=== PATIENT | male | born 1955 | race Caucasian/White ===

== ENCOUNTER → 2017-01-21 | Outpatient (CLI) | payer MEDICARE | LOC: MW.CHFP 08:00 | PROVIDERS: ATTEND Student in an Organized Health Care Education/Training Program | DX: H61.23 Impacted cerumen, bilateral (principal) | CPT/HCPCS: 69209; G0463 ==

== ENCOUNTER 2019-06-12 11:32 | Emergency (ER) | payer MEDICARE ==
[2019-06-12] MEDS ORDERED: Sodium Chloride 0.9% 2.5 ML Syringe FLUSH PRN (11:57)
[2019-06-12] MEDS ORDERED: Sodium Chloride 0.9% 10 ML Syringe FLUSH PRN (11:57)
--- NOTE | 2019-06-12 12:02 | EDM.PDOC ---
ED HPI GENERAL MEDICAL PROBLEM - General Chief Complaint: Respiratory Problem Stated Complaint: COUGH FOR 7 DAYS Time Seen by Provider: 06/12/19 11:37 Source of Information: Reports: Patient History Limitations: Reports: No Limitations - History of Present Illness INITIAL COMMENTS - FREE TEXT/NARRATIVE: HISTORY AND PHYSICAL: History of present illness: Patient is a 63-year-old male who presents to the emergency room with his daughter with concerns of cough 1 week. He states that he is having episodes where he coughs "so hard" that he has noticed blood due to the irritation. He denies any previous history of lung diseases. Patient denies any fever, chills, headache, change in vision, syncope or near syncope. Denies any chest pain, back pain, shortness of breath. Denies any abdominal pain, nausea, vomiting, diarrhea, constipation or dysuria. Has not noted any blood in urine or stool. Patient has been eating and drinking appropriately. Review of systems: As per history of present illness and below otherwise all systems reviewed and negative. Past medical history: As per history of present illness and as reviewed below otherwise noncontributory. Surgical history: As per history of present illness and as reviewed below otherwise noncontributory. Social history: See social history for further information Family history: As per history of present illness and as reviewed below otherwise noncontributory. Physical exam: General: Well-developed and well-nourished 63-year-old male. Alert and oriented. Daughter is at bedside and is a caregiver of the patient. Can no acute distress. HEENT: Atraumatic, normocephalic, pupils equal and reactive bilaterally, negative for conjunctival pallor or scleral icterus, mucous membranes moist, TMs normal bilaterally, throat clear, neck supple, nontender, trachea midline. No drooling or trismus noted. No meningeal signs. No hot potato voice noted. Lungs: Right anterior/posterior exp wheezing, breath sounds equal bilaterally, chest nontender. Dry nonproductive cough is noted. Heart: S1S2, regular rate and rhythm without overt murmur Abdomen: Soft, nondistended, nontender. Negative for masses or hepatosplenomegaly. Negative for costovertebral tenderness.. Skin: Intact, warm, dry. No lesions or rashes noted. Extremities: Atraumatic, moves all extremities per self without difficulty or deficits, negative for cords or calf pain. Neurovascular unremarkable. Neuro: Awake, alert, oriented. Cranial nerves II through XII unremarkable. Cerebellum unremarkable. Motor and sensory unremarkable throughout. Exam nonfocal. Notes: Lab work is unremarkable chest x-ray shows no acute findings. EKG shows a normal sinus rhythm with a rate of 73. I will treat the patient with Z-Nino and pro-air inhaler. Supportive care measures were reviewed and discussed. Voices understanding and is agreeable to plan of care. Denies any further questions or concerns at this time. Diagnostics: CBC, CMP, EKG, CXR Therapeutics: Louise Villar Prescription: Zpak Pro Air inhaler Impression: Acute bronchitis Plan: 1. Take the medications as directed 2. Use the inhaler as needed every 4 hours. 3. Follow up with primary care provider as we discussed. Return to the ED as needed as discussed. Definitive disposition and diagnosis as appropriate pending reevaluation and review of above. - Related Data Allergies Allergy/AdvReac Type Severity Reaction Status Date / Time Corticosteroids Allergy Swelling Verified 01/24/14 08:39 (Glucocorticoids) cortisone Allergy Cannot Verified 06/12/19 11:55 Remember Home Meds: Home Meds Benztropine [Cog[facility]] 0.5 tab [facility] 01/24/14 [History] Haloperidol [Haldol] 5 mg PO BID 01/24/14 [History] Lisinopril/Hydrochlorothiazide [Lisinopril-Hctz 20-12.5 mg Tab] 0.5 tab [facility] 01/24/14 [History] Propranolol HCl [Propranolol HCl ER] 60 mg [facility] 01/24/14 [History] Celecoxib [CeleBREX] 200 mg PO DAILY #30 cap 01/28/14 [Rx] Rivaroxaban [Xarelto] 10 mg PO DAILY #11 tablet 01/28/14 [Rx] Past Medical History Cardiovascular History: Reports: Hypertension Psychiatric History: Reports: Anxiety, Dementia, Schizophrenia - Infectious Disease History Infectious Disease History: Reports: Chicken Pox - Past Surgical History GI Surgical History: Reports: Appendectomy Social & Family History - Family History Family Medical History: Noncontributory - Tobacco Use Smoking Status *Q: Never Smoker - Caffeine Use Caffeine Use: Reports: None - Recreational Drug Use Recreational Drug Use: No ED ROS GENERAL - Review of Systems Review Of Systems: ROS reveals no pertinent complaints other than HPI. ED EXAM, GENERAL - Physical Exam Exam: See Below (See dictation) Course - Vital Signs Last Recorded V/S: Last Vital Signs Temp 96.3 F 06/12/19 11:56 Pulse 80 06/12/19 11:56 Resp 18 06/12/19 11:56 BP 134/81 06/12/19 11:56 Pulse Ox 94 L 06/12/19 11:56 - Orders/Labs/Meds Orders: Active Orders 24 hr Category Date Time Status EKG Documentation Completion [RC] STAT Care 06/12/19 12:02 Active RT Aerosol Therapy [RC] ASDIRECTED Care 06/12/19 12:10 Active Sodium Chloride 0.9% [Saline Flush] Med 06/12/19 11:57 Active 10 ml FLUSH ASDIRECTED PRN Sodium Chloride 0.9% [Saline Flush] Med 06/12/19 11:57 Active 2.5 ml FLUSH ASDIRECTED PRN Saline Lock Insert [OM.PC] Stat Oth 06/12/19 11:57 Ordered Medication Orders Sodium Chloride (Saline Flush) 10 ml FLUSH ASDIRECTED PRN PRN Reason: Keep Vein Open Sodium Chloride (Saline Flush) 2.5 ml FLUSH ASDIRECTED PRN PRN Reason: Keep Vein Open Labs: Laboratory Tests 06/12/19 06/12/19 Range/Units 12:05 12:05 WBC 8.14 (4.0-11.0) K/uL RBC 4.84 (4.50-5.90) M/uL Hgb 14.8 (13.0-17.0) g/dL Hct 43.7 (38.0-50.0) % MCV 90.3 (80.0-98.0) fL MCH 30.6 (27.0-32.0) pg MCHC 33.9 (31.0-37.0) g/dL RDW Std Deviation 42.2 (28.0-62.0) fl RDW Coeff of Dorothea 13 (11.0-15.0) % Plt Count 174 (150-400) K/uL MPV 8.90 (7.40-12.00) fL Neut % (Auto) 77.1 (48.0-80.0) % Lymph % (Auto) 15.0 L (16.0-40.0) % Mercer % (Auto) 4.2 (0.0-15.0) % Eos % (Auto) 3.3 (0.0-7.0) % Baso % (Auto) 0.4 (0.0-1.5) % Neut # (Auto) 6.3 H (1.4-5.7) K/uL Lymph # (Auto) 1.2 (0.6-2.4) K/uL Mercer # (Auto) 0.3 (0.0-0.8) K/uL Eos # (Auto) 0.3 (0.0-0.7) K/uL Baso # (Auto) 0.0 (0.0-0.1) K/uL Nucleated RBC % 0.0 /100WBC Nucleated RBCs # 0 K/uL Sodium 138 (136-148) mmol/L Potassium 3.8 (3.5-5.1) mmol/L Chloride 101 (98-107) mmol/L Carbon Dioxide 26.8 (21.0-32.0) mmol/L BUN 15 (7.0-18.0) mg/dL Creatinine 1.2 (0.8-1.3) mg/dL Est Cr Clr Drug Dosing 57.38 mL/min Estimated GFR (MDRD) > 60.0 ml/min Glucose 169 H (74-106) mg/dL Calcium 8.7 (8.5-10.1) mg/dL Total Bilirubin 0.6 (0.2-1.0) mg/dL AST 9 L (15-37) IU/L ALT 14 (14-63) IU/L Alkaline Phosphatase 89 (46-116) U/L Total Protein 7.1 (6.4-8.2) g/dL Albumin 3.3 L (3.4-5.0) g/dL Globulin 3.8 (2.6-4.0) g/dL Albumin/Globulin Ratio 0.9 (0.9-1.6) Meds: Medications Generic Name Dose Route Start Last Admin Trade Name Freq PRN Reason Stop Dose Admin Sodium Chloride 10 ml 06/12/19 11:57 Saline Flush FLUSH ASDIRECTED PRN Keep Vein Open Sodium Chloride 2.5 ml 06/12/19 11:57 Saline Flush FLUSH ASDIRECTED PRN Keep Vein Open Discontinued Medications Generic Name Dose Route Start Last Admin Trade Name Freq PRN Reason Stop Dose Admin Albuterol/Ipratropium 3 ml 06/12/19 12:10 06/12/19 12:22 Duoneb 3.0-0.5 Mg/3 Ml NEB 06/12/19 12:11 3 ml ONETIME ONE Administration Departure - Departure Time of Disposition: 13:19 Disposition: Home, Self-Care 01 Clinical Impression: Acute bronchitis Qualifiers: Bronchitis organism: unspecified organism Qualified Code(s): J20.9 - Acute bronchitis, unspecified - Discharge Information Instructions: Acute Bronchitis, Adult, [id number] Referrals: PCP,Unknown [Primary Care Provider] - Forms: ED Department Discharge Additional Instructions: The following information is given to patients seen in the emergency department who are being discharged to home. This information is to outline your options for follow-up care. We provide all patients seen in our emergency department with a follow-up referral. The need for follow-up, as well as the timing and circumstances, are variable depending upon the specifics of your emergency department visit. If you don't have a primary care physician on staff, we will provide you with a referral. We always advise you to contact your personal physician following an emergency department visit to inform them of the circumstance of the visit and for follow-up with them and/or the need for any referrals to a consulting specialist. The emergency department will also refer you to a specialist when appropriate. This referral assures that you have the opportunity for follow-up care with a specialist. All of these measure are taken in an effort to provide you with optimal care, which includes your follow-up. Under all circumstances we always encourage you to contact your private physician who remains a resource for coordinating your care. When calling for follow-up care, please make the office aware that this follow-up is from your recent emergency room visit. If for any reason you are refused follow-up, please contact the [facility] Emergency Department at and asked to speak to the emergency department charge nurse. [facility] [address] [place] [id number] [place] [address] 1. Take the medications as directed 2. Use the inhaler as needed every 4 hours. 3. Follow up with primary care provider as we discussed. Return to the ED as needed as discussed. - My Orders Last 24 Hours: My Active Orders 06/12/19 11:57 Sodium Chloride 0.9% [Saline Flush] 10 ml FLUSH ASDIRECTED PRN Sodium Chloride 0.9% [Saline Flush] 2.5 ml FLUSH ASDIRECTED PRN Saline Lock Insert [OM.PC] Stat 06/12/19 12:02 EKG Documentation Completion [RC] STAT 06/12/19 12:10 RT Aerosol Therapy [RC] ASDIRECTED - Assessment/Plan Last 24 Hours: My Active Orders 06/12/19 11:57 Sodium Chloride 0.9% [Saline Flush] 10 ml FLUSH ASDIRECTED PRN Sodium Chloride 0.9% [Saline Flush] 2.5 ml FLUSH ASDIRECTED PRN Saline Lock Insert [OM.PC] Stat 06/12/19 12:02 EKG Documentation Completion [RC] STAT 06/12/19 12:10 RT Aerosol Therapy [RC] ASDIRECTED
[2019-06-12] MEDS ORDERED: Albuterol/Ipratropium 3.0-0.5 MG/3 ML Neb Soln NEB ONE (12:10)
[2019-06-12 12:38] LABS: BLOOD UREA NITROGEN,BUN 15 mg/dL (7.0-18.0); CARBON DIOXIDE,CO2 26.8 mmol/L (21.0-32.0); CHLORIDE,CL 101 mmol/L (98-107); GLUCOSE RANDOM 169 mg/dL (74-106); POTASSIUM,K 3.8 mmol/L (3.5-5.1); SODIUM,NA 138 mmol/L (136-148)
--- NOTE | 2019-06-12 13:18 | CR ---
Clinical INDICATION: Shortness of breath. COMPARISON: 01/12/2014. FINDINGS: The heart is normal in size. There is unfolding of the thoracic aorta. The lungs are clear. The pulmonary vasculature and pleural surfaces are unremarkable. There is thin ossification of the anterior longitudinal ligament of the thoracic spine. IMPRESSION: No acute process identified. Dictated by Deonte Ruth MD @ Jun 12 2019 1:10PM Signed by Dr. Deonte Ruth @ Jun 12 2019 1:17PM
== END 2019-06-12 13:45 | disposition home or self-care (01) ==
LOC: MW.ED 11:32
DX: J20.9 Acute bronchitis, unspecified (principal); I10 Essential (primary) hypertension; F20.9 Schizophrenia, unspecified; F41.9 Anxiety disorder, unspecified; Z88.8 Allergy status to other drugs, medicaments and biological substances; Z79.899 Other long term (current) drug therapy
CPT/HCPCS: 36415; 71046; 71046-26; 80053; 85025; 93005; 94640; 99284-25; J7620-GY

== ENCOUNTER 2020-06-26 12:17 | Observation (INO) | payer MEDICARE, OTHER ==
[2020-06-26] MEDS ORDERED: Lactated Ringers 1,000 ML IV SCH ×2 (12:45→14:30)
--- NOTE | 2020-06-26 12:49 | EDM.PDOC ---
ED HPI GENERAL MEDICAL PROBLEM - General Chief Complaint: General Stated Complaint: MEMORY LOSE Time Seen by Provider: 06/26/20 12:22 Source of Information: Reports: Patient History Limitations: Reports: No Limitations - History of Present Illness INITIAL COMMENTS - FREE TEXT/NARRATIVE: HISTORY AND PHYSICAL: History of present illness: Patient is a 64-year-old male who presents to the emergency room with complaints of multiple falls and increased dementia. Approximately 3 or 4 weeks ago the daughter who is his caregiver had the patient move in with her full-time as he was not able to take care of himself. She states the first week of him being there he was appropriate and was able to take care of himself. The patient actually had his Haldol decreased by [facility], as they were attempting to take him off of this medication. Shortly after that he started having visual and auditory hallucinations. [place] increased his dose back to his "normal dosing", has been on his routine dose for approximately 1 week. The daughter states she has noticed a change in the patient's face, stating he is not as expressive as he usually is although she has not noticed any weakness or slurred speech. With the changes in his mental health and decreasing him being able to take care of himself she did have him see the doctor last week "for his heart to get checked out". States everything was normal with the exception of finding arthritis in his hip. He was not placed on any new medications. Over the past few days he has been unsteady on his feet and requiring assistance to ambulate. Last evening he fell in the shower twice. The first time he was able to get up on his own. The daughter and her assisted him in the shower the second time and had to assist him to the ground, although she feels he did strike his head. Today he fell trying to get out of bed. The daughter states he needed assistance wiping to use the bathroom, "he is never needed my help before". The daughter is very tearful and states that she is concerned that she is not able to take care of him by herself as she has children at home who are requiring home school and she is also taking care of another family member in the household. Patient denies any fever, chills, headache, change in vision, syncope or near syncope. Denies any chest pain, back pain, shortness of breath or cough. Denies any abdominal pain, nausea, vomiting, diarrhea, constipation or dysuria. Has not noted any blood in urine or stool. Patient has been eating and drinking appropriately. Past medical history of hypertension, dementia and schizophrenia. Review of systems: As per history of present illness and below otherwise all systems reviewed and negative. Past medical history: As per history of present illness and as reviewed below otherwise noncontributory. Surgical history: As per history of present illness and as reviewed below otherwise noncontributory. Social history: See social history for further information Family history: As per history of present illness and as reviewed below otherwise noncontributory. Physical exam: General: Chronically ill appearing 64-year-old male. Alert and orientated x 3. Flat affect, nontoxic in appearance and in no acute distress. Vital signs have been reviewed by me. Nursing notes were reviewed. Accompanied by daughter who i s also his caregiver. HEENT: Nontender, normocephalic, pupils equal and reactive bilaterally, negative for conjunctival pallor or scleral icterus, mucous membranes moist, TMs normal bilaterally, throat clear, neck supple, nontender, trachea midline. No drooling or trismus noted. No meningeal signs. No hot potato voice noted. Lungs: Clear to auscultation, breath sounds equal bilaterally, chest nontender. Normal work of breathing, no accessory muscles used. Heart: S1S2, regular rate and rhythm without overt murmur Abdomen: Soft, nondistended, nontender. Negative for masses or hepatosplenomegaly. Negative for costovertebral tenderness. C-spine/Back: No pinpoint vertebral tenderness upon palpation. No crepitus, step-offs or obvious deformities. Patient is ambulatory into the emergency room without difficulty or deficit. Able to lift toes upward and push downward with lower extremities bilaterally with equal strong force. Denies any urinary or fecal incontinence. Denies any numbness, tingling or saddle paresthesia. No concerns of serious infection, fracture or cord compression, or cauda equina syndrome. Skin: Intact, warm, dry. No lesions or rashes noted. Hematologic: No petechiae or purpra. Mucosa appropriate color and normal nail bed color and refill. Extremities: Moves all extremities per self without difficulty or deficits, negative for cords or calf pain. Neurovascular unremarkable. Neuro: Awake, alert, oriented. Cranial nerves II through XII unremarkable. Cerebellum unremarkable. Motor and sensory unremarkable throughout. Exam nonfocal. Psychiatric: Mood and affect are appropriate. Normal thought process. Answering questions appropriately. Notes: Gibson Florian, director social, here to talk with patient/family about placement options. I have spoken with the patient/caregiver and discussed today's findings, in addition to providing specific details for plan of care. Patient remains hypo- tensive, when nursing staff was performing orthostatic vital signs he became unsteady on his feet and states he felt weak. Dr. Mcqueen, hospitalist on-call, was made aware of this patient and she is agreeable to keeping him for further care and management. Patient and daughter are aware and agreeable to admission. Diagnostics: CBC, CMP, Troponin, EKG, CXR, Pelvis, CT head, INR, TSH, UA, Drug Screen Therapeutics: LR @ 125mls/hr Impression: Hypotension Leukocytosis Frequent Falls Self care deficits Plan: Observation with telemetry Definitive disposition and diagnosis as appropriate pending reevaluation and review of above. - Related Data Allergies Allergy/AdvReac Type Severity Reaction Status Date / Time Corticosteroids Allergy Swelling Verified 06/26/20 12:31 (Glucocorticoids) cortisone Allergy Cannot Verified 06/26/20 12:31 Remember Home Meds: Home Meds Benztropine [Cogentin] 0.5 tab PO [facility] 01/24/14 [History] Lisinopril/Hydrochlorothiazide [Lisinopril-Hctz 20-12.5 mg Tab] [address] [facility] 01/24/14 [History] Propranolol HCl [Propranolol HCl ER] [address] [facility] 01/24/14 [History] haloperidoL [Haldol] 5 mg PO BID 01/24/14 [History] Celecoxib [CeleBREX] 200 mg PO DAILY #30 cap 01/28/14 [Rx] Rivaroxaban [Xarelto] 10 mg PO DAILY #11 tablet 01/28/14 [Rx] Past Medical History Cardiovascular History: Reports: Hypertension Psychiatric History: Reports: Anxiety, Dementia, Schizophrenia - Infectious Disease History Infectious Disease History: Reports: Chicken Pox - Past Surgical History GI Surgical History: Reports: Appendectomy Social & Family History - Family History Family Medical History: Noncontributory - Caffeine Use Caffeine Use: Reports: None ED ROS GENERAL - Review of Systems Review Of Systems: Comprehensive ROS is negative, except as noted in HPI. ED EXAM, GENERAL - Physical Exam Exam: See Below (See dictation) Course - Vital Signs Last Recorded V/S: Last Vital Signs Temp 96.2 F L 06/26/20 12:27 Pulse 87 06/26/20 12:27 Resp 16 06/26/20 12:27 BP 89/53 L 06/26/20 15:10 Pulse Ox 96 06/26/20 12:27 Orthostatic Blood Pressure [ 89/50 Standing] Orthostatic Blood Pressure [ 82/49 Sitting] Orthostatic Blood Pressure [ 96/51 Supine] - Orders/Labs/Meds Orders: Active Orders 24 hr Category Date Time Status Admission Status [Patient Status] [ADT] Stat ADT 06/26/20 15:24 Active Cardiac Monitoring [RC] . DIRECTED Care 06/26/20 15:24 Active EKG Documentation Completion [RC] STAT Care 06/26/20 12:34 Active NIH Stroke Scale [RC] ASDIRECTED Care 06/26/20 12:56 Active Orthostatic Vital Signs [RC] ASDIRECTED Care 06/26/20 14:49 Active CORONAVIRUS COVID-19 SUSAN [MOLEC] Stat Lab 06/26/20 15:10 Received Lactated Ringers [Ringers, Lactated] 1,000 ml Med 06/26/20 12:45 Active IV ASDIRECTED Lactated Ringers [Ringers, Lactated] 1,000 ml Med 06/26/20 14:30 Active IV ASDIRECTED Medication Orders Lactated Ringer's (Ringers, Lactated) 1,000 mls @ 999 mls/hr IV ASDIRECTED ARI Last Admin: 06/26/20 12:43 Dose: 125 mls/hr Documented by: VINICIUS Lactated Ringer's (Ringers, Lactated) 1,000 mls @ 999 mls/hr IV ASDIRECTED [facility] Labs: Laboratory Tests 06/26/20 06/26/20 06/26/20 Range/Units 12:40 12:40 12:40 WBC 16.96 H (4.0-11.0) K/uL RBC 3.93 L (4.50-5.90) M/uL Hgb 10.8 L (13.0-17.0) g/dL Hct 34.6 L (38.0-50.0) % MCV 88.0 (80.0-98.0) fL MCH 27.5 (27.0-32.0) pg MCHC 31.2 (31.0-37.0) g/dL RDW Std Deviation 46.1 (28.0-62.0) fl RDW Coeff of Dorothea 14 (11.0-15.0) % Plt Count 415 H (150-400) K/uL MPV 8.20 (7.40-12.00) fL Neut % (Auto) 79.6 (48.0-80.0) % Lymph % (Auto) 10.8 L (16.0-40.0) % Mccormick % (Auto) 8.5 (0.0-15.0) % Eos % (Auto) 0.9 (0.0-7.0) % Baso % (Auto) 0.2 (0.0-1.5) % Neut # (Auto) 13.5 H (1.4-5.7) K/uL Lymph # (Auto) 1.8 (0.6-2.4) K/uL Mccormick # (Auto) 1.5 H (0.0-0.8) K/uL Eos # (Auto) 0.2 (0.0-0.7) K/uL Baso # (Auto) 0.0 (0.0-0.1) K/uL Nucleated RBC % 0.0 /100WBC Nucleated RBCs # 0 K/uL INR 1.16 Lactate (0.20-2.00) mmol/L Sodium 136 (136-148) mmol/L Potassium 4.2 (3.5-5.1) mmol/L Chloride 99 (98-107) mmol/L Carbon Dioxide 27.9 (21.0-32.0) mmol/L BUN 15 (7.0-18.0) mg/dL Creatinine 1.2 (0.8-1.3) mg/dL Est Cr Clr Drug Dosing 56.61 mL/min Estimated GFR (MDRD) > 60.0 ml/min Glucose 133 H (74-106) mg/dL Calcium 8.9 (8.5-10.1) mg/dL Total Bilirubin 0.5 (0.2-1.0) mg/dL AST 26 (15-37) IU/L ALT 31 (14-63) IU/L Alkaline Phosphatase 105 (46-116) U/L Troponin I < 0.050 (0.000-0.056) ng/mL Total Protein 7.5 (6.4-8.2) g/dL Albumin 1.8 L (3.4-5.0) g/dL Globulin 5.7 H (2.6-4.0) g/dL Albumin/Globulin Ratio 0.3 L (0.9-1.6) TSH 3rd Generation 0.91 (0.36-3.74) uIU/mL Urine Color Urine Appearance Urine pH (5.0-8.0) Ur Specific Moroni (1.001-1.035) Urine Protein (NEGATIVE) mg/dL Urine Glucose (UA) (NEGATIVE) mg/dL Urine Ketones (NEGATIVE) mg/dL Urine Occult Blood (NEGATIVE) Urine Nitrite (NEGATIVE) Urine Bilirubin (NEGATIVE) Urine Urobilinogen (<2.0) EU/dL Ur Leukocyte Esterase (NEGATIVE) Urine Opiates Screen (NEGATIVE) Ur Oxycodone Screen (NEGATIVE) Urine Methadone Screen (NEGATIVE) Ur Barbiturates Screen (NEGATIVE) Ur Phencyclidine Scrn (NEGATIVE) Ur Amphetamine Screen (NEGATIVE) U Methamphetamines Scrn (NEGATIVE) U Benzodiazepines Scrn (NEGATIVE) U Cocaine Metab Screen (NEGATIVE) U Marijuana (THC) Screen (NEGATIVE) Ethyl Alcohol mg/dL 06/26/20 06/26/20 06/26/20 Range/Units 12:40 14:17 14:17 WBC (4.0-11.0) K/uL RBC (4.50-5.90) M/uL Hgb (13.0-17.0) g/dL Hct (38.0-50.0) % MCV (80.0-98.0) fL MCH (27.0-32.0) pg MCHC (31.0-37.0) g/dL RDW Std Deviation (28.0-62.0) fl RDW Coeff of Dorothea (11.0-15.0) % Plt Count (150-400) K/uL MPV (7.40-12.00) fL Neut % (Auto) (48.0-80.0) % Lymph % (Auto) (16.0-40.0) % Mccormick % (Auto) (0.0-15.0) % Eos % (Auto) (0.0-7.0) % Baso % (Auto) (0.0-1.5) % Neut # (Auto) (1.4-5.7) K/uL Lymph # (Auto) (0.6-2.4) K/uL Mccormick # (Auto) (0.0-0.8) K/uL Eos # (Auto) (0.0-0.7) K/uL Baso # (Auto) (0.0-0.1) K/uL Nucleated RBC % /100WBC Nucleated RBCs # K/uL INR Lactate (0.20-2.00) mmol/L Sodium (136-148) mmol/L Potassium (3.5-5.1) mmol/L Chloride (98-107) mmol/L Carbon Dioxide (21.0-32.0) mmol/L BUN (7.0-18.0) mg/dL Creatinine (0.8-1.3) mg/dL Est Cr Clr Drug Dosing mL/min Estimated GFR (MDRD) ml/min Glucose (74-106) mg/dL Calcium (8.5-10.1) mg/dL Total Bilirubin (0.2-1.0) mg/dL AST (15-37) IU/L ALT (14-63) IU/L Alkaline Phosphatase (46-116) U/L Troponin I (0.000-0.056) ng/mL Total Protein (6.4-8.2) g/dL Albumin (3.4-5.0) g/dL Globulin (2.6-4.0) g/dL Albumin/Globulin Ratio (0.9-1.6) TSH 3rd Generation (0.36-3.74) uIU/mL Urine Color ORANGE Urine Appearance CLEAR Urine pH 6.0 (5.0-8.0) Ur Specific Moroni 1.025 (1.001-1.035) Urine Protein NEGATIVE (NEGATIVE) mg/dL Urine Glucose (UA) NEGATIVE (NEGATIVE) mg/dL Urine Ketones NEGATIVE (NEGATIVE) mg/dL Urine Occult Blood NEGATIVE (NEGATIVE) Urine Nitrite NEGATIVE (NEGATIVE) Urine Bilirubin NEGATIVE (NEGATIVE) Urine Urobilinogen 4.0 H (<2.0) EU/dL Ur Leukocyte Esterase NEGATIVE (NEGATIVE) Urine Opiates Screen NEGATIVE (NEGATIVE) Ur Oxycodone Screen NEGATIVE (NEGATIVE) Urine Methadone Screen NEGATIVE (NEGATIVE) Ur Barbiturates Screen NEGATIVE (NEGATIVE) Ur Phencyclidine Scrn NEGATIVE (NEGATIVE) Ur Amphetamine Screen NEGATIVE (NEGATIVE) U Methamphetamines Scrn NEGATIVE (NEGATIVE) U Benzodiazepines Scrn NEGATIVE (NEGATIVE) U Cocaine Metab Screen NEGATIVE (NEGATIVE) U Marijuana (THC) Screen NEGATIVE (NEGATIVE) Ethyl Alcohol <3 mg/dL 06/26/20 Range/Units 14:39 WBC (4.0-11.0) K/uL RBC (4.50-5.90) M/uL Hgb (13.0-17.0) g/dL Hct (38.0-50.0) % MCV (80.0-98.0) fL MCH (27.0-32.0) pg MCHC (31.0-37.0) g/dL RDW Std Deviation (28.0-62.0) fl RDW Coeff of Dorothea (11.0-15.0) % Plt Count (150-400) K/uL MPV (7.40-12.00) fL Neut % (Auto) (48.0-80.0) % Lymph % (Auto) (16.0-40.0) % Mccormick % (Auto) (0.0-15.0) % Eos % (Auto) (0.0-7.0) % Baso % (Auto) (0.0-1.5) % Neut # (Auto) (1.4-5.7) K/uL Lymph # (Auto) (0.6-2.4) K/uL Mccormick # (Auto) (0.0-0.8) K/uL Eos # (Auto) (0.0-0.7) K/uL Baso # (Auto) (0.0-0.1) K/uL Nucleated RBC % /100WBC Nucleated RBCs # K/uL INR Lactate 1.2 (0.20-2.00) mmol/L Sodium (136-148) mmol/L Potassium (3.5-5.1) mmol/L Chloride (98-107) mmol/L Carbon Dioxide (21.0-32.0) mmol/L BUN (7.0-18.0) mg/dL Creatinine (0.8-1.3) mg/dL Est Cr Clr Drug Dosing mL/min Estimated GFR (MDRD) ml/min Glucose (74-106) mg/dL Calcium (8.5-10.1) mg/dL Total Bilirubin (0.2-1.0) mg/dL AST (15-37) IU/L ALT (14-63) IU/L Alkaline Phosphatase (46-116) U/L Troponin I (0.000-0.056) ng/mL Total Protein (6.4-8.2) g/dL Albumin (3.4-5.0) g/dL Globulin (2.6-4.0) g/dL Albumin/Globulin Ratio (0.9-1.6) TSH 3rd Generation (0.36-3.74) uIU/mL Urine Color Urine Appearance Urine pH (5.0-8.0) Ur Specific Moroni (1.001-1.035) Urine Protein (NEGATIVE) mg/dL Urine Glucose (UA) (NEGATIVE) mg/dL Urine Ketones (NEGATIVE) mg/dL Urine Occult Blood (NEGATIVE) Urine Nitrite (NEGATIVE) Urine Bilirubin (NEGATIVE) Urine Urobilinogen (<2.0) EU/dL Ur Leukocyte Esterase (NEGATIVE) Urine Opiates Screen (NEGATIVE) Ur Oxycodone Screen (NEGATIVE) Urine Methadone Screen (NEGATIVE) Ur Barbiturates Screen (NEGATIVE) Ur Phencyclidine Scrn (NEGATIVE) Ur Amphetamine Screen (NEGATIVE) U Methamphetamines Scrn (NEGATIVE) U Benzodiazepines Scrn (NEGATIVE) U Cocaine Metab Screen (NEGATIVE) U Marijuana (THC) Screen (NEGATIVE) Ethyl Alcohol mg/dL Meds: Medications Generic Name Dose Route Start Last Admin Trade Name Derik PRN Reason Stop Dose Admin Lactated Ringer's 1,000 mls @ 999 mls/hr 06/26/20 12:45 06/26/20 12:43 Ringers, Lactated IV 125 mls/hr ASDIRECTED ARI Administration Lactated Ringer's 1,000 mls @ 999 mls/hr 06/26/20 14:30 Ringers, Lactated IV ASDIRECTED ARI Departure - Departure Time of Disposition: 15:41 Disposition: Refer to Observation Clinical Impression: Frequent falls, Total self-care deficit Hypotension Qualifiers: Hypotension type: unspecified hypotension type Qualified Code(s): I95.9 - Hypotension, unspecified Leukocytosis Qualifiers: Leukocytosis type: unspecified Qualified Code(s): D72.829 - Elevated white blood cell count, unspecified - Discharge Information Referrals: PCP,Unobtain [Primary Care Provider] - Forms: ED Department Discharge Sepsis Event Note (ED) - Evaluation Sepsis Screening Result: No Definite Risk - Focused Exam Vital Signs: Vital Signs Temp Pulse Resp BP Pulse Ox 06/26/20 15:10 89/53 L 06/26/20 14:40 80/53 L 06/26/20 14:22 91/53 L 06/26/20 12:27 96.2 F L 87 16 93/54 L 96 - My Orders Last 24 Hours: My Active Orders 06/26/20 12:34 EKG Documentation Completion [RC] STAT 06/26/20 12:45 Lactated Ringers [Ringers, Lactated] 1,000 ml IV ASDIRECTED 06/26/20 12:56 NIH Stroke Scale [RC] ASDIRECTED 06/26/20 14:30 Lactated Ringers [Ringers, Lactated] 1,000 ml IV ASDIRECTED 06/26/20 14:49 Orthostatic Vital Signs [RC] ASDIRECTED 06/26/20 15:10 CORONAVIRUS COVID-19 SUSAN [MOLEC] Stat 06/26/20 15:24 Admission Status [Patient Status] [ADT] Stat Cardiac Monitoring [RC] . DIRECTED - Assessment/Plan Last 24 Hours: My Active Orders 06/26/20 12:34 EKG Documentation Completion [RC] STAT 06/26/20 12:45 Lactated Ringers [Ringers, Lactated] 1,000 ml IV ASDIRECTED 06/26/20 12:56 NIH Stroke Scale [RC] ASDIRECTED 06/26/20 14:30 Lactated Ringers [Ringers, Lactated] 1,000 ml IV ASDIRECTED 06/26/20 14:49 Orthostatic Vital Signs [RC] ASDIRECTED 06/26/20 15:10 CORONAVIRUS COVID-19 SUSAN [MOLEC] Stat 06/26/20 15:24 Admission Status [Patient Status] [ADT] Stat Cardiac Monitoring [RC] . DIRECTED
--- NOTE | 2020-06-26 13:28 | CT ---
Head CT Technique: Multiple axial sections through the brain were obtained. Intravenous contrast was not utilized. Comparison: No prior intracranial imaging is available. Findings: Ventricles along the basal cisterns and sulci over convexities are moderately prominent. Asymmetric atrophy is noted within the frontal regions. No abnormal parenchymal densities are seen. No evidence of intracranial hemorrhage. No midline shift or mass-effect is seen. Bone window settings were reviewed. No acute calvarial finding is seen. Visualized paranasal sinuses and visualized mastoid sinuses show nothing acute. CSF density is noted within the left temporal fossa most likely representing a chronic arachnoid cyst measuring 4.5 cm. Impression: 1. Generalized atrophy asymmetrically worse within both frontal lobes. 2. Probable chronic arachnoid cyst within the left temporal fossa. 3. No acute intracranial abnormality is appreciated. Diagnostic code #2 This report was dictated in MDT
[2020-06-26 13:30] LABS: BLOOD UREA NITROGEN,BUN 15 mg/dL (7.0-18.0); CARBON DIOXIDE,CO2 27.9 mmol/L (21.0-32.0); CHLORIDE,CL 99 mmol/L (98-107); GLUCOSE RANDOM 133 mg/dL (74-106); POTASSIUM,K 4.2 mmol/L (3.5-5.1); SODIUM,NA 136 mmol/L (136-148)
--- NOTE | 2020-06-26 13:30 | CR ---
Pelvis: AP view of the pelvis was obtained. Comparison: Prior AP pelvis study of 06/15/13. Right hip prosthesis is noted. This is an interval change from prior exam. Joint space within the left hip is minimally narrowed. Bony structures are osteopenic. No acute fracture or other abnormality is appreciated. Impression: 1. Mild joint space narrowing within the superior left hip. 2. Right hip prosthesis. 3. Osteopenia. Diagnostic code #2 This report was dictated in MDT
--- NOTE | 2020-06-26 13:33 | CR ---
Chest: AP view of the chest was obtained. Comparison: Prior chest x-ray of 06/12/19. Heart size is normal. Tortuous thoracic aorta is seen. Slight density within the lateral left costophrenic angle is seen. Lungs otherwise are clear. No definite acute osseous finding is seen. Impression: 1. Slight density within the lateral left costophrenic angle most likely due to atelectasis. 2. Nothing acute is definitely appreciated on AP pelvis study. Diagnostic code #2 This report was dictated in MDT
[2020-06-26] MEDS ORDERED: Acetaminophen 325 MG Tab PO PRN (16:59)
[2020-06-26] MEDS ORDERED: Ondansetron 4 MG/2 ML SDV IVPUSH PRN (16:59)
--- NOTE | 2020-06-26 17:10 | PCM.HP.2 ---
H&P History of Present Illness - General Date of Service: 06/26/20 Admit Problem/Dx: Admission Diagnosis/Problem Admission Diagnosis/Problem Hypotension Source of Information: Family, Old Records History Limitations: Reports: Altered Mental Status - History of Present Illness Initial Comments - Free Text/Narative: This 64 year old male with pmh of HTN and schizophrenia presented to the ED today with his daughter, who has been caring for him at her home for the last month. Cash was unable to give history. He reports he has been falling at home because his legs are weak and wobbly. He denies chest pain or SOB. NO fevers or chills. He reports seeing and hearing things that are not there. I spoke with daughter for more accurate ROS and history. She reports that over t he last month she has seen a significant decline in her father's mental status. She reports they went to his normal mental health provider at [facility] and they decreased his Haldol in attempt to wean him off. This was unsuccessful as Ion then started having hallucinations. The dose was increased back to baseline dose 5 mg BID, but the hallucinations and memory concerns continued. His daughter also noticed he stopped eating and drinking much, she was having to remind him to eat and drink. She reports he has fallen at home due to weakness and unsteady gait. Her and her have been needing to provide mainly ADL cares. She denies them seeing a Neurologist in the past, reporting that this change is very sudden. Reports that her grandmother, his mom had very severe dementia which present with these same symptoms. She is feeling very helpless at home having to provide care for him. She is very unsure of medical history, as again he just recently had a significant decline. In the ED leukocytosis noted at 16,000. Hgb 10.8. No significant BRII noted. UA negative, U tox negative. CXR negative. Head CT revealed atrophy with asymmetrical changes to frontal lobe. No acute intracranial changes. Pelvic xray negative for acute fracture. He was given IVFs in the ED with some improvement in BP. He will be admitted for hypotension. - Related Data Allergies/Adverse Reactions: Allergies Allergy/AdvReac Type Severity Reaction Status Date / Time Corticosteroids Allergy Swelling Verified 06/26/20 18:55 (Glucocorticoids) cortisone Allergy Swelling Verified 06/26/20 18:55 Home Medications: Home Meds Lisinopril/Hydrochlorothiazide [Lisinopril-Hctz 20-12.5 mg Tab] 0.5 tab PO ACBRK 01/24/14 [History] Propranolol HCl [Propranolol HCl ER] 60 mg PO ACBRK 01/24/14 [History] haloperidoL [Haldol] 5 mg PO BID 01/24/14 [History] Cholecalciferol (Vitamin D3) [Vitamin D3] 5,000 unit PO DAILY 06/26/20 [History] FLUoxetine HCl [Fluoxetine HCl] 40 mg PO DAILY 06/26/20 [History] amantadine HCL [Amantadine] 100 mg PO BID 06/26/20 [History] traZODone HCl [Trazodone HCl] 150 mg PO BEDTIME 06/26/20 [History] Past Medical History Cardiovascular History: Reports: Hypertension Musculoskeletal History: Reports: Arthritis Psychiatric History: Reports: Anxiety, Dementia, Schizophrenia - Infectious Disease History Infectious Disease History: Reports: Chicken Pox - Past Surgical History GI Surgical History: Reports: Appendectomy Social & Family History - Family History Family Medical History: Noncontributory - Tobacco Use Smoking Status *Q: Never Smoker - Caffeine Use Caffeine Use: Reports: None - Recreational Drug Use Recreational Drug Use: No H&P Review of Systems - Review of Systems: Review Of Systems: Comprehensive ROS is negative, except as noted in HPI. Exam - Exam Exam: See Below - Vital Signs Vital Signs: Last Vital Signs Temp 96.2 F L 06/26/20 12:27 Pulse 87 06/26/20 12:27 Resp 16 06/26/20 12:27 BP 89/53 L 06/26/20 15:10 Pulse Ox 96 06/26/20 12:27 Orthostatic Blood Pressure [ 89/50 Standing] Orthostatic Blood Pressure [ 82/49 Sitting] Orthostatic Blood Pressure [ 96/51 Supine] Weight: 83.461 kg - Exam General: Alert, Cooperative. No: Oriented HEENT: Conjunctiva Clear. No: Mucosa Moist & [place] (dry) Lungs: Clear to Auscultation, Normal Respiratory Effort Cardiovascular: Regular Rate, Regular Rhythm Back Exam: Normal Inspection, Full Range of Motion Extremities: Normal Inspection, Normal Range of Motion, Non-Tender, No Pedal Edema Skin: Warm, Dry Neurological: Cranial Nerves Intact Neuro Extensive - Mental Status: Alert, Other (stares up at the ceiling, but able to engage in conversation. ). No: Oriented x3, Normal Cognition Psychiatric: Alert - Patient Data Lab Results Last 24 hrs: Laboratory Results - last 24 hr 06/26/20 06/26/20 06/26/20 Range/Units 12:40 12:40 12:40 WBC 16.96 H (4.0-11.0) K/uL RBC 3.93 L (4.50-5.90) M/uL Hgb 10.8 L (13.0-17.0) g/dL Hct 34.6 L (38.0-50.0) % MCV 88.0 (80.0-98.0) fL MCH 27.5 (27.0-32.0) pg MCHC 31.2 (31.0-37.0) g/dL RDW Std Deviation 46.1 (28.0-62.0) fl RDW Coeff of Dorothea 14 (11.0-15.0) % Plt Count 415 H (150-400) K/uL MPV 8.20 (7.40-12.00) fL Neut % (Auto) 79.6 (48.0-80.0) % Lymph % (Auto) 10.8 L (16.0-40.0) % [place] % (Auto) 8.5 (0.0-15.0) % Eos % (Auto) 0.9 (0.0-7.0) % Baso % (Auto) 0.2 (0.0-1.5) % Neut # (Auto) 13.5 H (1.4-5.7) K/uL Lymph # (Auto) 1.8 (0.6-2.4) K/uL [place] # (Auto) 1.5 H (0.0-0.8) K/uL Eos # (Auto) 0.2 (0.0-0.7) K/uL Baso # (Auto) 0.0 (0.0-0.1) K/uL Nucleated RBC % 0.0 /100WBC Nucleated RBCs # 0 K/uL INR 1.16 Lactate (0.20-2.00) mmol/L Sodium 136 (136-148) mmol/L Potassium 4.2 (3.5-5.1) mmol/L Chloride 99 (98-107) mmol/L Carbon Dioxide 27.9 (21.0-32.0) mmol/L BUN 15 (7.0-18.0) mg/dL Creatinine 1.2 (0.8-1.3) mg/dL Est Cr Clr Drug Dosing 56.61 mL/min Estimated GFR (MDRD) > 60.0 ml/min Glucose 133 H (74-106) mg/dL Calcium 8.9 (8.5-10.1) mg/dL Total Bilirubin 0.5 (0.2-1.0) mg/dL AST 26 (15-37) IU/L ALT 31 (14-63) IU/L Alkaline Phosphatase 105 (46-116) U/L Troponin I < 0.050 (0.000-0.056) ng/mL Total Protein 7.5 (6.4-8.2) g/dL Albumin 1.8 L (3.4-5.0) g/dL Globulin 5.7 H (2.6-4.0) g/dL Albumin/Globulin Ratio 0.3 L (0.9-1.6) TSH 3rd Generation 0.91 (0.36-3.74) uIU/mL Urine Color Urine Appearance Urine pH (5.0-8.0) Ur Specific [place] (1.001-1.035) Urine Protein (NEGATIVE) mg/dL Urine Glucose (UA) (NEGATIVE) mg/dL Urine Ketones (NEGATIVE) mg/dL Urine Occult Blood (NEGATIVE) Urine Nitrite (NEGATIVE) Urine Bilirubin (NEGATIVE) Urine Urobilinogen (<2.0) EU/dL Ur Leukocyte Esterase (NEGATIVE) Urine Opiates Screen (NEGATIVE) Ur Oxycodone Screen (NEGATIVE) Urine Methadone Screen (NEGATIVE) Ur Barbiturates Screen (NEGATIVE) Ur Phencyclidine Scrn (NEGATIVE) Ur Amphetamine Screen (NEGATIVE) U Methamphetamines Scrn (NEGATIVE) U Benzodiazepines Scrn (NEGATIVE) U Cocaine Metab Screen (NEGATIVE) U Marijuana (THC) Screen (NEGATIVE) Ethyl Alcohol mg/dL SARS-CoV-2 RNA (SUSAN) (NEGATIVE) 06/26/20 06/26/20 06/26/20 Range/Units 12:40 14:17 14:17 WBC (4.0-11.0) K/uL RBC (4.50-5.90) M/uL Hgb (13.0-17.0) g/dL Hct (38.0-50.0) % MCV (80.0-98.0) fL MCH (27.0-32.0) pg MCHC (31.0-37.0) g/dL RDW Std Deviation (28.0-62.0) fl RDW Coeff of Dorothea (11.0-15.0) % Plt Count (150-400) K/uL MPV (7.40-12.00) fL Neut % (Auto) (48.0-80.0) % Lymph % (Auto) (16.0-40.0) % [place] % (Auto) (0.0-15.0) % Eos % (Auto) (0.0-7.0) % Baso % (Auto) (0.0-1.5) % Neut # (Auto) (1.4-5.7) K/uL Lymph # (Auto) (0.6-2.4) K/uL [place] # (Auto) (0.0-0.8) K/uL Eos # (Auto) (0.0-0.7) K/uL Baso # (Auto) (0.0-0.1) K/uL Nucleated RBC % /100WBC Nucleated RBCs # K/uL INR Lactate (0.20-2.00) mmol/L Sodium (136-148) mmol/L Potassium (3.5-5.1) mmol/L Chloride (98-107) mmol/L Carbon Dioxide (21.0-32.0) mmol/L BUN (7.0-18.0) mg/dL Creatinine (0.8-1.3) mg/dL Est Cr Clr Drug Dosing mL/min Estimated GFR (MDRD) ml/min Glucose (74-106) mg/dL Calcium (8.5-10.1) mg/dL Total Bilirubin (0.2-1.0) mg/dL AST (15-37) IU/L ALT (14-63) IU/L Alkaline Phosphatase (46-116) U/L Troponin I (0.000-0.056) ng/mL Total Protein (6.4-8.2) g/dL Albumin (3.4-5.0) g/dL Globulin (2.6-4.0) g/dL Albumin/Globulin Ratio (0.9-1.6) TSH 3rd Generation (0.36-3.74) uIU/mL Urine Color ORANGE Urine Appearance CLEAR Urine pH 6.0 (5.0-8.0) Ur Specific [place] 1.025 (1.001-1.035) Urine Protein NEGATIVE (NEGATIVE) mg/dL Urine Glucose (UA) NEGATIVE (NEGATIVE) mg/dL Urine Ketones NEGATIVE (NEGATIVE) mg/dL Urine Occult Blood NEGATIVE (NEGATIVE) Urine Nitrite NEGATIVE (NEGATIVE) Urine Bilirubin NEGATIVE (NEGATIVE) Urine Urobilinogen 4.0 H (<2.0) EU/dL Ur Leukocyte Esterase NEGATIVE (NEGATIVE) Urine Opiates Screen NEGATIVE (NEGATIVE) Ur Oxycodone Screen NEGATIVE (NEGATIVE) Urine Methadone Screen NEGATIVE (NEGATIVE) Ur Barbiturates Screen NEGATIVE (NEGATIVE) Ur Phencyclidine Scrn NEGATIVE (NEGATIVE) Ur Amphetamine Screen NEGATIVE (NEGATIVE) U Methamphetamines Scrn NEGATIVE (NEGATIVE) U Benzodiazepines Scrn NEGATIVE (NEGATIVE) U Cocaine Metab Screen NEGATIVE (NEGATIVE) U Marijuana (THC) Screen NEGATIVE (NEGATIVE) Ethyl Alcohol <3 mg/dL SARS-CoV-2 RNA (SUSAN) (NEGATIVE) 06/26/20 06/26/20 Range/Units 14:39 15:10 WBC (4.0-11.0) K/uL RBC (4.50-5.90) M/uL Hgb (13.0-17.0) g/dL Hct (38.0-50.0) % MCV (80.0-98.0) fL MCH (27.0-32.0) pg MCHC (31.0-37.0) g/dL RDW Std Deviation (28.0-62.0) fl RDW Coeff of Dorothea (11.0-15.0) % Plt Count (150-400) K/uL MPV (7.40-12.00) fL Neut % (Auto) (48.0-80.0) % Lymph % (Auto) (16.0-40.0) % [place] % (Auto) (0.0-15.0) % Eos % (Auto) (0.0-7.0) % Baso % (Auto) (0.0-1.5) % Neut # (Auto) (1.4-5.7) K/uL Lymph # (Auto) (0.6-2.4) K/uL [place] # (Auto) (0.0-0.8) K/uL Eos # (Auto) (0.0-0.7) K/uL Baso # (Auto) (0.0-0.1) K/uL Nucleated RBC % /100WBC Nucleated RBCs # K/uL INR Lactate 1.2 (0.20-2.00) mmol/L Sodium (136-148) mmol/L Potassium (3.5-5.1) mmol/L Chloride (98-107) mmol/L Carbon Dioxide (21.0-32.0) mmol/L BUN (7.0-18.0) mg/dL Creatinine (0.8-1.3) mg/dL Est Cr Clr Drug Dosing mL/min Estimated GFR (MDRD) ml/min Glucose (74-106) mg/dL Calcium (8.5-10.1) mg/dL Total Bilirubin (0.2-1.0) mg/dL AST (15-37) IU/L ALT (14-63) IU/L Alkaline Phosphatase (46-116) U/L Troponin I (0.000-0.056) ng/mL Total Protein (6.4-8.2) g/dL Albumin (3.4-5.0) g/dL Globulin (2.6-4.0) g/dL Albumin/Globulin Ratio (0.9-1.6) TSH 3rd Generation (0.36-3.74) uIU/mL Urine Color Urine Appearance Urine pH (5.0-8.0) Ur Specific [place] (1.001-1.035) Urine Protein (NEGATIVE) mg/dL Urine Glucose (UA) (NEGATIVE) mg/dL Urine Ketones (NEGATIVE) mg/dL Urine Occult Blood (NEGATIVE) Urine Nitrite (NEGATIVE) Urine Bilirubin (NEGATIVE) Urine Urobilinogen (<2.0) EU/dL Ur Leukocyte Esterase (NEGATIVE) Urine Opiates Screen (NEGATIVE) Ur Oxycodone Screen (NEGATIVE) Urine Methadone Screen (NEGATIVE) Ur Barbiturates Screen (NEGATIVE) Ur Phencyclidine Scrn (NEGATIVE) Ur Amphetamine Screen (NEGATIVE) U Methamphetamines Scrn (NEGATIVE) U Benzodiazepines Scrn (NEGATIVE) U Cocaine Metab Screen (NEGATIVE) U Marijuana (THC) Screen (NEGATIVE) Ethyl Alcohol mg/dL SARS-CoV-2 RNA (SUSAN) NEGATIVE (NEGATIVE) Result Diagrams: 06/26/20 12:40 06/26/20 12:40 Sepsis Event Note - Evaluation Sepsis Screening Result: No Definite Risk - Focused Exam Vital Signs: Vital Signs Temp Pulse Resp BP Pulse Ox 06/26/20 15:10 89/53 L 06/26/20 14:40 80/53 L 06/26/20 14:22 91/53 L 06/26/20 12:27 96.2 F L 87 16 93/54 L 96 - Problem List (1) Frequent falls SNOMED Code(s): 733326649 ICD Code: R29.6 - REPEATED FALLS Status: Acute Current Visit: Yes (2) Hypotension SNOMED Code(s): 60457845 ICD Code: I95.9 - HYPOTENSION, UNSPECIFIED Status: Acute Current Visit: Yes Qualifiers: Hypotension type: unspecified hypotension type Qualified Code(s): I95.9 - Hypotension, unspecified (3) Leukocytosis SNOMED Code(s): 024326997, 358430201 ICD Code: D72.829 - ELEVATED WHITE BLOOD CELL COUNT, UNSPECIFIED Status: Acute Current Visit: Yes Qualifiers: Leukocytosis type: unspecified Qualified Code(s): D72.829 - Elevated white blood cell count, unspecified (4) Total self-care deficit SNOMED Code(s): 91864152 ICD Code: R68.89 - OTHER GENERAL SYMPTOMS AND SIGNS Status: Acute Current Visit: Yes (5) HTN (hypertension) SNOMED Code(s): 92311685 ICD Code: I10 - ESSENTIAL (PRIMARY) HYPERTENSION Status: Chronic Current Visit: Yes (6) Schizophrenia SNOMED Code(s): 33926732 ICD Code: F20.9 - SCHIZOPHRENIA, UNSPECIFIED Status: Chronic Current Visit: Yes Problem List Initiated/Reviewed/Updated: Yes Orders Last 24hrs: Active Orders 24 hr Category Date Time Status Admission Status [Patient Status] [ADT] Stat ADT 06/26/20 15:24 Active Cardiac Monitoring [RC] . DIRECTED Care 06/26/20 15:24 Active EKG Documentation Completion [RC] STAT Care 06/26/20 12:34 Active Intake and Output [RC] QSHIFT Care 06/26/20 16:59 Active NIH Stroke Scale [RC] ASDIRECTED Care 06/26/20 12:56 Active Orthostatic Vital Signs [RC] ASDIRECTED Care 06/26/20 14:49 Active Oxygen Therapy [RC] PRN Care 06/26/20 16:59 Active Telemetry Monitoring [Cardiac Monitoring] [RC] . Care 06/26/20 16:49 Active DIRECTED Up With Assistance [RC] ASDIRECTED Care 06/26/20 16:59 Active VTE/DVT Education [RC] PER UNIT ROUTINE Care 06/26/20 16:59 Active Vital Signs [RC] Q4H Care 06/26/20 16:59 Active Regular Diet [DIET] Diet 06/26/20 Dinner Active CBC WITH AUTO DIFF [HEME] AM Lab 06/27/20 05:11 Ordered COMPREHENSIVE METABOLIC PN,CMP [CHEM] AM Lab 06/27/20 05:11 Ordered MAGNESIUM [CHEM] AM Lab 06/27/20 05:11 Ordered PHOSPHORUS [CHEM] AM Lab 06/27/20 05:11 Ordered Acetaminophen [TylenoL] Med 06/26/20 16:59 Active 650 mg PO Q4H PRN Lactated Ringers [Ringers, Lactated] 1,000 ml Med 06/26/20 12:45 Active IV ASDIRECTED Lactated Ringers [Ringers, Lactated] 1,000 ml Med 06/26/20 14:30 Active IV ASDIRECTED Lactated Ringers [Ringers, Lactated] 1,000 ml Med 06/26/20 16:45 Active IV Q8H Ondansetron [Zofran] Med 06/26/20 16:59 Active 4 mg IVPUSH Q4H PRN Resuscitation Status Routine Resus Stat 06/26/20 16:59 Ordered Medication Orders Acetaminophen (Tylenol) 650 mg PO Q4H PRN PRN Reason: Pain (Mild 1-3)/fever Lactated Ringer's (Ringers, Lactated) 1,000 mls @ 999 mls/hr IV ASDIRECTED [facility] Last Admin: 06/26/20 12:43 Dose: 125 mls/hr Documented by: MURDNIC Lactated Ringer's (Ringers, Lactated) 1,000 mls @ 999 mls/hr IV ASDIRECTED [facility] Lactated Ringer's (Ringers, Lactated) 1,000 mls @ 125 mls/hr IV Q8H ARI Ondansetron HCl (Zofran) 4 mg IVPUSH Q4H PRN PRN Reason: Nausea Assessment/Plan Comment:: This 64 year old male admitted with hypotension 1. Hypotension - Hold all antihypertensives - Continue IVFs overnight - Monitor electrolyes 2. AMS/falls - Metabolic causes ruled out - Concerning for dementia, possible Lewy body - Reach out to Dr Munoz in am for possible consult - Check B 12 - infection not suspected with leukocytosis, recheck labs in am - Consult PT to evaluate and treat in am - Case management consulted in ED, provided daughter with resources 3. Schizophrenia - Continue Haldol 5 mg BID - Obtain med list. VTE prophylaxis: SCDs DIspo: 1-2 days Code Status: DNR/DNI, discussed at length with daughter as Cash is unable to provider direction.
[2020-06-26] MEDS: Lactated Ringers 1,000 ML IV SCH (19:24)
[2020-06-26] MEDS: Haloperidol 5 MG Tab PO SCH (20:56)
[2020-06-27] MEDS: Lactated Ringers 1,000 ML IV SCH (03:38)
[2020-06-27 07:18] LABS: BLOOD UREA NITROGEN,BUN 13 mg/dL (7.0-18.0); CARBON DIOXIDE,CO2 27.4 mmol/L (21.0-32.0); CHLORIDE,CL 100 mmol/L (98-107); GLUCOSE RANDOM 103 mg/dL (74-106); POTASSIUM,K 4.1 mmol/L (3.5-5.1); SODIUM,NA 135 mmol/L (136-148)
[2020-06-27] MEDS: Haloperidol 5 MG Tab PO SCH (08:29)
[2020-06-27] MEDS ORDERED: Magnesium Sulfate/Water 4 GM in Premix Bag 1 BAG IV ONE (09:43)
[2020-06-27] MEDS ORDERED: Cyanocobalamin (Vitamin B12) 1,000 MCG/ML SDV IM ONE (09:45)
--- NOTE | 2020-06-27 09:49 | PCM.PN ---
- General Info Date of Service: 06/27/20 Admission Dx/Problem (Free Text): Admission Diagnosis/Problem Admission Diagnosis/Problem Hypotension Subjective Update: Much more alert and talkative today. he is oriented x 3 with me. Sitting up in chair eating breakfast per self. Nursing reports ambulation was very tough and need max assist with 1 and walker to pivot to chair. No chest pain or SOB. Continues to have mild hallucinations, hearing voices. Functional Status: Reports: Pain Controlled, Tolerating Diet, Ambulating - Review of Systems General: Reports: No Symptoms. Denies: Weakness, Fatigue, Malaise Pulmonary: Reports: No Symptoms. Denies: Shortness of Breath Cardiovascular: Reports: No Symptoms. Denies: Chest Pain Gastrointestinal: Reports: No Symptoms. Denies: Abdominal Pain, Nausea, Vomiting Genitourinary: Reports: No Symptoms Musculoskeletal: Reports: No Symptoms Skin: Reports: No Symptoms Neurological: Reports: Difficulty Walking. Denies: Headache Psychiatric: Reports: Hallucinations - Patient Data Vitals - Most Recent: Last Vital Signs Temp 97.4 F 06/27/20 08:00 Pulse 85 06/27/20 08:00 Resp 18 06/27/20 08:00 BP 102/53 L 06/27/20 08:00 Pulse Ox 97 06/27/20 08:00 Orthostatic Blood Pressure [ 89/50 Standing] Orthostatic Blood Pressure [ 82/49 Sitting] Orthostatic Blood Pressure [ 96/51 Supine] Weight - Most Recent: 80.966 kg I&O - Last 24 Hours: Intake & Output 06/26/20 06/27/20 06/27/20 22:59 06:59 14:59 Intake Total 1456 Output Total 150 Balance 1306 Lab Results Last 24 Hours: Laboratory Results - last 24 hr 06/26/20 06/26/20 06/26/20 Range/Units 12:40 12:40 12:40 WBC 16.96 H (4.0-11.0) K/uL RBC 3.93 L (4.50-5.90) M/uL Hgb 10.8 L (13.0-17.0) g/dL Hct 34.6 L (38.0-50.0) % MCV 88.0 (80.0-98.0) fL MCH 27.5 (27.0-32.0) pg MCHC 31.2 (31.0-37.0) g/dL RDW Std Deviation 46.1 (28.0-62.0) fl RDW Coeff of Dorothea 14 (11.0-15.0) % Plt Count 415 H (150-400) K/uL MPV 8.20 (7.40-12.00) fL Neut % (Auto) 79.6 (48.0-80.0) % Lymph % (Auto) 10.8 L (16.0-40.0) % [place] % (Auto) 8.5 (0.0-15.0) % Eos % (Auto) 0.9 (0.0-7.0) % Baso % (Auto) 0.2 (0.0-1.5) % Neut # (Auto) 13.5 H (1.4-5.7) K/uL Lymph # (Auto) 1.8 (0.6-2.4) K/uL [place] # (Auto) 1.5 H (0.0-0.8) K/uL Eos # (Auto) 0.2 (0.0-0.7) K/uL Baso # (Auto) 0.0 (0.0-0.1) K/uL Nucleated RBC % 0.0 /100WBC Nucleated RBCs # 0 K/uL INR 1.16 Lactate (0.20-2.00) mmol/L Sodium 136 (136-148) mmol/L Potassium 4.2 (3.5-5.1) mmol/L Chloride 99 (98-107) mmol/L Carbon Dioxide 27.9 (21.0-32.0) mmol/L BUN 15 (7.0-18.0) mg/dL Creatinine 1.2 (0.8-1.3) mg/dL Est Cr Clr Drug Dosing 56.61 mL/min Estimated GFR (MDRD) > 60.0 ml/min Glucose 133 H (74-106) mg/dL Calcium 8.9 (8.5-10.1) mg/dL Phosphorus (2.6-4.7) mg/dL Magnesium (1.8-2.4) mg/dL Total Bilirubin 0.5 (0.2-1.0) mg/dL AST 26 (15-37) IU/L ALT 31 (14-63) IU/L Alkaline Phosphatase 105 (46-116) U/L Troponin I < 0.050 (0.000-0.056) ng/mL Total Protein 7.5 (6.4-8.2) g/dL Albumin 1.8 L (3.4-5.0) g/dL Globulin 5.7 H (2.6-4.0) g/dL Albumin/Globulin Ratio 0.3 L (0.9-1.6) Vitamin B12 (193-986) pg/mL TSH 3rd Generation 0.91 (0.36-3.74) uIU/mL Urine Color Urine Appearance Urine pH (5.0-8.0) Ur Specific Red Level (1.001-1.035) Urine Protein (NEGATIVE) mg/dL Urine Glucose (UA) (NEGATIVE) mg/dL Urine Ketones (NEGATIVE) mg/dL Urine Occult Blood (NEGATIVE) Urine Nitrite (NEGATIVE) Urine Bilirubin (NEGATIVE) Urine Urobilinogen (<2.0) EU/dL Ur Leukocyte Esterase (NEGATIVE) Urine Opiates Screen (NEGATIVE) Ur Oxycodone Screen (NEGATIVE) Urine Methadone Screen (NEGATIVE) Ur Barbiturates Screen (NEGATIVE) Ur Phencyclidine Scrn (NEGATIVE) Ur Amphetamine Screen (NEGATIVE) U Methamphetamines Scrn (NEGATIVE) U Benzodiazepines Scrn (NEGATIVE) U Cocaine Metab Screen (NEGATIVE) U Marijuana (THC) Screen (NEGATIVE) Ethyl Alcohol mg/dL SARS-CoV-2 RNA (SUSAN) (NEGATIVE) 06/26/20 06/26/20 06/26/20 Range/Units 12:40 14:17 14:17 WBC (4.0-11.0) K/uL RBC (4.50-5.90) M/uL Hgb (13.0-17.0) g/dL Hct (38.0-50.0) % MCV (80.0-98.0) fL MCH (27.0-32.0) pg MCHC (31.0-37.0) g/dL RDW Std Deviation (28.0-62.0) fl RDW Coeff of Dorothea (11.0-15.0) % Plt Count (150-400) K/uL MPV (7.40-12.00) fL Neut % (Auto) (48.0-80.0) % Lymph % (Auto) (16.0-40.0) % [place] % (Auto) (0.0-15.0) % Eos % (Auto) (0.0-7.0) % Baso % (Auto) (0.0-1.5) % Neut # (Auto) (1.4-5.7) K/uL Lymph # (Auto) (0.6-2.4) K/uL [place] # (Auto) (0.0-0.8) K/uL Eos # (Auto) (0.0-0.7) K/uL Baso # (Auto) (0.0-0.1) K/uL Nucleated RBC % /100WBC Nucleated RBCs # K/uL INR Lactate (0.20-2.00) mmol/L Sodium (136-148) mmol/L Potassium (3.5-5.1) mmol/L Chloride (98-107) mmol/L Carbon Dioxide (21.0-32.0) mmol/L BUN (7.0-18.0) mg/dL Creatinine (0.8-1.3) mg/dL Est Cr Clr Drug Dosing mL/min Estimated GFR (MDRD) ml/min Glucose (74-106) mg/dL Calcium (8.5-10.1) mg/dL Phosphorus (2.6-4.7) mg/dL Magnesium (1.8-2.4) mg/dL Total Bilirubin (0.2-1.0) mg/dL AST (15-37) IU/L ALT (14-63) IU/L Alkaline Phosphatase (46-116) U/L Troponin I (0.000-0.056) ng/mL Total Protein (6.4-8.2) g/dL Albumin (3.4-5.0) g/dL Globulin (2.6-4.0) g/dL Albumin/Globulin Ratio (0.9-1.6) Vitamin B12 (193-986) pg/mL TSH 3rd Generation (0.36-3.74) uIU/mL Urine Color ORANGE Urine Appearance CLEAR Urine pH 6.0 (5.0-8.0) Ur Specific Red Level 1.025 (1.001-1.035) Urine Protein NEGATIVE (NEGATIVE) mg/dL Urine Glucose (UA) NEGATIVE (NEGATIVE) mg/dL Urine Ketones NEGATIVE (NEGATIVE) mg/dL Urine Occult Blood NEGATIVE (NEGATIVE) Urine Nitrite NEGATIVE (NEGATIVE) Urine Bilirubin NEGATIVE (NEGATIVE) Urine Urobilinogen 4.0 H (<2.0) EU/dL Ur Leukocyte Esterase NEGATIVE (NEGATIVE) Urine Opiates Screen NEGATIVE (NEGATIVE) Ur Oxycodone Screen NEGATIVE (NEGATIVE) Urine Methadone Screen NEGATIVE (NEGATIVE) Ur Barbiturates Screen NEGATIVE (NEGATIVE) Ur Phencyclidine Scrn NEGATIVE (NEGATIVE) Ur Amphetamine Screen NEGATIVE (NEGATIVE) U Methamphetamines Scrn NEGATIVE (NEGATIVE) U Benzodiazepines Scrn NEGATIVE (NEGATIVE) U Cocaine Metab Screen NEGATIVE (NEGATIVE) U Marijuana (THC) Screen NEGATIVE (NEGATIVE) Ethyl Alcohol <3 mg/dL SARS-CoV-2 RNA (SUSAN) (NEGATIVE) 06/26/20 06/26/20 06/27/20 Range/Units 14:39 15:10 05:43 WBC 11.57 H (4.0-11.0) K/uL RBC 3.79 L (4.50-5.90) M/uL Hgb 10.1 L (13.0-17.0) g/dL Hct 33.3 L (38.0-50.0) % MCV 87.9 (80.0-98.0) fL MCH 26.6 L (27.0-32.0) pg MCHC 30.3 L (31.0-37.0) g/dL RDW Std Deviation 46.1 (28.0-62.0) fl RDW Coeff of Dorothea 14 (11.0-15.0) % Plt Count 405 H (150-400) K/uL MPV 8.30 (7.40-12.00) fL Neut % (Auto) 74.9 (48.0-80.0) % Lymph % (Auto) 13.7 L (16.0-40.0) % [place] % (Auto) 9.7 (0.0-15.0) % Eos % (Auto) 1.5 (0.0-7.0) % Baso % (Auto) 0.2 (0.0-1.5) % Neut # (Auto) 8.7 H (1.4-5.7) K/uL Lymph # (Auto) 1.6 (0.6-2.4) K/uL [place] # (Auto) 1.1 H (0.0-0.8) K/uL Eos # (Auto) 0.2 (0.0-0.7) K/uL Baso # (Auto) 0.0 (0.0-0.1) K/uL Nucleated RBC % 0.0 /100WBC Nucleated RBCs # 0 K/uL INR Lactate 1.2 (0.20-2.00) mmol/L Sodium (136-148) mmol/L Potassium (3.5-5.1) mmol/L Chloride (98-107) mmol/L Carbon Dioxide (21.0-32.0) mmol/L BUN (7.0-18.0) mg/dL Creatinine (0.8-1.3) mg/dL Est Cr Clr Drug Dosing mL/min Estimated GFR (MDRD) ml/min Glucose (74-106) mg/dL Calcium (8.5-10.1) mg/dL Phosphorus (2.6-4.7) mg/dL Magnesium (1.8-2.4) mg/dL Total Bilirubin (0.2-1.0) mg/dL AST (15-37) IU/L ALT (14-63) IU/L Alkaline Phosphatase (46-116) U/L Troponin I (0.000-0.056) ng/mL Total Protein (6.4-8.2) g/dL Albumin (3.4-5.0) g/dL Globulin (2.6-4.0) g/dL Albumin/Globulin Ratio (0.9-1.6) Vitamin B12 (193-986) pg/mL TSH 3rd Generation (0.36-3.74) uIU/mL Urine Color Urine Appearance Urine pH (5.0-8.0) Ur Specific Red Level (1.001-1.035) Urine Protein (NEGATIVE) mg/dL Urine Glucose (UA) (NEGATIVE) mg/dL Urine Ketones (NEGATIVE) mg/dL Urine Occult Blood (NEGATIVE) Urine Nitrite (NEGATIVE) Urine Bilirubin (NEGATIVE) Urine Urobilinogen (<2.0) EU/dL Ur Leukocyte Esterase (NEGATIVE) Urine Opiates Screen (NEGATIVE) Ur Oxycodone Screen (NEGATIVE) Urine Methadone Screen (NEGATIVE) Ur Barbiturates Screen (NEGATIVE) Ur Phencyclidine Scrn (NEGATIVE) Ur Amphetamine Screen (NEGATIVE) U Methamphetamines Scrn (NEGATIVE) U Benzodiazepines Scrn (NEGATIVE) U Cocaine Metab Screen (NEGATIVE) U Marijuana (THC) Screen (NEGATIVE) Ethyl Alcohol mg/dL SARS-CoV-2 RNA (SUSAN) NEGATIVE (NEGATIVE) 06/27/20 Range/Units 05:43 WBC (4.0-11.0) K/uL RBC (4.50-5.90) M/uL Hgb (13.0-17.0) g/dL Hct (38.0-50.0) % MCV (80.0-98.0) fL MCH (27.0-32.0) pg MCHC (31.0-37.0) g/dL RDW Std Deviation (28.0-62.0) fl RDW Coeff of Dorothea (11.0-15.0) % Plt Count (150-400) K/uL MPV (7.40-12.00) fL Neut % (Auto) (48.0-80.0) % Lymph % (Auto) (16.0-40.0) % [place] % (Auto) (0.0-15.0) % Eos % (Auto) (0.0-7.0) % Baso % (Auto) (0.0-1.5) % Neut # (Auto) (1.4-5.7) K/uL Lymph # (Auto) (0.6-2.4) K/uL [place] # (Auto) (0.0-0.8) K/uL Eos # (Auto) (0.0-0.7) K/uL Baso # (Auto) (0.0-0.1) K/uL Nucleated RBC % /100WBC Nucleated RBCs # K/uL INR Lactate (0.20-2.00) mmol/L Sodium 135 L (136-148) mmol/L Potassium 4.1 (3.5-5.1) mmol/L Chloride 100 (98-107) mmol/L Carbon Dioxide 27.4 (21.0-32.0) mmol/L BUN 13 (7.0-18.0) mg/dL Creatinine 1.0 (0.8-1.3) mg/dL Est Cr Clr Drug Dosing 67.94 mL/min Estimated GFR (MDRD) > 60.0 ml/min Glucose 103 (74-106) mg/dL Calcium 8.5 (8.5-10.1) mg/dL Phosphorus 3.7 (2.6-4.7) mg/dL Magnesium 1.5 L (1.8-2.4) mg/dL Total Bilirubin 0.6 (0.2-1.0) mg/dL AST 21 (15-37) IU/L ALT 29 (14-63) IU/L Alkaline Phosphatase 92 (46-116) U/L Troponin I (0.000-0.056) ng/mL Total Protein 6.9 (6.4-8.2) g/dL Albumin 1.7 L (3.4-5.0) g/dL Globulin 5.2 H (2.6-4.0) g/dL Albumin/Globulin Ratio 0.3 L (0.9-1.6) Vitamin B12 325 (193-986) pg/mL TSH 3rd Generation (0.36-3.74) uIU/mL Urine Color Urine Appearance Urine pH (5.0-8.0) Ur Specific Red Level (1.001-1.035) Urine Protein (NEGATIVE) mg/dL Urine Glucose (UA) (NEGATIVE) mg/dL Urine Ketones (NEGATIVE) mg/dL Urine Occult Blood (NEGATIVE) Urine Nitrite (NEGATIVE) Urine Bilirubin (NEGATIVE) Urine Urobilinogen (<2.0) EU/dL Ur Leukocyte Esterase (NEGATIVE) Urine Opiates Screen (NEGATIVE) Ur Oxycodone Screen (NEGATIVE) Urine Methadone Screen (NEGATIVE) Ur Barbiturates Screen (NEGATIVE) Ur Phencyclidine Scrn (NEGATIVE) Ur Amphetamine Screen (NEGATIVE) U Methamphetamines Scrn (NEGATIVE) U Benzodiazepines Scrn (NEGATIVE) U Cocaine Metab Screen (NEGATIVE) U Marijuana (THC) Screen (NEGATIVE) Ethyl Alcohol mg/dL SARS-CoV-2 RNA (SUSAN) (NEGATIVE) Med Orders - Current: Current Medications Acetaminophen (Tylenol) 650 mg PO Q4H PRN PRN Reason: Pain (Mild 1-3)/fever Haloperidol (Haldol) 5 mg PO Q12HR [facility] Last Admin: 06/27/20 08:29 Dose: 5 mg Documented by: Lactated Ringer's (Ringers, Lactated) 1,000 mls @ 125 mls/hr IV Q8H [facility] Last Admin: 06/27/20 03:38 Dose: 125 mls/hr Documented by: Magnesium Sulfate 4 gm/ Premix 100 mls @ 50 mls/hr IV ONETIME ONE Stop: 06/27/20 11:42 Ondansetron HCl (Zofran) 4 mg IVPUSH Q4H PRN PRN Reason: Nausea Discontinued Medications Lactated Ringer's (Ringers, Lactated) 1,000 mls @ 999 mls/hr IV ASDIRECTED [facility] Last Admin: 06/26/20 12:43 Dose: 125 mls/hr Documented by: - Exam General: Alert, Oriented, Cooperative, No Acute Distress Lungs: Clear to Auscultation, Normal Respiratory Effort Cardiovascular: Regular Rate, Regular Rhythm GI/Abdominal Exam: Normal Bowel Sounds, Soft, Non-Tender Sepsis Event Note - Evaluation Sepsis Screening Result: No Definite Risk - Focused Exam Vital Signs: Vital Signs Temp Pulse Resp BP Pulse Ox 06/27/20 08:00 97.4 F 85 18 102/53 L 97 06/27/20 04:11 97.7 F 77 20 116/63 96 06/27/20 00:20 98.6 F 82 17 105/51 L 97 - Problem List & Annotations (1) Frequent falls SNOMED Code(s): 600879179 Code(s): R29.6 - REPEATED FALLS Status: Acute Current Visit: Yes (2) Hypotension SNOMED Code(s): 38434319 Code(s): I95.9 - HYPOTENSION, UNSPECIFIED Status: Acute Current Visit: Yes Qualifiers: Hypotension type: unspecified hypotension type Qualified Code(s): I95.9 - Hypotension, unspecified (3) Leukocytosis SNOMED Code(s): 282229053, 926360847 Code(s): D72.829 - ELEVATED WHITE BLOOD CELL COUNT, UNSPECIFIED Status: Acute Current Visit: Yes Qualifiers: Leukocytosis type: unspecified Qualified Code(s): D72.829 - Elevated white blood cell count, unspecified (4) Total self-care deficit SNOMED Code(s): 34991899 Code(s): R68.89 - OTHER GENERAL SYMPTOMS AND SIGNS Status: Acute Current Visit: Yes (5) HTN (hypertension) SNOMED Code(s): 54092067 Code(s): I10 - ESSENTIAL (PRIMARY) HYPERTENSION Status: Chronic Current Visit: Yes (6) Schizophrenia SNOMED Code(s): 41629385 Code(s): F20.9 - SCHIZOPHRENIA, UNSPECIFIED Status: Chronic Current Visit: Yes - Problem List Review Problem List Initiated/Reviewed/Updated: Yes - My Orders Last 24 Hours: My Active Orders 06/26/20 Dinner Regular Diet [DIET] 06/26/20 16:45 Lactated Ringers [Ringers, Lactated] 1,000 ml IV Q8H 06/26/20 16:49 Telemetry Monitoring [Cardiac Monitoring] [RC] Q8H 06/26/20 16:59 Intake and Output [RC] Q12H Oxygen Therapy [RC] PRN Up With Assistance [RC] ASDIRECTED VTE/DVT Education [RC] DAILY Vital Signs [RC] Q4H Acetaminophen [TylenoL] 650 mg PO Q4H PRN Ondansetron [Zofran] 4 mg IVPUSH Q4H PRN Resuscitation Status Routine 06/26/20 17:55 PT Evaluation and Treatment [CONS] Routine 06/26/20 17:56 Precautions [COMM] Routine 06/26/20 19:22 Antiembolic Devices [RC] PER UNIT ROUTINE SCD [Sequential Compression Device] [OM.PC] Routine 06/26/20 21:00 haloperidoL [Haldol] 5 mg PO Q12HR 06/27/20 09:43 Magnesium Sulfate/Water [Magnesium Sulfate in Water Premix] 4 gm Premix Bag 1 bag IV ONETIME 06/27/20 09:45 Cyanocobalamin (Vitamin B12) [Vitamin B12] 1,000 mcg IM ONETIME ONE - Plan Plan:: This 64 year old male admitted with hypotension 1. Hypotension - Improvement, still soft - Hold all antihypertensives - Continue IVFs - Monitor electrolytes 2. AMS/falls - reports balance troubles - Check B 12, returned at 325, will supplement with 1000 IM today. - leukocytosis improved, recheck labs in am - Consult PT to evaluate and treat in am - Case management consulted in ED, provided daughter with resources - Discussed with Dr Munoz, she recommended MRI brain and will see him as outpatient 3. Schizophrenia - Continue Haldol 5 mg BID - Obtain med list. - Dr Crowell will see today or tomorrow. VTE prophylaxis: SCDs DIspo: 1-2 days Code Status: DNR/DNI Spoke with daughter today, Updated on treatment plan.
[2020-06-27] MEDS ORDERED: Gadobenate Dimeglumine 529 MG/ML 20 ML SDV IVPUSH STA (15:19)
--- NOTE | 2020-06-27 15:43 | MR ---
INDICATION: Confusion. Ataxia. TECHNIQUE: Volumetric T1 weighted images with and without gadolinium contrast, axial FLAIR T2 susceptibility weighted and diffusion weighted images of brain. COMPARISON: Brain CT 06/26/2020. FINDINGS: Ventricles and subarachnoid spaces prominent for age due to volume loss. There is an incidental arachnoid cyst within the left middle cranial fossa and (normal variant). No areas of diffusion restriction to suggest acute infarction. No intracranial mass effect. Symmetrical extra cerebral fluid spaces over the frontal lobe convexities are isointense to CSF on all sequences most likely subarachnoid in location. Thin symmetric subdural hygromas is considered less likely. No focal brain edema. Basal cisterns are well preserved. The 4th ventricle is midline. There is no posterior fossa mass effect. There are no enhancing intra-axial or extra-axial lesions. There is a small lipoma in the left frontal scalp. No interval change compared to CT brain performed yesterday. IMPRESSION: 1. No evidence of acute infarction, recent intracranial hemorrhage, mass effect or enhancing lesion. 2. Cerebral and cerebellar atrophy. Prominent convexity subarachnoid spaces and incidental left middle fossa arachnoid cyst. Dictated by Erik Baltazar MD @ Jun 27 2020 3:37PM Signed by Dr. Erik Baltazar @ Jun 27 2020 3:42PM
[2020-06-27] MEDS ORDERED: traZODone 50 MG Tab PO SCH (21:00)
[2020-06-27] MEDS ORDERED: Haloperidol 5 MG Tab PO SCH (21:00)
[2020-06-27] MEDS: Amantadine 100 MG Cap PO SCH (21:30)
[2020-06-28] MEDS: Lactated Ringers 1,000 ML IV SCH ×3 (05:21→05:25)
[2020-06-28 05:51] LABS: CARBON DIOXIDE,CO2 27.3 mmol/L (21.0-32.0); POTASSIUM,K 3.8 mmol/L (3.5-5.1)
[2020-06-28] MEDS ORDERED: FLUoxetine 20 MG Cap PO SCH (09:00)
[2020-06-28] MEDS: Amantadine 100 MG Cap PO SCH (09:37)
--- NOTE | 2020-06-28 09:56 | PCM.PN ---
- Patient Data Vitals - Most Recent: Last Vital Signs Temp 36.8 C 06/28/20 08:00 Pulse 83 06/28/20 08:00 Resp 20 06/28/20 08:00 BP 120/72 06/28/20 08:00 Pulse Ox 96 06/28/20 08:00 Orthostatic Blood Pressure [ 89/50 Standing] Orthostatic Blood Pressure [ 82/49 Sitting] Orthostatic Blood Pressure [ 96/51 Supine] Weight - Most Recent: 84.958 kg I&O - Last 24 Hours: Intake & Output 06/27/20 06/28/20 06/28/20 22:59 06:59 14:59 Intake Total 1271 250 Balance 1271 250 Lab Results Last 24 Hours: Laboratory Results - last 24 hr 06/28/20 06/28/20 Range/Units 05:24 05:24 WBC 12.79 H (4.0-11.0) K/uL RBC 3.57 L (4.50-5.90) M/uL Hgb 9.8 L (13.0-17.0) g/dL Hct 31.0 L (38.0-50.0) % MCV 86.8 (80.0-98.0) fL MCH 27.5 (27.0-32.0) pg MCHC 31.6 (31.0-37.0) g/dL RDW Std Deviation 44.8 (28.0-62.0) fl RDW Coeff of Dorothea 14 (11.0-15.0) % Plt Count 330 (150-400) K/uL MPV 7.80 (7.40-12.00) fL Neut % (Auto) 77.2 (48.0-80.0) % Lymph % (Auto) 13.4 L (16.0-40.0) % [place] % (Auto) 7.7 (0.0-15.0) % Eos % (Auto) 1.5 (0.0-7.0) % Baso % (Auto) 0.2 (0.0-1.5) % Neut # (Auto) 9.9 H (1.4-5.7) K/uL Lymph # (Auto) 1.7 (0.6-2.4) K/uL [place] # (Auto) 1.0 H (0.0-0.8) K/uL Eos # (Auto) 0.2 (0.0-0.7) K/uL Baso # (Auto) 0.0 (0.0-0.1) K/uL Nucleated RBC % 0.0 /100WBC Nucleated RBCs # 0 K/uL Sodium 135 L (136-148) mmol/L Potassium 3.8 (3.5-5.1) mmol/L Chloride 100 (98-107) mmol/L Carbon Dioxide 27.3 (21.0-32.0) mmol/L BUN 15 (7.0-18.0) mg/dL Creatinine 1.3 (0.8-1.3) mg/dL Est Cr Clr Drug Dosing 52.26 mL/min Estimated GFR (MDRD) 55.2 ml/min Glucose 116 H (74-106) mg/dL Calcium 8.2 L (8.5-10.1) mg/dL Med Orders - Current: Current Medications Acetaminophen (Tylenol) 650 mg PO Q4H PRN PRN Reason: Pain (Mild 1-3)/fever Amantadine HCl (Symmetrel) 200 mg PO BID [facility] Last Admin: 06/28/20 09:37 Dose: 200 mg Documented by: Fluoxetine HCl (Prozac) 40 mg PO DAILY [facility] Last Admin: 06/28/20 08:50 Dose: 40 mg Documented by: Haloperidol (Haldol) 15 mg PO BEDTIME [facility] Last Admin: 06/27/20 21:27 Dose: 15 mg Documented by: Lactated Ringer's (Ringers, Lactated) 1,000 mls @ 125 mls/hr IV Q8H [facility] Last Admin: 06/28/20 05:25 Dose: Not Given Documented by: Ondansetron HCl (Zofran) 4 mg IVPUSH Q4H PRN PRN Reason: Nausea Trazodone HCl (Trazodone) 150 mg PO BEDTIME [facility] Last Admin: 06/27/20 21:26 Dose: 150 mg Documented by: Discontinued Medications Cyanocobalamin (Vitamin B12) 1,000 mcg IM ONETIME ONE Stop: 06/27/20 09:46 Last Admin: 06/27/20 11:33 Dose: 1,000 mcg Documented by: Gadobenate Dimeglumine (Multihance) 20 ml IVPUSH ONETIME STA Stop: 06/27/20 15:20 Last Admin: 06/27/20 15:20 Dose: 16 ml Documented by: Haloperidol (Haldol) 5 mg PO Q12HR [facility] Last Admin: 06/27/20 08:29 Dose: 5 mg Documented by: Lactated Ringer's (Ringers, Lactated) 1,000 mls @ 999 mls/hr IV ASDIRECTED [facility] Last Admin: 06/26/20 12:43 Dose: 125 mls/hr Documented by: Magnesium Sulfate 4 gm/ Premix 100 mls @ 33.333 mls/hr IV ONETIME ONE Stop: 06/27/20 12:42 Last Admin: 06/27/20 11:37 Dose: 33.333 mls/hr Documented by: Sepsis Event Note - Evaluation Sepsis Screening Result: No Definite Risk - Focused Exam Vital Signs: Vital Signs Temp Pulse Resp BP Pulse Ox 06/28/20 08:00 36.8 C 83 20 120/72 96 06/28/20 04:46 36.3 C 80 16 123/62 95 06/28/20 00:25 36.6 C 85 17 122/63 95 - Plan Plan:: This 64 year old male admitted with hypotension 1. Hypotension - Improvement, still soft - Hold all antihypertensives - Continue IVFs - Monitor electrolytes 2. AMS/falls - reports balance troubles - Check B 12, returned at 325, will supplement with 1000 IM today. - leukocytosis improved, recheck labs in am - Consult PT to evaluate and treat in am - Case management consulted in ED, provided daughter with resources - Discussed with Dr Munoz, she recommended MRI brain and will see him as outpatient 3. Schizophrenia - Continue Haldol 5 mg BID - Obtain med list. - Dr Crowell will see today or tomorrow. VTE prophylaxis: SCDs DIspo: 1-2 days Code Status: DNR/DNI Spoke with daughter today, Updated on treatment plan.
--- NOTE | 2020-06-28 12:17 | CONS ---
DATE OF CONSULTATION: 06/27/2020 DATE OF : 1955 PRIMARY CARE PHYSICIAN: Marifer PCP Site where the services are provided is [facility] in [place], [place]. Site where the services are provided from our offices in [facility]. Length of service for this 60-minute inpatient telemedicine event is 60 minutes. ID: The patient is a 64-year-old male who was admitted to the inpatient Med/Surg Unit at [facility] in [place], [place]. He is seen for psychiatric consultation per the request of staff attending, Dr. Mcqueen, and her treatment team. CHIEF COMPLAINT: "I was having trouble thinking and also I was seeing things." HISTORY OF PRESENT ILLNESS: The patient is a 64-year-old male who was admitted through [facility] on June 26, 2020 because of increased confusions and hallucinations. Patient states he has been struggling with hallucinations "for about 20 years," but he notes it has been "worse over the past 4 months" and he conjectures that the reason it has been worse is because "they have been messing around with my medications" at [facility] where he had been most recently being seen for psychiatric care. The patient's states he takes Haldol and he states he has done well on Haldol, but lately he was concerned because they told him that it might be making his situation worse. He states that when he is not on Haldol, he actually does a lot worse, and right now he is taking Haldol 5 mg twice a day according to staff. The patient reports that he is sleeping poorly, but he does note that since being admitted, he has been feeling better since he has been getting some IV fluids because he states he generally is staying pretty poorly hydrated at home. He denies any suicidal or homicidal, but he does endorse visual hallucinations where he will see "old westerns" come to life or episodes of the TV series "Monk" started happening in front of him. The patient states it is sort of disturbing, but he cannot do anything about it, but if it could get better, he thinks that he would feel pretty good. MEDICATIONS AT TIME OF PRESENTATION: 1. Haldol 5 mg b.i.d. 2. Amantadine 100 mg b.i.d. 3. Trazodone 150 mg at bedtime. 4. Prozac 40 mg daily. 5. Hydrochlorothiazide. 6. Lisinopril. ALLERGIES: The patient is allergic to glucocorticoids. PAST MEDICAL HISTORY: 1. Hypertension. 2. History of right knee and right hip replacement back in 2009. 3. Patient is admitted for hypertension. 4. History of dehydration. REVIEW OF SYSTEMS: Aside from cardiovascular, musculoskeletal, all other major organ systems are negative at this point in time for acute difficulties or complications. FAMILY PSYCHIATRIC AND CD HISTORY: Patient reports mother has a history of Lewy body dementia. PAST PSYCHIATRIC AND CD HISTORY: The patient is not reporting any chemical dependency history, but does report a psychiatric history. Has a diagnosis of schizophrenia. He has been seen at [facility]. He states that he has been taking Haldol for about 20 years and it has helped him. SOCIAL HISTORY: Patient born and raised in [place], [place]. He currently lives in [place], [place], with his daughter. The patient is . He used to work in [employer]. He denies any prior service or any current legal difficulties. He is Ep[employer] in terms of his cassidy formation. He enjoys fishing and boating in his spare time. MENTAL STATUS EXAMINATION: The patient is a 64-year-old white male, in no apparent distress. Speech is of regular rate and rhythm. The patient is cognitively oriented x3. Psychomotor activity is within normal limits. There are no abnormal motor movements or tics observed. Gait and station are not observed as patient is lying in bed during the course of the inpatient consult. Mood is frustrated. Affect is cooperative overall for the purposes of the inpatient consult. There is no behavioral or stated evidence of acute suicidal or homicidal ideation, but thought content is significant for visual hallucinations. Thought content significant for some confusion per patient report; however, there are no acute manic symptoms or loose associations evident. Judgment and insight appear unimpaired at this point in time. Motivation for help appears good. Most recent blood pressure in terms of vitals is 102/53, and patient is afebrile. IMPRESSION: Napoleon I: 1. Schizophrenia, paranoid type, F20. 2. Psychosis, not otherwise specified, F29. 3. History of major depressive disorder, F32. 4. History of anxiety disorder, not otherwise specified, F41.9. Napoleon II: None. Napoleon III: 1. Hypotension. 2. Dehydration. 3. History of hypertension. 4. History of right knee and right hip replacement back in 2009. Napoleon IV: Severe. Napoleon V: 55. PLAN: 1. Increase patient's Haldol from 5 mg b.i.d. to 15 mg at bedtime to help with clarity of thought, elimination of any psychotic or paranoid symptoms as well as to help with sleep initiation and maintenance and minimize daytime sedation during the day. 2. Continue amantadine 100 mg b.i.d. 3. Continue Prozac 40 mg daily for symptoms of depression. 4. Continue trazodone 150 mg at bedtime for symptoms of depression and sleep initiation maintenance. 5. Vitamin B12 supplementation. Staff is reporting that he came back with a low B12 level and this could be also contributory to the patient's presentation. 6. IV fluids to help with hydration. 7. Other medications as dosed and prescribed by the patient's primary inpatient medical treatment team. 8. Recommend the patient follow up with outpatient Psychiatry within 2 to 3 weeks once he is medically stabilized and discharged back to the community. 9. We will continue follow up with patient on as-needed basis while he remains on the inpatient Med/Surg Unit at [facility] in [place], [place]. 10.We will follow up with the patient sooner if any complications in the interim. 11.Medication compliance. 12.Crisis plan is in place. QIANA / MAURA /[id number]
--- NOTE | 2020-06-28 13:13 | PCM.DCSUM1 ---
Discharge Summary - Hospital Course Free Text/Narrative:: This 64 year old male with pmh of HTN and schizophrenia presented to the ED today with his daughter, who has been caring for him at her home for the last month. Cash was unable to give history. He reports he has been falling at home because his legs are weak and wobbly. He denies chest pain or SOB. NO fevers or chills. He reports seeing and hearing things that are not there. I spoke with daughter for more accurate ROS and history. She reports that over the last month she has seen a significant decline in her father's mental status. She reports they went to his normal mental health provider at [facility] and they decreased his Haldol in attempt to wean him off. This was unsuccessful as Ion then started having hallucinations. The dose was increased back to baseline dose 5 mg BID, but the hallucinations and memory concerns continued. His daughter also noticed he stopped eating and drinking much, she was having to remind him to eat and drink. She reports he has fallen at home due to weakness and unsteady gait. Her and her have been needing to provide mainly ADL cares. She denies them seeing a Neurologist in the past, reporting that this change is very sudden. Reports that her grandmother, his mom had very severe dementia which present with these same symptoms. She is feeling very helpless at home having to provide care for him. She is very unsure of medical history, as again he just recently had a significant decline. In the ED leukocytosis noted at 16,000. Hgb 10.8. No significant BRII noted. UA negative, U tox negative. CXR negative. Head CT revealed atrophy with asymmetrical changes to frontal lobe. No acute intracranial changes. Pelvic xray negative for acute fracture. He was given IVFs in the ED with some improvement in BP. He will be admitted for hypotension. Patient was started on IV fluids, no sepsis was suspected, over next few days, his mental status improved, his appetite was good as well, he was seen by PT as well for some inpatient PT. insulation worker apprentice spoke to family, gave them various resources to possible placement of patient in future if she is unable to take care of him at home should his schizophrenia worsen. Patient was also seen by psychiatry, they recommended few changes to his neuropsych meds ( see d/c meds) and deemed him ok to be discharged home. Daughter was updated daily and she felt comfortable taking patient back home. Patient was hemodynamically stable and discharged with home health. - Discharge Data Discharge Date: 06/28/20 Discharge Disposition: Home, Self-Care 01 Condition: Fair - Referral to Home Health Date of Face to Face Encounter: 06/28/20 Reason for Homebound Status: unsteady when walking and a fall risk, needing to utilize a walker to ambulate. PT, strengthing due to weakness duw to recent hospitalization, gaiy instability, fall risk. OT, home sfaety evalution for funcinal safety in home/ initiate plan for improvement of cognition issues Primary Care Physician: PCP Unobtainable Skilled Need: PT/OT - Patient Summary/Data Consults: Consultations 06/26/20 17:55 PT Evaluation and Treatment [CONS] Routine - Patient Instructions Diet: Usual Diet as Tolerated Activity: As Tolerated Driving: Do Not Drive Showering/Bathing: May Shower Notify Provider of: Fever, Increased Pain, Swelling and Redness, Drainage, Nausea and/or Vomiting - Discharge Plan *PRESCRIPTION DRUG MONITORING PROGRAM REVIEWED*: Not Applicable *COPY OF PRESCRIPTION DRUG MONITORING REPORT IN PATIENT COLLETTE: Not Applicable Prescriptions/Med Rec: amantadine HCL [Amantadine] 200 mg PO BID #60 FLUoxetine HCl [Fluoxetine HCl] 40 mg PO DAILY #30 haloperidoL [Haldol] 15 mg PO BEDTIME 2 Days #30 tablet traZODone HCl [Trazodone HCl] 150 mg PO BEDTIME #30 Acetaminophen [Tylenol] 650 mg PO Q4H PRN 1 Days #30 tablet PRN Reason: Pain (Mild 1-3)/fever Home Medications: Home Meds Propranolol HCl [Propranolol HCl ER] 60 mg PO DAILY 01/24/14 [History] Cholecalciferol (Vitamin D3) [Vitamin D3] 5,000 unit PO DAILY 06/26/20 [History] Acetaminophen [Tylenol] 650 mg PO Q4H PRN 1 Days #30 tablet 06/28/20 [Rx] FLUoxetine HCl [Fluoxetine HCl] 40 mg PO DAILY #30 06/28/20 [Rx] amantadine HCL [Amantadine] 200 mg PO BID #60 06/28/20 [Rx] haloperidoL [Haldol] 15 mg PO BEDTIME 2 Days #30 tablet 06/28/20 [Rx] traZODone HCl [Trazodone HCl] 150 mg PO BEDTIME #30 06/28/20 [Rx] Patient Handouts: Haloperidol tablets, Hypotension, [id number], Amantadine capsules or tablets, Fluoxetine capsules or tablets (Depression/Mood Disorders) Referrals: Yelena Noguera RECREATIONAL ASSISTANT [Nurse Practitioner] - 07/12/20 3:45 pm (Please arrive 15 minutes early with your identification, insurance cards and your own facemask.) - Discharge Summary/Plan Comment DC Time >30 min.: No - Patient Data Vitals - Most Recent: Last Vital Signs Temp 36.5 C 06/28/20 11:53 Pulse 88 06/28/20 11:53 Resp 16 06/28/20 11:53 BP 118/67 06/28/20 11:53 Pulse Ox 94 L 06/28/20 11:53 Orthostatic Blood Pressure [ 89/50 Standing] Orthostatic Blood Pressure [ 82/49 Sitting] Orthostatic Blood Pressure [ 96/51 Supine] Weight - Most Recent: 84.958 kg I&O - Last 24 hours: Intake & Output 06/27/20 06/28/20 06/28/20 22:59 06:59 14:59 Intake Total 1271 250 Balance 1271 250 Lab Results - Last 24 hrs: Laboratory Results - last 24 hr 06/28/20 06/28/20 Range/Units 05:24 05:24 WBC 12.79 H (4.0-11.0) K/uL RBC 3.57 L (4.50-5.90) M/uL Hgb 9.8 L (13.0-17.0) g/dL Hct 31.0 L (38.0-50.0) % MCV 86.8 (80.0-98.0) fL MCH 27.5 (27.0-32.0) pg MCHC 31.6 (31.0-37.0) g/dL RDW Std Deviation 44.8 (28.0-62.0) fl RDW Coeff of Dorothea 14 (11.0-15.0) % Plt Count 330 (150-400) K/uL MPV 7.80 (7.40-12.00) fL Neut % (Auto) 77.2 (48.0-80.0) % Lymph % (Auto) 13.4 L (16.0-40.0) % Gibson % (Auto) 7.7 (0.0-15.0) % Eos % (Auto) 1.5 (0.0-7.0) % Baso % (Auto) 0.2 (0.0-1.5) % Neut # (Auto) 9.9 H (1.4-5.7) K/uL Lymph # (Auto) 1.7 (0.6-2.4) K/uL Gibson # (Auto) 1.0 H (0.0-0.8) K/uL Eos # (Auto) 0.2 (0.0-0.7) K/uL Baso # (Auto) 0.0 (0.0-0.1) K/uL Nucleated RBC % 0.0 /100WBC Nucleated RBCs # 0 K/uL Sodium 135 L (136-148) mmol/L Potassium 3.8 (3.5-5.1) mmol/L Chloride 100 (98-107) mmol/L Carbon Dioxide 27.3 (21.0-32.0) mmol/L BUN 15 (7.0-18.0) mg/dL Creatinine 1.3 (0.8-1.3) mg/dL Est Cr Clr Drug Dosing 52.26 mL/min Estimated GFR (MDRD) 55.2 ml/min Glucose 116 H (74-106) mg/dL Calcium 8.2 L (8.5-10.1) mg/dL Med Orders - Current: Current Medications Acetaminophen (Tylenol) 650 mg PO Q4H PRN PRN Reason: Pain (Mild 1-3)/fever Amantadine HCl (Symmetrel) 200 mg PO BID [facility] Last Admin: 06/28/20 09:37 Dose: 200 mg Documented by: Fluoxetine HCl (Prozac) 40 mg PO DAILY [facility] Last Admin: 06/28/20 08:50 Dose: 40 mg Documented by: Haloperidol (Haldol) 15 mg PO BEDTIME [facility] Last Admin: 06/27/20 21:27 Dose: 15 mg Documented by: Lactated Ringer's (Ringers, Lactated) 1,000 mls @ 125 mls/hr IV Q8H [facility] Last Admin: 06/28/20 05:25 Dose: Not Given Documented by: Ondansetron HCl (Zofran) 4 mg IVPUSH Q4H PRN PRN Reason: Nausea Trazodone HCl (Trazodone) 150 mg PO BEDTIME [facility] Last Admin: 06/27/20 21:26 Dose: 150 mg Documented by: Discontinued Medications Cyanocobalamin (Vitamin B12) 1,000 mcg IM ONETIME ONE Stop: 06/27/20 09:46 Last Admin: 06/27/20 11:33 Dose: 1,000 mcg Documented by: Gadobenate Dimeglumine (Multihance) 20 ml IVPUSH ONETIME STA Stop: 06/27/20 15:20 Last Admin: 06/27/20 15:20 Dose: 16 ml Documented by: Haloperidol (Haldol) 5 mg PO Q12HR [facility] Last Admin: 06/27/20 08:29 Dose: 5 mg Documented by: Lactated Ringer's (Ringers, Lactated) 1,000 mls @ 999 mls/hr IV ASDIRECTED [facility] Last Admin: 06/26/20 12:43 Dose: 125 mls/hr Documented by: Magnesium Sulfate 4 gm/ Premix 100 mls @ 33.333 mls/hr IV ONETIME ONE Stop: 06/27/20 12:42 Last Admin: 06/27/20 11:37 Dose: 33.333 mls/hr Documented by:
== END 2020-06-28 14:45 | disposition home health service (06) ==
LOC: MW.ED 12:17 → MW.MS 15:24
PROVIDERS: ADMIT Student in an Organized Health Care Education/Training Program; ATTEND Student in an Organized Health Care Education/Training Program
DX: I95.9 Hypotension, unspecified (principal); D72.829 Elevated white blood cell count, unspecified; R29.6 Repeated falls; I10 Essential (primary) hypertension; F41.9 Anxiety disorder, unspecified; F20.9 Schizophrenia, unspecified; Z20.828 Contact with and (suspected) exposure to other viral communicable diseases; R68.89 Other general symptoms and signs; R41.82 Altered mental status, unspecified; F29 Unspecified psychosis not due to a substance or known physiological condition; F32.9 Major depressive disorder, single episode, unspecified; E86.0 Dehydration; Z66 Do not resuscitate; Z96.641 Presence of right artificial hip joint; Z96.651 Presence of right artificial knee joint; Z88.8 Allergy status to other drugs, medicaments and biological substances
CPT/HCPCS: 36415; 70450; 70553; 71045; 72170; 80048; 80053; 80305; 80307; 81003; 82607; 83605; 83735; 84100; 84443; 84484; 85025; 85610; 93005; 96361; 96365; 96366; 96372; 97162; 99285; A9270; A9577; G0378; J3420; J3475; J7120; U0002; 96360

== ENCOUNTER 2020-07-02 19:58 | Inpatient (IN) | payer MEDICARE, OTHER ==
[2020-07-02] MEDS ORDERED: Sodium Chloride 0.9% 2,500 ML IV ONE (21:04)
[2020-07-02] MEDS ORDERED: cefTRIAXone 1 GM in Sodium Chloride 0.9% 100 ML IV ONE (21:04)
[2020-07-02] MEDS ORDERED: Sodium Chloride 0.9% 10 ML Syringe FLUSH PRN (21:04)
[2020-07-02] MEDS ORDERED: Sodium Chloride 0.9% 2.5 ML Syringe FLUSH PRN (21:04)
--- NOTE | 2020-07-02 21:14 | EDM.PDOC ---
ED [facility] GENERAL MEDICAL PROBLEM - General Chief Complaint: General Stated Complaint: HALLUCINATIONS/DETER.SYSTEMS Time Seen by Provider: 07/02/20 20:59 - History of Present Illness INITIAL COMMENTS - FREE TEXT/NARRATIVE: HISTORY AND PHYSICAL: History of present illness: This 64-year-old male with a past medical history of dementia, schizophrenia, and hypertension presents to the emergency department with worsening mental status. The patient is having worsening mental status, uncontrolled muscle spasms/rigidity in the upper extremities, bradykinesia, and tremors and now has become restless and irritable. Given these findings the family is very concerned. He cannot accomplish any of his activities of daily living and appears to be deteriorating at home since beginning Haldol 10 mg. They are very concerned because they can no longer take care of him safely and he continues to fall and he has bruises on his upper extremities. Family gives the majority of history because patient has trouble given altered mental status. It appears that he has a metabolic or toxic encephalopathy. Review of systems: Obtained by interviewing the son who is at bedside. A 10-point review of systems, other than pertinent positives and negatives as stated per HPI, is otherwise negative. Past medical history: As per history of present illness and as reviewed below otherwise noncontributory. Surgical history: As per history of present illness and as reviewed below otherwise noncontributory. Social history: No reported history of drug or alcohol abuse. Family history: As per history of present illness and as reviewed below otherwise noncontributory. Physical exam: VITAL SIGNS: Reviewed. GENERAL: Appears mild to moderately ill. The patient has a stuttering speech consistent with tremor or tremulous speech. He has bruises on his upper extremities but is other lerenr awake and alert. He is seeing things while we are talking and states that he is hearing things. HEAD: No signs of head trauma. EYES: Pupils are equal. Extraocular motions intact. EARS: Hearing grossly intact. MOUTH: Oropharynx is normal. NECK: No adenopathy, no JVD. CHEST: Chest with clear breath sounds bilaterally. No wheezes, rales, or rh onchi. CARDIAC: Regular rate and rhythm. Normal S1 and S2, without murmurs, gallops, or rubs. VASCULAR: Peripheral pulses normal and equal in all extremities. ABDOMEN: Soft, without detectable tenderness. No sign of distention. No rebound or guarding, and no masses palpated. MUSCULOSKELETAL: Good range of motion of all major joints. Extremities without clubbing, cyanosis or edema. NEUROLOGIC EXAM: Awake and alert but confused. Shanelle Coma Scale is 13 secondary to inappropriate speech. Upper extremities are tremulous bilaterally. He does have some rigidity in his upper extremities. Cranial nerves II through XII are intact. Follows commands. PSYCHIATRIC: Delirious and confused. SKIN: No rash or lesions. Initial Differential Diagnosis & Plan: The patient has altered mental status and I considered the following entities in the differential diagnosis: hypoglycemia, electrolyte imbalance, head trauma, intracranial bleed or mass, meningitis sepsis, transient ischemic attack or stroke, toxidrome/intoxication/medication effect, seizure or postictal state, hepatic encephalopathy, acid/base disturbance, hypercapnia. I am concerned that the patient is having extraparametal side effects secondary to the newly started Haldol. I will give the antidote, Cogentin, 2 mg intramuscularly. We will also screen him for sepsis and evaluate his head CT for underlying trauma as he is fallen multiple times. He will require admission for extraparametal side effects with serious signs and symptoms including parkinsonism and akathisia's. I am concerned that he is on his way to a n euroleptic malignant syndrome. The patient will require multiple doses of the antidote, Cogentin, and evaluation in the hospital. He will likely also need to be screened for underlying infection. I am concerned as they have reported some urinary retention and incontinence. I will give empiric antibiotics for urinary tract infection. Definitive disposition and diagnosis as appropriate pending reevaluation and review of above. - Related Data Allergies Allergy/AdvReac Type Severity Reaction Status Date / Time Corticosteroids Allergy Swelling Verified 07/02/20 20:31 (Glucocorticoids) cortisone Allergy Swelling Verified 07/02/20 20:31 Home Meds: Home Meds Propranolol HCl [Propranolol HCl ER] 60 mg PO DAILY 01/24/14 [History] Cholecalciferol (Vitamin D3) [Vitamin D3] 5,000 unit PO DAILY 06/26/20 [History] Acetaminophen [Tylenol] 650 mg PO Q4H PRN 1 Days #30 tablet 06/28/20 [Rx] FLUoxetine HCl [Fluoxetine HCl] 40 mg PO DAILY #30 06/28/20 [Rx] amantadine HCL [Amantadine] 200 mg PO BID #60 06/28/20 [Rx] haloperidoL [Haldol] 15 mg PO BEDTIME 2 Days #30 tablet 06/28/20 [Rx] traZODone HCl [Trazodone HCl] 150 mg PO BEDTIME #30 06/28/20 [Rx] Past Medical History Cardiovascular History: Reports: Hypertension Gastrointestinal History: Reports: None Musculoskeletal History: Reports: Arthritis Psychiatric History: Reports: Anxiety, Dementia, Schizophrenia - Infectious Disease History Infectious Disease History: Reports: Chicken Pox - Past Surgical History GI Surgical History: Reports: Appendectomy Social & Family History - Family History Family Medical History: Noncontributory - Caffeine Use Caffeine Use: Reports: None ED ROS GENERAL - Review of Systems Review Of Systems: See Below (noted) ED EXAM, GENERAL - Physical Exam Exam: See Below (noted) EKG INTERPRETATION EKG Interpretation Comments: 12 lead EKG interpretation Obtained: July 02, 2020 at 2038 hrs. 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 He required Lambert catheter drainage. This produced approximately 800 mL's of fluid from retention. This is the likely cause of his acute renal failure. The patient has a mild elevated potassium however I feel this will get better after his urinary obstruction is fixed which we have done in the emergency department. We have also given the antidote for extrapyramidal symptoms. Cogentin. He will require admission. I discussed this with Dr. Nicolas Cabrera at length. He feels comfortable admitting this patient at this time. Critical Care Note: The patient presented in critical status due to acute renal failure. The patient required rapid exam, decision making, and frequent re-evaluations during their time in the Emergency Department. Total Critical Care time exclusive of all other billable procedure time provided by myself 77 minutes My diagnostic impression: 1. Acute renal failure secondary to urinary obstruction 2. Mild hyperkalemia 3. Acute metabolic encephalopathy 4. Azotemia 5. Leukocytosis 6. Anemia Feel this patient is negative for sepsis. His acute renal failure is caused by urinary obstruction. He is not febrile or tachycardic. He has a mild leukocytosis. His altered mental status is secondary to his medications not being able to clear and unlikely extrapyramidal side effects from his Haldol. Last Recorded V/S: Last Vital Signs Temp 96.5 F L 07/02/20 20:20 Pulse 75 07/02/20 20:20 Resp 18 07/02/20 20:20 BP 132/75 07/02/20 20:20 Pulse Ox 97 07/02/20 20:20 - Orders/Labs/Meds Orders: Active Orders 24 hr Category Date Time Status Patient Status [ADT] Routine ADT 07/02/20 23:18 Active Blood Pressure Mgt: Sepsis [RC] Q15MX2 Care 07/02/20 21:05 Active EKG Documentation Completion [RC] STAT Care 07/02/20 21:04 Active Insert Lambert Catheter [Insert Urinary Catheter] [OM.PC] Care 07/02/20 22:30 Ordered Q24H Urinary Catheter Assessment [RC] ASDIRECTED Care 07/02/20 22:17 Active CORONAVIRUS COVID-19 SUSAN [MOLEC] Stat Lab 07/02/20 22:48 Received CULTURE BLOOD [BC] Stat Lab 07/02/20 21:15 Received CULTURE BLOOD [BC] Stat Lab 07/02/20 21:28 Received UA W/MICROSCOPIC [URIN] Stat Lab 07/02/20 23:00 Results Sodium Chloride 0.9% [Saline Flush] Med 07/02/20 21:04 Active 10 ml FLUSH ASDIRECTED PRN Sodium Chloride 0.9% [Saline Flush] Med 07/02/20 21:04 Active 2.5 ml FLUSH ASDIRECTED PRN Blood Culture x2 Reflex Set [OM.PC] Stat Oth 07/02/20 21:04 Ordered Saline Lock Insert [OM.PC] Stat Oth 07/02/20 21:04 Ordered Severe Sepsis Onset Time [OM.PC] Stat Oth 07/02/20 21:04 Ordered Medication Orders Sodium Chloride (Saline Flush) 10 ml FLUSH ASDIRECTED PRN PRN Reason: Keep Vein Open Sodium Chloride (Saline Flush) 2.5 ml FLUSH ASDIRECTED PRN PRN Reason: Keep Vein Open Labs: Laboratory Tests 07/02/20 07/02/20 07/02/20 Range/Units 21:05 21:05 21:05 WBC 13.61 H (4.0-11.0) K/uL RBC 3.64 L (4.50-5.90) M/uL Hgb 9.8 L (13.0-17.0) g/dL Hct 32.0 L (38.0-50.0) % MCV 87.9 (80.0-98.0) fL MCH 26.9 L (27.0-32.0) pg MCHC 30.6 L (31.0-37.0) g/dL RDW Std Deviation 48.0 (28.0-62.0) fl RDW Coeff of Dorothea 15 (11.0-15.0) % Plt Count 370 (150-400) K/uL MPV 8.20 (7.40-12.00) fL Neut % (Auto) 71.6 (48.0-80.0) % Lymph % (Auto) 19.3 (16.0-40.0) % Cooper % (Auto) 6.8 (0.0-15.0) % Eos % (Auto) 2.1 (0.0-7.0) % Baso % (Auto) 0.2 (0.0-1.5) % Neut # (Auto) 9.8 H (1.4-5.7) K/uL Lymph # (Auto) 2.6 H (0.6-2.4) K/uL Cooper # (Auto) 0.9 H (0.0-0.8) K/uL Eos # (Auto) 0.3 (0.0-0.7) K/uL Baso # (Auto) 0.0 (0.0-0.1) K/uL Nucleated RBC % 0.0 /100WBC Nucleated RBCs # 0 K/uL INR 1.14 Lactate 1.0 (0.20-2.00) mmol/L Sodium (136-148) mmol/L Potassium (3.5-5.1) mmol/L Chloride (98-107) mmol/L Carbon Dioxide (21.0-32.0) mmol/L BUN (7.0-18.0) mg/dL Creatinine (0.8-1.3) mg/dL Est Cr Clr Drug Dosing mL/min Estimated GFR (MDRD) ml/min Glucose (74-106) mg/dL Calcium (8.5-10.1) mg/dL Total Bilirubin (0.2-1.0) mg/dL AST (15-37) IU/L ALT (14-63) IU/L Alkaline Phosphatase (46-116) U/L Creatine Kinase (26-308) U/L Troponin I (0.000-0.056) ng/mL Total Protein (6.4-8.2) g/dL Albumin (3.4-5.0) g/dL Globulin (2.6-4.0) g/dL Albumin/Globulin Ratio (0.9-1.6) Urine Color Urine Appearance Urine pH (5.0-8.0) Ur Specific Murray (1.001-1.035) Urine Protein (NEGATIVE) mg/dL Urine Glucose (UA) (NEGATIVE) mg/dL Urine Ketones (NEGATIVE) mg/dL Urine Occult Blood (NEGATIVE) Urine Nitrite (NEGATIVE) Urine Bilirubin (NEGATIVE) Urine Urobilinogen (<2.0) EU/dL Ur Leukocyte Esterase (NEGATIVE) 07/02/20 07/02/20 Range/Units 21:05 23:00 WBC (4.0-11.0) K/uL RBC (4.50-5.90) M/uL Hgb (13.0-17.0) g/dL Hct (38.0-50.0) % MCV (80.0-98.0) fL MCH (27.0-32.0) pg MCHC (31.0-37.0) g/dL RDW Std Deviation (28.0-62.0) fl RDW Coeff of Dorothea (11.0-15.0) % Plt Count (150-400) K/uL MPV (7.40-12.00) fL Neut % (Auto) (48.0-80.0) % Lymph % (Auto) (16.0-40.0) % Cooper % (Auto) (0.0-15.0) % Eos % (Auto) (0.0-7.0) % Baso % (Auto) (0.0-1.5) % Neut # (Auto) (1.4-5.7) K/uL Lymph # (Auto) (0.6-2.4) K/uL Cooper # (Auto) (0.0-0.8) K/uL Eos # (Auto) (0.0-0.7) K/uL Baso # (Auto) (0.0-0.1) K/uL Nucleated RBC % /100WBC Nucleated RBCs # K/uL INR Lactate (0.20-2.00) mmol/L Sodium 136 (136-148) mmol/L Potassium 5.4 H (3.5-5.1) mmol/L Chloride 102 (98-107) mmol/L Carbon Dioxide 20.7 L (21.0-32.0) mmol/L BUN 46 H (7.0-18.0) mg/dL Creatinine 7.6 H (0.8-1.3) mg/dL Est Cr Clr Drug Dosing 8.94 mL/min Estimated GFR (MDRD) 7.2 ml/min Glucose 75 (74-106) mg/dL Calcium 8.4 L (8.5-10.1) mg/dL Total Bilirubin 0.5 (0.2-1.0) mg/dL AST 21 (15-37) IU/L ALT 25 (14-63) IU/L Alkaline Phosphatase 93 (46-116) U/L Creatine Kinase 77 (26-308) U/L Troponin I < 0.050 (0.000-0.056) ng/mL Total Protein 6.9 (6.4-8.2) g/dL Albumin 1.9 L (3.4-5.0) g/dL Globulin 5.0 H (2.6-4.0) g/dL Albumin/Globulin Ratio 0.4 L (0.9-1.6) Urine Color YELLOW Urine Appearance CLEAR Urine pH 6.0 (5.0-8.0) Ur Specific Murray 1.010 (1.001-1.035) Urine Protein NEGATIVE (NEGATIVE) mg/dL Urine Glucose (UA) NEGATIVE (NEGATIVE) mg/dL Urine Ketones NEGATIVE (NEGATIVE) mg/dL Urine Occult Blood NEGATIVE (NEGATIVE) Urine Nitrite NEGATIVE (NEGATIVE) Urine Bilirubin NEGATIVE (NEGATIVE) Urine Urobilinogen 0.2 (<2.0) EU/dL Ur Leukocyte Esterase NEGATIVE (NEGATIVE) Meds: Medications Generic Name Dose Route Start Last Admin Trade Name Freq PRN Reason Stop Dose Admin Sodium Chloride 10 ml 07/02/20 21:04 Saline Flush FLUSH ASDIRECTED PRN Keep Vein Open Sodium Chloride 2.5 ml 07/02/20 21:04 Saline Flush FLUSH ASDIRECTED PRN Keep Vein Open Discontinued Medications Generic Name Dose Route Start Last Admin Trade Name Freq PRN Reason Stop Dose Admin Benztropine Mesylate 2 mg 07/02/20 21:07 07/02/20 22:48 Cogentin IM 07/02/20 21:08 Not Given ONETIME ONE Benztropine Mesylate 2 mg 07/02/20 21:54 07/02/20 22:13 Cogentin PO 07/02/20 21:55 2 mg ONETIME ONE Administration Ceftriaxone Sodium 1 gm/ 100 mls @ 200 mls/hr 07/02/20 21:04 07/02/20 22:14 Sodium Chloride IV 07/02/20 21:33 Not Given STAT ONE Sodium Chloride 2,500 mls @ 2,500 mls/hr 07/02/20 21:04 07/02/20 22:12 Normal Saline IV 07/02/20 22:03 2,500 mls/hr BOLUS ONE Administration Protocol Ceftriaxone Sodium/Dextrose Confirm 07/02/20 21:39 07/02/20 21:55 Rocephin In Dextrose,Iso-Osm 1 Gm/50 Ml Administered 07/02/20 21:40 Not Given Dose 50 mls @ as directed .ROUTE .STK-MED ONE Ceftriaxone Sodium/Dextrose 1 50 mls @ 100 mls/hr 07/02/20 21:42 07/02/20 22:13 gm/ Premix IV 07/02/20 22:11 100 mls/hr ONETIME ONE Administration Departure - Departure Time of Disposition: 00:05 Disposition: Admitted As Inpatient 64 Clinical Impression: Acute metabolic encephalopathy - Discharge Information *PRESCRIPTION DRUG MONITORING PROGRAM REVIEWED*: Not Applicable *COPY OF PRESCRIPTION DRUG MONITORING REPORT IN PATIENT COLLETTE: Not Applicable Sepsis Event Note (ED) - Evaluation Sepsis Screening Result: No Definite Risk - Focused Exam Vital Signs: Vital Signs Temp Pulse Resp BP Pulse Ox 07/02/20 20:20 96.5 F L 75 18 132/75 97 - My Orders Last 24 Hours: My Active Orders 07/02/20 21:04 EKG Documentation Completion [RC] STAT Sodium Chloride 0.9% [Saline Flush] 10 ml FLUSH ASDIRECTED PRN Sodium Chloride 0.9% [Saline Flush] 2.5 ml FLUSH ASDIRECTED PRN Blood Culture x2 Reflex Set [OM.PC] Stat Saline Lock Insert [OM.PC] Stat Severe Sepsis Onset Time [OM.PC] Stat 07/02/20 21:05 Blood Pressure Mgt: Sepsis [RC] Q15MX2 07/02/20 21:15 CULTURE BLOOD [BC] Stat 07/02/20 21:28 CULTURE BLOOD [BC] Stat 07/02/20 22:17 Urinary Catheter Assessment [RC] ASDIRECTED 07/02/20 22:30 Insert Lambert Catheter [Insert Urinary Catheter] [OM.PC] Q24H 07/02/20 22:48 CORONAVIRUS COVID-19 SUSAN [MOLEC] Stat 07/02/20 23:00 UA W/MICROSCOPIC [URIN] Stat 07/02/20 23:18 Patient Status [ADT] Routine - Assessment/Plan Last 24 Hours: My Active Orders 07/02/20 21:04 EKG Documentation Completion [RC] STAT Sodium Chloride 0.9% [Saline Flush] 10 ml FLUSH ASDIRECTED PRN Sodium Chloride 0.9% [Saline Flush] 2.5 ml FLUSH ASDIRECTED PRN Blood Culture x2 Reflex Set [OM.PC] Stat Saline Lock Insert [OM.PC] Stat Severe Sepsis Onset Time [OM.PC] Stat 07/02/20 21:05 Blood Pressure Mgt: Sepsis [RC] Q15MX2 07/02/20 21:15 CULTURE BLOOD [BC] Stat 07/02/20 21:28 CULTURE BLOOD [BC] Stat 07/02/20 22:17 Urinary Catheter Assessment [RC] ASDIRECTED 07/02/20 22:30 Insert Lambert Catheter [Insert Urinary Catheter] [OM.PC] Q24H 07/02/20 22:48 CORONAVIRUS COVID-19 SUSAN [MOLEC] Stat 07/02/20 23:00 UA W/MICROSCOPIC [URIN] Stat 07/02/20 23:18 Patient Status [ADT] Routine
[2020-07-02] MEDS ORDERED: cefTRIAXone 1 GM in Premix Bag 1 BAG IV ONE (21:42)
[2020-07-02 21:43] LABS: BLOOD UREA NITROGEN,BUN 46 mg/dL (7.0-18.0); CARBON DIOXIDE,CO2 20.7 mmol/L (21.0-32.0); CHLORIDE,CL 102 mmol/L (98-107); GLUCOSE RANDOM 75 mg/dL (74-106); POTASSIUM,K 5.4 mmol/L (3.5-5.1); SODIUM,NA 136 mmol/L (136-148)
[2020-07-02] MEDS ORDERED: Benztropine 1 MG Tab PO ONE (21:54)
--- NOTE | 2020-07-02 22:02 | CT ---
Head CT Technique: Multiple axial sections through the brain were obtained. Intravenous contrast was not utilized. Comparison: Prior head CT study of 06/26/20. Findings: Ventricles along the basal cisterns and sulci over the convexities are moderately prominent. Greater atrophy is seen within both frontal regions. CSF density is noted within the left temporal fossa which is stable from prior exam possibly due to chronic arachnoid cyst. No abnormal parenchymal densities are seen. No evidence of intracranial hemorrhage. No midline shift or mass-effect is seen. Bone window setting shows no acute calvarial finding. Visualized paranasal sinuses and mastoid sinuses show nothing acute. Small scalp lesion is seen within the left frontal region most likely due to scalp lipoma. Impression: 1. Multiple findings as noted above. 2. No acute intracranial abnormality is appreciated. 3. No significant change from previous study is seen. Diagnostic code #2 This report was dictated in MDT
--- NOTE | 2020-07-02 22:14 | CR ---
Chest: AP view of the chest was obtained. Comparison: Prior chest x-ray of 06/26/20. Heart size is normal. Tortuous thoracic aorta seen. Slight density within left lung base is noted believed to be improved atelectasis from prior chest x-ray. Lungs are otherwise clear. Bony structures are unremarkable. Impression: 1. Nothing acute is seen. Diagnostic code #2 This report was dictated in MDT
--- NOTE | 2020-07-02 22:51 | CT ---
CT abdomen and pelvis Technique: Multiple axial sections were obtained from above the dome of the diaphragm inferiorly through the pubic symphysis. Intravenous and oral contrast not utilized. Comparison: No prior CT abdomen or pelvis exam is available. Findings: Visualized lung bases show nothing acute. Noncontrast appearance of the liver shows no discrete abnormality. Spleen appears within normal limits. Adrenal glands show no nodule. Pancreas shows no discrete abnormality. Kidneys show no hydronephrosis. No ureteral calculi are seen. Bladder is somewhat dilated. Aorta shows either sclerotic calcification without aneurysm. No retroperitoneal adenopathy or mesenteric abnormalities are seen. No pelvic mass or adenopathy is appreciated. Artifact is noted within the pelvis from right hip prosthesis. Bone window settings were reviewed to show scattered degenerative change within the spine with no acute osseous finding being seen. Impression: 1. Dilated bladder containing urine. 2. Other findings as noted above. Nothing acute is otherwise appreciated on noncontrast CT study of the abdomen and pelvis. Diagnostic code #2 This report was dictated in MDT
[2020-07-03] MEDS ORDERED: LORazepam 2 MG/ML SDV ONE (00:29)
[2020-07-03] MEDS ORDERED: Sodium Chloride 0.9% 1,000 ML IV SCH (00:30)
[2020-07-03] MEDS ORDERED: LORazepam 2 MG/ML SDV IVPUSH STA (00:36)
[2020-07-03] MEDS ORDERED: LORazepam 2 MG/ML SDV IVPUSH ONE (00:47)
[2020-07-03] MEDS ORDERED: Water For Injection, Sterile 20 ML SDV INJECT ONE (00:58)
[2020-07-03] MEDS ORDERED: Ziprasidone Mesylate 20 MG Vial ONE (00:58)
[2020-07-03] MEDS ORDERED: Ziprasidone Mesylate 20 MG Vial IM ONE (00:58)
[2020-07-03] MEDS ORDERED: LORazepam 2 MG/ML SDV IVPUSH PRN (01:59)
[2020-07-03] MEDS: Sodium Chloride 0.9% 1,000 ML IV SCH ×3 (02:12→17:11)
--- NOTE | 2020-07-03 02:47 | PCM.HP.2 ---
H&P History of Present Illness - General Date of Service: 07/03/20 Admit Problem/Dx: Admission Diagnosis/Problem Admission Diagnosis/Problem Metabolic encephalopathy - History of Present Illness Initial Comments - Free Text/Narative: 64 yo male with pmh of schizophrenia who was recently admitted due to gait insta bility, worsening memory and hallucinations. His haldol and amantadine was increased and he was discharged home. Patient presents to the ED again today with worsening mental status and dystonia. Patient was discovered to have renal failure. CT scan of abdomen reveal distended bladder, Lambert was placed in the ED. - Related Data Allergies/Adverse Reactions: Allergies Allergy/AdvReac Type Severity Reaction Status Date / Time Corticosteroids Allergy Swelling Verified 07/02/20 20:31 (Glucocorticoids) cortisone Allergy Swelling Verified 07/02/20 20:31 Home Medications: Home Meds Propranolol HCl [Propranolol HCl ER] 60 mg PO DAILY 01/24/14 [History] Cholecalciferol (Vitamin D3) [Vitamin D3] 5,000 unit PO DAILY 06/26/20 [History] Acetaminophen [Tylenol] 650 mg PO Q4H PRN 1 Days #30 tablet 06/28/20 [Rx] FLUoxetine HCl [Fluoxetine HCl] 40 mg PO DAILY #30 06/28/20 [Rx] amantadine HCL [Amantadine] 200 mg PO BID #60 06/28/20 [Rx] traZODone HCl [Trazodone HCl] 150 mg PO BEDTIME #30 06/28/20 [Rx] haloperidoL [Haldol] 10 mg PO BEDTIME 07/03/20 [History] Past Medical History HEENT History: Reports: None Cardiovascular History: Reports: Hypertension Respiratory History: Reports: None Gastrointestinal History: Reports: None Genitourinary History: Reports: None Musculoskeletal History: Reports: Arthritis Neurological History: Reports: None Psychiatric History: Reports: Anxiety, Dementia, Schizophrenia Endocrine/Metabolic History: Reports: None Insulin Pump Model and Tong Carrier: None Hematologic History: Reports: None Oncologic (Cancer) History: Reports: None Dermatologic History: Reports: None - Infectious Disease History Infectious Disease History: Reports: Chicken Pox - Past Surgical History GI Surgical History: Reports: Appendectomy Social & Family History - Family History Family Medical History: Noncontributory - Tobacco Use Smoking Status *Q: Unknown Ever Smoked - Caffeine Use Caffeine Use: Reports: None - Recreational Drug Use Recreational Drug Use: No H&P Review of Systems - Review of Systems: Review Of Systems: See Below Exam - Exam Exam: See Below - Vital Signs Vital Signs: Last Vital Signs Temp 35.9 C L 07/03/20 00:00 Pulse 90 07/03/20 00:53 Resp 20 07/03/20 00:53 BP 90/63 07/03/20 00:53 Pulse Ox 94 L 07/03/20 00:53 Weight: 83.915 kg - Exam General: Sedated HEENT: Mucosa Moist & [place] Neck: Supple Lungs: Clear to Auscultation, Normal Respiratory Effort Cardiovascular: Regular Rate, Regular Rhythm GI/Abdominal Exam: Soft, Non-Tender Extremities: Non-Tender, No Pedal Edema Skin: Warm, Dry, Intact Neurological: Other (dystonic movements, normal tone) - Patient Data Lab Results Last 24 hrs: Laboratory Results - last 24 hr 07/02/20 07/02/20 07/02/20 Range/Units 21:05 21:05 21:05 WBC 13.61 H (4.0-11.0) K/uL RBC 3.64 L (4.50-5.90) M/uL Hgb 9.8 L (13.0-17.0) g/dL Hct 32.0 L (38.0-50.0) % MCV 87.9 (80.0-98.0) fL MCH 26.9 L (27.0-32.0) pg MCHC 30.6 L (31.0-37.0) g/dL RDW Std Deviation 48.0 (28.0-62.0) fl RDW Coeff of [place] 15 (11.0-15.0) % Plt Count 370 (150-400) K/uL MPV 8.20 (7.40-12.00) fL Neut % (Auto) 71.6 (48.0-80.0) % Lymph % (Auto) 19.3 (16.0-40.0) % [place] % (Auto) 6.8 (0.0-15.0) % Eos % (Auto) 2.1 (0.0-7.0) % Baso % (Auto) 0.2 (0.0-1.5) % Neut # (Auto) 9.8 H (1.4-5.7) K/uL Lymph # (Auto) 2.6 H (0.6-2.4) K/uL [place] # (Auto) 0.9 H (0.0-0.8) K/uL Eos # (Auto) 0.3 (0.0-0.7) K/uL Baso # (Auto) 0.0 (0.0-0.1) K/uL Nucleated RBC % 0.0 /100WBC Nucleated RBCs # 0 K/uL INR 1.14 Lactate 1.0 (0.20-2.00) mmol/L Sodium (136-148) mmol/L Potassium (3.5-5.1) mmol/L Chloride (98-107) mmol/L Carbon Dioxide (21.0-32.0) mmol/L BUN (7.0-18.0) mg/dL Creatinine (0.8-1.3) mg/dL Est Cr Clr Drug Dosing mL/min Estimated GFR (MDRD) ml/min Glucose (74-106) mg/dL Calcium (8.5-10.1) mg/dL Total Bilirubin (0.2-1.0) mg/dL AST (15-37) IU/L ALT (14-63) IU/L Alkaline Phosphatase (46-116) U/L Creatine Kinase (26-308) U/L Troponin I (0.000-0.056) ng/mL Total Protein (6.4-8.2) g/dL Albumin (3.4-5.0) g/dL Globulin (2.6-4.0) g/dL Albumin/Globulin Ratio (0.9-1.6) Urine Color Urine Appearance Urine pH (5.0-8.0) Ur Specific [place] (1.001-1.035) Urine Protein (NEGATIVE) mg/dL Urine Glucose (UA) (NEGATIVE) mg/dL Urine Ketones (NEGATIVE) mg/dL Urine Occult Blood (NEGATIVE) Urine Nitrite (NEGATIVE) Urine Bilirubin (NEGATIVE) Urine Urobilinogen (<2.0) EU/dL Ur Leukocyte Esterase (NEGATIVE) Ur Random Creatinine mg/dL Ur Random Sodium (40.0-220.0) mmol/L SARS-CoV-2 RNA (SUSAN) (NEGATIVE) 07/02/20 07/02/20 07/02/20 Range/Units 21:05 22:48 23:00 WBC (4.0-11.0) K/uL RBC (4.50-5.90) M/uL Hgb (13.0-17.0) g/dL Hct (38.0-50.0) % MCV (80.0-98.0) fL MCH (27.0-32.0) pg MCHC (31.0-37.0) g/dL RDW Std Deviation (28.0-62.0) fl RDW Coeff of [place] (11.0-15.0) % Plt Count (150-400) K/uL MPV (7.40-12.00) fL Neut % (Auto) (48.0-80.0) % Lymph % (Auto) (16.0-40.0) % [place] % (Auto) (0.0-15.0) % Eos % (Auto) (0.0-7.0) % Baso % (Auto) (0.0-1.5) % Neut # (Auto) (1.4-5.7) K/uL Lymph # (Auto) (0.6-2.4) K/uL [place] # (Auto) (0.0-0.8) K/uL Eos # (Auto) (0.0-0.7) K/uL Baso # (Auto) (0.0-0.1) K/uL Nucleated RBC % /100WBC Nucleated RBCs # K/uL INR Lactate (0.20-2.00) mmol/L Sodium 136 (136-148) mmol/L Potassium 5.4 H (3.5-5.1) mmol/L Chloride 102 (98-107) mmol/L Carbon Dioxide 20.7 L (21.0-32.0) mmol/L BUN 46 H (7.0-18.0) mg/dL Creatinine 7.6 H (0.8-1.3) mg/dL Est Cr Clr Drug Dosing 8.94 mL/min Estimated GFR (MDRD) 7.2 ml/min Glucose 75 (74-106) mg/dL Calcium 8.4 L (8.5-10.1) mg/dL Total Bilirubin 0.5 (0.2-1.0) mg/dL AST 21 (15-37) IU/L ALT 25 (14-63) IU/L Alkaline Phosphatase 93 (46-116) U/L Creatine Kinase 77 (26-308) U/L Troponin I < 0.050 (0.000-0.056) ng/mL Total Protein 6.9 (6.4-8.2) g/dL Albumin 1.9 L (3.4-5.0) g/dL Globulin 5.0 H (2.6-4.0) g/dL Albumin/Globulin Ratio 0.4 L (0.9-1.6) Urine Color YELLOW Urine Appearance CLEAR Urine pH 6.0 (5.0-8.0) Ur Specific [place] 1.010 (1.001-1.035) Urine Protein NEGATIVE (NEGATIVE) mg/dL Urine Glucose (UA) NEGATIVE (NEGATIVE) mg/dL Urine Ketones NEGATIVE (NEGATIVE) mg/dL Urine Occult Blood NEGATIVE (NEGATIVE) Urine Nitrite NEGATIVE (NEGATIVE) Urine Bilirubin NEGATIVE (NEGATIVE) Urine Urobilinogen 0.2 (<2.0) EU/dL Ur Leukocyte Esterase NEGATIVE (NEGATIVE) Ur Random Creatinine mg/dL Ur Random Sodium (40.0-220.0) mmol/L SARS-CoV-2 RNA (SUSAN) NEGATIVE (NEGATIVE) 07/02/20 Range/Units 23:00 WBC (4.0-11.0) K/uL RBC (4.50-5.90) M/uL Hgb (13.0-17.0) g/dL Hct (38.0-50.0) % MCV (80.0-98.0) fL MCH (27.0-32.0) pg MCHC (31.0-37.0) g/dL RDW Std Deviation (28.0-62.0) fl RDW Coeff of [place] (11.0-15.0) % Plt Count (150-400) K/uL MPV (7.40-12.00) fL Neut % (Auto) (48.0-80.0) % Lymph % (Auto) (16.0-40.0) % [place] % (Auto) (0.0-15.0) % Eos % (Auto) (0.0-7.0) % Baso % (Auto) (0.0-1.5) % Neut # (Auto) (1.4-5.7) K/uL Lymph # (Auto) (0.6-2.4) K/uL [place] # (Auto) (0.0-0.8) K/uL Eos # (Auto) (0.0-0.7) K/uL Baso # (Auto) (0.0-0.1) K/uL Nucleated RBC % /100WBC Nucleated RBCs # K/uL INR Lactate (0.20-2.00) mmol/L Sodium (136-148) mmol/L Potassium (3.5-5.1) mmol/L Chloride (98-107) mmol/L Carbon Dioxide (21.0-32.0) mmol/L BUN (7.0-18.0) mg/dL Creatinine (0.8-1.3) mg/dL Est Cr Clr Drug Dosing mL/min Estimated GFR (MDRD) ml/min Glucose (74-106) mg/dL Calcium (8.5-10.1) mg/dL Total Bilirubin (0.2-1.0) mg/dL AST (15-37) IU/L ALT (14-63) IU/L Alkaline Phosphatase (46-116) U/L Creatine Kinase (26-308) U/L Troponin I (0.000-0.056) ng/mL Total Protein (6.4-8.2) g/dL Albumin (3.4-5.0) g/dL Globulin (2.6-4.0) g/dL Albumin/Globulin Ratio (0.9-1.6) Urine Color Urine Appearance Urine pH (5.0-8.0) Ur Specific [place] (1.001-1.035) Urine Protein (NEGATIVE) mg/dL Urine Glucose (UA) (NEGATIVE) mg/dL Urine Ketones (NEGATIVE) mg/dL Urine Occult Blood (NEGATIVE) Urine Nitrite (NEGATIVE) Urine Bilirubin (NEGATIVE) Urine Urobilinogen (<2.0) EU/dL Ur Leukocyte Esterase (NEGATIVE) Ur Random Creatinine 60.7 mg/dL Ur Random Sodium 59.0 (40.0-220.0) mmol/L SARS-CoV-2 RNA (SUSAN) (NEGATIVE) Result Diagrams: 07/03/20 05:35 07/03/20 05:35 Sepsis Event Note - Evaluation Sepsis Screening Result: No Definite Risk - Focused Exam Vital Signs: Vital Signs Temp Pulse Resp BP Pulse Ox 07/03/20 00:53 90 20 90/63 94 L 07/03/20 00:00 35.9 C L 90 20 105/50 L 95 07/02/20 23:00 78 20 112/50 L 07/02/20 20:20 35.8 C L 75 18 132/75 97 Problem List Initiated/Reviewed/Updated: Yes Orders Last 24hrs: Active Orders 24 hr Category Date Time Status Patient Status [ADT] Routine ADT 07/02/20 23:18 Active Blood Pressure Mgt: Sepsis [RC] [id number] Care 07/02/20 21:05 Active EKG Documentation Completion [RC] STAT Care 07/02/20 21:04 Active Insert [place] Catheter [Insert Urinary Catheter] [OM.PC] Care 07/02/20 22:30 Ordered Q24H Telemetry Monitoring [Cardiac Monitoring] [RC] . Care 07/03/20 00:44 Active DIRECTED Urinary Catheter Assessment [RC] ASDIRECTED Care 07/02/20 22:17 Active Soft Diet [DIET] Diet 07/03/20 Breakfast Active BASIC METABOLIC PANEL,BMP [CHEM] Routine Lab 07/03/20 05:11 Ordered CBC WITH AUTO DIFF [HEME] Routine Lab 07/03/20 05:11 Ordered CULTURE BLOOD [BC] Stat Lab 07/02/20 21:15 Received CULTURE BLOOD [BC] Stat Lab 07/02/20 21:28 Received UA W/MICROSCOPIC [URIN] Stat Lab 07/02/20 23:00 Results LORazepam [Ativan] Med 07/03/20 01:59 Active 1 mg IVPUSH Q6H PRN Sodium Chloride 0.9% [Normal Saline] 1,000 ml Med 07/03/20 02:00 Active IV ASDIRECTED Sodium Chloride 0.9% [Saline Flush] Med 07/02/20 21:04 Active 10 ml FLUSH ASDIRECTED PRN Sodium Chloride 0.9% [Saline Flush] Med 07/02/20 21:04 Active 2.5 ml FLUSH ASDIRECTED PRN Blood Culture x2 Reflex Set [OM.PC] Stat Oth 07/02/20 21:04 Ordered Saline Lock Insert [OM.PC] Stat Oth 07/02/20 21:04 Ordered Severe Sepsis Onset Time [OM.PC] Stat Oth 09/28/20 21:04 Ordered Medication Orders Sodium Chloride (Normal Saline) 1,000 mls @ 150 mls/hr IV ASDIRECTED ARI Last Admin: 07/03/20 02:12 Dose: 150 mls/hr Documented by: MAXIMILIANO Lorazepam (Ativan) 1 mg IVPUSH Q6H PRN PRN Reason: Agitation Sodium Chloride (Saline Flush) 10 ml FLUSH ASDIRECTED PRN PRN Reason: Keep Vein Open Sodium Chloride (Saline Flush) 2.5 ml FLUSH ASDIRECTED PRN PRN Reason: Keep Vein Open Assessment/Plan Comment:: 64 yo male admitted for acute renal failure and metabolic encephalopathy Delirium: possible due to build up of drug levels due to acute renal failure Acute renal failure: likely due to obstructive uropathy, will continue to hydrate, watch for post obstructive diuresis hold antipsychotics for now Dystonia: Ativan prn
[2020-07-03 06:04] LABS: CARBON DIOXIDE,CO2 19.9 mmol/L (21.0-32.0); POTASSIUM,K 4.7 mmol/L (3.5-5.1)
[2020-07-03] MEDS ORDERED: Sodium Chloride 0.9% 1,000 ML IV ONE (13:17)
--- NOTE | 2020-07-03 13:24 | PCM.PN ---
- General Info Date of Service: 07/03/20 - Review of Systems Systems Review Comment:: obtunded, nonverbal - Patient Data Vitals - Most Recent: Last Vital Signs Temp 37.1 C 07/03/20 12:00 Pulse 88 07/03/20 12:00 Resp 20 07/03/20 12:00 BP 124/45 L 07/03/20 12:00 Pulse Ox 97 07/03/20 12:00 Weight - Most Recent: 83.915 kg I&O - Last 24 Hours: Intake & Output 07/02/20 07/03/20 07/03/20 22:59 06:59 14:59 Intake Total 372 Output Total 4200 Balance -3828 Lab Results Last 24 Hours: Laboratory Results - last 24 hr 07/02/20 07/02/20 07/02/20 Range/Units 21:05 21:05 21:05 WBC 13.61 H (4.0-11.0) K/uL RBC 3.64 L (4.50-5.90) M/uL Hgb 9.8 L (13.0-17.0) g/dL Hct 32.0 L (38.0-50.0) % MCV 87.9 (80.0-98.0) fL MCH 26.9 L (27.0-32.0) pg MCHC 30.6 L (31.0-37.0) g/dL RDW Std Deviation 48.0 (28.0-62.0) fl RDW Coeff of [place] 15 (11.0-15.0) % Plt Count 370 (150-400) K/uL MPV 8.20 (7.40-12.00) fL Neut % (Auto) 71.6 (48.0-80.0) % Lymph % (Auto) 19.3 (16.0-40.0) % [place] % (Auto) 6.8 (0.0-15.0) % Eos % (Auto) 2.1 (0.0-7.0) % Baso % (Auto) 0.2 (0.0-1.5) % Neut # (Auto) 9.8 H (1.4-5.7) K/uL Lymph # (Auto) 2.6 H (0.6-2.4) K/uL [place] # (Auto) 0.9 H (0.0-0.8) K/uL Eos # (Auto) 0.3 (0.0-0.7) K/uL Baso # (Auto) 0.0 (0.0-0.1) K/uL Nucleated RBC % 0.0 /100WBC Nucleated RBCs # 0 K/uL INR 1.14 Lactate 1.0 (0.20-2.00) mmol/L Sodium (136-148) mmol/L Potassium (3.5-5.1) mmol/L Chloride (98-107) mmol/L Carbon Dioxide (21.0-32.0) mmol/L BUN (7.0-18.0) mg/dL Creatinine (0.8-1.3) mg/dL Est Cr Clr Drug Dosing mL/min Estimated GFR (MDRD) ml/min Glucose (74-106) mg/dL Calcium (8.5-10.1) mg/dL Total Bilirubin (0.2-1.0) mg/dL AST (15-37) IU/L ALT (14-63) IU/L Alkaline Phosphatase (46-116) U/L Creatine Kinase (26-308) U/L Troponin I (0.000-0.056) ng/mL Total Protein (6.4-8.2) g/dL Albumin (3.4-5.0) g/dL Globulin (2.6-4.0) g/dL Albumin/Globulin Ratio (0.9-1.6) Urine Color Urine Appearance Urine pH (5.0-8.0) Ur Specific [place] (1.001-1.035) Urine Protein (NEGATIVE) mg/dL Urine Glucose (UA) (NEGATIVE) mg/dL Urine Ketones (NEGATIVE) mg/dL Urine Occult Blood (NEGATIVE) Urine Nitrite (NEGATIVE) Urine Bilirubin (NEGATIVE) Urine Urobilinogen (<2.0) EU/dL Ur Leukocyte Esterase (NEGATIVE) Urine RBC (0-2/HPF) Urine WBC (0-5/HPF) Ur Epithelial Cells (NONE-FEW) Urine Bacteria (NEGATIVE) Ur Random Creatinine mg/dL Ur Random Sodium (40.0-220.0) mmol/L SARS-CoV-2 RNA (SUSAN) (NEGATIVE) 07/02/20 07/02/20 07/02/20 Range/Units 21:05 22:48 23:00 WBC (4.0-11.0) K/uL RBC (4.50-5.90) M/uL Hgb (13.0-17.0) g/dL Hct (38.0-50.0) % MCV (80.0-98.0) fL MCH (27.0-32.0) pg MCHC (31.0-37.0) g/dL RDW Std Deviation (28.0-62.0) fl RDW Coeff of [place] (11.0-15.0) % Plt Count (150-400) K/uL MPV (7.40-12.00) fL Neut % (Auto) (48.0-80.0) % Lymph % (Auto) (16.0-40.0) % [place] % (Auto) (0.0-15.0) % Eos % (Auto) (0.0-7.0) % Baso % (Auto) (0.0-1.5) % Neut # (Auto) (1.4-5.7) K/uL Lymph # (Auto) (0.6-2.4) K/uL [place] # (Auto) (0.0-0.8) K/uL Eos # (Auto) (0.0-0.7) K/uL Baso # (Auto) (0.0-0.1) K/uL Nucleated RBC % /100WBC Nucleated RBCs # K/uL INR Lactate (0.20-2.00) mmol/L Sodium 136 (136-148) mmol/L Potassium 5.4 H (3.5-5.1) mmol/L Chloride 102 (98-107) mmol/L Carbon Dioxide 20.7 L (21.0-32.0) mmol/L BUN 46 H (7.0-18.0) mg/dL Creatinine 7.6 H (0.8-1.3) mg/dL Est Cr Clr Drug Dosing 8.94 mL/min Estimated GFR (MDRD) 7.2 ml/min Glucose 75 (74-106) mg/dL Calcium 8.4 L (8.5-10.1) mg/dL Total Bilirubin 0.5 (0.2-1.0) mg/dL AST 21 (15-37) IU/L ALT 25 (14-63) IU/L Alkaline Phosphatase 93 (46-116) U/L Creatine Kinase 77 (26-308) U/L Troponin I < 0.050 (0.000-0.056) ng/mL Total Protein 6.9 (6.4-8.2) g/dL Albumin 1.9 L (3.4-5.0) g/dL Globulin 5.0 H (2.6-4.0) g/dL Albumin/Globulin Ratio 0.4 L (0.9-1.6) Urine Color YELLOW Urine Appearance CLEAR Urine pH 6.0 (5.0-8.0) Ur Specific [place] 1.010 (1.001-1.035) Urine Protein NEGATIVE (NEGATIVE) mg/dL Urine Glucose (UA) NEGATIVE (NEGATIVE) mg/dL Urine Ketones NEGATIVE (NEGATIVE) mg/dL Urine Occult Blood NEGATIVE (NEGATIVE) Urine Nitrite NEGATIVE (NEGATIVE) Urine Bilirubin NEGATIVE (NEGATIVE) Urine Urobilinogen 0.2 (<2.0) EU/dL Ur Leukocyte Esterase NEGATIVE (NEGATIVE) Urine RBC 0-2 (0-2/HPF) Urine WBC 0-2 (0-5/HPF) Ur Epithelial Cells RARE (NONE-FEW) Urine Bacteria NOT SEEN (NEGATIVE) Ur Random Creatinine mg/dL Ur Random Sodium (40.0-220.0) mmol/L SARS-CoV-2 RNA (SUSAN) NEGATIVE (NEGATIVE) 07/02/20 07/03/20 07/03/20 Range/Units 23:00 05:35 05:35 WBC 12.27 H (4.0-11.0) K/uL RBC 3.13 L (4.50-5.90) M/uL Hgb 8.5 L (13.0-17.0) g/dL Hct 27.7 L (38.0-50.0) % MCV 88.5 (80.0-98.0) fL MCH 27.2 (27.0-32.0) pg MCHC 30.7 L (31.0-37.0) g/dL RDW Std Deviation 48.9 (28.0-62.0) fl RDW Coeff of [place] 15 (11.0-15.0) % Plt Count 327 (150-400) K/uL MPV 8.00 (7.40-12.00) fL Neut % (Auto) 68.7 (48.0-80.0) % Lymph % (Auto) 20.9 (16.0-40.0) % [place] % (Auto) 7.9 (0.0-15.0) % Eos % (Auto) 2.4 (0.0-7.0) % Baso % (Auto) 0.1 (0.0-1.5) % Neut # (Auto) 8.4 H (1.4-5.7) K/uL Lymph # (Auto) 2.6 H (0.6-2.4) K/uL [place] # (Auto) 1.0 H (0.0-0.8) K/uL Eos # (Auto) 0.3 (0.0-0.7) K/uL Baso # (Auto) 0.0 (0.0-0.1) K/uL Nucleated RBC % 0.0 /100WBC Nucleated RBCs # 0 K/uL INR Lactate (0.20-2.00) mmol/L Sodium 141 (136-148) mmol/L Potassium 4.7 (3.5-5.1) mmol/L Chloride 107 (98-107) mmol/L Carbon Dioxide 19.9 L (21.0-32.0) mmol/L BUN 28 H (7.0-18.0) mg/dL Creatinine 3.7 H (0.8-1.3) mg/dL Est Cr Clr Drug Dosing 18.32 mL/min Estimated GFR (MDRD) 16.5 ml/min Glucose 53 L (74-106) mg/dL Calcium 8.1 L (8.5-10.1) mg/dL Total Bilirubin (0.2-1.0) mg/dL AST (15-37) IU/L ALT (14-63) IU/L Alkaline Phosphatase (46-116) U/L Creatine Kinase (26-308) U/L Troponin I (0.000-0.056) ng/mL Total Protein (6.4-8.2) g/dL Albumin (3.4-5.0) g/dL Globulin (2.6-4.0) g/dL Albumin/Globulin Ratio (0.9-1.6) Urine Color Urine Appearance Urine pH (5.0-8.0) Ur Specific [place] (1.001-1.035) Urine Protein (NEGATIVE) mg/dL Urine Glucose (UA) (NEGATIVE) mg/dL Urine Ketones (NEGATIVE) mg/dL Urine Occult Blood (NEGATIVE) Urine Nitrite (NEGATIVE) Urine Bilirubin (NEGATIVE) Urine Urobilinogen (<2.0) EU/dL Ur Leukocyte Esterase (NEGATIVE) Urine RBC (0-2/HPF) Urine WBC (0-5/HPF) Ur Epithelial Cells (NONE-FEW) Urine Bacteria (NEGATIVE) Ur Random Creatinine 60.7 mg/dL Ur Random Sodium 59.0 (40.0-220.0) mmol/L SARS-CoV-2 RNA (SUSAN) (NEGATIVE) Med Orders - Current: Current Medications Sodium Chloride (Normal Saline) 1,000 mls @ 150 mls/hr IV ASDIRECTED ARI Last Admin: 07/03/20 09:20 Dose: 150 mls/hr Documented by: Lorazepam (Ativan) 1 mg IVPUSH Q3H PRN PRN Reason: Agitation Sodium Chloride (Saline Flush) 10 ml FLUSH ASDIRECTED PRN PRN Reason: Keep Vein Open Sodium Chloride (Saline Flush) 2.5 ml FLUSH ASDIRECTED PRN PRN Reason: Keep Vein Open Discontinued Medications Benztropine Mesylate (Cogentin) 2 mg IM ONETIME ONE Stop: 07/02/20 21:08 Last Admin: 07/02/20 22:48 Dose: Not Given Documented by: Benztropine Mesylate (Cogentin) 2 mg PO ONETIME ONE Stop: 07/02/20 21:55 Last Admin: 07/02/20 22:13 Dose: 2 mg Documented by: Ceftriaxone Sodium 1 gm/ (Sodium Chloride) 100 mls @ 200 mls/hr IV STAT ONE Stop: 07/02/20 21:33 Last Admin: 07/02/20 22:14 Dose: Not Given Documented by: Sodium Chloride (Normal Saline) 2,500 mls @ 2,500 mls/hr IV BOLUS ONE; Protocol Stop: 07/02/20 22:03 Last Admin: 07/02/20 22:12 Dose: 2,500 mls/hr Documented by: Ceftriaxone Sodium/Dextrose (Rocephin In Dextrose,Iso-Osm 1 Gm/50 Ml) Confirm Administered Dose 50 mls @ as directed .ROUTE .STK-MED ONE Stop: 07/02/20 21:40 Last Admin: 07/02/20 21:55 Dose: Not Given Documented by: Ceftriaxone Sodium/Dextrose 1 (gm/ Premix) 50 mls @ 100 mls/hr IV ONETIME ONE Stop: 07/02/20 22:11 Last Admin: 07/02/20 22:13 Dose: 100 mls/hr Documented by: Sodium Chloride (Normal Saline) 1,000 mls @ 125 mls/hr IV ASDIRECTED [facility] Lorazepam (Ativan) Confirm Administered Dose 2 mg .ROUTE .STK-MED ONE Stop: 07/03/20 00:30 Last Admin: 07/03/20 00:37 Dose: Not Given Documented by: Lorazepam (Ativan) 1 mg IVPUSH NOW STA Stop: 07/03/20 00:37 Last Admin: 07/03/20 00:38 Dose: 1 mg Documented by: Lorazepam (Ativan) 1 mg IVPUSH ONETIME ONE Stop: 07/03/20 00:48 Last Admin: 07/03/20 00:50 Dose: 1 mg Documented by: Lorazepam (Ativan) 1 mg IVPUSH Q6H PRN PRN Reason: Agitation Sterile Water (Sterile Water For Injection) 1.2 ml INJECT ONETIME ONE Stop: 07/03/20 00:59 Last Admin: 07/03/20 01:22 Dose: 1.2 ml Documented by: Ziprasidone (Geodon) 10 mg IM ONETIME ONE Stop: 07/03/20 00:59 Last Admin: 07/03/20 01:04 Dose: 10 mg Documented by: Ziprasidone (Geodon) Confirm Administered Dose 20 mg .ROUTE .STK-MED ONE Stop: 07/03/20 00:59 Last Admin: 07/03/20 01:15 Dose: Not Given Documented by: - Exam General: No Acute Distress, Obtunded Neck: Supple Lungs: Clear to Auscultation, Normal Respiratory Effort Cardiovascular: Regular Rate, Regular Rhythm GI/Abdominal Exam: Soft, Non-Tender Extremities: Non-Tender, No Pedal Edema Skin: Warm, Dry, Intact Sepsis Event Note - Evaluation Sepsis Screening Result: No Definite Risk - Focused Exam Vital Signs: Vital Signs Temp Pulse Resp BP Pulse Ox Pulse Ox 07/03/20 12:00 37.1 C 88 20 124/45 L 97 07/03/20 08:00 36.4 C 64 20 126/94 H 100 07/03/20 05:06 36.6 C 85 20 128/61 97 07/03/20 02:48 97 97 07/03/20 02:00 36.6 C 85 20 122/61 97 - Problem List Review Problem List Initiated/Reviewed/Updated: Yes - My Orders Last 24 Hours: My Active Orders 07/03/20 00:44 Telemetry Monitoring [Cardiac Monitoring] [RC] Q8H 07/03/20 02:00 Sodium Chloride 0.9% [Normal Saline] 1,000 ml IV ASDIRECTED 07/03/20 02:47 Oxygen Therapy [RC] PRN Up ad Katelynn [RC] ASDIRECTED VTE/DVT Education [RC] PER UNIT ROUTINE Vital Signs [RC] Q4H 07/03/20 02:48 Pulse Oximetry [RC] CONTINUOUS Sequential Compression Device [OM.PC] Per Unit Routine 07/03/20 02:49 Antiembolic Devices [RC] PER UNIT ROUTINE 07/03/20 02:50 LORazepam [Ativan] 1 mg IVPUSH Q3H PRN 07/03/20 02:58 Intake and Output Strict [RC] ASDIRECTED 07/03/20 Breakfast Soft Diet [DIET] - Plan Plan:: 64 yo male admitted for acute renal failure and metabolic encephalopathy Delirium: possible due to build up of drug levels due to acute renal failure, consulted Dr. Marcus regarding LP but stated he felt not infectious and recommended consulting Neurology. I spoke with Dr. Crowell who recommending hold possible offending medications. I spoke with Dr. Munoz who is in agreement in holding medications Acute renal failure: due to obstructive uropathy, Lambert in place, will continue to hydrate, watch for post obstructive diuresis with strict is/os. creatinine is improving. Agitation: Ativan prn
[2020-07-03] MEDS: LORazepam 2 MG/ML SDV IVPUSH PRN ×2 (15:02→18:40)
[2020-07-04] MEDS: LORazepam 2 MG/ML SDV IVPUSH PRN ×4 (00:04→19:07)
[2020-07-04] MEDS: Sodium Chloride 0.9% 1,000 ML IV SCH ×4 (00:11→20:35)
[2020-07-04 09:40] LABS: BLOOD UREA NITROGEN,BUN 9 mg/dL (7.0-18.0); CARBON DIOXIDE,CO2 16.9 mmol/L (21.0-32.0); CHLORIDE,CL 108 mmol/L (98-107); GLUCOSE RANDOM 57 mg/dL (74-106); POTASSIUM,K 4.4 mmol/L (3.5-5.1); SODIUM,NA 144 mmol/L (136-148)
--- NOTE | 2020-07-04 10:55 | PCM.PN ---
- General Info Date of Service: 07/04/20 - Review of Systems Systems Review Comment:: obtunded - Patient Data Vitals - Most Recent: Last Vital Signs Temp 37.2 C 07/04/20 08:00 Pulse 105 H 07/04/20 08:00 Resp 24 H 07/04/20 08:00 BP 103/80 07/04/20 08:00 Pulse Ox 95 07/04/20 08:00 Weight - Most Recent: 83.915 kg I&O - Last 24 Hours: Intake & Output 07/03/20 07/04/20 07/04/20 22:59 06:59 14:59 Intake Total 2643 1650 Output Total 2600 1650 Balance 43 0 Lab Results Last 24 Hours: Laboratory Results - last 24 hr 07/04/20 07/04/20 Range/Units 09:05 09:05 WBC 15.02 H (4.0-11.0) K/uL RBC 3.54 L (4.50-5.90) M/uL Hgb 9.7 L (13.0-17.0) g/dL Hct 31.6 L (38.0-50.0) % MCV 89.3 (80.0-98.0) fL MCH 27.4 (27.0-32.0) pg MCHC 30.7 L (31.0-37.0) g/dL RDW Std Deviation 48.9 (28.0-62.0) fl RDW Coeff of Dorothea 15 (11.0-15.0) % Plt Count 357 (150-400) K/uL MPV 7.80 (7.40-12.00) fL Neut % (Auto) 73.9 (48.0-80.0) % Lymph % (Auto) 16.0 (16.0-40.0) % [place] % (Auto) 8.2 (0.0-15.0) % Eos % (Auto) 1.7 (0.0-7.0) % Baso % (Auto) 0.2 (0.0-1.5) % Neut # (Auto) 11.1 H (1.4-5.7) K/uL Lymph # (Auto) 2.4 (0.6-2.4) K/uL [place] # (Auto) 1.2 H (0.0-0.8) K/uL Eos # (Auto) 0.3 (0.0-0.7) K/uL Baso # (Auto) 0.0 (0.0-0.1) K/uL Nucleated RBC % 0.0 /100WBC Nucleated RBCs # 0 K/uL Sodium 144 (136-148) mmol/L Potassium 4.4 (3.5-5.1) mmol/L Chloride 108 H (98-107) mmol/L Carbon Dioxide 16.9 L (21.0-32.0) mmol/L BUN 9 (7.0-18.0) mg/dL Creatinine 1.0 (0.8-1.3) mg/dL Est Cr Clr Drug Dosing 67.77 mL/min Estimated GFR (MDRD) > 60.0 ml/min Glucose 57 L (74-106) mg/dL Calcium 8.8 (8.5-10.1) mg/dL Total Bilirubin 0.6 (0.2-1.0) mg/dL AST 26 (15-37) IU/L ALT 26 (14-63) IU/L Alkaline Phosphatase 92 (46-116) U/L Total Protein 7.2 (6.4-8.2) g/dL Albumin 2.1 L (3.4-5.0) g/dL Globulin 5.1 H (2.6-4.0) g/dL Albumin/Globulin Ratio 0.4 L (0.9-1.6) Inocencio Results Last 24 Hours: Microbiology 07/02/20 21:28 Aerobic Blood Culture - Preliminary Blood - Venous - Lab Draw NO GROWTH AFTER 1 DAY Anaerobic Blood Culture - Preliminary NO GROWTH AFTER 1 DAY 07/02/20 21:15 Aerobic Blood Culture - Preliminary Blood - Venous NO GROWTH AFTER 1 DAY Anaerobic Blood Culture - Preliminary NO GROWTH AFTER 1 DAY Med Orders - Current: Current Medications Sodium Chloride (Normal Saline) 1,000 mls @ 150 mls/hr IV ASDIRECTED ARI Last Admin: 07/04/20 06:17 Dose: 150 mls/hr Documented by: Lorazepam (Ativan) 1 mg IVPUSH Q3H PRN PRN Reason: Agitation Last Admin: 07/04/20 06:17 Dose: 1 mg Documented by: Sodium Chloride (Saline Flush) 10 ml FLUSH ASDIRECTED PRN PRN Reason: Keep Vein Open Sodium Chloride (Saline Flush) 2.5 ml FLUSH ASDIRECTED PRN PRN Reason: Keep Vein Open Discontinued Medications Benztropine Mesylate (Cogentin) 2 mg IM ONETIME ONE Stop: 07/02/20 21:08 Last Admin: 07/02/20 22:48 Dose: Not Given Documented by: Benztropine Mesylate (Cogentin) 2 mg PO ONETIME ONE Stop: 07/02/20 21:55 Last Admin: 07/02/20 22:13 Dose: 2 mg Documented by: Ceftriaxone Sodium 1 gm/ (Sodium Chloride) 100 mls @ 200 mls/hr IV STAT ONE Stop: 07/02/20 21:33 Last Admin: 07/02/20 22:14 Dose: Not Given Documented by: Sodium Chloride (Normal Saline) 2,500 mls @ 2,500 mls/hr IV BOLUS ONE; Protocol Stop: 07/02/20 22:03 Last Admin: 07/02/20 22:12 Dose: 2,500 mls/hr Documented by: Ceftriaxone Sodium/Dextrose (Rocephin In Dextrose,Iso-Osm 1 Gm/50 Ml) Confirm Administered Dose 50 mls @ as directed .ROUTE .STK-MED ONE Stop: 07/02/20 21:40 Last Admin: 07/02/20 21:55 Dose: Not Given Documented by: Ceftriaxone Sodium/Dextrose 1 (gm/ Premix) 50 mls @ 100 mls/hr IV ONETIME ONE Stop: 07/02/20 22:11 Last Admin: 07/02/20 22:13 Dose: 100 mls/hr Documented by: Sodium Chloride (Normal Saline) 1,000 mls @ 125 mls/hr IV ASDIRECTED AIR Sodium Chloride (Normal Saline) 1,000 mls @ 999 mls/hr IV .Bolus ONE Stop: 07/03/20 14:17 Last Admin: 07/03/20 16:04 Dose: 999 mls/hr Documented by: Lorazepam (Ativan) Confirm Administered Dose 2 mg .ROUTE .STK-MED ONE Stop: 07/03/20 00:30 Last Admin: 07/03/20 00:37 Dose: Not Given Documented by: Lorazepam (Ativan) 1 mg IVPUSH NOW STA Stop: 07/03/20 00:37 Last Admin: 07/03/20 00:38 Dose: 1 mg Documented by: Lorazepam (Ativan) 1 mg IVPUSH ONETIME ONE Stop: 07/03/20 00:48 Last Admin: 07/03/20 00:50 Dose: 1 mg Documented by: Lorazepam (Ativan) 1 mg IVPUSH Q6H PRN PRN Reason: Agitation Sterile Water (Sterile Water For Injection) 1.2 ml INJECT ONETIME ONE Stop: 07/03/20 00:59 Last Admin: 07/03/20 01:22 Dose: 1.2 ml Documented by: Ziprasidone (Geodon) 10 mg IM ONETIME ONE Stop: 07/03/20 00:59 Last Admin: 07/03/20 01:04 Dose: 10 mg Documented by: Ziprasidone (Geodon) Confirm Administered Dose 20 mg .ROUTE .STK-MED ONE Stop: 07/03/20 00:59 Last Admin: 07/03/20 01:15 Dose: Not Given Documented by: - Exam General: No Acute Distress, Obtunded Neck: Supple Lungs: Clear to Auscultation, Normal Respiratory Effort GI/Abdominal Exam: Soft, Non-Tender Extremities: Non-Tender, No Pedal Edema Skin: Warm, Dry, Intact Neurological: Other (clonus in all extremetes, awake but does not follow commands) Sepsis Event Note - Evaluation Sepsis Screening Result: Severe Sepsis Risk - Focused Exam Vital Signs: Vital Signs Temp Pulse Resp BP Pulse Ox Pulse Ox 07/04/20 08:00 37.2 C 105 H 24 H 103/80 95 07/04/20 04:32 37.0 C 117 H 26 H 127/100 H 94 L 07/04/20 02:48 96 07/04/20 02:47 96 07/03/20 23:51 36.4 C 113 H 25 H 94/71 96 - Problem List Review Problem List Initiated/Reviewed/Updated: Yes - My Orders Last 24 Hours: My Active Orders 07/04/20 09:54 Chest wo Cont [CT] Stat 07/04/20 10:52 LACTATE WITH REFLEX [BG] Routine - Plan Plan:: 64 yo male admitted for acute renal failure and metabolic encephalopathy Delirium: likely due to build up of drug levels due to acute renal failure, holding psych meds. Acute renal failure: resolving, creatinine 1.0 today. will continue to hydrate, watch for post obstructive diuresis Dystonia/agitation: Ativan prn
--- NOTE | 2020-07-04 12:47 | CT ---
Indication: Leukocytosis, confusion. Technique: CT of the chest without IV contrast. Coronal and sagittal reconstructions. Comparison: None. Findings: Exam is limited by motion artifact. Normal heart size. The ascending thoracic aorta measures 3.8 cm in AP dimension which is at the upper limits of normal. Normal caliber central pulmonary arteries. Mild coronary artery and aortic vascular calcifications. No pericardial effusion. No thoracic lymphadenopathy. No focal consolidation, pleural effusion, pneumothorax. Focal right apical pleural scarring. 5 mm noncalcified pleural-based pulmonary nodule in the posterior left lung apex (series 2, image 12). The thyroid gland is normal in appearance. The visualized unenhanced upper abdomen is unremarkable. Degenerative changes of the spine. Impression: 1. No acute findings in the chest. 2. 5 mm noncalcified pulmonary nodule in the left lung apex. Please see follow-up guidelines below. [employer] - SOLID NODULES: SINGLE LOW RISK - nodule less than 6 mm: No routine follow-up. - nodule 6-8 mm: CT at 6-12 months, then consider CT at 18-24 months. - nodule greater than 8 mm: Consider CT at 3 months, PET/CT or tissue sampling. SINGLE HIGH RISK - nodule less than 6 mm: Optional CT at 12 months. - nodule 6-8 mm: CT at 6-12 months, then CT at 18-24 months. - nodule greater than 8 mm: Consider CT at 3 months, PET/CT or tissue sampling. Please note that all CT scans at this facility use dose modulation, iterative reconstruction, and/or weight-based dosing when appropriate to reduce radiation dose to as low as reasonably achievable. Dictated by Coco Stevenson MD @ Jul 04 2020 12:32PM Signed by Dr. Coco Stevenson @ Jul 04 2020 12:45PM
[2020-07-05] MEDS: cefTRIAXone 1 GM in Premix Bag 1 BAG IV SCH (01:57)
[2020-07-05] MEDS: Sodium Chloride 0.9% 1,000 ML IV SCH ×3 (04:07→18:01)
[2020-07-05] MEDS ORDERED: Sodium Chloride 0.9% 1,000 ML IV ONE ×2 (09:37→09:57)
[2020-07-05] MEDS: LORazepam 2 MG/ML SDV IVPUSH PRN ×2 (10:08→16:42)
--- NOTE | 2020-07-05 11:37 | PCM.PN ---
- General Info Date of Service: 07/05/20 Admission Dx/Problem (Free Text): Admission Diagnosis/Problem Admission Diagnosis/Problem Metabolic encephalopathy Subjective Update: Non verbal this morning, received Ativan. Does open eyes to name. - Patient Data Vitals - Most Recent: Last Vital Signs Temp 98.1 F 07/05/20 11:03 Pulse 92 07/05/20 11:03 Resp 20 07/05/20 11:03 BP 130/74 07/05/20 11:03 Pulse Ox 98 07/05/20 11:03 Weight - Most Recent: 83.915 kg I&O - Last 24 Hours: Intake & Output 07/04/20 07/05/20 07/05/20 22:59 06:59 14:59 Intake Total 120 60 Output Total 1250 1320 Balance -1130 -1260 Lab Results Last 24 Hours: Laboratory Results - last 24 hr 07/04/20 07/04/20 Range/Units 12:18 17:40 Lactate 0.7 (0.20-2.00) mmol/L Urine Color YELLOW Urine Appearance HAZY Urine pH 5.5 (5.0-8.0) Ur Specific [place] 1.025 (1.001-1.035) Urine Protein NEGATIVE (NEGATIVE) mg/dL Urine Glucose (UA) NEGATIVE (NEGATIVE) mg/dL Urine Ketones >=80 (NEGATIVE) mg/dL Urine Occult Blood LARGE H (NEGATIVE) Urine Nitrite NEGATIVE (NEGATIVE) Urine Bilirubin SMALL H (NEGATIVE) Urine Ictotest NEGATIVE Urine Urobilinogen 0.2 (<2.0) EU/dL Ur Leukocyte Esterase TRACE H (NEGATIVE) Urine RBC 10-15 (0-2/HPF) Urine WBC 1-5 (0-5/HPF) Ur Epithelial Cells RARE (NONE-FEW) Urine Bacteria FEW (NEGATIVE) Inocencio Results Last 24 Hours: Microbiology 07/02/20 21:28 Aerobic Blood Culture - Preliminary Blood - Venous - Lab Draw NO GROWTH AFTER 2 DAYS Anaerobic Blood Culture - Preliminary NO GROWTH AFTER 2 DAYS 07/02/20 21:15 Aerobic Blood Culture - Preliminary Blood - Venous NO GROWTH AFTER 2 DAYS Anaerobic Blood Culture - Preliminary NO GROWTH AFTER 2 DAYS Med Orders - Current: Current Medications Sodium Chloride (Normal Saline) 1,000 mls @ 150 mls/hr IV ASDIRECTED ARI Last Admin: 07/05/20 11:15 Dose: 150 mls/hr Documented by: Ceftriaxone Sodium/Dextrose 1 (gm/ Premix) 50 mls @ 100 mls/hr IV Q24H ARI Last Admin: 07/05/20 01:57 Dose: 100 mls/hr Documented by: Lorazepam (Ativan) 1 mg IVPUSH Q3H PRN PRN Reason: Agitation Last Admin: 07/05/20 10:08 Dose: 1 mg Documented by: Sodium Chloride (Saline Flush) 10 ml FLUSH ASDIRECTED PRN PRN Reason: Keep Vein Open Sodium Chloride (Saline Flush) 2.5 ml FLUSH ASDIRECTED PRN PRN Reason: Keep Vein Open Discontinued Medications Benztropine Mesylate (Cogentin) 2 mg IM ONETIME ONE Stop: 07/02/20 21:08 Last Admin: 07/02/20 22:48 Dose: Not Given Documented by: Benztropine Mesylate (Cogentin) 2 mg PO ONETIME ONE Stop: 07/02/20 21:55 Last Admin: 07/02/20 22:13 Dose: 2 mg Documented by: Ceftriaxone Sodium 1 gm/ (Sodium Chloride) 100 mls @ 200 mls/hr IV STAT ONE Stop: 07/02/20 21:33 Last Admin: 07/02/20 22:14 Dose: Not Given Documented by: Sodium Chloride (Normal Saline) 2,500 mls @ 2,500 mls/hr IV BOLUS ONE; Protocol Stop: 07/02/20 22:03 Last Admin: 07/02/20 22:12 Dose: 2,500 mls/hr Documented by: Ceftriaxone Sodium/Dextrose (Rocephin In Dextrose,Iso-Osm 1 Gm/50 Ml) Confirm Administered Dose 50 mls @ as directed .ROUTE .STK-MED ONE Stop: 07/02/20 21:40 Last Admin: 07/02/20 21:55 Dose: Not Given Documented by: Ceftriaxone Sodium/Dextrose 1 (gm/ Premix) 50 mls @ 100 mls/hr IV ONETIME ONE Stop: 07/02/20 22:11 Last Admin: 07/02/20 22:13 Dose: 100 mls/hr Documented by: Sodium Chloride (Normal Saline) 1,000 mls @ 125 mls/hr IV ASDIRECTED ARI Sodium Chloride (Normal Saline) 1,000 mls @ 999 mls/hr IV .Bolus ONE Stop: 07/03/20 14:17 Last Admin: 07/03/20 16:04 Dose: 999 mls/hr Documented by: Sodium Chloride (Normal Saline) 1,000 mls @ 999 mls/hr IV .Bolus ONE Stop: 07/05/20 10:37 Sodium Chloride (Normal Saline) 1,000 mls @ 999 mls/hr IV .Bolus ONE Stop: 07/05/20 10:57 Last Admin: 07/05/20 10:11 Dose: 999 mls/hr Documented by: Lorazepam (Ativan) Confirm Administered Dose 2 mg .ROUTE .STK-MED ONE Stop: 07/03/20 00:30 Last Admin: 07/03/20 00:37 Dose: Not Given Documented by: Lorazepam (Ativan) 1 mg IVPUSH NOW STA Stop: 07/03/20 00:37 Last Admin: 07/03/20 00:38 Dose: 1 mg Documented by: Lorazepam (Ativan) 1 mg IVPUSH ONETIME ONE Stop: 07/03/20 00:48 Last Admin: 07/03/20 00:50 Dose: 1 mg Documented by: Lorazepam (Ativan) 1 mg IVPUSH Q6H PRN PRN Reason: Agitation Sterile Water (Sterile Water For Injection) 1.2 ml INJECT ONETIME ONE Stop: 07/03/20 00:59 Last Admin: 07/03/20 01:22 Dose: 1.2 ml Documented by: Ziprasidone (Geodon) 10 mg IM ONETIME ONE Stop: 07/03/20 00:59 Last Admin: 07/03/20 01:04 Dose: 10 mg Documented by: Ziprasidone (Geodon) Confirm Administered Dose 20 mg .ROUTE .STK-MED ONE Stop: 07/03/20 00:59 Last Admin: 07/03/20 01:15 Dose: Not Given Documented by: - Exam General: Sedated Neck: Supple Lungs: Clear to Auscultation, Normal Respiratory Effort Cardiovascular: Regular Rate, Regular Rhythm GI/Abdominal Exam: Normal Bowel Sounds, Soft, Non-Tender Extremities: Normal Inspection, Normal Range of Motion, Non-Tender Neurological: No New Focal Deficit Psy/Mental Status: No: Alert Sepsis Event Note - Evaluation Sepsis Screening Result: Sepsis Risk - Focused Exam Vital Signs: Vital Signs Temp Pulse Resp BP Pulse Ox Pulse Ox 07/05/20 11:03 98.1 F 92 20 130/74 98 07/05/20 07:01 99.2 F 121 H 20 151/86 H 95 07/05/20 04:10 97.8 F 107 H 20 142/83 H 93 L 07/05/20 02:00 96 96 07/04/20 23:52 98 F 108 H 22 H 117/66 93 L - Problem List & Annotations (1) Acute metabolic encephalopathy SNOMED Code(s): 10888182, 013634025 Code(s): G93.41 - METABOLIC ENCEPHALOPATHY Status: Acute Current Visit: Yes (2) HTN (hypertension) SNOMED Code(s): 04197923 Code(s): I10 - ESSENTIAL (PRIMARY) HYPERTENSION Status: Chronic Current Visit: No (3) Schizophrenia SNOMED Code(s): 22173639 Code(s): F20.9 - SCHIZOPHRENIA, UNSPECIFIED Status: Chronic Current Visit: No (4) Bladder outlet obstruction SNOMED Code(s): 023091294 Code(s): N32.0 - BLADDER-NECK OBSTRUCTION Status: Acute Current Visit: Yes - Problem List Review Problem List Initiated/Reviewed/Updated: Yes - Plan Plan:: 64 yo male admitted for acute renal failure and metabolic encephalopathy 1. Delirium: - likely due to build up of drug levels due to acute renal failure, holding psych meds for now - Ate breakfast this AM, given Ativan. now resting 2. Acute renal failure from bladder outlet obstruction - resolving, creatinine 1.0 today. - will continue to hydrate, watch for post obstructive diuresis - Lambert in place - Follow up with urology 3. Dystonia/agitation: - Ativan prn - More awake this afternoon eating and up to commode 4. Self care deficit - Will need skilled care - SNF placement - Case management and social work involved 5. Schizophrenia - Holding Haldol and Amantadine for now. VTE prophylaxis: Heparin Dispo: pending placement
[2020-07-05 15:37] LABS: BLOOD UREA NITROGEN,BUN 5 mg/dL (7.0-18.0); CARBON DIOXIDE,CO2 22.5 mmol/L (21.0-32.0); CHLORIDE,CL 109 mmol/L (98-107); POTASSIUM,K 3.2 mmol/L (3.5-5.1); SODIUM,NA 144 mmol/L (136-148)
[2020-07-05 15:49] LABS: GLUCOSE RANDOM 221 mg/dL (74-106)
[2020-07-05] MEDS ORDERED: Potassium Chloride 20 MEQ Tab.ER PO ONE (15:57)
[2020-07-06] MEDS: Sodium Chloride 0.9% 1,000 ML IV SCH ×4 (00:53→21:45)
[2020-07-06] MEDS: cefTRIAXone 1 GM in Premix Bag 1 BAG IV SCH (01:45)
[2020-07-06 06:36] LABS: BLOOD UREA NITROGEN,BUN 4 mg/dL (7.0-18.0); CARBON DIOXIDE,CO2 26.1 mmol/L (21.0-32.0); CHLORIDE,CL 107 mmol/L (98-107); GLUCOSE RANDOM 116 mg/dL (74-106); POTASSIUM,K 3.4 mmol/L (3.5-5.1); SODIUM,NA 141 mmol/L (136-148)
[2020-07-06] MEDS: LORazepam 2 MG/ML SDV IVPUSH PRN ×2 (08:50→22:54)
--- NOTE | 2020-07-06 12:14 | PCM.PN ---
- General Info Date of Service: 07/06/20 Admission Dx/Problem (Free Text): Admission Diagnosis/Problem Admission Diagnosis/Problem Metabolic encephalopathy Subjective Update: Much improved today. No chest pain or SOB. Talkative and near baseline. Concerns of some penile pain with nelson. Functional Status: Reports: Pain Controlled, Tolerating Diet, Ambulating - Review of Systems General: Reports: No Symptoms. Denies: Fatigue, Malaise Pulmonary: Reports: No Symptoms. Denies: Shortness of Breath Cardiovascular: Reports: No Symptoms. Denies: Chest Pain Gastrointestinal: Reports: No Symptoms. Denies: Abdominal Pain, Nausea, Vomiting Genitourinary: Reports: Burning Musculoskeletal: Reports: No Symptoms. Denies: Neck Pain Skin: Reports: No Symptoms Neurological: Reports: No Symptoms Psychiatric: Reports: No Symptoms - Patient Data Vitals - Most Recent: Last Vital Signs Temp 98.8 F 07/06/20 08:00 Pulse 101 H 07/06/20 08:00 Resp 18 07/06/20 08:00 BP 145/83 H 07/06/20 08:00 Pulse Ox 97 07/06/20 08:00 Weight - Most Recent: 83.915 kg I&O - Last 24 Hours: Intake & Output 07/05/20 07/06/20 07/06/20 22:59 06:59 14:59 Intake Total 480 Output Total 100 970 Balance -100 -490 Lab Results Last 24 Hours: Laboratory Results - last 24 hr 07/05/20 07/05/20 07/05/20 Range/Units 13:56 15:08 15:08 WBC 10.63 (4.0-11.0) K/uL RBC 3.63 L (4.50-5.90) M/uL Hgb 9.8 L (13.0-17.0) g/dL Hct 32.0 L (38.0-50.0) % MCV 88.2 (80.0-98.0) fL MCH 27.0 (27.0-32.0) pg MCHC 30.6 L (31.0-37.0) g/dL RDW Std Deviation 49.2 (28.0-62.0) fl RDW Coeff of Dorothea 15 (11.0-15.0) % Plt Count 293 (150-400) K/uL MPV 8.10 (7.40-12.00) fL Neut % (Auto) 73.0 (48.0-80.0) % Lymph % (Auto) 17.3 (16.0-40.0) % [place] % (Auto) 7.2 (0.0-15.0) % Eos % (Auto) 2.4 (0.0-7.0) % Baso % (Auto) 0.1 (0.0-1.5) % Neut # (Auto) 7.8 H (1.4-5.7) K/uL Lymph # (Auto) 1.8 (0.6-2.4) K/uL [place] # (Auto) 0.8 (0.0-0.8) K/uL Eos # (Auto) 0.3 (0.0-0.7) K/uL Baso # (Auto) 0.0 (0.0-0.1) K/uL Nucleated RBC % 0.0 /100WBC Nucleated RBCs # 0 K/uL Sodium 144 (136-148) mmol/L Potassium 3.2 L (3.5-5.1) mmol/L Chloride 109 H (98-107) mmol/L Carbon Dioxide 22.5 (21.0-32.0) mmol/L BUN 5 L (7.0-18.0) mg/dL Creatinine 0.9 (0.8-1.3) mg/dL Est Cr Clr Drug Dosing 75.30 mL/min Estimated GFR (MDRD) > 60.0 ml/min Glucose 221 H (74-106) mg/dL POC Glucose 159 H (60-110) mg/dL Calcium 8.4 L (8.5-10.1) mg/dL 07/05/20 07/05/20 07/06/20 Range/Units 17:17 21:44 05:12 WBC 9.80 (4.0-11.0) K/uL RBC 3.44 L (4.50-5.90) M/uL Hgb 9.4 L (13.0-17.0) g/dL Hct 30.4 L (38.0-50.0) % MCV 88.4 (80.0-98.0) fL MCH 27.3 (27.0-32.0) pg MCHC 30.9 L (31.0-37.0) g/dL RDW Std Deviation 48.8 (28.0-62.0) fl RDW Coeff of Dorothea 15 (11.0-15.0) % Plt Count 269 (150-400) K/uL MPV 8.30 (7.40-12.00) fL Neut % (Auto) 70.8 (48.0-80.0) % Lymph % (Auto) 17.4 (16.0-40.0) % [place] % (Auto) 8.4 (0.0-15.0) % Eos % (Auto) 3.3 (0.0-7.0) % Baso % (Auto) 0.1 (0.0-1.5) % Neut # (Auto) 6.9 H (1.4-5.7) K/uL Lymph # (Auto) 1.7 (0.6-2.4) K/uL [place] # (Auto) 0.8 (0.0-0.8) K/uL Eos # (Auto) 0.3 (0.0-0.7) K/uL Baso # (Auto) 0.0 (0.0-0.1) K/uL Nucleated RBC % 0.0 /100WBC Nucleated RBCs # 0 K/uL Sodium (136-148) mmol/L Potassium (3.5-5.1) mmol/L Chloride (98-107) mmol/L Carbon Dioxide (21.0-32.0) mmol/L BUN (7.0-18.0) mg/dL Creatinine (0.8-1.3) mg/dL Est Cr Clr Drug Dosing mL/min Estimated GFR (MDRD) ml/min Glucose (74-106) mg/dL POC Glucose 144 H 135 H (60-110) mg/dL Calcium (8.5-10.1) mg/dL 07/06/20 07/06/20 07/06/20 Range/Units 05:12 06:05 11:35 WBC (4.0-11.0) K/uL RBC (4.50-5.90) M/uL Hgb (13.0-17.0) g/dL Hct (38.0-50.0) % MCV (80.0-98.0) fL MCH (27.0-32.0) pg MCHC (31.0-37.0) g/dL RDW Std Deviation (28.0-62.0) fl RDW Coeff of Dorothea (11.0-15.0) % Plt Count (150-400) K/uL MPV (7.40-12.00) fL Neut % (Auto) (48.0-80.0) % Lymph % (Auto) (16.0-40.0) % [place] % (Auto) (0.0-15.0) % Eos % (Auto) (0.0-7.0) % Baso % (Auto) (0.0-1.5) % Neut # (Auto) (1.4-5.7) K/uL Lymph # (Auto) (0.6-2.4) K/uL [place] # (Auto) (0.0-0.8) K/uL Eos # (Auto) (0.0-0.7) K/uL Baso # (Auto) (0.0-0.1) K/uL Nucleated RBC % /100WBC Nucleated RBCs # K/uL Sodium 141 (136-148) mmol/L Potassium 3.4 L (3.5-5.1) mmol/L Chloride 107 (98-107) mmol/L Carbon Dioxide 26.1 (21.0-32.0) mmol/L BUN 4 L (7.0-18.0) mg/dL Creatinine 0.7 L (0.8-1.3) mg/dL Est Cr Clr Drug Dosing 96.81 mL/min Estimated GFR (MDRD) > 60.0 ml/min Glucose 116 H (74-106) mg/dL POC Glucose 112 H 104 (60-110) mg/dL Calcium 7.8 L (8.5-10.1) mg/dL Inocencio Results Last 24 Hours: Microbiology 07/04/20 17:40 Urine Culture - Final Urine, Clean Catch No Growth 07/02/20 21:28 Aerobic Blood Culture - Preliminary Blood - Venous - Lab Draw NO GROWTH AFTER 3 DAYS Anaerobic Blood Culture - Preliminary NO GROWTH AFTER 3 DAYS 07/02/20 21:15 Aerobic Blood Culture - Preliminary Blood - Venous NO GROWTH AFTER 3 DAYS Anaerobic Blood Culture - Preliminary NO GROWTH AFTER 3 DAYS Med Orders - Current: Current Medications Sodium Chloride (Normal Saline) 1,000 mls @ 150 mls/hr IV ASDIRECTED [facility] Last Admin: 07/06/20 07:24 Dose: 150 mls/hr Documented by: Ceftriaxone Sodium/Dextrose 1 (gm/ Premix) 50 mls @ 100 mls/hr IV Q24H [facility] Last Admin: 07/06/20 01:45 Dose: 100 mls/hr Documented by: Lorazepam (Ativan) 1 mg IVPUSH Q3H PRN PRN Reason: Agitation Last Admin: 07/06/20 08:50 Dose: 1 mg Documented by: Sodium Chloride (Saline Flush) 10 ml FLUSH ASDIRECTED PRN PRN Reason: Keep Vein Open Sodium Chloride (Saline Flush) 2.5 ml FLUSH ASDIRECTED PRN PRN Reason: Keep Vein Open Discontinued Medications Benztropine Mesylate (Cogentin) 2 mg IM ONETIME ONE Stop: 07/02/20 21:08 Last Admin: 07/02/20 22:48 Dose: Not Given Documented by: Benztropine Mesylate (Cogentin) 2 mg PO ONETIME ONE Stop: 07/02/20 21:55 Last Admin: 07/02/20 22:13 Dose: 2 mg Documented by: Ceftriaxone Sodium 1 gm/ (Sodium Chloride) 100 mls @ 200 mls/hr IV STAT ONE Stop: 07/02/20 21:33 Last Admin: 07/02/20 22:14 Dose: Not Given Documented by: Sodium Chloride (Normal Saline) 2,500 mls @ 2,500 mls/hr IV BOLUS ONE; Protocol Stop: 07/02/20 22:03 Last Admin: 07/02/20 22:12 Dose: 2,500 mls/hr Documented by: Ceftriaxone Sodium/Dextrose (Rocephin In Dextrose,Iso-Osm 1 Gm/50 Ml) Confirm Administered Dose 50 mls @ as directed .ROUTE .STK-MED ONE Stop: 07/02/20 21:40 Last Admin: 07/02/20 21:55 Dose: Not Given Documented by: Ceftriaxone Sodium/Dextrose 1 (gm/ Premix) 50 mls @ 100 mls/hr IV ONETIME ONE Stop: 07/02/20 22:11 Last Admin: 07/02/20 22:13 Dose: 100 mls/hr Documented by: Sodium Chloride (Normal Saline) 1,000 mls @ 125 mls/hr IV ASDIRECTED [facility] Sodium Chloride (Normal Saline) 1,000 mls @ 999 mls/hr IV .Bolus ONE Stop: 07/03/20 14:17 Last Admin: 07/03/20 16:04 Dose: 999 mls/hr Documented by: Sodium Chloride (Normal Saline) 1,000 mls @ 999 mls/hr IV .Bolus ONE Stop: 07/05/20 10:37 Last Admin: 07/05/20 22:07 Dose: Not Given Documented by: Sodium Chloride (Normal Saline) 1,000 mls @ 999 mls/hr IV .Bolus ONE Stop: 07/05/20 10:57 Last Admin: 07/05/20 10:11 Dose: 999 mls/hr Documented by: Lorazepam (Ativan) Confirm Administered Dose 2 mg .ROUTE .STK-MED ONE Stop: 07/03/20 00:30 Last Admin: 07/03/20 00:37 Dose: Not Given Documented by: Lorazepam (Ativan) 1 mg IVPUSH NOW STA Stop: 07/03/20 00:37 Last Admin: 07/03/20 00:38 Dose: 1 mg Documented by: Lorazepam (Ativan) 1 mg IVPUSH ONETIME ONE Stop: 07/03/20 00:48 Last Admin: 07/03/20 00:50 Dose: 1 mg Documented by: Lorazepam (Ativan) 1 mg IVPUSH Q6H PRN PRN Reason: Agitation Potassium Chloride (Klor-Con M20) 40 meq PO ONETIME ONE Stop: 07/05/20 15:58 Last Admin: 07/05/20 16:14 Dose: 40 meq Documented by: Sterile Water (Sterile Water For Injection) 1.2 ml INJECT ONETIME ONE Stop: 07/03/20 00:59 Last Admin: 07/03/20 01:22 Dose: 1.2 ml Documented by: Ziprasidone (Geodon) 10 mg IM ONETIME ONE Stop: 07/03/20 00:59 Last Admin: 07/03/20 01:04 Dose: 10 mg Documented by: Ziprasidone (Geodon) Confirm Administered Dose 20 mg .ROUTE .STK-MED ONE Stop: 07/03/20 00:59 Last Admin: 07/03/20 01:15 Dose: Not Given Documented by: - Exam General: Alert, Oriented, Cooperative, No Acute Distress Lungs: Clear to Auscultation, Normal Respiratory Effort Cardiovascular: Regular Rate, Regular Rhythm GI/Abdominal Exam: Normal Bowel Sounds, Soft, Non-Tender Back Exam: Normal Inspection, Full Range of Motion Extremities: Normal Inspection, Normal Range of Motion, Non-Tender, No Pedal Edema Neurological: No New Focal Deficit, Other (tremor) Psy/Mental Status: Alert, Normal Affect, Normal Mood Sepsis Event Note - Evaluation Sepsis Screening Result: No Definite Risk - Focused Exam Vital Signs: Vital Signs Temp Pulse Resp BP Pulse Ox Pulse Ox 07/06/20 08:00 98.8 F 101 H 18 145/83 H 97 07/06/20 04:28 98.1 F 101 H 18 135/71 96 07/06/20 02:00 98 98 - Problem List & Annotations (1) Acute metabolic encephalopathy SNOMED Code(s): 57892052, 549370036 Code(s): G93.41 - METABOLIC ENCEPHALOPATHY Status: Acute Current Visit: Yes (2) HTN (hypertension) SNOMED Code(s): 05282373 Code(s): I10 - ESSENTIAL (PRIMARY) HYPERTENSION Status: Chronic Current Visit: No (3) Schizophrenia SNOMED Code(s): 18122931 Code(s): F20.9 - SCHIZOPHRENIA, UNSPECIFIED Status: Chronic Current Visit: No (4) Bladder outlet obstruction SNOMED Code(s): 523346244 Code(s): N32.0 - BLADDER-NECK OBSTRUCTION Status: Acute Current Visit: Yes - Problem List Review Problem List Initiated/Reviewed/Updated: Yes - My Orders Last 24 Hours: My Active Orders 07/07/20 05:11 BASIC METABOLIC PANEL,BMP [CHEM] AM CBC WITH AUTO DIFF [HEME] AM - Plan Plan:: 64 yo male admitted for acute renal failure and metabolic encephalopathy 1. Delirium: -Nearly resolved. Very alert this morning 2. Acute renal failure from bladder outlet obstruction - BRII resolved. - Nelson in place - Follow up with urology 3. Dystonia/agitation: - Ativan prn 4. Self care deficit - Will need skilled care - SNF placement - Case management and social work involved 5. Schizophrenia - Holding Haldol and Amantadine for now. - Will reach other to Dr Crowell for restarting medications. VTE prophylaxis: Heparin Dispo: pending placement
[2020-07-06] MEDS: Acetaminophen 325 MG Tab PO PRN (14:45)
[2020-07-06] MEDS: Lidocaine 5% Oint 35.44 GM Tube TOP PRN (14:46)
[2020-07-06] MEDS: Haloperidol 5 MG Tab PO SCH (21:30)
[2020-07-07] MEDS: Acetaminophen 325 MG Tab PO PRN (01:16)
[2020-07-07] MEDS ORDERED: Lactated Ringers 500 ML IV ONE (02:39)
[2020-07-07] MEDS ORDERED: Diltiazem 25 MG/5 ML SDV IVPUSH ONE (02:40)
[2020-07-07] MEDS: cefTRIAXone 1 GM in Premix Bag 1 BAG IV SCH (03:14)
[2020-07-07 03:20] LABS: BLOOD UREA NITROGEN,BUN 5 mg/dL (7.0-18.0); CHLORIDE,CL 104 mmol/L (98-107); GLUCOSE RANDOM 111 mg/dL (74-106); POTASSIUM,K 3.2 mmol/L (3.5-5.1); SODIUM,NA 139 mmol/L (136-148)
[2020-07-07] MEDS ORDERED: Magnesium Sulfate (4.06 MEQ/ML) 5 GM/10 ML SDV IV ONE (03:40)
[2020-07-07] MEDS ORDERED: Potassium Chloride 20 MEQ Tab.ER PO ONE (03:41)
[2020-07-07] MEDS ORDERED: Magnesium Sulfate/Water 4 GM in Premix Bag 1 BAG IV ONE (03:47)
[2020-07-07] MEDS ORDERED: Magnesium Sulfate/Water 100 ML IV ONE (04:00)
[2020-07-07] MEDS ORDERED: Lactated Ringers 500 ML IV SCH (07:00)
[2020-07-07] MEDS: Propranolol 60 MG Cap.ER PO SCH (09:59)
--- NOTE | 2020-07-07 13:41 | PCM.PN ---
- General Info Date of Service: 07/07/20 Admission Dx/Problem (Free Text): Admission Diagnosis/Problem Admission Diagnosis/Problem Metabolic encephalopathy Subjective Update: No chest pain or SOB. Talkative and near baseline. overnight has an episode of Afib RVR, resolved with IV Cardizem Functional Status: Reports: Pain Controlled, Tolerating Diet, Ambulating, Urinating - Review of Systems General: Denies: Fever, Weakness, Fatigue Pulmonary: Denies: Shortness of Breath, Pleuritic Chest Pain Cardiovascular: Denies: Chest Pain, Palpitations, Dyspnea on Exertion Gastrointestinal: Denies: Abdominal Pain, Constipation, Decreased Appetite Genitourinary: Denies: Dysuria, Frequency, Burning Musculoskeletal: Denies: Neck Pain, Shoulder Pain, Arm Pain Skin: Denies: Cyanosis, Jaundice, Mottled - Patient Data Vitals - Most Recent: Last Vital Signs Temp 36.3 C 07/07/20 12:00 Pulse 100 07/07/20 12:00 Resp 18 07/07/20 12:00 BP 114/79 07/07/20 12:00 Pulse Ox 95 07/07/20 12:00 Weight - Most Recent: 83.915 kg I&O - Last 24 Hours: Intake & Output 07/06/20 07/07/20 07/07/20 22:59 06:59 14:59 Intake Total 3158 3359 500 Output Total 1650 1250 Balance 1508 2109 500 Lab Results Last 24 Hours: Laboratory Results - last 24 hr 07/06/20 07/07/20 07/07/20 Range/Units 16:41 02:55 02:55 WBC 9.09 (4.0-11.0) K/uL RBC 3.53 L (4.50-5.90) M/uL Hgb 9.7 L (13.0-17.0) g/dL Hct 30.9 L (38.0-50.0) % MCV 87.5 (80.0-98.0) fL MCH 27.5 (27.0-32.0) pg MCHC 31.4 (31.0-37.0) g/dL RDW Std Deviation 47.5 (28.0-62.0) fl RDW Coeff of Dorothea 15 (11.0-15.0) % Plt Count 244 (150-400) K/uL MPV 8.10 (7.40-12.00) fL Neut % (Auto) 68.6 (48.0-80.0) % Lymph % (Auto) 18.0 (16.0-40.0) % [place] % (Auto) 9.2 (0.0-15.0) % Eos % (Auto) 4.1 (0.0-7.0) % Baso % (Auto) 0.1 (0.0-1.5) % Neut # (Auto) 6.2 H (1.4-5.7) K/uL Lymph # (Auto) 1.6 (0.6-2.4) K/uL [place] # (Auto) 0.8 (0.0-0.8) K/uL Eos # (Auto) 0.4 (0.0-0.7) K/uL Baso # (Auto) 0.0 (0.0-0.1) K/uL Nucleated RBC % 0.0 /100WBC Nucleated RBCs # 0 K/uL Sodium 139 (136-148) mmol/L Potassium 3.2 L (3.5-5.1) mmol/L Chloride 104 (98-107) mmol/L Carbon Dioxide 29.0 (21.0-32.0) mmol/L BUN 5 L (7.0-18.0) mg/dL Creatinine 0.7 L (0.8-1.3) mg/dL Est Cr Clr Drug Dosing 96.81 mL/min Estimated GFR (MDRD) > 60.0 ml/min Glucose 111 H (74-106) mg/dL POC Glucose 92 (60-110) mg/dL Calcium 7.8 L (8.5-10.1) mg/dL Phosphorus (2.6-4.7) mg/dL Magnesium (1.8-2.4) mg/dL 07/07/20 07/07/20 07/07/20 Range/Units 02:55 06:28 11:08 WBC (4.0-11.0) K/uL RBC (4.50-5.90) M/uL Hgb (13.0-17.0) g/dL Hct (38.0-50.0) % MCV (80.0-98.0) fL MCH (27.0-32.0) pg MCHC (31.0-37.0) g/dL RDW Std Deviation (28.0-62.0) fl RDW Coeff of Dorothea (11.0-15.0) % Plt Count (150-400) K/uL MPV (7.40-12.00) fL Neut % (Auto) (48.0-80.0) % Lymph % (Auto) (16.0-40.0) % [place] % (Auto) (0.0-15.0) % Eos % (Auto) (0.0-7.0) % Baso % (Auto) (0.0-1.5) % Neut # (Auto) (1.4-5.7) K/uL Lymph # (Auto) (0.6-2.4) K/uL [place] # (Auto) (0.0-0.8) K/uL Eos # (Auto) (0.0-0.7) K/uL Baso # (Auto) (0.0-0.1) K/uL Nucleated RBC % /100WBC Nucleated RBCs # K/uL Sodium (136-148) mmol/L Potassium (3.5-5.1) mmol/L Chloride (98-107) mmol/L Carbon Dioxide (21.0-32.0) mmol/L BUN (7.0-18.0) mg/dL Creatinine (0.8-1.3) mg/dL Est Cr Clr Drug Dosing mL/min Estimated GFR (MDRD) ml/min Glucose (74-106) mg/dL POC Glucose 102 179 H (60-110) mg/dL Calcium (8.5-10.1) mg/dL Phosphorus 3.3 (2.6-4.7) mg/dL Magnesium 1.0 L (1.8-2.4) mg/dL Inocencio Results Last 24 Hours: Microbiology 07/02/20 21:28 Aerobic Blood Culture - Preliminary Blood - Venous - Lab Draw NO GROWTH AFTER 4 DAYS Anaerobic Blood Culture - Preliminary NO GROWTH AFTER 4 DAYS 07/02/20 21:15 Aerobic Blood Culture - Preliminary Blood - Venous NO GROWTH AFTER 4 DAYS Anaerobic Blood Culture - Preliminary NO GROWTH AFTER 4 DAYS 07/04/20 17:40 Urine Culture - Final Urine, Clean Catch No Growth Med Orders - Current: Current Medications Acetaminophen (Tylenol) 650 mg PO Q4H PRN PRN Reason: Pain Last Admin: 07/07/20 01:16 Dose: 650 mg Documented by: Haloperidol (Haldol) 5 mg PO BEDTIME [facility] Last Admin: 07/06/20 21:30 Dose: 5 mg Documented by: Ceftriaxone Sodium/Dextrose 1 (gm/ Premix) 50 mls @ 100 mls/hr IV Q24H [facility] Last Admin: 07/07/20 03:14 Dose: 100 mls/hr Documented by: Sodium Chloride (Normal Saline) 1,000 mls @ 75 mls/hr IV ASDIRECTED [facility] Last Admin: 07/06/20 21:45 Dose: 75 mls/hr Documented by: Lidocaine HCl (Lidocaine 5%) 0 gm TOP Q6HR PRN PRN Reason: Pain Last Admin: 07/06/20 14:46 Dose: 1 applic Documented by: Lorazepam (Ativan) 1 mg IVPUSH Q3H PRN PRN Reason: Agitation Last Admin: 07/06/20 22:54 Dose: 1 mg Documented by: Propranolol HCl (Inderal La) 60 mg PO DAILY [facility] Last Admin: 07/07/20 09:59 Dose: 60 mg Documented by: Sodium Chloride (Saline Flush) 10 ml FLUSH ASDIRECTED PRN PRN Reason: Keep Vein Open Sodium Chloride (Saline Flush) 2.5 ml FLUSH ASDIRECTED PRN PRN Reason: Keep Vein Open Discontinued Medications Benztropine Mesylate (Cogentin) 2 mg IM ONETIME ONE Stop: 07/02/20 21:08 Last Admin: 07/02/20 22:48 Dose: Not Given Documented by: Benztropine Mesylate (Cogentin) 2 mg PO ONETIME ONE Stop: 07/02/20 21:55 Last Admin: 07/02/20 22:13 Dose: 2 mg Documented by: Diltiazem HCl (Diltiazem) 20 mg IVPUSH ONETIME ONE Stop: 07/07/20 02:41 Last Admin: 07/07/20 04:35 Dose: Not Given Documented by: Ceftriaxone Sodium 1 gm/ (Sodium Chloride) 100 mls @ 200 mls/hr IV STAT ONE Stop: 07/02/20 21:33 Last Admin: 07/02/20 22:14 Dose: Not Given Documented by: Sodium Chloride (Normal Saline) 2,500 mls @ 2,500 mls/hr IV BOLUS ONE; Protocol Stop: 07/02/20 22:03 Last Admin: 07/02/20 22:12 Dose: 2,500 mls/hr Documented by: Ceftriaxone Sodium/Dextrose (Rocephin In Dextrose,Iso-Osm 1 Gm/50 Ml) Confirm Administered Dose 50 mls @ as directed .ROUTE .STK-MED ONE Stop: 07/02/20 21:40 Last Admin: 07/02/20 21:55 Dose: Not Given Documented by: Ceftriaxone Sodium/Dextrose 1 (gm/ Premix) 50 mls @ 100 mls/hr IV ONETIME ONE Stop: 07/02/20 22:11 Last Admin: 07/02/20 22:13 Dose: 100 mls/hr Documented by: Sodium Chloride (Normal Saline) 1,000 mls @ 125 mls/hr IV ASDIRECTED [facility] Sodium Chloride (Normal Saline) 1,000 mls @ 150 mls/hr IV ASDIRECTED [facility] Last Admin: 07/06/20 14:50 Dose: 150 mls/hr Documented by: Sodium Chloride (Normal Saline) 1,000 mls @ 999 mls/hr IV .Bolus ONE Stop: 07/03/20 14:17 Last Admin: 07/03/20 16:04 Dose: 999 mls/hr Documented by: Sodium Chloride (Normal Saline) 1,000 mls @ 999 mls/hr IV .Bolus ONE Stop: 07/05/20 10:37 Last Admin: 07/05/20 22:07 Dose: Not Given Documented by: Sodium Chloride (Normal Saline) 1,000 mls @ 999 mls/hr IV .Bolus ONE Stop: 07/05/20 10:57 Last Admin: 07/05/20 10:11 Dose: 999 mls/hr Documented by: Lactated Ringer's (Ringers, Lactated) 500 mls @ 999 mls/hr IV .BOLUS ONE Stop: 07/07/20 03:09 Last Admin: 07/07/20 02:50 Dose: 999 mls/hr Documented by: Magnesium Sulfate (Magnesium Sulfate In Water Premix) 100 mls @ 50 mls/hr IV ONETIME ONE Stop: 07/07/20 05:59 Last Admin: 07/07/20 04:00 Dose: 50 mls/hr Documented by: Lactated Ringer's (Ringers, Lactated) 500 mls @ 999 mls/hr IV BOLUS [facility] Stop: 07/07/20 07:31 Last Admin: 07/07/20 07:20 Dose: 999 mls/hr Documented by: Lorazepam (Ativan) Confirm Administered Dose 2 mg .ROUTE .STK-MED ONE Stop: 07/03/20 00:30 Last Admin: 07/03/20 00:37 Dose: Not Given Documented by: Lorazepam (Ativan) 1 mg IVPUSH NOW STA Stop: 07/03/20 00:37 Last Admin: 07/03/20 00:38 Dose: 1 mg Documented by: Lorazepam (Ativan) 1 mg IVPUSH ONETIME ONE Stop: 07/03/20 00:48 Last Admin: 07/03/20 00:50 Dose: 1 mg Documented by: Lorazepam (Ativan) 1 mg IVPUSH Q6H PRN PRN Reason: Agitation Potassium Chloride (Klor-Con M20) 40 meq PO ONETIME ONE Stop: 07/05/20 15:58 Last Admin: 07/05/20 16:14 Dose: 40 meq Documented by: Potassium Chloride (Klor-Con M20) 40 meq PO ONETIME ONE Stop: 07/07/20 03:42 Last Admin: 07/07/20 03:59 Dose: 40 meq Documented by: Sterile Water (Sterile Water For Injection) 1.2 ml INJECT ONETIME ONE Stop: 07/03/20 00:59 Last Admin: 07/03/20 01:22 Dose: 1.2 ml Documented by: Ziprasidone (Geodon) 10 mg IM ONETIME ONE Stop: 07/03/20 00:59 Last Admin: 07/03/20 01:04 Dose: 10 mg Documented by: Ziprasidone (Geodon) Confirm Administered Dose 20 mg .ROUTE .STK-MED ONE Stop: 07/03/20 00:59 Last Admin: 07/03/20 01:15 Dose: Not Given Documented by: - Exam General: Alert, Oriented Lungs: Clear to Auscultation, Normal Respiratory Effort Cardiovascular: Regular Rate, Regular Rhythm GI/Abdominal Exam: Normal Bowel Sounds, Soft, Non-Tender Sepsis Event Note - Evaluation Sepsis Screening Result: No Definite Risk - Focused Exam Vital Signs: Vital Signs Temp Pulse Resp BP Pulse Ox Pulse Ox 07/07/20 12:00 36.3 C 100 18 114/79 95 07/07/20 08:00 36.4 C 78 18 138/62 97 07/07/20 04:00 36.6 C 99 18 109/72 97 07/07/20 02:00 96 98 - Problem List Review Problem List Initiated/Reviewed/Updated: Yes - My Orders Last 24 Hours: My Active Orders 07/06/20 21:45 Sodium Chloride 0.9% [Normal Saline] 1,000 ml IV ASDIRECTED 07/07/20 09:00 Propranolol [Inderal LA] 60 mg PO DAILY - Plan Plan:: 64 yo male admitted for acute renal failure and metabolic encephalopathy 1. Delirium: -resolved 2. Acute renal failure from bladder outlet obstruction - BRII resolved. - Lambert in place - Follow up with urology 3. Dystonia/agitation: - Ativan prn 4. Self care deficit - Will need skilled care - SNF placement - Case management and social work involved 5. Schizophrenia - restarted Haldol 5mg upon psych recommendations VTE prophylaxis: Heparin Dispo: pending placement
[2020-07-07] MEDS: Enoxaparin 40 MG/0.4 ML Syringe SUBCUT SCH (14:38)
[2020-07-07] MEDS: LORazepam 2 MG/ML SDV IVPUSH PRN (18:20)
[2020-07-07] MEDS ORDERED: Sodium Chloride 0.9% 500 ML IV ONE (18:30)
[2020-07-07] MEDS: Haloperidol 5 MG Tab PO SCH (20:59)
[2020-07-07] MEDS: Lidocaine 5% Oint 35.44 GM Tube TOP PRN (21:05)
[2020-07-07] MEDS: Sodium Chloride 0.9% 1,000 ML IV SCH (22:54)
[2020-07-08] MEDS: LORazepam 2 MG/ML SDV IVPUSH PRN ×2 (00:06→20:58)
[2020-07-08 06:44] LABS: BLOOD UREA NITROGEN,BUN 6 mg/dL (7.0-18.0); CARBON DIOXIDE,CO2 28.4 mmol/L (21.0-32.0); CHLORIDE,CL 103 mmol/L (98-107); GLUCOSE RANDOM 105 mg/dL (74-106); POTASSIUM,K 3.6 mmol/L (3.5-5.1); SODIUM,NA 138 mmol/L (136-148)
[2020-07-08] MEDS: Propranolol 60 MG Cap.ER PO SCH (08:42)
[2020-07-08] MEDS: Lidocaine 5% Oint 35.44 GM Tube TOP PRN (09:47)
[2020-07-08] MEDS ORDERED: Magnesium Sulfate/Water 2 GM/50 ML BAG IV ONE (10:00)
[2020-07-08] MEDS ORDERED: Magnesium Sulfate/Water 2 GM/50 ML Premix Bag IV ONE (10:00)
--- NOTE | 2020-07-08 13:20 | PCM.PN ---
- General Info Date of Service: 07/08/20 Admission Dx/Problem (Free Text): Admission Diagnosis/Problem Admission Diagnosis/Problem Metabolic encephalopathy Subjective Update: No chest pain or SOB. Talkative and near baseline. overnight has an episode of low BP once, received IV fluids, resolved, received 1 time Ativan for some anxiety - Review of Systems General: Denies: Fever, Weakness, Fatigue Pulmonary: Denies: Shortness of Breath, Pleuritic Chest Pain Cardiovascular: Denies: Chest Pain, Dyspnea on Exertion Gastrointestinal: Denies: Abdominal Pain, Constipation, Decreased Appetite Genitourinary: Denies: Dysuria, Frequency, Burning Musculoskeletal: Denies: Neck Pain, Shoulder Pain, Arm Pain Skin: Denies: Cyanosis, Jaundice, Mottled Neurological: Denies: Confusion, Dizziness, Headache Psychiatric: Denies: Confusion, Depression, Mood Lability, Anxiety, Agitation, Cravings, Hallucinations - Patient Data Vitals - Most Recent: Last Vital Signs Temp 36.7 C 07/08/20 11:50 Pulse 81 07/08/20 11:50 Resp 16 07/08/20 11:50 BP 107/50 L 07/08/20 11:59 Pulse Ox 95 07/08/20 11:50 Weight - Most Recent: 83.915 kg I&O - Last 24 Hours: Intake & Output 07/07/20 07/08/20 07/08/20 22:59 06:59 14:59 Intake Total 1706 600 Output Total 2200 1700 Balance -494 -1100 Lab Results Last 24 Hours: Laboratory Results - last 24 hr 07/07/20 07/08/20 07/08/20 Range/Units 17:12 05:40 08:43 Sodium 138 (136-148) mmol/L Potassium 3.6 (3.5-5.1) mmol/L Chloride 103 (98-107) mmol/L Carbon Dioxide 28.4 (21.0-32.0) mmol/L BUN 6 L (7.0-18.0) mg/dL Creatinine 0.7 L (0.8-1.3) mg/dL Est Cr Clr Drug Dosing 96.81 mL/min Estimated GFR (MDRD) > 60.0 ml/min Glucose 105 (74-106) mg/dL POC Glucose 108 130 H (60-110) mg/dL Calcium 8.0 L (8.5-10.1) mg/dL Phosphorus 2.7 (2.6-4.7) mg/dL Magnesium 1.6 L (1.8-2.4) mg/dL 07/08/20 Range/Units 11:54 Sodium (136-148) mmol/L Potassium (3.5-5.1) mmol/L Chloride (98-107) mmol/L Carbon Dioxide (21.0-32.0) mmol/L BUN (7.0-18.0) mg/dL Creatinine (0.8-1.3) mg/dL Est Cr Clr Drug Dosing mL/min Estimated GFR (MDRD) ml/min Glucose (74-106) mg/dL POC Glucose 254 H (60-110) mg/dL Calcium (8.5-10.1) mg/dL Phosphorus (2.6-4.7) mg/dL Magnesium (1.8-2.4) mg/dL Inocencio Results Last 24 Hours: Microbiology 07/02/20 21:28 Aerobic Blood Culture - Final Blood - Venous - Lab Draw NO GROWTH AFTER 5 DAYS Anaerobic Blood Culture - Final NO GROWTH AFTER 5 DAYS 07/02/20 21:15 Aerobic Blood Culture - Final Blood - Venous NO GROWTH AFTER 5 DAYS Anaerobic Blood Culture - Final NO GROWTH AFTER 5 DAYS Med Orders - Current: Current Medications Acetaminophen (Tylenol) 650 mg PO Q4H PRN PRN Reason: Pain Last Admin: 07/07/20 01:16 Dose: 650 mg Documented by: Enoxaparin Sodium (Lovenox) 40 mg SUBCUT Q24H [facility] Last Admin: 07/07/20 14:38 Dose: 40 mg Documented by: Haloperidol (Haldol) 5 mg PO BEDTIME [facility] Last Admin: 07/07/20 20:59 Dose: 5 mg Documented by: Sodium Chloride (Normal Saline) 1,000 mls @ 75 mls/hr IV ASDIRECTED [facility] Last Admin: 07/07/20 22:54 Dose: 75 mls/hr Documented by: Lidocaine HCl (Lidocaine 5%) 0 gm TOP Q6HR PRN PRN Reason: Pain Last Admin: 07/08/20 09:47 Dose: 1 applic Documented by: Lorazepam (Ativan) 1 mg IVPUSH Q3H PRN PRN Reason: Agitation Last Admin: 07/08/20 00:06 Dose: 1 mg Documented by: Propranolol HCl (Inderal La) 60 mg PO DAILY [facility] Last Admin: 07/08/20 08:42 Dose: 60 mg Documented by: Sodium Chloride (Saline Flush) 10 ml FLUSH ASDIRECTED PRN PRN Reason: Keep Vein Open Sodium Chloride (Saline Flush) 2.5 ml FLUSH ASDIRECTED PRN PRN Reason: Keep Vein Open Discontinued Medications Benztropine Mesylate (Cogentin) 2 mg IM ONETIME ONE Stop: 07/02/20 21:08 Last Admin: 07/02/20 22:48 Dose: Not Given Documented by: Benztropine Mesylate (Cogentin) 2 mg PO ONETIME ONE Stop: 07/02/20 21:55 Last Admin: 07/02/20 22:13 Dose: 2 mg Documented by: Diltiazem HCl (Diltiazem) 20 mg IVPUSH ONETIME ONE Stop: 07/07/20 02:41 Last Admin: 07/07/20 04:35 Dose: Not Given Documented by: Ceftriaxone Sodium 1 gm/ (Sodium Chloride) 100 mls @ 200 mls/hr IV STAT ONE Stop: 07/02/20 21:33 Last Admin: 07/02/20 22:14 Dose: Not Given Documented by: Sodium Chloride (Normal Saline) 2,500 mls @ 2,500 mls/hr IV BOLUS ONE; Protocol Stop: 07/02/20 22:03 Last Admin: 07/02/20 22:12 Dose: 2,500 mls/hr Documented by: Ceftriaxone Sodium/Dextrose (Rocephin In Dextrose,Iso-Osm 1 Gm/50 Ml) Confirm Administered Dose 50 mls @ as directed .ROUTE .STK-MED ONE Stop: 07/02/20 21:40 Last Admin: 07/02/20 21:55 Dose: Not Given Documented by: Ceftriaxone Sodium/Dextrose 1 (gm/ Premix) 50 mls @ 100 mls/hr IV ONETIME ONE Stop: 07/02/20 22:11 Last Admin: 07/02/20 22:13 Dose: 100 mls/hr Documented by: Sodium Chloride (Normal Saline) 1,000 mls @ 125 mls/hr IV ASDIRECTED [facility] Sodium Chloride (Normal Saline) 1,000 mls @ 150 mls/hr IV ASDIRECTED [facility] Last Admin: 07/06/20 14:50 Dose: 150 mls/hr Documented by: Sodium Chloride (Normal Saline) 1,000 mls @ 999 mls/hr IV .Bolus ONE Stop: 07/03/20 14:17 Last Admin: 07/03/20 16:04 Dose: 999 mls/hr Documented by: Ceftriaxone Sodium/Dextrose 1 (gm/ Premix) 50 mls @ 100 mls/hr IV Q24H [facility] Last Admin: 07/07/20 03:14 Dose: 100 mls/hr Documented by: Sodium Chloride (Normal Saline) 1,000 mls @ 999 mls/hr IV .Bolus ONE Stop: 07/05/20 10:37 Last Admin: 07/05/20 22:07 Dose: Not Given Documented by: Sodium Chloride (Normal Saline) 1,000 mls @ 999 mls/hr IV .Bolus ONE Stop: 07/05/20 10:57 Last Admin: 07/05/20 10:11 Dose: 999 mls/hr Documented by: Lactated Ringer's (Ringers, Lactated) 500 mls @ 999 mls/hr IV .BOLUS ONE Stop: 07/07/20 03:09 Last Admin: 07/07/20 02:50 Dose: 999 mls/hr Documented by: Magnesium Sulfate (Magnesium Sulfate In Water Premix) 100 mls @ 50 mls/hr IV ONETIME ONE Stop: 07/07/20 05:59 Last Admin: 07/07/20 04:00 Dose: 50 mls/hr Documented by: Lactated Ringer's (Ringers, Lactated) 500 mls @ 999 mls/hr IV BOLUS ARI Stop: 07/07/20 07:31 Last Admin: 07/07/20 07:20 Dose: 999 mls/hr Documented by: Sodium Chloride (Normal Saline) 500 mls @ 999 mls/hr IV .BOLUS ONE Stop: 07/07/20 19:00 Last Admin: 07/07/20 18:30 Dose: 999 mls/hr Documented by: Magnesium Sulfate (Magnesium Sulfate In Water Premix) 2 gm in 50 mls @ 50 mls/hr IV ONETIME ONE Stop: 07/08/20 10:59 Last Admin: 07/08/20 10:57 Dose: 50 mls/hr Documented by: Lorazepam (Ativan) Confirm Administered Dose 2 mg .ROUTE .STK-MED ONE Stop: 07/03/20 00:30 Last Admin: 07/03/20 00:37 Dose: Not Given Documented by: Lorazepam (Ativan) 1 mg IVPUSH NOW STA Stop: 07/03/20 00:37 Last Admin: 07/03/20 00:38 Dose: 1 mg Documented by: Lorazepam (Ativan) 1 mg IVPUSH ONETIME ONE Stop: 07/03/20 00:48 Last Admin: 07/03/20 00:50 Dose: 1 mg Documented by: Lorazepam (Ativan) 1 mg IVPUSH Q6H PRN PRN Reason: Agitation Potassium Chloride (Klor-Con M20) 40 meq PO ONETIME ONE Stop: 07/05/20 15:58 Last Admin: 07/05/20 16:14 Dose: 40 meq Documented by: Potassium Chloride (Klor-Con M20) 40 meq PO ONETIME ONE Stop: 07/07/20 03:42 Last Admin: 07/07/20 03:59 Dose: 40 meq Documented by: Sterile Water (Sterile Water For Injection) 1.2 ml INJECT ONETIME ONE Stop: 07/03/20 00:59 Last Admin: 07/03/20 01:22 Dose: 1.2 ml Documented by: Ziprasidone (Geodon) 10 mg IM ONETIME ONE Stop: 07/03/20 00:59 Last Admin: 07/03/20 01:04 Dose: 10 mg Documented by: Ziprasidone (Geodon) Confirm Administered Dose 20 mg .ROUTE .STK-MED ONE Stop: 07/03/20 00:59 Last Admin: 07/03/20 01:15 Dose: Not Given Documented by: - Exam General: Alert, Oriented, Cooperative, No Acute Distress Neck: Supple Lungs: Clear to Auscultation, Normal Respiratory Effort Cardiovascular: Regular Rate, Regular Rhythm, No Murmurs GI/Abdominal Exam: Normal Bowel Sounds, Soft, Non-Tender Sepsis Event Note - Evaluation Sepsis Screening Result: No Definite Risk - Focused Exam Vital Signs: Vital Signs Temp Pulse Resp BP Pulse Ox 07/08/20 11:59 107/50 L 07/08/20 11:50 36.7 C 81 16 75/40 L 95 07/08/20 08:32 36.3 C 86 16 124/82 97 07/08/20 03:00 36.2 C 73 14 110/50 L 93 L - Problem List Review Problem List Initiated/Reviewed/Updated: Yes - My Orders Last 24 Hours: My Active Orders 07/07/20 13:45 Enoxaparin [Lovenox] 40 mg SUBCUT Q24H - Plan Plan:: 64 yo male admitted for acute renal failure and metabolic encephalopathy 1. Delirium: -resolved 2. Acute renal failure from bladder outlet obstruction - BRII resolved. - Lambert in place - Follow up with urology 3. Dystonia/agitation: - Ativan prn 4. Self care deficit - Will need skilled care - SNF placement - Case management and social work involved 5. Schizophrenia - restarted Haldol 5mg upon psych recommendations, cont same dose for now per Dr Crowell unless patient starts getting agitated Outpatient fu with Psych upon dc VTE prophylaxis: Heparin Dispo: pending placement
[2020-07-08] MEDS: Enoxaparin 40 MG/0.4 ML Syringe SUBCUT SCH (14:01)
[2020-07-08] MEDS: Sodium Chloride 0.9% 1,000 ML IV SCH (14:01)
[2020-07-08] MEDS: Haloperidol 5 MG Tab PO SCH (20:21)
[2020-07-08] MEDS: Acetaminophen 325 MG Tab PO PRN (23:16)
[2020-07-09] MEDS: Sodium Chloride 0.9% 1,000 ML IV SCH (03:32)
[2020-07-09] MEDS: Acetaminophen 325 MG Tab PO PRN (05:09)
[2020-07-09 06:52] LABS: BLOOD UREA NITROGEN,BUN 9 mg/dL (7.0-18.0); CARBON DIOXIDE,CO2 25.7 mmol/L (21.0-32.0); CHLORIDE,CL 105 mmol/L (98-107); GLUCOSE RANDOM 123 mg/dL (74-106); POTASSIUM,K 3.7 mmol/L (3.5-5.1); SODIUM,NA 138 mmol/L (136-148)
[2020-07-09] MEDS: Propranolol 60 MG Cap.ER PO SCH (08:15)
[2020-07-09] MEDS ORDERED: Magnesium Sulfate/Water 2 GM/50 ML Premix Bag IV STA (09:46)
[2020-07-09] MEDS ORDERED: Potassium Chloride 20 MEQ Tab.ER PO ONE (09:46)
[2020-07-09] MEDS ORDERED: Magnesium Sulfate/Water 2 GM/50 ML BAG IV ONE (10:00)
--- NOTE | 2020-07-09 10:02 | PCM.PN ---
- General Info Date of Service: 07/09/20 Admission Dx/Problem (Free Text): Admission Diagnosis/Problem Admission Diagnosis/Problem Metabolic encephalopathy Subjective Update: Doing good today. No chest pain or SOB. No hallucinations. Alert and oriented. Functional Status: Reports: Pain Controlled, Tolerating Diet, Ambulating, Urinating - Review of Systems General: Reports: No Symptoms. Denies: Weakness, Fatigue, Malaise Pulmonary: Reports: No Symptoms. Denies: Shortness of Breath Cardiovascular: Reports: No Symptoms. Denies: Chest Pain Gastrointestinal: Reports: No Symptoms. Denies: Abdominal Pain, Nausea, Vomiting Genitourinary: Reports: No Symptoms Musculoskeletal: Reports: No Symptoms Skin: Reports: No Symptoms Neurological: Reports: No Symptoms Psychiatric: Reports: No Symptoms - Patient Data Vitals - Most Recent: Last Vital Signs Temp 96.8 F L 07/09/20 08:11 Pulse 89 07/09/20 08:11 Resp 18 07/09/20 08:11 BP 146/62 H 07/09/20 08:11 Pulse Ox 97 07/09/20 08:11 Weight - Most Recent: 83.915 kg I&O - Last 24 Hours: Intake & Output 07/08/20 07/09/20 07/09/20 22:59 06:59 14:59 Intake Total 2320 1700 Output Total 2350 850 Balance -30 850 Lab Results Last 24 Hours: Laboratory Results - last 24 hr 07/08/20 07/08/20 07/09/20 Range/Units 11:54 17:35 05:30 WBC 11.02 H (4.0-11.0) K/uL RBC 3.98 L (4.50-5.90) M/uL Hgb 10.8 L (13.0-17.0) g/dL Hct 35.0 L (38.0-50.0) % MCV 87.9 (80.0-98.0) fL MCH 27.1 (27.0-32.0) pg MCHC 30.9 L (31.0-37.0) g/dL RDW Std Deviation 47.9 (28.0-62.0) fl RDW Coeff of Dorothea 15 (11.0-15.0) % Plt Count 337 (150-400) K/uL MPV 8.70 (7.40-12.00) fL Neut % (Auto) 66.0 (48.0-80.0) % Lymph % (Auto) 20.5 (16.0-40.0) % [place] % (Auto) 10.6 (0.0-15.0) % Eos % (Auto) 2.7 (0.0-7.0) % Baso % (Auto) 0.2 (0.0-1.5) % Neut # (Auto) 7.3 H (1.4-5.7) K/uL Lymph # (Auto) 2.3 (0.6-2.4) K/uL [place] # (Auto) 1.2 H (0.0-0.8) K/uL Eos # (Auto) 0.3 (0.0-0.7) K/uL Baso # (Auto) 0.0 (0.0-0.1) K/uL Nucleated RBC % 0.0 /100WBC Nucleated RBCs # 0 K/uL Sodium (136-148) mmol/L Potassium (3.5-5.1) mmol/L Chloride (98-107) mmol/L Carbon Dioxide (21.0-32.0) mmol/L BUN (7.0-18.0) mg/dL Creatinine (0.8-1.3) mg/dL Est Cr Clr Drug Dosing mL/min Estimated GFR (MDRD) ml/min Glucose (74-106) mg/dL POC Glucose 254 H 116 H (60-110) mg/dL Calcium (8.5-10.1) mg/dL Phosphorus (2.6-4.7) mg/dL Magnesium (1.8-2.4) mg/dL 07/09/20 07/09/20 Range/Units 05:30 08:19 WBC (4.0-11.0) K/uL RBC (4.50-5.90) M/uL Hgb (13.0-17.0) g/dL Hct (38.0-50.0) % MCV (80.0-98.0) fL MCH (27.0-32.0) pg MCHC (31.0-37.0) g/dL RDW Std Deviation (28.0-62.0) fl RDW Coeff of Dorothea (11.0-15.0) % Plt Count (150-400) K/uL MPV (7.40-12.00) fL Neut % (Auto) (48.0-80.0) % Lymph % (Auto) (16.0-40.0) % [place] % (Auto) (0.0-15.0) % Eos % (Auto) (0.0-7.0) % Baso % (Auto) (0.0-1.5) % Neut # (Auto) (1.4-5.7) K/uL Lymph # (Auto) (0.6-2.4) K/uL [place] # (Auto) (0.0-0.8) K/uL Eos # (Auto) (0.0-0.7) K/uL Baso # (Auto) (0.0-0.1) K/uL Nucleated RBC % /100WBC Nucleated RBCs # K/uL Sodium 138 (136-148) mmol/L Potassium 3.7 (3.5-5.1) mmol/L Chloride 105 (98-107) mmol/L Carbon Dioxide 25.7 (21.0-32.0) mmol/L BUN 9 (7.0-18.0) mg/dL Creatinine 0.7 L (0.8-1.3) mg/dL Est Cr Clr Drug Dosing 96.81 mL/min Estimated GFR (MDRD) > 60.0 ml/min Glucose 123 H (74-106) mg/dL POC Glucose 119 H (60-110) mg/dL Calcium 8.3 L (8.5-10.1) mg/dL Phosphorus 3.3 (2.6-4.7) mg/dL Magnesium 1.8 (1.8-2.4) mg/dL Med Orders - Current: Current Medications Acetaminophen (Tylenol) 650 mg PO Q4H PRN PRN Reason: Pain Last Admin: 07/09/20 05:09 Dose: 650 mg Documented by: Enoxaparin Sodium (Lovenox) 40 mg SUBCUT Q24H [facility] Last Admin: 07/08/20 14:01 Dose: 40 mg Documented by: Haloperidol (Haldol) 10 mg PO BEDTIME [facility] Magnesium Sulfate (Magnesium Sulfate In Water Premix) 2 gm in 50 mls @ 50 mls/hr IV ONETIME ONE Stop: 07/09/20 10:59 Lidocaine HCl (Lidocaine 5%) 0 gm TOP Q6HR PRN PRN Reason: Pain Last Admin: 07/08/20 09:47 Dose: 1 applic Documented by: Lorazepam (Ativan) 1 mg IVPUSH Q3H PRN PRN Reason: Agitation Last Admin: 07/08/20 20:58 Dose: 1 mg Documented by: Propranolol HCl (Inderal La) 60 mg PO DAILY [facility] Last Admin: 07/09/20 08:15 Dose: 60 mg Documented by: Sodium Chloride (Saline Flush) 10 ml FLUSH ASDIRECTED PRN PRN Reason: Keep Vein Open Sodium Chloride (Saline Flush) 2.5 ml FLUSH ASDIRECTED PRN PRN Reason: Keep Vein Open Discontinued Medications Benztropine Mesylate (Cogentin) 2 mg IM ONETIME ONE Stop: 07/02/20 21:08 Last Admin: 07/02/20 22:48 Dose: Not Given Documented by: Benztropine Mesylate (Cogentin) 2 mg PO ONETIME ONE Stop: 07/02/20 21:55 Last Admin: 07/02/20 22:13 Dose: 2 mg Documented by: Diltiazem HCl (Diltiazem) 20 mg IVPUSH ONETIME ONE Stop: 07/07/20 02:41 Last Admin: 07/07/20 04:35 Dose: Not Given Documented by: Haloperidol (Haldol) 5 mg PO BEDTIME [facility] Last Admin: 07/08/20 20:21 Dose: 5 mg Documented by: Ceftriaxone Sodium 1 gm/ (Sodium Chloride) 100 mls @ 200 mls/hr IV STAT ONE Stop: 07/02/20 21:33 Last Admin: 07/02/20 22:14 Dose: Not Given Documented by: Sodium Chloride (Normal Saline) 2,500 mls @ 2,500 mls/hr IV BOLUS ONE; Protocol Stop: 07/02/20 22:03 Last Admin: 07/02/20 22:12 Dose: 2,500 mls/hr Documented by: Ceftriaxone Sodium/Dextrose (Rocephin In Dextrose,Iso-Osm 1 Gm/50 Ml) Confirm Administered Dose 50 mls @ as directed .ROUTE .STK-MED ONE Stop: 07/02/20 21:40 Last Admin: 07/02/20 21:55 Dose: Not Given Documented by: Ceftriaxone Sodium/Dextrose 1 (gm/ Premix) 50 mls @ 100 mls/hr IV ONETIME ONE Stop: 07/02/20 22:11 Last Admin: 07/02/20 22:13 Dose: 100 mls/hr Documented by: Sodium Chloride (Normal Saline) 1,000 mls @ 125 mls/hr IV ASDIRECTED [facility] Sodium Chloride (Normal Saline) 1,000 mls @ 150 mls/hr IV ASDIRECTED [facility] Last Admin: 07/06/20 14:50 Dose: 150 mls/hr Documented by: Sodium Chloride (Normal Saline) 1,000 mls @ 999 mls/hr IV .Bolus ONE Stop: 07/03/20 14:17 Last Admin: 07/03/20 16:04 Dose: 999 mls/hr Documented by: Ceftriaxone Sodium/Dextrose 1 (gm/ Premix) 50 mls @ 100 mls/hr IV Q24H [facility] Last Admin: 07/07/20 03:14 Dose: 100 mls/hr Documented by: Sodium Chloride (Normal Saline) 1,000 mls @ 999 mls/hr IV .Bolus ONE Stop: 07/05/20 10:37 Last Admin: 07/05/20 22:07 Dose: Not Given Documented by: Sodium Chloride (Normal Saline) 1,000 mls @ 999 mls/hr IV .Bolus ONE Stop: 07/05/20 10:57 Last Admin: 07/05/20 10:11 Dose: 999 mls/hr Documented by: Sodium Chloride (Normal Saline) 1,000 mls @ 75 mls/hr IV ASDIRECTED [facility] Last Admin: 07/09/20 03:32 Dose: 75 mls/hr Documented by: Lactated Ringer's (Ringers, Lactated) 500 mls @ 999 mls/hr IV .BOLUS ONE Stop: 07/07/20 03:09 Last Admin: 07/07/20 02:50 Dose: 999 mls/hr Documented by: Magnesium Sulfate (Magnesium Sulfate In Water Premix) 100 mls @ 50 mls/hr IV ONETIME ONE Stop: 07/07/20 05:59 Last Admin: 07/07/20 04:00 Dose: 50 mls/hr Documented by: Lactated Ringer's (Ringers, Lactated) 500 mls @ 999 mls/hr IV BOLUS ARI Stop: 07/07/20 07:31 Last Admin: 07/07/20 07:20 Dose: 999 mls/hr Documented by: Sodium Chloride (Normal Saline) 500 mls @ 999 mls/hr IV .BOLUS ONE Stop: 07/07/20 19:00 Last Admin: 07/07/20 18:30 Dose: 999 mls/hr Documented by: Magnesium Sulfate (Magnesium Sulfate In Water Premix) 2 gm in 50 mls @ 50 mls/hr IV ONETIME ONE Stop: 07/08/20 10:59 Last Admin: 07/08/20 10:57 Dose: 50 mls/hr Documented by: Lorazepam (Ativan) Confirm Administered Dose 2 mg .ROUTE .STK-MED ONE Stop: 07/03/20 00:30 Last Admin: 07/03/20 00:37 Dose: Not Given Documented by: Lorazepam (Ativan) 1 mg IVPUSH NOW STA Stop: 07/03/20 00:37 Last Admin: 07/03/20 00:38 Dose: 1 mg Documented by: Lorazepam (Ativan) 1 mg IVPUSH ONETIME ONE Stop: 07/03/20 00:48 Last Admin: 07/03/20 00:50 Dose: 1 mg Documented by: Lorazepam (Ativan) 1 mg IVPUSH Q6H PRN PRN Reason: Agitation Potassium Chloride (Klor-Con M20) 40 meq PO ONETIME ONE Stop: 07/05/20 15:58 Last Admin: 07/05/20 16:14 Dose: 40 meq Documented by: Potassium Chloride (Klor-Con M20) 40 meq PO ONETIME ONE Stop: 07/07/20 03:42 Last Admin: 07/07/20 03:59 Dose: 40 meq Documented by: Potassium Chloride (Klor-Con M20) 40 meq PO ONETIME ONE Stop: 07/09/20 09:47 Sterile Water (Sterile Water For Injection) 1.2 ml INJECT ONETIME ONE Stop: 07/03/20 00:59 Last Admin: 07/03/20 01:22 Dose: 1.2 ml Documented by: Ziprasidone (Geodon) 10 mg IM ONETIME ONE Stop: 07/03/20 00:59 Last Admin: 07/03/20 01:04 Dose: 10 mg Documented by: Ziprasidone (Geodon) Confirm Administered Dose 20 mg .ROUTE .STK-MED ONE Stop: 07/03/20 00:59 Last Admin: 07/03/20 01:15 Dose: Not Given Documented by: - Exam General: Alert, Oriented, Cooperative, No Acute Distress Lungs: Clear to Auscultation, Normal Respiratory Effort Cardiovascular: Regular Rate, Regular Rhythm GI/Abdominal Exam: Normal Bowel Sounds, Soft, Non-Tender Extremities: Normal Inspection, Normal Range of Motion, Non-Tender, No Pedal Edema Neurological: No New Focal Deficit Psy/Mental Status: Other (tremors) Sepsis Event Note - Evaluation Sepsis Screening Result: No Definite Risk - Focused Exam Vital Signs: Vital Signs Temp Pulse Resp BP Pulse Ox 07/09/20 08:11 96.8 F L 89 18 146/62 H 97 07/09/20 03:34 97.3 F 83 16 118/71 95 07/08/20 23:00 96.3 F L 76 16 92/45 L 94 L - Problem List & Annotations (1) Acute metabolic encephalopathy SNOMED Code(s): 21562409, 641647426 Code(s): G93.41 - METABOLIC ENCEPHALOPATHY Status: Acute Current Visit: Yes (2) HTN (hypertension) SNOMED Code(s): 26929146 Code(s): I10 - ESSENTIAL (PRIMARY) HYPERTENSION Status: Chronic Current Visit: No (3) Schizophrenia SNOMED Code(s): 48609223 Code(s): F20.9 - SCHIZOPHRENIA, UNSPECIFIED Status: Chronic Current Visit: No (4) Bladder outlet obstruction SNOMED Code(s): 451560214 Code(s): N32.0 - BLADDER-NECK OBSTRUCTION Status: Acute Current Visit: Yes - Problem List Review Problem List Initiated/Reviewed/Updated: Yes - My Orders Last 24 Hours: My Active Orders 07/09/20 10:00 Magnesium Sulfate/Water [Magnesium Sulfate in Water Premix] 2 gm in 50 ml IV ONETIME 07/09/20 21:00 haloperidoL [Haldol] 10 mg PO BEDTIME - Plan Plan:: 64 yo male admitted for acute renal failure and metabolic encephalopathy 1. Schizophrenia - Increase to 10 mg Haldol, slowly increase per psych. - Outpatient fu with Psych upon dc 2. Bladder outlet obstruction - Lambert in place - Follow up with urology 3. Dystonia/agitation: - Ativan prn 4. Self care deficit - Will need skilled care - SNF placement - Case management and social work involved VTE prophylaxis: Heparin Dispo: pending placement
[2020-07-09] MEDS: Lidocaine 5% Oint 35.44 GM Tube TOP PRN (13:07)
[2020-07-09] MEDS: Enoxaparin 40 MG/0.4 ML Syringe SUBCUT SCH (13:08)
[2020-07-09] MEDS: LORazepam 2 MG/ML SDV IVPUSH PRN (15:04)
--- NOTE | 2020-07-09 16:59 | CONS ---
DATE OF CONSULTATION: 07/07/2020 DATE OF : 1955 PRIMARY CARE PHYSICIAN: None PCP Site where the services are provided is [facility]. Site where the services are provided is from our offices in [facility]. Length of service for this 30-minute inpatient telemedicine event is 30 minutes. ASSESSMENT: The patient is a 64-year-old male who is seen for psychiatric followup evaluation after being originally assessed on a previous inpatient hospitalization, and he is seen this morning per the request of staff attending, Dr. Mcqueen, and her treatment team. The patient states that he is "feeling a lot better" now that his urinary obstruction has been addressed. He states his memory is also getting "better now." He states he is unable to state the day yet, but he notes "I live in [place], [place]." He is not sure if he is going to be going back home with his daughter because "I don't know if she can handle me" at this point in time, but he is looking forward to getting discharged from the hospital as he gets stronger. Right now, the patient is denying any psychotic symptoms, and he states he just happened to be feeling better physically. He is not having any side effects from the Haldol that was started the previous evening, and he has okay keeping the medications the same as currently dosed and prescribed. MENTAL STATUS EXAMINATION: The patient is a 64-year-old soft-spoken white male in no apparent distress. Speech is of regular rate and rhythm. The patient is cognitively oriented x2 to person and place, but not to date. There are no abnormal motor movements or tics observed. Gait and station are not observed. This patient is seated during the interview session. Mood is "better." Affect is consistent with stated mood and cooperative overall for the purposes of the interview. There is no behavioral or stated evidence of acute suicidal or homicidal ideation or acute psychotic, delusional, or paranoid symptoms. Thought processes are more organized. There are no manic symptoms or loose associations evident. Judgment and insight appear unimpaired at this point in time. Motivation for help is good. Vital signs are stable. IMPRESSION: [place] I. 1. Schizophrenia, paranoid type, F20. 2. History of depression, F32. 3. Anxiety disorder, not otherwise specified, F41.9. 4. History of psychosis, not otherwise specified, currently resolved. [place] II: None. [place] III: 1. History of urinary obstruction, currently resolved. 2. History of hypertension. 3. History of dehydration on last visit. 4. Right knee and right hip replacement in 2009. [place] IV: Severe. [place] V: 60 to 65. PLAN: 1. Continue Haldol 5 mg at bedtime, which was started on unit on July 06, 2020, for clarity of thought and elimination of any psychotic or paranoid symptoms. 2. Other medications as dosed and prescribed by the patient's primary inpatient medical treatment team. 3. Recommend that the patient follow up with outpatient psychiatry when medically stabilized and ready for discharge back to community. 4. We will continue followup of the patient on an as needed basis while he remains on the inpatient medical unit at [facility] in [place], [place]. 5. We will follow up with the patient sooner if any complications in the interim. 6. Would anticipate increasing the patient's antipsychotic medication while on the unit if he has any breakthrough symptoms of psychosis, but as long as he is thinking clearly at this point of time, would hold off on increasing his antipsychotic medication or starting any of the other psychiatric medications that the patient was taking on the outside. 7. Crisis plan is in place. QIANA LORENZO /[id number]
[2020-07-09] MEDS: Benztropine 1 MG Tab PO SCH (20:08)
[2020-07-09] MEDS ORDERED: Haloperidol 5 MG Tab PO SCH (21:00)
[2020-07-09] MEDS ORDERED: LORazepam 2 MG/ML SDV IVPUSH ONE (22:40)
[2020-07-09] MEDS: Piperacillin/Tazobactam 3.375 GM in Sodium Chloride 0.9% 50 ML IV SCH (23:27)
[2020-07-10] MEDS ORDERED: Lactated Ringers 500 ML IV ONE (01:12)
[2020-07-10] MEDS: Lactated Ringers 1,000 ML IV SCH ×2 (01:33→07:38)
[2020-07-10] MEDS: Piperacillin/Tazobactam 3.375 GM in Sodium Chloride 0.9% 50 ML IV SCH (06:37)
[2020-07-10 07:02] LABS: BLOOD UREA NITROGEN,BUN 7 mg/dL (7.0-18.0); CARBON DIOXIDE,CO2 26.9 mmol/L (21.0-32.0); CHLORIDE,CL 103 mmol/L (98-107); GLUCOSE RANDOM 134 mg/dL (74-106); POTASSIUM,K 4.2 mmol/L (3.5-5.1); SODIUM,NA 140 mmol/L (136-148)
--- NOTE | 2020-07-10 08:15 | PCM.PN ---
- General Info Date of Service: 07/10/20 Admission Dx/Problem (Free Text): Admission Diagnosis/Problem Admission Diagnosis/Problem Metabolic encephalopathy Subjective Update: Having tremors today, but improved. No chest pain. Having some abdominal pain. Lambert in place Functional Status: Reports: Tolerating Diet, Ambulating - Review of Systems Pulmonary: Reports: No Symptoms. Denies: Shortness of Breath Cardiovascular: Reports: No Symptoms. Denies: Chest Pain Gastrointestinal: Reports: Abdominal Pain (lower). Denies: Nausea, Vomiting Genitourinary: Reports: No Symptoms Skin: Reports: No Symptoms Neurological: Reports: Tremors Psychiatric: Reports: No Symptoms - Patient Data Vitals - Most Recent: Last Vital Signs Temp 97.7 F 07/10/20 07:55 Pulse 88 07/10/20 07:55 Resp 17 07/10/20 07:55 BP 117/65 07/10/20 07:55 Pulse Ox 97 07/10/20 07:55 Weight - Most Recent: 83.915 kg I&O - Last 24 Hours: Intake & Output 07/09/20 07/10/20 07/10/20 22:59 06:59 14:59 Intake Total 540 720 Output Total 1575 1150 Balance -1035 -430 Lab Results Last 24 Hours: Laboratory Results - last 24 hr 07/09/20 07/09/20 07/09/20 Range/Units 08:19 12:58 18:16 WBC (4.0-11.0) K/uL RBC (4.50-5.90) M/uL Hgb (13.0-17.0) g/dL Hct (38.0-50.0) % MCV (80.0-98.0) fL MCH (27.0-32.0) pg MCHC (31.0-37.0) g/dL RDW Std Deviation (28.0-62.0) fl RDW Coeff of Dorothea (11.0-15.0) % Plt Count (150-400) K/uL MPV (7.40-12.00) fL Neut % (Auto) (48.0-80.0) % Lymph % (Auto) (16.0-40.0) % [place] % (Auto) (0.0-15.0) % Eos % (Auto) (0.0-7.0) % Baso % (Auto) (0.0-1.5) % Neut # (Auto) (1.4-5.7) K/uL Lymph # (Auto) (0.6-2.4) K/uL [place] # (Auto) (0.0-0.8) K/uL Eos # (Auto) (0.0-0.7) K/uL Baso # (Auto) (0.0-0.1) K/uL Nucleated RBC % /100WBC Nucleated RBCs # K/uL Sodium (136-148) mmol/L Potassium (3.5-5.1) mmol/L Chloride (98-107) mmol/L Carbon Dioxide (21.0-32.0) mmol/L BUN (7.0-18.0) mg/dL Creatinine (0.8-1.3) mg/dL Est Cr Clr Drug Dosing mL/min Estimated GFR (MDRD) ml/min Glucose (74-106) mg/dL POC Glucose 119 H 112 H 104 (60-110) mg/dL Calcium (8.5-10.1) mg/dL Magnesium (1.8-2.4) mg/dL Urine Color Urine Appearance Urine pH (5.0-8.0) Ur Specific [place] (1.001-1.035) Urine Protein (NEGATIVE) mg/dL Urine Glucose (UA) (NEGATIVE) mg/dL Urine Ketones (NEGATIVE) mg/dL Urine Occult Blood (NEGATIVE) Urine Nitrite (NEGATIVE) Urine Bilirubin (NEGATIVE) Urine Urobilinogen (<2.0) EU/dL Ur Leukocyte Esterase (NEGATIVE) Urine RBC (0-2/HPF) Urine WBC (0-5/HPF) Ur Epithelial Cells (NONE-FEW) Urine Bacteria (NEGATIVE) Urine Mucus (NONE-MOD) 07/09/20 07/09/20 07/10/20 Range/Units 19:25 23:48 01:28 WBC (4.0-11.0) K/uL RBC (4.50-5.90) M/uL Hgb (13.0-17.0) g/dL Hct (38.0-50.0) % MCV (80.0-98.0) fL MCH (27.0-32.0) pg MCHC (31.0-37.0) g/dL RDW Std Deviation (28.0-62.0) fl RDW Coeff of Dorothea (11.0-15.0) % Plt Count (150-400) K/uL MPV (7.40-12.00) fL Neut % (Auto) (48.0-80.0) % Lymph % (Auto) (16.0-40.0) % [place] % (Auto) (0.0-15.0) % Eos % (Auto) (0.0-7.0) % Baso % (Auto) (0.0-1.5) % Neut # (Auto) (1.4-5.7) K/uL Lymph # (Auto) (0.6-2.4) K/uL [place] # (Auto) (0.0-0.8) K/uL Eos # (Auto) (0.0-0.7) K/uL Baso # (Auto) (0.0-0.1) K/uL Nucleated RBC % /100WBC Nucleated RBCs # K/uL Sodium (136-148) mmol/L Potassium (3.5-5.1) mmol/L Chloride (98-107) mmol/L Carbon Dioxide (21.0-32.0) mmol/L BUN (7.0-18.0) mg/dL Creatinine (0.8-1.3) mg/dL Est Cr Clr Drug Dosing mL/min Estimated GFR (MDRD) ml/min Glucose (74-106) mg/dL POC Glucose 223 H 125 H (60-110) mg/dL Calcium (8.5-10.1) mg/dL Magnesium (1.8-2.4) mg/dL Urine Color YELLOW Urine Appearance CLEAR Urine pH 6.0 (5.0-8.0) Ur Specific [place] 1.020 (1.001-1.035) Urine Protein NEGATIVE (NEGATIVE) mg/dL Urine Glucose (UA) NEGATIVE (NEGATIVE) mg/dL Urine Ketones NEGATIVE (NEGATIVE) mg/dL Urine Occult Blood LARGE H (NEGATIVE) Urine Nitrite NEGATIVE (NEGATIVE) Urine Bilirubin NEGATIVE (NEGATIVE) Urine Urobilinogen 1.0 (<2.0) EU/dL Ur Leukocyte Esterase TRACE H (NEGATIVE) Urine RBC 18-22 (0-2/HPF) Urine WBC 2-4 (0-5/HPF) Ur Epithelial Cells RARE (NONE-FEW) Urine Bacteria FEW (NEGATIVE) Urine Mucus LIGHT (NONE-MOD) 07/10/20 07/10/20 07/10/20 Range/Units 06:10 06:10 06:26 WBC 15.62 H (4.0-11.0) K/uL RBC 4.23 L (4.50-5.90) M/uL Hgb 11.6 L (13.0-17.0) g/dL Hct 37.5 L (38.0-50.0) % MCV 88.7 (80.0-98.0) fL MCH 27.4 (27.0-32.0) pg MCHC 30.9 L (31.0-37.0) g/dL RDW Std Deviation 49.0 (28.0-62.0) fl RDW Coeff of Dorothea 15 (11.0-15.0) % Plt Count 436 H (150-400) K/uL MPV 8.80 (7.40-12.00) fL Neut % (Auto) 68.3 (48.0-80.0) % Lymph % (Auto) 19.1 (16.0-40.0) % [place] % (Auto) 10.4 (0.0-15.0) % Eos % (Auto) 2.0 (0.0-7.0) % Baso % (Auto) 0.2 (0.0-1.5) % Neut # (Auto) 10.7 H (1.4-5.7) K/uL Lymph # (Auto) 3.0 H (0.6-2.4) K/uL [place] # (Auto) 1.6 H (0.0-0.8) K/uL Eos # (Auto) 0.3 (0.0-0.7) K/uL Baso # (Auto) 0.0 (0.0-0.1) K/uL Nucleated RBC % 0.0 /100WBC Nucleated RBCs # 0 K/uL Sodium 140 (136-148) mmol/L Potassium 4.2 (3.5-5.1) mmol/L Chloride 103 (98-107) mmol/L Carbon Dioxide 26.9 (21.0-32.0) mmol/L BUN 7 (7.0-18.0) mg/dL Creatinine 0.9 (0.8-1.3) mg/dL Est Cr Clr Drug Dosing 75.30 mL/min Estimated GFR (MDRD) > 60.0 ml/min Glucose 134 H (74-106) mg/dL POC Glucose 127 H (60-110) mg/dL Calcium 9.6 (8.5-10.1) mg/dL Magnesium 2.0 (1.8-2.4) mg/dL Urine Color Urine Appearance Urine pH (5.0-8.0) Ur Specific [place] (1.001-1.035) Urine Protein (NEGATIVE) mg/dL Urine Glucose (UA) (NEGATIVE) mg/dL Urine Ketones (NEGATIVE) mg/dL Urine Occult Blood (NEGATIVE) Urine Nitrite (NEGATIVE) Urine Bilirubin (NEGATIVE) Urine Urobilinogen (<2.0) EU/dL Ur Leukocyte Esterase (NEGATIVE) Urine RBC (0-2/HPF) Urine WBC (0-5/HPF) Ur Epithelial Cells (NONE-FEW) Urine Bacteria (NEGATIVE) Urine Mucus (NONE-MOD) Med Orders - Current: Current Medications Acetaminophen (Tylenol) 650 mg PO Q4H PRN PRN Reason: Pain Last Admin: 07/09/20 05:09 Dose: 650 mg Documented by: Benztropine Mesylate (Cogentin) 1 mg PO BEDTIME [facility] Last Admin: 07/09/20 20:08 Dose: 1 mg Documented by: Enoxaparin Sodium (Lovenox) 40 mg SUBCUT Q24H [facility] Last Admin: 07/09/20 13:08 Dose: 40 mg Documented by: Haloperidol (Haldol) 10 mg PO BEDTIME [facility] Last Admin: 07/09/20 20:08 Dose: 10 mg Documented by: Piperacillin Sod/Tazobactam (Sod 3.375 gm/ Sodium Chloride) 50 mls @ 100 mls/hr IV Q8H [facility] Last Admin: 07/10/20 06:37 Dose: 100 mls/hr Documented by: Lactated Ringer's (Ringers, Lactated) 1,000 mls @ 100 mls/hr IV ASDIRECTED [facility] Last Admin: 07/10/20 07:38 Dose: 100 mls/hr Documented by: Lidocaine HCl (Lidocaine 5%) 0 gm TOP Q6HR PRN PRN Reason: Pain Last Admin: 07/09/20 13:07 Dose: 1 applic Documented by: Lorazepam (Ativan) 1 mg IVPUSH Q3H PRN PRN Reason: Agitation Last Admin: 07/09/20 15:04 Dose: 1 mg Documented by: Propranolol HCl (Inderal La) 60 mg PO DAILY ARI Last Admin: 07/09/20 08:15 Dose: 60 mg Documented by: Sodium Chloride (Saline Flush) 10 ml FLUSH ASDIRECTED PRN PRN Reason: Keep Vein Open Sodium Chloride (Saline Flush) 2.5 ml FLUSH ASDIRECTED PRN PRN Reason: Keep Vein Open Discontinued Medications Benztropine Mesylate (Cogentin) 2 mg IM ONETIME ONE Stop: 07/02/20 21:08 Last Admin: 07/02/20 22:48 Dose: Not Given Documented by: Benztropine Mesylate (Cogentin) 2 mg PO ONETIME ONE Stop: 07/02/20 21:55 Last Admin: 07/02/20 22:13 Dose: 2 mg Documented by: Diltiazem HCl (Diltiazem) 20 mg IVPUSH ONETIME ONE Stop: 07/07/20 02:41 Last Admin: 07/07/20 04:35 Dose: Not Given Documented by: Haloperidol (Haldol) 5 mg PO BEDTIME ARI Last Admin: 07/08/20 20:21 Dose: 5 mg Documented by: Ceftriaxone Sodium 1 gm/ (Sodium Chloride) 100 mls @ 200 mls/hr IV STAT ONE Stop: 07/02/20 21:33 Last Admin: 07/02/20 22:14 Dose: Not Given Documented by: Sodium Chloride (Normal Saline) 2,500 mls @ 2,500 mls/hr IV BOLUS ONE; Protocol Stop: 07/02/20 22:03 Last Admin: 07/02/20 22:12 Dose: 2,500 mls/hr Documented by: Ceftriaxone Sodium/Dextrose (Rocephin In Dextrose,Iso-Osm 1 Gm/50 Ml) Confirm Administered Dose 50 mls @ as directed .ROUTE .STK-MED ONE Stop: 07/02/20 21:40 Last Admin: 07/02/20 21:55 Dose: Not Given Documented by: Ceftriaxone Sodium/Dextrose 1 (gm/ Premix) 50 mls @ 100 mls/hr IV ONETIME ONE Stop: 07/02/20 22:11 Last Admin: 07/02/20 22:13 Dose: 100 mls/hr Documented by: Sodium Chloride (Normal Saline) 1,000 mls @ 125 mls/hr IV ASDIRECTED ARI Sodium Chloride (Normal Saline) 1,000 mls @ 150 mls/hr IV ASDIRECTED [facility] Last Admin: 07/06/20 14:50 Dose: 150 mls/hr Documented by: Sodium Chloride (Normal Saline) 1,000 mls @ 999 mls/hr IV .Bolus ONE Stop: 07/03/20 14:17 Last Admin: 07/03/20 16:04 Dose: 999 mls/hr Documented by: Ceftriaxone Sodium/Dextrose 1 (gm/ Premix) 50 mls @ 100 mls/hr IV Q24H [facility] Last Admin: 07/07/20 03:14 Dose: 100 mls/hr Documented by: Sodium Chloride (Normal Saline) 1,000 mls @ 999 mls/hr IV .Bolus ONE Stop: 07/05/20 10:37 Last Admin: 07/05/20 22:07 Dose: Not Given Documented by: Sodium Chloride (Normal Saline) 1,000 mls @ 999 mls/hr IV .Bolus ONE Stop: 07/05/20 10:57 Last Admin: 07/05/20 10:11 Dose: 999 mls/hr Documented by: Sodium Chloride (Normal Saline) 1,000 mls @ 75 mls/hr IV ASDIRECTED [facility] Last Admin: 07/09/20 03:32 Dose: 75 mls/hr Documented by: Lactated Ringer's (Ringers, Lactated) 500 mls @ 999 mls/hr IV .BOLUS ONE Stop: 07/07/20 03:09 Last Admin: 07/07/20 02:50 Dose: 999 mls/hr Documented by: Magnesium Sulfate (Magnesium Sulfate In Water Premix) 100 mls @ 50 mls/hr IV ONETIME ONE Stop: 07/07/20 05:59 Last Admin: 07/07/20 04:00 Dose: 50 mls/hr Documented by: Lactated Ringer's (Ringers, Lactated) 500 mls @ 999 mls/hr IV BOLUS ARI Stop: 07/07/20 07:31 Last Admin: 07/07/20 07:20 Dose: 999 mls/hr Documented by: Sodium Chloride (Normal Saline) 500 mls @ 999 mls/hr IV .BOLUS ONE Stop: 07/07/20 19:00 Last Admin: 07/07/20 18:30 Dose: 999 mls/hr Documented by: Magnesium Sulfate (Magnesium Sulfate In Water Premix) 2 gm in 50 mls @ 50 mls/hr IV ONETIME ONE Stop: 07/08/20 10:59 Last Admin: 07/08/20 10:57 Dose: 50 mls/hr Documented by: Magnesium Sulfate (Magnesium Sulfate In Water Premix) 2 gm in 50 mls @ 50 mls/hr IV ONETIME ONE Stop: 07/09/20 10:59 Last Admin: 07/09/20 10:58 Dose: 50 mls/hr Documented by: Lactated Ringer's (Ringers, Lactated) 500 mls @ 999 mls/hr IV .BOLUS ONE Stop: 07/10/20 01:42 Last Admin: 07/10/20 01:27 Dose: 999 mls/hr Documented by: Lorazepam (Ativan) Confirm Administered Dose 2 mg .ROUTE .STK-MED ONE Stop: 07/03/20 00:30 Last Admin: 07/03/20 00:37 Dose: Not Given Documented by: Lorazepam (Ativan) 1 mg IVPUSH NOW STA Stop: 07/03/20 00:37 Last Admin: 07/03/20 00:38 Dose: 1 mg Documented by: Lorazepam (Ativan) 1 mg IVPUSH ONETIME ONE Stop: 07/03/20 00:48 Last Admin: 07/03/20 00:50 Dose: 1 mg Documented by: Lorazepam (Ativan) 1 mg IVPUSH Q6H PRN PRN Reason: Agitation Lorazepam (Ativan) 2 mg IVPUSH ONETIME ONE Stop: 07/09/20 22:41 Last Admin: 07/09/20 22:55 Dose: 2 mg Documented by: Potassium Chloride (Klor-Con M20) 40 meq PO ONETIME ONE Stop: 07/05/20 15:58 Last Admin: 07/05/20 16:14 Dose: 40 meq Documented by: Potassium Chloride (Klor-Con M20) 40 meq PO ONETIME ONE Stop: 07/07/20 03:42 Last Admin: 07/07/20 03:59 Dose: 40 meq Documented by: Potassium Chloride (Klor-Con M20) 40 meq PO ONETIME ONE Stop: 07/09/20 09:47 Last Admin: 07/09/20 10:58 Dose: 40 meq Documented by: Sterile Water (Sterile Water For Injection) 1.2 ml INJECT ONETIME ONE Stop: 07/03/20 00:59 Last Admin: 07/03/20 01:22 Dose: 1.2 ml Documented by: Ziprasidone (Kerri) 10 mg IM ONETIME ONE Stop: 07/03/20 00:59 Last Admin: 07/03/20 01:04 Dose: 10 mg Documented by: Ziprasidone (Geodon) Confirm Administered Dose 20 mg .ROUTE .STK-MED ONE Stop: 07/03/20 00:59 Last Admin: 07/03/20 01:15 Dose: Not Given Documented by: - Exam General: Alert, Oriented, Cooperative, Other (diaphoresis has improved) Lungs: Clear to Auscultation, Normal Respiratory Effort Cardiovascular: Regular Rate, Regular Rhythm GI/Abdominal Exam: Normal Bowel Sounds, Soft, Non-Tender Extremities: Normal Inspection, Normal Range of Motion, Non-Tender, No Pedal Edema Neurological: No New Focal Deficit Psy/Mental Status: Alert, Normal Affect, Normal Mood Sepsis Event Note - Evaluation Sepsis Screening Result: No Definite Risk - Focused Exam Vital Signs: Vital Signs Temp Pulse Resp BP Pulse Ox Pulse Ox 07/10/20 07:55 97.7 F 88 17 117/65 97 07/10/20 04:36 96.2 F L 82 15 123/74 95 07/10/20 02:02 95 07/10/20 02:00 95 07/10/20 00:56 97.7 F 95 16 99/58 L 95 - Problem List & Annotations (1) Acute metabolic encephalopathy SNOMED Code(s): 69792193, 967918573 Code(s): G93.41 - METABOLIC ENCEPHALOPATHY Status: Acute Current Visit: Yes (2) HTN (hypertension) SNOMED Code(s): 68471521 Code(s): I10 - ESSENTIAL (PRIMARY) HYPERTENSION Status: Chronic Current Visit: No (3) Schizophrenia SNOMED Code(s): 18934696 Code(s): F20.9 - SCHIZOPHRENIA, UNSPECIFIED Status: Chronic Current Visit: No (4) Bladder outlet obstruction SNOMED Code(s): 449879687 Code(s): N32.0 - BLADDER-NECK OBSTRUCTION Status: Acute Current Visit: Yes - Problem List Review Problem List Initiated/Reviewed/Updated: Yes - My Orders Last 24 Hours: My Active Orders 07/09/20 11:45 Communication Order [RC] PRN 07/09/20 21:00 haloperidoL [Haldol] 10 mg PO BEDTIME - Plan Plan:: 64 yo male admitted for acute renal failure and metabolic encephalopathy 1. Schizophrenia - Spoke with Dr Crowell, recommends keeping Haldol at 5 mg unless he become acutely psychotic or having hallucinations. - Haldol 5 mg for now and monitor. - Holding Prozac, Amantadine and Trazadone for now. - Cogentin 1 mg at bedtime for EPS symptoms, tremors. - Outpatient fu with Psych upon dc 2. Bladder outlet obstruction - Lambert in place - Follow up with urology - Having abdominal pain today, will obtain CT abdomen/pelvis, consider prostatitis 3. Dystonia/agitation: - Ativan prn 4. Self care deficit - Will need skilled care - SNF placement - Case management and social work involved VTE prophylaxis: Heparin Dispo: pending placement Will update family via telephone. Anuel [phone], son
--- NOTE | 2020-07-10 08:52 | CR ---
Indication: Leukocytosis. Cough and chills. Technique: Chest 1 view Comparison: 07/02/2020. Findings/Impression: Cardiovascular and mediastinum: Heart size and vasculature are normal in caliber and appearance. Lungs and pleural space: Lungs are clear. No sign of infiltrate or mass. No sign of pleural effusion. No pneumothorax. No sign of pneumonia. Bones and soft tissues: No acute findings. Dictated by Kenney Mishra MD @ Jul 10 2020 8:49AM Signed by Dr. Kenney Mishra @ Jul 10 2020 8:52AM
[2020-07-10] MEDS: Propranolol 60 MG Cap.ER PO SCH (09:38)
[2020-07-10] MEDS: Levofloxacin/Dextrose 5%-Water 750 MG in Premix Bag 1 BAG IV SCH (11:21)
[2020-07-10] MEDS ORDERED: Piperacillin/Tazobactam 3.375 GM in Sodium Chloride 0.9% 50 ML IV SCH (13:00)
[2020-07-10] MEDS ORDERED: Iopamidol 755 MG/ML 500 ML Multipack Bottle IVPUSH STA (13:02)
--- NOTE | 2020-07-10 13:40 | CT ---
INDICATION: Pain/possible prostatitis. TECHNIQUE: CT abdomen and pelvis acquired with 100 cc Isovue 370 IV contrast. Coronal and sagittal reconstructions. COMPARISON: CT of the abdomen and pelvis without IV contrast 07/02/2020. No report is available. FINDINGS: Symmetric enhancement of the kidneys. Tiny low-attenuation lesion in the right kidney is too small to characterize but most likely represents a cyst. No hydronephrosis. No obstructing urinary calculi. Interval placement of a Lambert catheter within the bladder. Large amount of air within the bladder may be related to instrumentation. There is new diffuse bladder wall thickening which could be due to underdistention or inflammation. Moderately enlarged prostate gland. Evaluation of the pelvis is limited by streak artifact from the right hip arthroplasty, however there appears to be some heterogeneous enhancement in the anterior aspect of the prostate (series 201, image 151). The liver, gallbladder, spleen, pancreas, and adrenal glands are negative. Hepatic and portal veins are patent. No bowel dilation. Sigmoid diverticulosis. The appendix is not identified, however there are no secondary signs of inflammation in the right lower quadrant. No intraperitoneal free air or fluid. Aortoiliac vascular calcifications. No lymphadenopathy. Degenerative changes of the spine. Stable 3 mm ground-glass nodule in the right middle lobe (series 203, image 19). The lung bases are otherwise clear. Mild coronary artery calcifications. IMPRESSION: 1. Interval placement of a Lambert catheter within the bladder. There is new diffuse bladder wall thickening which could be due to underdistention or inflammation. There is also a large amount of gas in the bladder which could be related to instrumentation. Correlate with urinalysis. 2. Moderately enlarged prostate gland. Evaluation of the prostate gland is limited due to streak artifact from the right hip arthroplasty, however there appears to be some heterogeneous enhancement in the anterior aspect of the prostate. This could represent prostatitis in the appropriate clinical setting. Please note that all CT scans at this facility use dose modulation, iterative reconstruction, and/or weight-based dosing when appropriate to reduce radiation dose to as low as reasonably achievable. Dictated by Coco Stevenson MD @ Jul 10 2020 1:19PM Signed by Dr. Coco Stevenson @ Jul 10 2020 1:37PM
[2020-07-10] MEDS: Enoxaparin 40 MG/0.4 ML Syringe SUBCUT SCH (14:48)
[2020-07-10] MEDS: LORazepam 2 MG/ML SDV IVPUSH PRN (15:27)
[2020-07-10] MEDS: Benztropine 1 MG Tab PO SCH (20:28)
[2020-07-10] MEDS: Haloperidol 5 MG Tab PO SCH (20:29)
[2020-07-10] MEDS ORDERED: LORazepam 2 MG/ML SDV IVPUSH ONE (22:25)
[2020-07-11 06:16] LABS: BLOOD UREA NITROGEN,BUN 6 mg/dL (7.0-18.0); CHLORIDE,CL 102 mmol/L (98-107); GLUCOSE RANDOM 104 mg/dL (74-106); POTASSIUM,K 3.8 mmol/L (3.5-5.1); SODIUM,NA 138 mmol/L (136-148)
[2020-07-11] MEDS: Lactated Ringers 1,000 ML IV SCH (08:50)
[2020-07-11] MEDS: Magnesium Sulfate/Water 2 GM/50 ML Premix Bag IV ONE ×2 (08:52→09:11)
[2020-07-11] MEDS ORDERED: Magnesium Sulfate/Water 2 GM/50 ML BAG IV ONE (09:00)
[2020-07-11] MEDS: Propranolol 60 MG Cap.ER PO SCH (09:07)
[2020-07-11] MEDS: Levofloxacin/Dextrose 5%-Water 750 MG in Premix Bag 1 BAG IV SCH (11:40)
[2020-07-11] MEDS ORDERED: Lactated Ringers 1,000 ML IV ONE (12:09)
[2020-07-11] MEDS: Enoxaparin 40 MG/0.4 ML Syringe SUBCUT SCH (12:50)
--- NOTE | 2020-07-11 12:58 | PCM.PN ---
- General Info Date of Service: 07/11/20 Admission Dx/Problem (Free Text): Admission Diagnosis/Problem Admission Diagnosis/Problem Metabolic encephalopathy Subjective Update: Feeling improved today, alert and oriented. Tremors improving. No other concerns today. No abdominal pain. Lambert in place. - Review of Systems General: Reports: Weakness HEENT: Reports: No Symptoms. Denies: Headaches, Sore Throat, Visual Changes Pulmonary: Reports: No Symptoms. Denies: Shortness of Breath Cardiovascular: Reports: No Symptoms. Denies: Chest Pain Gastrointestinal: Reports: No Symptoms. Denies: Abdominal Pain, Nausea, Vomiting Genitourinary: Reports: No Symptoms. Denies: Dysuria Neurological: Reports: Tremors Psychiatric: Reports: No Symptoms - Patient Data Vitals - Most Recent: Last Vital Signs Temp 97.5 F 07/11/20 11:45 Pulse 81 07/11/20 11:50 Resp 16 07/11/20 11:45 BP 95/54 L 07/11/20 11:50 Pulse Ox 94 L 07/11/20 11:45 Weight - Most Recent: 83.915 kg I&O - Last 24 Hours: Intake & Output 07/10/20 07/11/20 07/11/20 22:59 06:59 14:59 Intake Total 200 1000 Output Total 1300 Balance -1100 1000 Lab Results Last 24 Hours: Laboratory Results - last 24 hr 07/10/20 07/10/20 07/11/20 Range/Units 16:08 21:48 00:47 WBC (4.0-11.0) K/uL RBC (4.50-5.90) M/uL Hgb (13.0-17.0) g/dL Hct (38.0-50.0) % MCV (80.0-98.0) fL MCH (27.0-32.0) pg MCHC (31.0-37.0) g/dL RDW Std Deviation (28.0-62.0) fl RDW Coeff of Dorothea (11.0-15.0) % Plt Count (150-400) K/uL MPV (7.40-12.00) fL Neut % (Auto) (48.0-80.0) % Lymph % (Auto) (16.0-40.0) % [place] % (Auto) (0.0-15.0) % Eos % (Auto) (0.0-7.0) % Baso % (Auto) (0.0-1.5) % Neut # (Auto) (1.4-5.7) K/uL Lymph # (Auto) (0.6-2.4) K/uL [place] # (Auto) (0.0-0.8) K/uL Eos # (Auto) (0.0-0.7) K/uL Baso # (Auto) (0.0-0.1) K/uL Nucleated RBC % /100WBC Nucleated RBCs # K/uL Sodium (136-148) mmol/L Potassium (3.5-5.1) mmol/L Chloride (98-107) mmol/L Carbon Dioxide (21.0-32.0) mmol/L BUN (7.0-18.0) mg/dL Creatinine (0.8-1.3) mg/dL Est Cr Clr Drug Dosing mL/min Estimated GFR (MDRD) ml/min Glucose (74-106) mg/dL POC Glucose 102 97 104 (60-110) mg/dL Calcium (8.5-10.1) mg/dL Magnesium (1.8-2.4) mg/dL 07/11/20 07/11/20 07/11/20 Range/Units 04:51 04:51 06:09 WBC 10.73 (4.0-11.0) K/uL RBC 3.74 L (4.50-5.90) M/uL Hgb 10.1 L (13.0-17.0) g/dL Hct 33.3 L (38.0-50.0) % MCV 89.0 (80.0-98.0) fL MCH 27.0 (27.0-32.0) pg MCHC 30.3 L (31.0-37.0) g/dL RDW Std Deviation 49.9 (28.0-62.0) fl RDW Coeff of Dorothea 16 H (11.0-15.0) % Plt Count 339 (150-400) K/uL MPV 8.70 (7.40-12.00) fL Neut % (Auto) 64.5 (48.0-80.0) % Lymph % (Auto) 20.2 (16.0-40.0) % [place] % (Auto) 13.2 (0.0-15.0) % Eos % (Auto) 1.9 (0.0-7.0) % Baso % (Auto) 0.2 (0.0-1.5) % Neut # (Auto) 6.9 H (1.4-5.7) K/uL Lymph # (Auto) 2.2 (0.6-2.4) K/uL [place] # (Auto) 1.4 H (0.0-0.8) K/uL Eos # (Auto) 0.2 (0.0-0.7) K/uL Baso # (Auto) 0.0 (0.0-0.1) K/uL Nucleated RBC % 0.0 /100WBC Nucleated RBCs # 0 K/uL Sodium 138 (136-148) mmol/L Potassium 3.8 (3.5-5.1) mmol/L Chloride 102 (98-107) mmol/L Carbon Dioxide 28.0 (21.0-32.0) mmol/L BUN 6 L (7.0-18.0) mg/dL Creatinine 0.8 (0.8-1.3) mg/dL Est Cr Clr Drug Dosing 84.71 mL/min Estimated GFR (MDRD) > 60.0 ml/min Glucose 104 (74-106) mg/dL POC Glucose 114 H (60-110) mg/dL Calcium 8.9 (8.5-10.1) mg/dL Magnesium 1.6 L (1.8-2.4) mg/dL 07/11/20 Range/Units 11:57 WBC (4.0-11.0) K/uL RBC (4.50-5.90) M/uL Hgb (13.0-17.0) g/dL Hct (38.0-50.0) % MCV (80.0-98.0) fL MCH (27.0-32.0) pg MCHC (31.0-37.0) g/dL RDW Std Deviation (28.0-62.0) fl RDW Coeff of Dorothea (11.0-15.0) % Plt Count (150-400) K/uL MPV (7.40-12.00) fL Neut % (Auto) (48.0-80.0) % Lymph % (Auto) (16.0-40.0) % [place] % (Auto) (0.0-15.0) % Eos % (Auto) (0.0-7.0) % Baso % (Auto) (0.0-1.5) % Neut # (Auto) (1.4-5.7) K/uL Lymph # (Auto) (0.6-2.4) K/uL [place] # (Auto) (0.0-0.8) K/uL Eos # (Auto) (0.0-0.7) K/uL Baso # (Auto) (0.0-0.1) K/uL Nucleated RBC % /100WBC Nucleated RBCs # K/uL Sodium (136-148) mmol/L Potassium (3.5-5.1) mmol/L Chloride (98-107) mmol/L Carbon Dioxide (21.0-32.0) mmol/L BUN (7.0-18.0) mg/dL Creatinine (0.8-1.3) mg/dL Est Cr Clr Drug Dosing mL/min Estimated GFR (MDRD) ml/min Glucose (74-106) mg/dL POC Glucose 133 H (60-110) mg/dL Calcium (8.5-10.1) mg/dL Magnesium (1.8-2.4) mg/dL Med Orders - Current: Current Medications Acetaminophen (Tylenol) 650 mg PO Q4H PRN PRN Reason: Pain Last Admin: 07/09/20 05:09 Dose: 650 mg Documented by: Benztropine Mesylate (Cogentin) 1 mg PO BEDTIME [facility] Last Admin: 07/10/20 20:28 Dose: 1 mg Documented by: Enoxaparin Sodium (Lovenox) 40 mg SUBCUT Q24H [facility] Last Admin: 07/11/20 12:50 Dose: 40 mg Documented by: Haloperidol (Haldol) 5 mg PO BEDTIME [facility] Last Admin: 07/10/20 20:29 Dose: 5 mg Documented by: Lactated Ringer's (Ringers, Lactated) 1,000 mls @ 100 mls/hr IV ASDIRECTED [facility] Last Admin: 07/11/20 08:50 Dose: 100 mls/hr Documented by: Levofloxacin/Dextrose 750 mg/ (Premix) 150 mls @ 100 mls/hr IV Q24H [facility] Last Admin: 07/11/20 11:40 Dose: 100 mls/hr Documented by: Lactated Ringer's (Ringers, Lactated) 1,000 mls @ 999 mls/hr IV .BOLUS ONE Stop: 07/11/20 13:09 Last Admin: 07/11/20 12:42 Dose: 999 mls/hr Documented by: Lidocaine HCl (Lidocaine 5%) 0 gm TOP Q6HR PRN PRN Reason: Pain Last Admin: 07/09/20 13:07 Dose: 1 applic Documented by: Lorazepam (Ativan) 1 mg IVPUSH Q3H PRN PRN Reason: Agitation Last Admin: 07/10/20 15:27 Dose: 1 mg Documented by: Melatonin (Melatonin) 3 mg PO BEDTIME [facility] Propranolol HCl (Inderal La) 60 mg PO DAILY [facility] Last Admin: 07/11/20 09:07 Dose: 60 mg Documented by: Sodium Chloride (Saline Flush) 10 ml FLUSH ASDIRECTED PRN PRN Reason: Keep Vein Open Sodium Chloride (Saline Flush) 2.5 ml FLUSH ASDIRECTED PRN PRN Reason: Keep Vein Open Discontinued Medications Benztropine Mesylate (Cogentin) 2 mg IM ONETIME ONE Stop: 07/02/20 21:08 Last Admin: 07/02/20 22:48 Dose: Not Given Documented by: Benztropine Mesylate (Cogentin) 2 mg PO ONETIME ONE Stop: 07/02/20 21:55 Last Admin: 07/02/20 22:13 Dose: 2 mg Documented by: Diltiazem HCl (Diltiazem) 20 mg IVPUSH ONETIME ONE Stop: 07/07/20 02:41 Last Admin: 07/07/20 04:35 Dose: Not Given Documented by: Haloperidol (Haldol) 5 mg PO BEDTIME [facility] Last Admin: 07/08/20 20:21 Dose: 5 mg Documented by: Haloperidol (Haldol) 10 mg PO BEDTIME [facility] Last Admin: 07/09/20 20:08 Dose: 10 mg Documented by: Ceftriaxone Sodium 1 gm/ (Sodium Chloride) 100 mls @ 200 mls/hr IV STAT ONE Stop: 07/02/20 21:33 Last Admin: 07/02/20 22:14 Dose: Not Given Documented by: Sodium Chloride (Normal Saline) 2,500 mls @ 2,500 mls/hr IV BOLUS ONE; Protocol Stop: 07/02/20 22:03 Last Admin: 07/02/20 22:12 Dose: 2,500 mls/hr Documented by: Ceftriaxone Sodium/Dextrose (Rocephin In Dextrose,Iso-Osm 1 Gm/50 Ml) Confirm Administered Dose 50 mls @ as directed .ROUTE .STK-MED ONE Stop: 07/02/20 21:40 Last Admin: 07/02/20 21:55 Dose: Not Given Documented by: Ceftriaxone Sodium/Dextrose 1 (gm/ Premix) 50 mls @ 100 mls/hr IV ONETIME ONE Stop: 07/02/20 22:11 Last Admin: 07/02/20 22:13 Dose: 100 mls/hr Documented by: Sodium Chloride (Normal Saline) 1,000 mls @ 125 mls/hr IV ASDIRECTED [facility] Sodium Chloride (Normal Saline) 1,000 mls @ 150 mls/hr IV ASDIRECTED [facility] Last Admin: 07/06/20 14:50 Dose: 150 mls/hr Documented by: Sodium Chloride (Normal Saline) 1,000 mls @ 999 mls/hr IV .Bolus ONE Stop: 07/03/20 14:17 Last Admin: 07/03/20 16:04 Dose: 999 mls/hr Documented by: Ceftriaxone Sodium/Dextrose 1 (gm/ Premix) 50 mls @ 100 mls/hr IV Q24H [facility] Last Admin: 07/07/20 03:14 Dose: 100 mls/hr Documented by: Sodium Chloride (Normal Saline) 1,000 mls @ 999 mls/hr IV .Bolus ONE Stop: 07/05/20 10:37 Last Admin: 07/05/20 22:07 Dose: Not Given Documented by: Sodium Chloride (Normal Saline) 1,000 mls @ 999 mls/hr IV .Bolus ONE Stop: 07/05/20 10:57 Last Admin: 07/05/20 10:11 Dose: 999 mls/hr Documented by: Sodium Chloride (Normal Saline) 1,000 mls @ 75 mls/hr IV ASDIRECTED [facility] Last Admin: 07/09/20 03:32 Dose: 75 mls/hr Documented by: Lactated Ringer's (Ringers, Lactated) 500 mls @ 999 mls/hr IV .BOLUS ONE Stop: 07/07/20 03:09 Last Admin: 07/07/20 02:50 Dose: 999 mls/hr Documented by: Magnesium Sulfate (Magnesium Sulfate In Water Premix) 100 mls @ 50 mls/hr IV ONETIME ONE Stop: 07/07/20 05:59 Last Admin: 07/07/20 04:00 Dose: 50 mls/hr Documented by: Lactated Ringer's (Ringers, Lactated) 500 mls @ 999 mls/hr IV BOLUS ARI Stop: 07/07/20 07:31 Last Admin: 07/07/20 07:20 Dose: 999 mls/hr Documented by: Sodium Chloride (Normal Saline) 500 mls @ 999 mls/hr IV .BOLUS ONE Stop: 07/07/20 19:00 Last Admin: 07/07/20 18:30 Dose: 999 mls/hr Documented by: Magnesium Sulfate (Magnesium Sulfate In Water Premix) 2 gm in 50 mls @ 50 mls/hr IV ONETIME ONE Stop: 07/08/20 10:59 Last Admin: 07/08/20 10:57 Dose: 50 mls/hr Documented by: Magnesium Sulfate (Magnesium Sulfate In Water Premix) 2 gm in 50 mls @ 50 mls/hr IV ONETIME ONE Stop: 07/09/20 10:59 Last Admin: 07/09/20 10:58 Dose: 50 mls/hr Documented by: Piperacillin Sod/Tazobactam (Sod 3.375 gm/ Sodium Chloride) 50 mls @ 100 mls/hr IV Q8H [facility] Last Admin: 07/10/20 06:37 Dose: 100 mls/hr Documented by: Lactated Ringer's (Ringers, Lactated) 500 mls @ 999 mls/hr IV .BOLUS ONE Stop: 07/10/20 01:42 Last Admin: 07/10/20 01:27 Dose: 999 mls/hr Documented by: Piperacillin Sod/Tazobactam (Sod 3.375 gm/ Sodium Chloride) 50 mls @ 100 mls/hr IV Q6H [facility] Magnesium Sulfate (Magnesium Sulfate In Water Premix) 2 gm in 50 mls @ 50 mls/hr IV ONETIME ONE Stop: 07/11/20 09:59 Last Admin: 07/11/20 08:58 Dose: 50 mls/hr Documented by: Iopamidol (Isovue Multipack-370 (76%)) 100 ml IVPUSH ONETIME STA Stop: 07/10/20 13:03 Last Admin: 07/10/20 13:05 Dose: 100 ml Documented by: Lorazepam (Ativan) Confirm Administered Dose 2 mg .ROUTE .STK-MED ONE Stop: 07/03/20 00:30 Last Admin: 07/03/20 00:37 Dose: Not Given Documented by: Lorazepam (Ativan) 1 mg IVPUSH NOW STA Stop: 07/03/20 00:37 Last Admin: 07/03/20 00:38 Dose: 1 mg Documented by: Lorazepam (Ativan) 1 mg IVPUSH ONETIME ONE Stop: 07/03/20 00:48 Last Admin: 07/03/20 00:50 Dose: 1 mg Documented by: Lorazepam (Ativan) 1 mg IVPUSH Q6H PRN PRN Reason: Agitation Lorazepam (Ativan) 2 mg IVPUSH ONETIME ONE Stop: 07/09/20 22:41 Last Admin: 07/09/20 22:55 Dose: 2 mg Documented by: Lorazepam (Ativan) 2 mg IVPUSH ONETIME ONE Stop: 07/10/20 22:26 Last Admin: 07/10/20 22:37 Dose: 2 mg Documented by: Magnesium Sulfate (Magnesium Sulfate In Water Premix) 2 gm IV ONETIME ONE Stop: 07/11/20 08:04 Last Admin: 07/11/20 09:11 Dose: Not Given Documented by: Potassium Chloride (Klor-Con M20) 40 meq PO ONETIME ONE Stop: 07/05/20 15:58 Last Admin: 07/05/20 16:14 Dose: 40 meq Documented by: Potassium Chloride (Klor-Con M20) 40 meq PO ONETIME ONE Stop: 07/07/20 03:42 Last Admin: 07/07/20 03:59 Dose: 40 meq Documented by: Potassium Chloride (Klor-Con M20) 40 meq PO ONETIME ONE Stop: 07/09/20 09:47 Last Admin: 07/09/20 10:58 Dose: 40 meq Documented by: Sterile Water (Sterile Water For Injection) 1.2 ml INJECT ONETIME ONE Stop: 07/03/20 00:59 Last Admin: 07/03/20 01:22 Dose: 1.2 ml Documented by: Ziprasidone (Geodon) 10 mg IM ONETIME ONE Stop: 07/03/20 00:59 Last Admin: 07/03/20 01:04 Dose: 10 mg Documented by: Ziprasidone (Geodon) Confirm Administered Dose 20 mg .ROUTE .STK-MED ONE Stop: 07/03/20 00:59 Last Admin: 07/03/20 01:15 Dose: Not Given Documented by: - Exam General: Alert, Oriented, Cooperative, No Acute Distress Lungs: Clear to Auscultation, Normal Respiratory Effort Cardiovascular: Regular Rate, Regular Rhythm GI/Abdominal Exam: Normal Bowel Sounds, Soft, Non-Tender Extremities: Normal Inspection, Normal Range of Motion, Non-Tender, No Pedal Edema Neurological: No New Focal Deficit, Other (tremors improving.) Psy/Mental Status: Alert, Normal Affect, Normal Mood Sepsis Event Note - Evaluation Sepsis Screening Result: No Definite Risk - Focused Exam Vital Signs: Vital Signs Temp Pulse Resp BP BP Pulse Ox 07/11/20 11:50 81 95/54 L 07/11/20 11:45 97.5 F 84 16 84/54 L 94 L 07/11/20 07:45 98.4 F 89 17 117/66 95 07/11/20 04:41 98.5 F 92 18 113/72 95 - Problem List & Annotations (1) Acute metabolic encephalopathy SNOMED Code(s): 21369338, 544403177 Code(s): G93.41 - METABOLIC ENCEPHALOPATHY Status: Acute Current Visit: Yes (2) HTN (hypertension) SNOMED Code(s): 24847767 Code(s): I10 - ESSENTIAL (PRIMARY) HYPERTENSION Status: Chronic Current Visit: No (3) Schizophrenia SNOMED Code(s): 21531010 Code(s): F20.9 - SCHIZOPHRENIA, UNSPECIFIED Status: Chronic Current Visit: No (4) Bladder outlet obstruction SNOMED Code(s): 606662602 Code(s): N32.0 - BLADDER-NECK OBSTRUCTION Status: Acute Current Visit: Yes - Problem List Review Problem List Initiated/Reviewed/Updated: Yes - My Orders Last 24 Hours: My Active Orders 07/10/20 21:00 haloperidoL [Haldol] 5 mg PO BEDTIME 10/07/20 12:09 Lactated Ringers [Ringers, Lactated] 1,000 ml IV .BOLUS 07/11/20 21:00 Melatonin 3 mg PO BEDTIME 07/12/20 05:11 BASIC METABOLIC PANEL,BMP [CHEM] AM CBC WITH AUTO DIFF [HEME] AM MAGNESIUM [CHEM] AM 07/13/20 05:11 BASIC METABOLIC PANEL,BMP [CHEM] AM CBC WITH AUTO DIFF [HEME] AM MAGNESIUM [CHEM] AM - Plan Plan:: 64 yo male admitted for acute renal failure and metabolic encephalopathy 1. Schizophrenia - Spoke with Dr Crowell, recommends keeping Haldol at 5 mg unless he become acutely psychotic or having hallucinations. - Haldol 5 mg for now and monitor. - Holding Prozac, Amantadine and Trazadone for now. - Cogentin 1 mg at bedtime for EPS symptoms, tremors. - Outpatient fu with Psych upon dc - EPS symptoms improving currently with regimen now - Complaints of inability to sleep, will try Melatonin 2. Bladder outlet obstruction - Lambert in place - Follow up with urology - Having abdominal pain today, will obtain CT abdomen/pelvis, consider prostatitis 3. Dystonia/agitation: - Ativan prn 4. Self care deficit - Will need skilled care - SNF placement - Case management and social work involved VTE prophylaxis: Heparin Dispo: pending placement Will update family via telephone. Anuel [phone], son
[2020-07-11] MEDS: LORazepam 2 MG/ML SDV IVPUSH PRN ×3 (14:22→21:33)
[2020-07-11] MEDS: Haloperidol 5 MG Tab PO SCH (20:28)
[2020-07-11] MEDS: Melatonin 3 MG Tab PO SCH (20:28)
[2020-07-11] MEDS: Benztropine 1 MG Tab PO SCH (20:28)
[2020-07-12] MEDS: LORazepam 2 MG/ML SDV IVPUSH PRN ×3 (00:37→16:56)
[2020-07-12 06:10] LABS: BLOOD UREA NITROGEN,BUN 7 mg/dL (7.0-18.0); CARBON DIOXIDE,CO2 30.1 mmol/L (21.0-32.0); CHLORIDE,CL 101 mmol/L (98-107); GLUCOSE RANDOM 123 mg/dL (74-106); POTASSIUM,K 3.6 mmol/L (3.5-5.1); SODIUM,NA 136 mmol/L (136-148)
[2020-07-12] MEDS ORDERED: Magnesium Sulfate/Water 2 GM/50 ML Premix Bag IV ONE (07:57)
[2020-07-12] MEDS ORDERED: Magnesium Sulfate/Water 2 GM/50 ML BAG IV ONE (08:15)
--- NOTE | 2020-07-12 09:16 | PCM.PN ---
- General Info Date of Service: 07/12/20 Admission Dx/Problem (Free Text): Admission Diagnosis/Problem Admission Diagnosis/Problem Metabolic encephalopathy Subjective Update: Reports feeling ok today, tremors continue to improve. No chest pain or SOB. No other concerns. No sleeping well at night Functional Status: Reports: Pain Controlled, Tolerating Diet, Ambulating - Review of Systems General: Reports: Fatigue HEENT: Reports: No Symptoms Pulmonary: Reports: No Symptoms. Denies: Shortness of Breath Cardiovascular: Reports: No Symptoms. Denies: Chest Pain Gastrointestinal: Reports: No Symptoms. Denies: Abdominal Pain, Nausea, Vomiting Genitourinary: Reports: No Symptoms. Denies: Dysuria, Frequency Musculoskeletal: Reports: No Symptoms Skin: Reports: No Symptoms Neurological: Reports: Tremors Psychiatric: Reports: No Symptoms - Patient Data Vitals - Most Recent: Last Vital Signs Temp 97.6 F 07/12/20 07:15 Pulse 84 07/12/20 07:15 Resp 15 07/12/20 07:15 BP 118/64 07/12/20 07:15 Pulse Ox 95 07/12/20 07:15 Weight - Most Recent: 83.915 kg I&O - Last 24 Hours: Intake & Output 07/11/20 07/12/20 07/12/20 22:59 06:59 14:59 Intake Total 1499 Output Total 1450 1350 Balance 49 -1350 Lab Results Last 24 Hours: Laboratory Results - last 24 hr 07/11/20 07/11/20 07/11/20 Range/Units 11:57 16:57 22:20 WBC (4.0-11.0) K/uL RBC (4.50-5.90) M/uL Hgb (13.0-17.0) g/dL Hct (38.0-50.0) % MCV (80.0-98.0) fL MCH (27.0-32.0) pg MCHC (31.0-37.0) g/dL RDW Std Deviation (28.0-62.0) fl RDW Coeff of Dorothea (11.0-15.0) % Plt Count (150-400) K/uL MPV (7.40-12.00) fL Neut % (Auto) (48.0-80.0) % Lymph % (Auto) (16.0-40.0) % [place] % (Auto) (0.0-15.0) % Eos % (Auto) (0.0-7.0) % Baso % (Auto) (0.0-1.5) % Neut # (Auto) (1.4-5.7) K/uL Lymph # (Auto) (0.6-2.4) K/uL [place] # (Auto) (0.0-0.8) K/uL Eos # (Auto) (0.0-0.7) K/uL Baso # (Auto) (0.0-0.1) K/uL Nucleated RBC % /100WBC Nucleated RBCs # K/uL Sodium (136-148) mmol/L Potassium (3.5-5.1) mmol/L Chloride (98-107) mmol/L Carbon Dioxide (21.0-32.0) mmol/L BUN (7.0-18.0) mg/dL Creatinine (0.8-1.3) mg/dL Est Cr Clr Drug Dosing mL/min Estimated GFR (MDRD) ml/min Glucose (74-106) mg/dL POC Glucose 133 H 98 106 (60-110) mg/dL Calcium (8.5-10.1) mg/dL Magnesium (1.8-2.4) mg/dL 07/12/20 07/12/20 07/12/20 Range/Units 04:59 05:05 05:05 WBC 9.46 (4.0-11.0) K/uL RBC 3.64 L (4.50-5.90) M/uL Hgb 9.8 L (13.0-17.0) g/dL Hct 32.1 L (38.0-50.0) % MCV 88.2 (80.0-98.0) fL MCH 26.9 L (27.0-32.0) pg MCHC 30.5 L (31.0-37.0) g/dL RDW Std Deviation 49.9 (28.0-62.0) fl RDW Coeff of Dorothea 16 H (11.0-15.0) % Plt Count 308 (150-400) K/uL MPV 8.80 (7.40-12.00) fL Neut % (Auto) 65.1 (48.0-80.0) % Lymph % (Auto) 20.3 (16.0-40.0) % [place] % (Auto) 12.7 (0.0-15.0) % Eos % (Auto) 1.7 (0.0-7.0) % Baso % (Auto) 0.2 (0.0-1.5) % Neut # (Auto) 6.2 H (1.4-5.7) K/uL Lymph # (Auto) 1.9 (0.6-2.4) K/uL [place] # (Auto) 1.2 H (0.0-0.8) K/uL Eos # (Auto) 0.2 (0.0-0.7) K/uL Baso # (Auto) 0.0 (0.0-0.1) K/uL Nucleated RBC % 0.0 /100WBC Nucleated RBCs # 0 K/uL Sodium 136 (136-148) mmol/L Potassium 3.6 (3.5-5.1) mmol/L Chloride 101 (98-107) mmol/L Carbon Dioxide 30.1 (21.0-32.0) mmol/L BUN 7 (7.0-18.0) mg/dL Creatinine 0.8 (0.8-1.3) mg/dL Est Cr Clr Drug Dosing 84.71 mL/min Estimated GFR (MDRD) > 60.0 ml/min Glucose 123 H (74-106) mg/dL POC Glucose 123 H (60-110) mg/dL Calcium 8.7 (8.5-10.1) mg/dL Magnesium 1.6 L (1.8-2.4) mg/dL Med Orders - Current: Current Medications Acetaminophen (Tylenol) 650 mg PO Q4H PRN PRN Reason: Pain Last Admin: 07/09/20 05:09 Dose: 650 mg Documented by: Benztropine Mesylate (Cogentin) 1 mg PO BEDTIME [facility] Last Admin: 07/11/20 20:28 Dose: 1 mg Documented by: Enoxaparin Sodium (Lovenox) 40 mg SUBCUT Q24H [facility] Last Admin: 07/11/20 12:50 Dose: 40 mg Documented by: Haloperidol (Haldol) 5 mg PO BEDTIME [facility] Last Admin: 07/11/20 20:28 Dose: 5 mg Documented by: Lactated Ringer's (Ringers, Lactated) 1,000 mls @ 100 mls/hr IV ASDIRECTED ARI Last Admin: 07/11/20 08:50 Dose: 100 mls/hr Documented by: Levofloxacin/Dextrose 750 mg/ (Premix) 150 mls @ 100 mls/hr IV Q24H [facility] Last Admin: 07/11/20 11:40 Dose: 100 mls/hr Documented by: Lidocaine HCl (Lidocaine 5%) 0 gm TOP Q6HR PRN PRN Reason: Pain Last Admin: 07/09/20 13:07 Dose: 1 applic Documented by: Lorazepam (Ativan) 1 mg IVPUSH Q3H PRN PRN Reason: Agitation Last Admin: 07/12/20 04:45 Dose: 1 mg Documented by: Melatonin (Melatonin) 3 mg PO BEDTIME [facility] Last Admin: 07/11/20 20:28 Dose: 3 mg Documented by: Propranolol HCl (Inderal La) 60 mg PO DAILY [facility] Last Admin: 07/11/20 09:07 Dose: 60 mg Documented by: Sodium Chloride (Saline Flush) 10 ml FLUSH ASDIRECTED PRN PRN Reason: Keep Vein Open Sodium Chloride (Saline Flush) 2.5 ml FLUSH ASDIRECTED PRN PRN Reason: Keep Vein Open Discontinued Medications Benztropine Mesylate (Cogentin) 2 mg IM ONETIME ONE Stop: 07/02/20 21:08 Last Admin: 07/02/20 22:48 Dose: Not Given Documented by: Benztropine Mesylate (Cogentin) 2 mg PO ONETIME ONE Stop: 07/02/20 21:55 Last Admin: 07/02/20 22:13 Dose: 2 mg Documented by: Diltiazem HCl (Diltiazem) 20 mg IVPUSH ONETIME ONE Stop: 07/07/20 02:41 Last Admin: 07/07/20 04:35 Dose: Not Given Documented by: Haloperidol (Haldol) 5 mg PO BEDTIME [facility] Last Admin: 07/08/20 20:21 Dose: 5 mg Documented by: Haloperidol (Haldol) 10 mg PO BEDTIME [facility] Last Admin: 07/09/20 20:08 Dose: 10 mg Documented by: Ceftriaxone Sodium 1 gm/ (Sodium Chloride) 100 mls @ 200 mls/hr IV STAT ONE Stop: 07/02/20 21:33 Last Admin: 07/02/20 22:14 Dose: Not Given Documented by: Sodium Chloride (Normal Saline) 2,500 mls @ 2,500 mls/hr IV BOLUS ONE; Protocol Stop: 07/02/20 22:03 Last Admin: 07/02/20 22:12 Dose: 2,500 mls/hr Documented by: Ceftriaxone Sodium/Dextrose (Rocephin In Dextrose,Iso-Osm 1 Gm/50 Ml) Confirm Administered Dose 50 mls @ as directed .ROUTE .STK-MED ONE Stop: 07/02/20 21:40 Last Admin: 07/02/20 21:55 Dose: Not Given Documented by: Ceftriaxone Sodium/Dextrose 1 (gm/ Premix) 50 mls @ 100 mls/hr IV ONETIME ONE Stop: 07/02/20 22:11 Last Admin: 07/02/20 22:13 Dose: 100 mls/hr Documented by: Sodium Chloride (Normal Saline) 1,000 mls @ 125 mls/hr IV ASDIRECTED [facility] Sodium Chloride (Normal Saline) 1,000 mls @ 150 mls/hr IV ASDIRECTED [facility] Last Admin: 07/06/20 14:50 Dose: 150 mls/hr Documented by: Sodium Chloride (Normal Saline) 1,000 mls @ 999 mls/hr IV .Bolus ONE Stop: 07/03/20 14:17 Last Admin: 07/03/20 16:04 Dose: 999 mls/hr Documented by: Ceftriaxone Sodium/Dextrose 1 (gm/ Premix) 50 mls @ 100 mls/hr IV Q24H [facility] Last Admin: 07/07/20 03:14 Dose: 100 mls/hr Documented by: Sodium Chloride (Normal Saline) 1,000 mls @ 999 mls/hr IV .Bolus ONE Stop: 07/05/20 10:37 Last Admin: 07/05/20 22:07 Dose: Not Given Documented by: Sodium Chloride (Normal Saline) 1,000 mls @ 999 mls/hr IV .Bolus ONE Stop: 07/05/20 10:57 Last Admin: 07/05/20 10:11 Dose: 999 mls/hr Documented by: Sodium Chloride (Normal Saline) 1,000 mls @ 75 mls/hr IV ASDIRECTED [facility] Last Admin: 07/09/20 03:32 Dose: 75 mls/hr Documented by: Lactated Ringer's (Ringers, Lactated) 500 mls @ 999 mls/hr IV .BOLUS ONE Stop: 07/07/20 03:09 Last Admin: 07/07/20 02:50 Dose: 999 mls/hr Documented by: Magnesium Sulfate (Magnesium Sulfate In Water Premix) 100 mls @ 50 mls/hr IV ONETIME ONE Stop: 07/07/20 05:59 Last Admin: 07/07/20 04:00 Dose: 50 mls/hr Documented by: Lactated Ringer's (Ringers, Lactated) 500 mls @ 999 mls/hr IV BOLUS ARI Stop: 07/07/20 07:31 Last Admin: 07/07/20 07:20 Dose: 999 mls/hr Documented by: Sodium Chloride (Normal Saline) 500 mls @ 999 mls/hr IV .BOLUS ONE Stop: 07/07/20 19:00 Last Admin: 07/07/20 18:30 Dose: 999 mls/hr Documented by: Magnesium Sulfate (Magnesium Sulfate In Water Premix) 2 gm in 50 mls @ 50 mls/hr IV ONETIME ONE Stop: 07/08/20 10:59 Last Admin: 07/08/20 10:57 Dose: 50 mls/hr Documented by: Magnesium Sulfate (Magnesium Sulfate In Water Premix) 2 gm in 50 mls @ 50 mls/hr IV ONETIME ONE Stop: 07/09/20 10:59 Last Admin: 07/09/20 10:58 Dose: 50 mls/hr Documented by: Piperacillin Sod/Tazobactam (Sod 3.375 gm/ Sodium Chloride) 50 mls @ 100 mls/hr IV Q8H [facility] Last Admin: 07/10/20 06:37 Dose: 100 mls/hr Documented by: Lactated Ringer's (Ringers, Lactated) 500 mls @ 999 mls/hr IV .BOLUS ONE Stop: 07/10/20 01:42 Last Admin: 07/10/20 01:27 Dose: 999 mls/hr Documented by: Piperacillin Sod/Tazobactam (Sod 3.375 gm/ Sodium Chloride) 50 mls @ 100 mls/hr IV Q6H [facility] Magnesium Sulfate (Magnesium Sulfate In Water Premix) 2 gm in 50 mls @ 50 mls/hr IV ONETIME ONE Stop: 07/11/20 09:59 Last Admin: 07/11/20 08:58 Dose: 50 mls/hr Documented by: Lactated Ringer's (Ringers, Lactated) 1,000 mls @ 999 mls/hr IV .BOLUS ONE Stop: 07/11/20 13:09 Last Admin: 07/11/20 12:42 Dose: 999 mls/hr Documented by: Magnesium Sulfate (Magnesium Sulfate In Water Premix) 2 gm in 50 mls @ 50 mls/hr IV ONETIME ONE Stop: 07/12/20 09:14 Iopamidol (Isovue Multipack-370 (76%)) 100 ml IVPUSH ONETIME STA Stop: 07/10/20 13:03 Last Admin: 07/10/20 13:05 Dose: 100 ml Documented by: Lorazepam (Ativan) Confirm Administered Dose 2 mg .ROUTE .STK-MED ONE Stop: 07/03/20 00:30 Last Admin: 07/03/20 00:37 Dose: Not Given Documented by: Lorazepam (Ativan) 1 mg IVPUSH NOW STA Stop: 07/03/20 00:37 Last Admin: 07/03/20 00:38 Dose: 1 mg Documented by: Lorazepam (Ativan) 1 mg IVPUSH ONETIME ONE Stop: 07/03/20 00:48 Last Admin: 07/03/20 00:50 Dose: 1 mg Documented by: Lorazepam (Ativan) 1 mg IVPUSH Q6H PRN PRN Reason: Agitation Lorazepam (Ativan) 2 mg IVPUSH ONETIME ONE Stop: 07/09/20 22:41 Last Admin: 07/09/20 22:55 Dose: 2 mg Documented by: Lorazepam (Ativan) 2 mg IVPUSH ONETIME ONE Stop: 07/10/20 22:26 Last Admin: 07/10/20 22:37 Dose: 2 mg Documented by: Magnesium Sulfate (Magnesium Sulfate In Water Premix) 2 gm IV ONETIME ONE Stop: 07/11/20 08:04 Last Admin: 07/11/20 09:11 Dose: Not Given Documented by: Potassium Chloride (Klor-Con M20) 40 meq PO ONETIME ONE Stop: 07/05/20 15:58 Last Admin: 07/05/20 16:14 Dose: 40 meq Documented by: Potassium Chloride (Klor-Con M20) 40 meq PO ONETIME ONE Stop: 07/07/20 03:42 Last Admin: 07/07/20 03:59 Dose: 40 meq Documented by: Potassium Chloride (Klor-Con M20) 40 meq PO ONETIME ONE Stop: 07/09/20 09:47 Last Admin: 07/09/20 10:58 Dose: 40 meq Documented by: Sterile Water (Sterile Water For Injection) 1.2 ml INJECT ONETIME ONE Stop: 07/03/20 00:59 Last Admin: 07/03/20 01:22 Dose: 1.2 ml Documented by: Ziprasidone (Geodon) 10 mg IM ONETIME ONE Stop: 07/03/20 00:59 Last Admin: 07/03/20 01:04 Dose: 10 mg Documented by: Ziprasidone (Geodon) Confirm Administered Dose 20 mg .ROUTE .STK-MED ONE Stop: 07/03/20 00:59 Last Admin: 07/03/20 01:15 Dose: Not Given Documented by: - Exam General: Alert, Oriented, Cooperative, No Acute Distress Lungs: Clear to Auscultation, Normal Respiratory Effort Cardiovascular: Regular Rate, Regular Rhythm GI/Abdominal Exam: Normal Bowel Sounds, Soft, Non-Tender Extremities: Normal Inspection, Normal Range of Motion, Non-Tender, No Pedal Edema Neurological: No New Focal Deficit Psy/Mental Status: Alert, Normal Affect, Normal Mood Sepsis Event Note - Evaluation Sepsis Screening Result: No Definite Risk - Focused Exam Vital Signs: Vital Signs Temp Pulse Resp BP Pulse Ox 07/12/20 07:15 97.6 F 84 15 118/64 95 07/12/20 05:07 98.0 F 82 14 114/63 95 07/12/20 01:26 96.5 F L 91 15 131/75 94 L - Problem List & Annotations (1) Acute metabolic encephalopathy SNOMED Code(s): 20793645, 347148639 Code(s): G93.41 - METABOLIC ENCEPHALOPATHY Status: Acute Current Visit: Yes (2) HTN (hypertension) SNOMED Code(s): 86441170 Code(s): I10 - ESSENTIAL (PRIMARY) HYPERTENSION Status: Chronic Current Visit: No (3) Schizophrenia SNOMED Code(s): 94291009 Code(s): F20.9 - SCHIZOPHRENIA, UNSPECIFIED Status: Chronic Current Visit: No (4) Bladder outlet obstruction SNOMED Code(s): 187630291 Code(s): N32.0 - BLADDER-NECK OBSTRUCTION Status: Acute Current Visit: Yes - Problem List Review Problem List Initiated/Reviewed/Updated: Yes - My Orders Last 24 Hours: My Active Orders 07/11/20 21:00 Melatonin 3 mg PO BEDTIME 07/13/20 05:11 BASIC METABOLIC PANEL,BMP [CHEM] AM CBC WITH AUTO DIFF [HEME] AM MAGNESIUM [CHEM] AM - Plan Plan:: 64 yo male admitted for acute renal failure and metabolic encephalopathy 1. Schizophrenia - Spoke with Dr Crowell, recommends keeping Haldol at 5 mg unless he become acutely psychotic or having hallucinations. - Haldol 5 mg for now and monitor. - Holding Prozac, Amantadine and Trazadone for now. - Cogentin 1 mg at bedtime for EPS symptoms, tremors. - Outpatient fu with Psych upon dc - EPS symptoms improving currently with regimen now 2. Bladder outlet obstruction - Lambert in place - Follow up with urology - Levaquin 750mg for prostatitis. Leukocytosis improved 3. Dystonia/agitation: - Ativan prn 4. Self care deficit - Will need skilled care - SNF placement - Case management and social work involved VTE prophylaxis: Heparin Dispo: pending placement Will update family via telephone. Anuel [phone], son
[2020-07-12] MEDS: Propranolol 60 MG Cap.ER PO SCH (09:30)
[2020-07-12] MEDS: Levofloxacin/Dextrose 5%-Water 750 MG in Premix Bag 1 BAG IV SCH (10:58)
[2020-07-12] MEDS ORDERED: Sodium Chloride 0.9% 500 ML IV SCH (12:00)
[2020-07-12] MEDS: Enoxaparin 40 MG/0.4 ML Syringe SUBCUT SCH (13:28)
[2020-07-12] MEDS: Melatonin 3 MG Tab PO SCH (21:17)
[2020-07-12] MEDS: Benztropine 1 MG Tab PO SCH (21:17)
[2020-07-12] MEDS: Haloperidol 5 MG Tab PO SCH (21:17)
[2020-07-13 06:48] LABS: BLOOD UREA NITROGEN,BUN 8 mg/dL (7.0-18.0); CARBON DIOXIDE,CO2 28.3 mmol/L (21.0-32.0); CHLORIDE,CL 100 mmol/L (98-107); GLUCOSE RANDOM 127 mg/dL (74-106); POTASSIUM,K 3.8 mmol/L (3.5-5.1); SODIUM,NA 136 mmol/L (136-148)
[2020-07-13] MEDS: Propranolol 60 MG Cap.ER PO SCH (09:55)
[2020-07-13] MEDS: Levofloxacin/Dextrose 5%-Water 750 MG in Premix Bag 1 BAG IV SCH (10:12)
[2020-07-13] MEDS: LORazepam 2 MG/ML SDV IVPUSH PRN (12:26)
--- NOTE | 2020-07-13 12:31 | PCM.PN ---
- General Info Date of Service: 07/13/20 Admission Dx/Problem (Free Text): Admission Diagnosis/Problem Admission Diagnosis/Problem Metabolic encephalopathy Subjective Update: Doing well today, tremors continue to improve. No concerns. Asking when he is leaving the hospital. Discussed needing insurance for placement, He verbalized understanding Functional Status: Reports: Pain Controlled, Tolerating Diet, Ambulating - Review of Systems General: Reports: No Symptoms. Denies: Weakness, Fatigue Pulmonary: Reports: No Symptoms. Denies: Shortness of Breath Cardiovascular: Reports: No Symptoms. Denies: Chest Pain Gastrointestinal: Reports: No Symptoms. Denies: Abdominal Pain, Nausea, Vomiting Genitourinary: Reports: No Symptoms Musculoskeletal: Reports: No Symptoms Skin: Reports: No Symptoms Neurological: Reports: Tremors (improving) Psychiatric: Reports: No Symptoms - Patient Data Vitals - Most Recent: Last Vital Signs Temp 97.5 F 07/13/20 08:00 Pulse 79 07/13/20 08:00 Resp 18 07/13/20 08:00 BP 109/58 L 07/13/20 08:00 Pulse Ox 96 07/13/20 08:00 Weight - Most Recent: 83.915 kg I&O - Last 24 Hours: Intake & Output 07/12/20 07/13/20 07/13/20 22:59 06:59 14:59 Intake Total 800 Output Total 1050 Balance -250 Lab Results Last 24 Hours: Laboratory Results - last 24 hr 07/12/20 07/12/20 07/13/20 Range/Units 17:04 17:12 00:09 WBC (4.0-11.0) K/uL RBC (4.50-5.90) M/uL Hgb (13.0-17.0) g/dL Hct (38.0-50.0) % MCV (80.0-98.0) fL MCH (27.0-32.0) pg MCHC (31.0-37.0) g/dL RDW Std Deviation (28.0-62.0) fl RDW Coeff of Dorothea (11.0-15.0) % Plt Count (150-400) K/uL MPV (7.40-12.00) fL Neut % (Auto) (48.0-80.0) % Lymph % (Auto) (16.0-40.0) % Dodge % (Auto) (0.0-15.0) % Eos % (Auto) (0.0-7.0) % Baso % (Auto) (0.0-1.5) % Neut # (Auto) (1.4-5.7) K/uL Lymph # (Auto) (0.6-2.4) K/uL Dodge # (Auto) (0.0-0.8) K/uL Eos # (Auto) (0.0-0.7) K/uL Baso # (Auto) (0.0-0.1) K/uL Nucleated RBC % /100WBC Nucleated RBCs # K/uL Sodium (136-148) mmol/L Potassium (3.5-5.1) mmol/L Chloride (98-107) mmol/L Carbon Dioxide (21.0-32.0) mmol/L BUN (7.0-18.0) mg/dL Creatinine (0.8-1.3) mg/dL Est Cr Clr Drug Dosing mL/min Estimated GFR (MDRD) ml/min Glucose (74-106) mg/dL POC Glucose 104 154 H 115 H (60-110) mg/dL Calcium (8.5-10.1) mg/dL Magnesium (1.8-2.4) mg/dL 07/13/20 07/13/20 07/13/20 Range/Units 05:49 05:49 06:04 WBC 10.07 (4.0-11.0) K/uL RBC 4.00 L (4.50-5.90) M/uL Hgb 10.8 L (13.0-17.0) g/dL Hct 34.9 L (38.0-50.0) % MCV 87.3 (80.0-98.0) fL MCH 27.0 (27.0-32.0) pg MCHC 30.9 L (31.0-37.0) g/dL RDW Std Deviation 49.4 (28.0-62.0) fl RDW Coeff of Dorothea 16 H (11.0-15.0) % Plt Count 357 (150-400) K/uL MPV 8.90 (7.40-12.00) fL Neut % (Auto) 67.0 (48.0-80.0) % Lymph % (Auto) 16.6 (16.0-40.0) % Dodge % (Auto) 14.8 (0.0-15.0) % Eos % (Auto) 1.5 (0.0-7.0) % Baso % (Auto) 0.1 (0.0-1.5) % Neut # (Auto) 6.8 H (1.4-5.7) K/uL Lymph # (Auto) 1.7 (0.6-2.4) K/uL Dodge # (Auto) 1.5 H (0.0-0.8) K/uL Eos # (Auto) 0.2 (0.0-0.7) K/uL Baso # (Auto) 0.0 (0.0-0.1) K/uL Nucleated RBC % 0.0 /100WBC Nucleated RBCs # 0 K/uL Sodium 136 (136-148) mmol/L Potassium 3.8 (3.5-5.1) mmol/L Chloride 100 (98-107) mmol/L Carbon Dioxide 28.3 (21.0-32.0) mmol/L BUN 8 (7.0-18.0) mg/dL Creatinine 0.8 (0.8-1.3) mg/dL Est Cr Clr Drug Dosing 84.71 mL/min Estimated GFR (MDRD) > 60.0 ml/min Glucose 127 H (74-106) mg/dL POC Glucose 129 H (60-110) mg/dL Calcium 9.1 (8.5-10.1) mg/dL Magnesium 1.8 (1.8-2.4) mg/dL 07/13/20 Range/Units 12:10 WBC (4.0-11.0) K/uL RBC (4.50-5.90) M/uL Hgb (13.0-17.0) g/dL Hct (38.0-50.0) % MCV (80.0-98.0) fL MCH (27.0-32.0) pg MCHC (31.0-37.0) g/dL RDW Std Deviation (28.0-62.0) fl RDW Coeff of Dorothea (11.0-15.0) % Plt Count (150-400) K/uL MPV (7.40-12.00) fL Neut % (Auto) (48.0-80.0) % Lymph % (Auto) (16.0-40.0) % Dodge % (Auto) (0.0-15.0) % Eos % (Auto) (0.0-7.0) % Baso % (Auto) (0.0-1.5) % Neut # (Auto) (1.4-5.7) K/uL Lymph # (Auto) (0.6-2.4) K/uL Dodge # (Auto) (0.0-0.8) K/uL Eos # (Auto) (0.0-0.7) K/uL Baso # (Auto) (0.0-0.1) K/uL Nucleated RBC % /100WBC Nucleated RBCs # K/uL Sodium (136-148) mmol/L Potassium (3.5-5.1) mmol/L Chloride (98-107) mmol/L Carbon Dioxide (21.0-32.0) mmol/L BUN (7.0-18.0) mg/dL Creatinine (0.8-1.3) mg/dL Est Cr Clr Drug Dosing mL/min Estimated GFR (MDRD) ml/min Glucose (74-106) mg/dL POC Glucose 145 H (60-110) mg/dL Calcium (8.5-10.1) mg/dL Magnesium (1.8-2.4) mg/dL Med Orders - Current: Current Medications Acetaminophen (Tylenol) 650 mg PO Q4H PRN PRN Reason: Pain Last Admin: 07/09/20 05:09 Dose: 650 mg Documented by: Benztropine Mesylate (Cogentin) 1 mg PO BEDTIME [facility] Last Admin: 07/12/20 21:17 Dose: 1 mg Documented by: Enoxaparin Sodium (Lovenox) 40 mg SUBCUT Q24H [facility] Last Admin: 07/12/20 13:28 Dose: 40 mg Documented by: Haloperidol (Haldol) 5 mg PO BEDTIME [facility] Last Admin: 07/12/20 21:17 Dose: 5 mg Documented by: Lactated Ringer's (Ringers, Lactated) 1,000 mls @ 100 mls/hr IV ASDIRECTED [facility] Last Admin: 07/11/20 08:50 Dose: 100 mls/hr Documented by: Levofloxacin (Levaquin) 750 mg PO Q24H [facility] Lidocaine HCl (Lidocaine 5%) 0 gm TOP Q6HR PRN PRN Reason: Pain Last Admin: 07/09/20 13:07 Dose: 1 applic Documented by: Lorazepam (Ativan) 1 mg IVPUSH Q3H PRN PRN Reason: Agitation Last Admin: 07/12/20 16:56 Dose: 1 mg Documented by: Melatonin (Melatonin) 3 mg PO BEDTIME [facility] Last Admin: 07/12/20 21:17 Dose: 3 mg Documented by: Propranolol HCl (Inderal La) 60 mg PO DAILY [facility] Last Admin: 07/13/20 09:55 Dose: 60 mg Documented by: Sodium Chloride (Saline Flush) 10 ml FLUSH ASDIRECTED PRN PRN Reason: Keep Vein Open Sodium Chloride (Saline Flush) 2.5 ml FLUSH ASDIRECTED PRN PRN Reason: Keep Vein Open Discontinued Medications Benztropine Mesylate (Cogentin) 2 mg IM ONETIME ONE Stop: 07/02/20 21:08 Last Admin: 07/02/20 22:48 Dose: Not Given Documented by: Benztropine Mesylate (Cogentin) 2 mg PO ONETIME ONE Stop: 07/02/20 21:55 Last Admin: 07/02/20 22:13 Dose: 2 mg Documented by: Diltiazem HCl (Diltiazem) 20 mg IVPUSH ONETIME ONE Stop: 07/07/20 02:41 Last Admin: 07/07/20 04:35 Dose: Not Given Documented by: Haloperidol (Haldol) 5 mg PO BEDTIME [facility] Last Admin: 07/08/20 20:21 Dose: 5 mg Documented by: Haloperidol (Haldol) 10 mg PO BEDTIME [facility] Last Admin: 07/09/20 20:08 Dose: 10 mg Documented by: Ceftriaxone Sodium 1 gm/ (Sodium Chloride) 100 mls @ 200 mls/hr IV STAT ONE Stop: 07/02/20 21:33 Last Admin: 07/02/20 22:14 Dose: Not Given Documented by: Sodium Chloride (Normal Saline) 2,500 mls @ 2,500 mls/hr IV BOLUS ONE; Protocol Stop: 07/02/20 22:03 Last Admin: 07/02/20 22:12 Dose: 2,500 mls/hr Documented by: Ceftriaxone Sodium/Dextrose (Rocephin In Dextrose,Iso-Osm 1 Gm/50 Ml) Confirm Administered Dose 50 mls @ as directed .ROUTE .STK-MED ONE Stop: 07/02/20 21:40 Last Admin: 07/02/20 21:55 Dose: Not Given Documented by: Ceftriaxone Sodium/Dextrose 1 (gm/ Premix) 50 mls @ 100 mls/hr IV ONETIME ONE Stop: 07/02/20 22:11 Last Admin: 07/02/20 22:13 Dose: 100 mls/hr Documented by: Sodium Chloride (Normal Saline) 1,000 mls @ 125 mls/hr IV ASDIRECTED ARI Sodium Chloride (Normal Saline) 1,000 mls @ 150 mls/hr IV ASDIRECTED [facility] Last Admin: 07/06/20 14:50 Dose: 150 mls/hr Documented by: Sodium Chloride (Normal Saline) 1,000 mls @ 999 mls/hr IV .Bolus ONE Stop: 07/03/20 14:17 Last Admin: 07/03/20 16:04 Dose: 999 mls/hr Documented by: Ceftriaxone Sodium/Dextrose 1 (gm/ Premix) 50 mls @ 100 mls/hr IV Q24H [facility] Last Admin: 07/07/20 03:14 Dose: 100 mls/hr Documented by: Sodium Chloride (Normal Saline) 1,000 mls @ 999 mls/hr IV .Bolus ONE Stop: 07/05/20 10:37 Last Admin: 07/05/20 22:07 Dose: Not Given Documented by: Sodium Chloride (Normal Saline) 1,000 mls @ 999 mls/hr IV .Bolus ONE Stop: 07/05/20 10:57 Last Admin: 07/05/20 10:11 Dose: 999 mls/hr Documented by: Sodium Chloride (Normal Saline) 1,000 mls @ 75 mls/hr IV ASDIRECTED [facility] Last Admin: 07/09/20 03:32 Dose: 75 mls/hr Documented by: Lactated Ringer's (Ringers, Lactated) 500 mls @ 999 mls/hr IV .BOLUS ONE Stop: 07/07/20 03:09 Last Admin: 07/07/20 02:50 Dose: 999 mls/hr Documented by: Magnesium Sulfate (Magnesium Sulfate In Water Premix) 100 mls @ 50 mls/hr IV ON ETIME ONE Stop: 07/07/20 05:59 Last Admin: 07/07/20 04:00 Dose: 50 mls/hr Documented by: Lactated Ringer's (Ringers, Lactated) 500 mls @ 999 mls/hr IV BOLUS ARI Stop: 07/07/20 07:31 Last Admin: 07/07/20 07:20 Dose: 999 mls/hr Documented by: Sodium Chloride (Normal Saline) 500 mls @ 999 mls/hr IV .BOLUS ONE Stop: 07/07/20 19:00 Last Admin: 07/07/20 18:30 Dose: 999 mls/hr Documented by: Magnesium Sulfate (Magnesium Sulfate In Water Premix) 2 gm in 50 mls @ 50 mls/hr IV ONETIME ONE Stop: 07/08/20 10:59 Last Admin: 07/08/20 10:57 Dose: 50 mls/hr Documented by: Magnesium Sulfate (Magnesium Sulfate In Water Premix) 2 gm in 50 mls @ 50 mls/hr IV ONETIME ONE Stop: 07/09/20 10:59 Last Admin: 07/09/20 10:58 Dose: 50 mls/hr Documented by: Piperacillin Sod/Tazobactam (Sod 3.375 gm/ Sodium Chloride) 50 mls @ 100 mls/hr IV Q8H [facility] Last Admin: 07/10/20 06:37 Dose: 100 mls/hr Documented by: Lactated Ringer's (Ringers, Lactated) 500 mls @ 999 mls/hr IV .BOLUS ONE Stop: 07/10/20 01:42 Last Admin: 07/10/20 01:27 Dose: 999 mls/hr Documented by: Piperacillin Sod/Tazobactam (Sod 3.375 gm/ Sodium Chloride) 50 mls @ 100 mls/hr IV Q6H ARI Levofloxacin/Dextrose 750 mg/ (Premix) 150 mls @ 100 mls/hr IV Q24H [facility] Last Admin: 07/13/20 10:12 Dose: 100 mls/hr Documented by: Magnesium Sulfate (Magnesium Sulfate In Water Premix) 2 gm in 50 mls @ 50 mls/hr IV ONETIME ONE Stop: 07/11/20 09:59 Last Admin: 07/11/20 08:58 Dose: 50 mls/hr Documented by: Lactated Ringer's (Ringers, Lactated) 1,000 mls @ 999 mls/hr IV .BOLUS ONE Stop: 07/11/20 13:09 Last Admin: 07/11/20 12:42 Dose: 999 mls/hr Documented by: Magnesium Sulfate (Magnesium Sulfate In Water Premix) 2 gm in 50 mls @ 50 mls/hr IV ONETIME ONE Stop: 07/12/20 09:14 Last Admin: 07/12/20 08:30 Dose: 50 mls/hr Documented by: Sodium Chloride (Normal Saline) 500 mls @ 999 mls/hr IV .BOLUS ARI Iopamidol (Isovue Multipack-370 (76%)) 100 ml IVPUSH ONETIME STA Stop: 07/10/20 13:03 Last Admin: 07/10/20 13:05 Dose: 100 ml Documented by: Lorazepam (Ativan) Confirm Administered Dose 2 mg .ROUTE .STK-MED ONE Stop: 07/03/20 00:30 Last Admin: 07/03/20 00:37 Dose: Not Given Documented by: Lorazepam (Ativan) 1 mg IVPUSH NOW STA Stop: 07/03/20 00:37 Last Admin: 07/03/20 00:38 Dose: 1 mg Documented by: Lorazepam (Ativan) 1 mg IVPUSH ONETIME ONE Stop: 07/03/20 00:48 Last Admin: 07/03/20 00:50 Dose: 1 mg Documented by: Lorazepam (Ativan) 1 mg IVPUSH Q6H PRN PRN Reason: Agitation Lorazepam (Ativan) 2 mg IVPUSH ONETIME ONE Stop: 07/09/20 22:41 Last Admin: 07/09/20 22:55 Dose: 2 mg Documented by: Lorazepam (Ativan) 2 mg IVPUSH ONETIME ONE Stop: 07/10/20 22:26 Last Admin: 07/10/20 22:37 Dose: 2 mg Documented by: Magnesium Sulfate (Magnesium Sulfate In Water Premix) 2 gm IV ONETIME ONE Stop: 07/11/20 08:04 Last Admin: 07/11/20 09:11 Dose: Not Given Documented by: Potassium Chloride (Klor-Con M20) 40 meq PO ONETIME ONE Stop: 07/05/20 15:58 Last Admin: 07/05/20 16:14 Dose: 40 meq Documented by: Potassium Chloride (Klor-Con M20) 40 meq PO ONETIME ONE Stop: 07/07/20 03:42 Last Admin: 07/07/20 03:59 Dose: 40 meq Documented by: Potassium Chloride (Klor-Con M20) 40 meq PO ONETIME ONE Stop: 07/09/20 09:47 Last Admin: 07/09/20 10:58 Dose: 40 meq Documented by: Sterile Water (Sterile Water For Injection) 1.2 ml INJECT ONETIME ONE Stop: 07/03/20 00:59 Last Admin: 07/03/20 01:22 Dose: 1.2 ml Documented by: Ziprasidone (Geodon) 10 mg IM ONETIME ONE Stop: 07/03/20 00:59 Last Admin: 07/03/20 01:04 Dose: 10 mg Documented by: Ziprasidone (Geodon) Confirm Administered Dose 20 mg .ROUTE .STK-MED ONE Stop: 07/03/20 00:59 Last Admin: 07/03/20 01:15 Dose: Not Given Documented by: - Exam General: Alert, Oriented, Cooperative, No Acute Distress Lungs: Clear to Auscultation, Normal Respiratory Effort Cardiovascular: Regular Rate, Regular Rhythm GI/Abdominal Exam: Normal Bowel Sounds, Soft, Non-Tender Extremities: Normal Inspection, Normal Range of Motion, Non-Tender, No Pedal [place] Neurological: No New Focal Deficit, Other (tremors improving daily) Psy/Mental Status: Alert, Normal Affect, Normal Mood Sepsis Event Note - Evaluation Sepsis Screening Result: No Definite Risk - Focused Exam Vital Signs: Vital Signs Temp Pulse Resp BP Pulse Ox 07/13/20 08:00 97.5 F 79 18 109/58 L 96 07/13/20 04:28 97.1 F 90 20 119/63 93 L - Problem List & Annotations (1) Acute metabolic encephalopathy SNOMED Code(s): 97972706, 638589510 Code(s): G93.41 - METABOLIC ENCEPHALOPATHY Status: Acute Current Visit: Yes (2) HTN (hypertension) SNOMED Code(s): 37986944 Code(s): I10 - ESSENTIAL (PRIMARY) HYPERTENSION Status: Chronic Current Visit: No (3) Schizophrenia SNOMED Code(s): 96682007 Code(s): F20.9 - SCHIZOPHRENIA, UNSPECIFIED Status: Chronic Current Visit: No (4) Bladder outlet obstruction SNOMED Code(s): 492857161 Code(s): N32.0 - BLADDER-NECK OBSTRUCTION Status: Acute Current Visit: Yes (5) Prostatitis SNOMED Code(s): 6710787 Code(s): N41.9 - INFLAMMATORY DISEASE OF PROSTATE, UNSPECIFIED Status: Acute Current Visit: Yes Qualifiers: Prostatitis type: acute Qualified Code(s): N41.0 - Acute prostatitis - Problem List Review Problem List Initiated/Reviewed/Updated: Yes - My Orders Last 24 Hours: My Active Orders 07/13/20 10:07 PT Evaluation and Treatment [CONS] Routine 07/13/20 12:30 levoFLOXacin [Levaquin] 750 mg PO Q24H - Plan Plan:: 64 yo male admitted for acute renal failure and metabolic encephalopathy 1. Schizophrenia- stable - Spoke with Dr Crowell, recommends keeping Haldol at 5 mg unless he become acutely psychotic or having hallucinations. - Haldol 5 mg for now and monitor. - Holding Prozac, Amantadine and Trazadone for now. - Cogentin 1 mg at bedtime for EPS symptoms, tremors. - Outpatient fu with Psych upon dc - EPS symptoms improving currently with regimen now 2. Bladder outlet obstruction/prostatitis - Lambert in place - Follow up with urology - Levaquin 750mg for prostatitis. change to PO 3. Dystonia/agitation: - Ativan prn 4. Self care deficit - PT/OT to evaluate and treat - Will need skilled care - SNF placement - Case management and social work involved VTE prophylaxis: Heparin Dispo: pending placement Anuel [phone], son
[2020-07-13] MEDS: Levofloxacin 500 MG Tab PO SCH (12:32)
[2020-07-13] MEDS: Lactated Ringers 1,000 ML IV SCH ×2 (12:53→22:59)
[2020-07-13] MEDS: Enoxaparin 40 MG/0.4 ML Syringe SUBCUT SCH (12:53)
[2020-07-13] MEDS: Melatonin 3 MG Tab PO SCH (20:12)
[2020-07-13] MEDS: Benztropine 1 MG Tab PO SCH (20:12)
[2020-07-13] MEDS: Haloperidol 5 MG Tab PO SCH (20:13)
[2020-07-14] MEDS: Acetaminophen 325 MG Tab PO PRN (05:39)
[2020-07-14 06:36] LABS: BLOOD UREA NITROGEN,BUN 10 mg/dL (7.0-18.0); CARBON DIOXIDE,CO2 26.3 mmol/L (21.0-32.0); CHLORIDE,CL 101 mmol/L (98-107); GLUCOSE RANDOM 139 mg/dL (74-106); POTASSIUM,K 3.8 mmol/L (3.5-5.1); SODIUM,NA 136 mmol/L (136-148)
[2020-07-14] MEDS: Lactated Ringers 1,000 ML IV SCH ×2 (09:05→19:21)
[2020-07-14] MEDS: Propranolol 60 MG Cap.ER PO SCH (09:33)
--- NOTE | 2020-07-14 12:24 | PCM.PN ---
- General Info Date of Service: 07/14/20 - Review of Systems Systems Review Comment:: no new concerns, is eager for discharge from hospital - Patient Data Vitals - Most Recent: Last Vital Signs Temp 36.2 C 07/14/20 12:00 Pulse 62 07/14/20 12:00 Resp 16 07/14/20 12:00 BP 103/61 07/14/20 12:00 Pulse Ox 96 07/14/20 12:00 Weight - Most Recent: 83.915 kg I&O - Last 24 Hours: Intake & Output 07/13/20 07/14/20 07/14/20 22:59 06:59 14:59 Intake Total 1892 2151 Output Total 650 800 Balance 1242 1351 Lab Results Last 24 Hours: Laboratory Results - last 24 hr 07/13/20 07/14/20 07/14/20 Range/Units 20:00 00:32 06:05 WBC (4.0-11.0) K/uL RBC (4.50-5.90) M/uL Hgb (13.0-17.0) g/dL Hct (38.0-50.0) % MCV (80.0-98.0) fL MCH (27.0-32.0) pg MCHC (31.0-37.0) g/dL RDW Std Deviation (28.0-62.0) fl RDW Coeff of Dorothea (11.0-15.0) % Plt Count (150-400) K/uL MPV (7.40-12.00) fL Neut % (Auto) (48.0-80.0) % Lymph % (Auto) (16.0-40.0) % [place] % (Auto) (0.0-15.0) % Eos % (Auto) (0.0-7.0) % Baso % (Auto) (0.0-1.5) % Neut # (Auto) (1.4-5.7) K/uL Lymph # (Auto) (0.6-2.4) K/uL [place] # (Auto) (0.0-0.8) K/uL Eos # (Auto) (0.0-0.7) K/uL Baso # (Auto) (0.0-0.1) K/uL Nucleated RBC % /100WBC Nucleated RBCs # K/uL Sodium 136 (136-148) mmol/L Potassium 3.8 (3.5-5.1) mmol/L Chloride 101 (98-107) mmol/L Carbon Dioxide 26.3 (21.0-32.0) mmol/L BUN 10 (7.0-18.0) mg/dL Creatinine 0.9 (0.8-1.3) mg/dL Est Cr Clr Drug Dosing 75.30 mL/min Estimated GFR (MDRD) > 60.0 ml/min Glucose 139 H (74-106) mg/dL POC Glucose 135 H 142 H (60-110) mg/dL Calcium 9.0 (8.5-10.1) mg/dL 07/14/20 07/14/20 07/14/20 Range/Units 06:05 06:07 12:03 WBC 11.46 H (4.0-11.0) K/uL RBC 3.96 L (4.50-5.90) M/uL Hgb 10.8 L (13.0-17.0) g/dL Hct 34.9 L (38.0-50.0) % MCV 88.1 (80.0-98.0) fL MCH 27.3 (27.0-32.0) pg MCHC 30.9 L (31.0-37.0) g/dL RDW Std Deviation 49.8 (28.0-62.0) fl RDW Coeff of Dorothea 16 H (11.0-15.0) % Plt Count 359 (150-400) K/uL MPV 8.80 (7.40-12.00) fL Neut % (Auto) 71.1 (48.0-80.0) % Lymph % (Auto) 14.8 L (16.0-40.0) % Pepin % (Auto) 12.4 (0.0-15.0) % Eos % (Auto) 1.5 (0.0-7.0) % Baso % (Auto) 0.2 (0.0-1.5) % Neut # (Auto) 8.2 H (1.4-5.7) K/uL Lymph # (Auto) 1.7 (0.6-2.4) K/uL [place]in # (Auto) 1.4 H (0.0-0.8) K/uL Eos # (Auto) 0.2 (0.0-0.7) K/uL Baso # (Auto) 0.0 (0.0-0.1) K/uL Nucleated RBC % 0.0 /100WBC Nucleated RBCs # 0 K/uL Sodium (136-148) mmol/L Potassium (3.5-5.1) mmol/L Chloride (98-107) mmol/L Carbon Dioxide (21.0-32.0) mmol/L BUN (7.0-18.0) mg/dL Creatinine (0.8-1.3) mg/dL Est Cr Clr Drug Dosing mL/min Estimated GFR (MDRD) ml/min Glucose (74-106) mg/dL POC Glucose 133 H 185 H (60-110) mg/dL Calcium (8.5-10.1) mg/dL Med Orders - Current: Current Medications Acetaminophen (Tylenol) 650 mg PO Q4H PRN PRN Reason: Pain Last Admin: 07/14/20 05:39 Dose: 650 mg Documented by: Benztropine Mesylate (Cogentin) 1 mg PO BEDTIME [facility] Last Admin: 07/13/20 20:12 Dose: 1 mg Documented by: Enoxaparin Sodium (Lovenox) 40 mg SUBCUT Q24H [facility] Last Admin: 07/13/20 12:53 Dose: 40 mg Documented by: Haloperidol (Haldol) 5 mg PO BEDTIME [facility] Last Admin: 07/13/20 20:13 Dose: 5 mg Documented by: Lactated Ringer's (Ringers, Lactated) 1,000 mls @ 100 mls/hr IV ASDIRECTED [facility] Last Admin: 07/14/20 09:05 Dose: 100 mls/hr Documented by: Levofloxacin (Levaquin) 750 mg PO Q24H [facility] Last Admin: 07/13/20 12:32 Dose: 750 mg Documented by: Lidocaine HCl (Lidocaine 5%) 0 gm TOP Q6HR PRN PRN Reason: Pain Last Admin: 07/09/20 13:07 Dose: 1 applic Documented by: Lorazepam (Ativan) 1 mg IVPUSH Q3H PRN PRN Reason: Agitation Last Admin: 07/13/20 12:26 Dose: 1 mg Documented by: Melatonin (Melatonin) 3 mg PO BEDTIME [facility] Last Admin: 07/13/20 20:12 Dose: 3 mg Documented by: Propranolol HCl (Inderal La) 60 mg PO DAILY [facility] Last Admin: 07/14/20 09:33 Dose: 60 mg Documented by: Sodium Chloride (Saline Flush) 10 ml FLUSH ASDIRECTED PRN PRN Reason: Keep Vein Open Sodium Chloride (Saline Flush) 2.5 ml FLUSH ASDIRECTED PRN PRN Reason: Keep Vein Open Discontinued Medications Benztropine Mesylate (Cogentin) 2 mg IM ONETIME ONE Stop: 07/02/20 21:08 Last Admin: 07/02/20 22:48 Dose: Not Given Documented by: Benztropine Mesylate (Cogentin) 2 mg PO ONETIME ONE Stop: 07/02/20 21:55 Last Admin: 07/02/20 22:13 Dose: 2 mg Documented by: Diltiazem HCl (Diltiazem) 20 mg IVPUSH ONETIME ONE Stop: 07/07/20 02:41 Last Admin: 07/07/20 04:35 Dose: Not Given Documented by: Haloperidol (Haldol) 5 mg PO BEDTIME [facility] Last Admin: 07/08/20 20:21 Dose: 5 mg Documented by: Haloperidol (Haldol) 10 mg PO BEDTIME [facility] Last Admin: 07/09/20 20:08 Dose: 10 mg Documented by: Ceftriaxone Sodium 1 gm/ (Sodium Chloride) 100 mls @ 200 mls/hr IV STAT ONE Stop: 07/02/20 21:33 Last Admin: 07/02/20 22:14 Dose: Not Given Documented by: Sodium Chloride (Normal Saline) 2,500 mls @ 2,500 mls/hr IV BOLUS ONE; Protocol Stop: 07/02/20 22:03 Last Admin: 07/02/20 22:12 Dose: 2,500 mls/hr Documented by: Ceftriaxone Sodium/Dextrose (Rocephin In Dextrose,Iso-Osm 1 Gm/50 Ml) Confirm Administered Dose 50 mls @ as directed .ROUTE .STK-MED ONE Stop: 07/02/20 21:40 Last Admin: 07/02/20 21:55 Dose: Not Given Documented by: Ceftriaxone Sodium/Dextrose 1 (gm/ Premix) 50 mls @ 100 mls/hr IV ONETIME ONE Stop: 07/02/20 22:11 Last Admin: 07/02/20 22:13 Dose: 100 mls/hr Documented by: Sodium Chloride (Normal Saline) 1,000 mls @ 125 mls/hr IV ASDIRECTED [facility] Sodium Chloride (Normal Saline) 1,000 mls @ 150 mls/hr IV ASDIRECTED [facility] Last Admin: 07/06/20 14:50 Dose: 150 mls/hr Documented by: Sodium Chloride (Normal Saline) 1,000 mls @ 999 mls/hr IV .Bolus ONE Stop: 07/03/20 14:17 Last Admin: 07/03/20 16:04 Dose: 999 mls/hr Documented by: Ceftriaxone Sodium/Dextrose 1 (gm/ Premix) 50 mls @ 100 mls/hr IV Q24H [facility] Last Admin: 07/07/20 03:14 Dose: 100 mls/hr Documented by: Sodium Chloride (Normal Saline) 1,000 mls @ 999 mls/hr IV .Bolus ONE Stop: 07/05/20 10:37 Last Admin: 07/05/20 22:07 Dose: Not Given Documented by: Sodium Chloride (Normal Saline) 1,000 mls @ 999 mls/hr IV .Bolus ONE Stop: 07/05/20 10:57 Last Admin: 07/05/20 10:11 Dose: 999 mls/hr Documented by: Sodium Chloride (Normal Saline) 1,000 mls @ 75 mls/hr IV ASDIRECTED [facility] Last Admin: 07/09/20 03:32 Dose: 75 mls/hr Documented by: Lactated Ringer's (Ringers, Lactated) 500 mls @ 999 mls/hr IV .BOLUS ONE Stop: 07/07/20 03:09 Last Admin: 07/07/20 02:50 Dose: 999 mls/hr Documented by: Magnesium Sulfate (Magnesium Sulfate In Water Premix) 100 mls @ 50 mls/hr IV ONETIME ONE Stop: 07/07/20 05:59 Last Admin: 07/07/20 04:00 Dose: 50 mls/hr Documented by: Lactated Ringer's (Ringers, Lactated) 500 mls @ 999 mls/hr IV BOLUS [facility] Stop: 07/07/20 07:31 Last Admin: 07/07/20 07:20 Dose: 999 mls/hr Documented by: Sodium Chloride (Normal Saline) 500 mls @ 999 mls/hr IV .BOLUS ONE Stop: 07/07/20 19:00 Last Admin: 07/07/20 18:30 Dose: 999 mls/hr Documented by: Magnesium Sulfate (Magnesium Sulfate In Water Premix) 2 gm in 50 mls @ 50 mls/hr IV ONETIME ONE Stop: 07/08/20 10:59 Last Admin: 07/08/20 10:57 Dose: 50 mls/hr Documented by: Magnesium Sulfate (Magnesium Sulfate In Water Premix) 2 gm in 50 mls @ 50 mls/hr IV ONETIME ONE Stop: 07/09/20 10:59 Last Admin: 07/09/20 10:58 Dose: 50 mls/hr Documented by: Piperacillin Sod/Tazobactam (Sod 3.375 gm/ Sodium Chloride) 50 mls @ 100 mls/hr IV Q8H [facility] Last Admin: 07/10/20 06:37 Dose: 100 mls/hr Documented by: Lactated Ringer's (Ringers, Lactated) 500 mls @ 999 mls/hr IV .BOLUS ONE Stop: 07/10/20 01:42 Last Admin: 07/10/20 01:27 Dose: 999 mls/hr Documented by: Piperacillin Sod/Tazobactam (Sod 3.375 gm/ Sodium Chloride) 50 mls @ 100 mls/hr IV Q6H [facility] Levofloxacin/Dextrose 750 mg/ (Premix) 150 mls @ 100 mls/hr IV Q24H [facility] Last Admin: 07/13/20 10:12 Dose: 100 mls/hr Documented by: Magnesium Sulfate (Magnesium Sulfate In Water Premix) 2 gm in 50 mls @ 50 mls/hr IV ONETIME ONE Stop: 07/11/20 09:59 Last Admin: 07/11/20 08:58 Dose: 50 mls/hr Documented by: Lactated Ringer's (Ringers, Lactated) 1,000 mls @ 999 mls/hr IV .BOLUS ONE Stop: 07/11/20 13:09 Last Admin: 07/11/20 12:42 Dose: 999 mls/hr Documented by: Magnesium Sulfate (Magnesium Sulfate In Water Premix) 2 gm in 50 mls @ 50 mls/hr IV ONETIME ONE Stop: 07/12/20 09:14 Last Admin: 07/12/20 08:30 Dose: 50 mls/hr Documented by: Sodium Chloride (Normal Saline) 500 mls @ 999 mls/hr IV .BOLUS [facility] Iopamidol (Isovue Multipack-370 (76%)) 100 ml IVPUSH ONETIME STA Stop: 07/10/20 13:03 Last Admin: 07/10/20 13:05 Dose: 100 ml Documented by: Lorazepam (Ativan) Confirm Administered Dose 2 mg .ROUTE .STK-MED ONE Stop: 07/03/20 00:30 Last Admin: 07/03/20 00:37 Dose: Not Given Documented by: Lorazepam (Ativan) 1 mg IVPUSH NOW STA Stop: 07/03/20 00:37 Last Admin: 07/03/20 00:38 Dose: 1 mg Documented by: Lorazepam (Ativan) 1 mg IVPUSH ONETIME ONE Stop: 07/03/20 00:48 Last Admin: 07/03/20 00:50 Dose: 1 mg Documented by: Lorazepam (Ativan) 1 mg IVPUSH Q6H PRN PRN Reason: Agitation Lorazepam (Ativan) 2 mg IVPUSH ONETIME ONE Stop: 07/09/20 22:41 Last Admin: 07/09/20 22:55 Dose: 2 mg Documented by: Lorazepam (Ativan) 2 mg IVPUSH ONETIME ONE Stop: 07/10/20 22:26 Last Admin: 07/10/20 22:37 Dose: 2 mg Documented by: Magnesium Sulfate (Magnesium Sulfate In Water Premix) 2 gm IV ONETIME ONE Stop: 07/11/20 08:04 Last Admin: 07/11/20 09:11 Dose: Not Given Documented by: Potassium Chloride (Klor-Con M20) 40 meq PO ONETIME ONE Stop: 07/05/20 15:58 Last Admin: 07/05/20 16:14 Dose: 40 meq Documented by: Potassium Chloride (Klor-Con M20) 40 meq PO ONETIME ONE Stop: 07/07/20 03:42 Last Admin: 07/07/20 03:59 Dose: 40 meq Documented by: Potassium Chloride (Klor-Con M20) 40 meq PO ONETIME ONE Stop: 07/09/20 09:47 Last Admin: 07/09/20 10:58 Dose: 40 meq Documented by: Sterile Water (Sterile Water For Injection) 1.2 ml INJECT ONETIME ONE Stop: 07/03/20 00:59 Last Admin: 07/03/20 01:22 Dose: 1.2 ml Documented by: Ziprasidone (Geodon) 10 mg IM ONETIME ONE Stop: 07/03/20 00:59 Last Admin: 07/03/20 01:04 Dose: 10 mg Documented by: Ziprasidone (Geodon) Confirm Administered Dose 20 mg .ROUTE .STK-MED ONE Stop: 07/03/20 00:59 Last Admin: 07/03/20 01:15 Dose: Not Given Documented by: - Exam General: Alert, Cooperative Neck: Supple Lungs: Clear to Auscultation, Normal Respiratory Effort Cardiovascular: Regular Rate, Regular Rhythm GI/Abdominal Exam: Soft, No Distention Extremities: No Pedal Edema Skin: Warm, Dry, Intact Neurological: No New Focal Deficit Sepsis Event Note - Evaluation Sepsis Screening Result: No Definite Risk - Focused Exam Vital Signs: Vital Signs Temp Pulse Resp BP Pulse Ox 07/14/20 12:00 36.2 C 62 16 103/61 96 07/14/20 08:00 36.4 C 78 18 138/62 97 07/14/20 04:28 36.0 C L 95 18 111/59 L 95 - Problem List Review Problem List Initiated/Reviewed/Updated: Yes - My Orders Last 24 Hours: My Active Orders 07/15/20 05:11 BASIC METABOLIC PANEL,BMP [CHEM] AM CBC WITH AUTO DIFF [HEME] AM 07/16/20 05:11 BASIC METABOLIC PANEL,BMP [CHEM] AM CBC WITH AUTO DIFF [HEME] AM - Plan Plan:: 64 yo male admitted for acute renal failure and metabolic encephalopathy 1. Schizophrenia- stable - continue haldol and cogentin for EPS symptoms 2. Bladder outlet obstruction/prostatitis - Lambert in place - Follow up with urology - Levaquin 750mg for prostatitis 3. Dystonia/agitation: - Ativan prn 4. Self care deficit - PT/OT to evaluate and treat - Will need skilled care - SNF placement - Case management and social work involved VTE prophylaxis: Heparin Dispo: pending placement
[2020-07-14] MEDS: Levofloxacin 500 MG Tab PO SCH (12:53)
[2020-07-14] MEDS: Enoxaparin 40 MG/0.4 ML Syringe SUBCUT SCH (12:56)
[2020-07-14] MEDS: Benztropine 1 MG Tab PO SCH (20:23)
[2020-07-14] MEDS: Melatonin 3 MG Tab PO SCH (20:23)
[2020-07-14] MEDS: Haloperidol 5 MG Tab PO SCH (20:24)
[2020-07-14] MEDS: LORazepam 2 MG/ML SDV IVPUSH PRN (23:44)
[2020-07-15] MEDS: Lactated Ringers 1,000 ML IV SCH (05:15)
[2020-07-15 06:19] LABS: BLOOD UREA NITROGEN,BUN 7 mg/dL (7.0-18.0); CARBON DIOXIDE,CO2 30.1 mmol/L (21.0-32.0); CHLORIDE,CL 101 mmol/L (98-107); GLUCOSE RANDOM 120 mg/dL (74-106); POTASSIUM,K 3.5 mmol/L (3.5-5.1); SODIUM,NA 137 mmol/L (136-148)
[2020-07-15] MEDS: Propranolol 60 MG Cap.ER PO SCH (09:28)
--- NOTE | 2020-07-15 10:15 | PCM.PN ---
- General Info Date of Service: 07/15/20 - Review of Systems Systems Review Comment:: no new complaints, eager for discharge - Patient Data Vitals - Most Recent: Last Vital Signs Temp 36.4 C 07/15/20 08:00 Pulse 86 07/15/20 08:00 Resp 17 07/15/20 08:00 BP 117/57 L 07/15/20 08:00 Pulse Ox 95 07/15/20 08:00 Weight - Most Recent: 83.915 kg I&O - Last 24 Hours: Intake & Output 07/14/20 07/15/20 07/15/20 22:59 06:59 14:59 Intake Total 1748 350 Output Total 825 650 Balance 923 -300 Lab Results Last 24 Hours: Laboratory Results - last 24 hr 07/14/20 07/14/20 07/14/20 Range/Units 12:03 16:50 23:19 WBC (4.0-11.0) K/uL RBC (4.50-5.90) M/uL Hgb (13.0-17.0) g/dL Hct (38.0-50.0) % MCV (80.0-98.0) fL MCH (27.0-32.0) pg MCHC (31.0-37.0) g/dL RDW Std Deviation (28.0-62.0) fl RDW Coeff of Dorothea (11.0-15.0) % Plt Count (150-400) K/uL MPV (7.40-12.00) fL Neut % (Auto) (48.0-80.0) % Lymph % (Auto) (16.0-40.0) % [place] % (Auto) (0.0-15.0) % Eos % (Auto) (0.0-7.0) % Baso % (Auto) (0.0-1.5) % Neut # (Auto) (1.4-5.7) K/uL Lymph # (Auto) (0.6-2.4) K/uL [place] # (Auto) (0.0-0.8) K/uL Eos # (Auto) (0.0-0.7) K/uL Baso # (Auto) (0.0-0.1) K/uL Nucleated RBC % /100WBC Nucleated RBCs # K/uL Sodium (136-148) mmol/L Potassium (3.5-5.1) mmol/L Chloride (98-107) mmol/L Carbon Dioxide (21.0-32.0) mmol/L BUN (7.0-18.0) mg/dL Creatinine (0.8-1.3) mg/dL Est Cr Clr Drug Dosing mL/min Estimated GFR (MDRD) ml/min Glucose (74-106) mg/dL POC Glucose 185 H 106 115 H (60-110) mg/dL Calcium (8.5-10.1) mg/dL 07/15/20 07/15/20 07/15/20 Range/Units 05:25 05:25 07:14 WBC 9.80 (4.0-11.0) K/uL RBC 3.84 L (4.50-5.90) M/uL Hgb 10.2 L (13.0-17.0) g/dL Hct 33.6 L (38.0-50.0) % MCV 87.5 (80.0-98.0) fL MCH 26.6 L (27.0-32.0) pg MCHC 30.4 L (31.0-37.0) g/dL RDW Std Deviation 49.6 (28.0-62.0) fl RDW Coeff of Dorothea 16 H (11.0-15.0) % Plt Count 345 (150-400) K/uL MPV 8.70 (7.40-12.00) fL Neut % (Auto) 70.2 (48.0-80.0) % Lymph % (Auto) 16.1 (16.0-40.0) % [place] % (Auto) 11.8 (0.0-15.0) % Eos % (Auto) 1.8 (0.0-7.0) % Baso % (Auto) 0.1 (0.0-1.5) % Neut # (Auto) 6.9 H (1.4-5.7) K/uL Lymph # (Auto) 1.6 (0.6-2.4) K/uL [place] # (Auto) 1.2 H (0.0-0.8) K/uL Eos # (Auto) 0.2 (0.0-0.7) K/uL Baso # (Auto) 0.0 (0.0-0.1) K/uL Nucleated RBC % 0.0 /100WBC Nucleated RBCs # 0 K/uL Sodium 137 (136-148) mmol/L Potassium 3.5 (3.5-5.1) mmol/L Chloride 101 (98-107) mmol/L Carbon Dioxide 30.1 (21.0-32.0) mmol/L BUN 7 (7.0-18.0) mg/dL Creatinine 0.9 (0.8-1.3) mg/dL Est Cr Clr Drug Dosing 75.30 mL/min Estimated GFR (MDRD) > 60.0 ml/min Glucose 120 H (74-106) mg/dL POC Glucose 120 H (60-110) mg/dL Calcium 8.7 (8.5-10.1) mg/dL Med Orders - Current: Current Medications Acetaminophen (Tylenol) 650 mg PO Q4H PRN PRN Reason: Pain Last Admin: 07/14/20 05:39 Dose: 650 mg Documented by: Benztropine Mesylate (Cogentin) 1 mg PO BEDTIME [facility] Last Admin: 07/14/20 20:23 Dose: 1 mg Documented by: Enoxaparin Sodium (Lovenox) 40 mg SUBCUT Q24H [facility] Last Admin: 07/14/20 12:56 Dose: 40 mg Documented by: Haloperidol (Haldol) 5 mg PO BEDTIME [facility] Last Admin: 07/14/20 20:24 Dose: 5 mg Documented by: Lactated Ringer's (Ringers, Lactated) 1,000 mls @ 100 mls/hr IV ASDIRECTED [facility] Last Admin: 07/15/20 05:15 Dose: 100 mls/hr Documented by: Levofloxacin (Levaquin) 750 mg PO Q24H [facility] Last Admin: 07/14/20 12:53 Dose: 750 mg Documented by: Lidocaine HCl (Lidocaine 5%) 0 gm TOP Q6HR PRN PRN Reason: Pain Last Admin: 07/09/20 13:07 Dose: 1 applic Documented by: Lorazepam (Ativan) 1 mg IVPUSH Q3H PRN PRN Reason: Agitation Last Admin: 07/14/20 23:44 Dose: 1 mg Documented by: Melatonin (Melatonin) 3 mg PO BEDTIME [facility] Last Admin: 07/14/20 20:23 Dose: 3 mg Documented by: Propranolol HCl (Inderal La) 60 mg PO DAILY [facility] Last Admin: 07/15/20 09:28 Dose: 60 mg Documented by: Sodium Chloride (Saline Flush) 10 ml FLUSH ASDIRECTED PRN PRN Reason: Keep Vein Open Sodium Chloride (Saline Flush) 2.5 ml FLUSH ASDIRECTED PRN PRN Reason: Keep Vein Open Discontinued Medications Benztropine Mesylate (Cogentin) 2 mg IM ONETIME ONE Stop: 07/02/20 21:08 Last Admin: 07/02/20 22:48 Dose: Not Given Documented by: Benztropine Mesylate (Cogentin) 2 mg PO ONETIME ONE Stop: 07/02/20 21:55 Last Admin: 07/02/20 22:13 Dose: 2 mg Documented by: Diltiazem HCl (Diltiazem) 20 mg IVPUSH ONETIME ONE Stop: 07/07/20 02:41 Last Admin: 07/07/20 04:35 Dose: Not Given Documented by: Haloperidol (Haldol) 5 mg PO BEDTIME [facility] Last Admin: 07/08/20 20:21 Dose: 5 mg Documented by: Haloperidol (Haldol) 10 mg PO BEDTIME [facility] Last Admin: 07/09/20 20:08 Dose: 10 mg Documented by: Ceftriaxone Sodium 1 gm/ (Sodium Chloride) 100 mls @ 200 mls/hr IV STAT ONE Stop: 07/02/20 21:33 Last Admin: 07/02/20 22:14 Dose: Not Given Documented by: Sodium Chloride (Normal Saline) 2,500 mls @ 2,500 mls/hr IV BOLUS ONE; Protocol Stop: 07/02/20 22:03 Last Admin: 07/02/20 22:12 Dose: 2,500 mls/hr Documented by: Ceftriaxone Sodium/Dextrose (Rocephin In Dextrose,Iso-Osm 1 Gm/50 Ml) Confirm Administered Dose 50 mls @ as directed .ROUTE .STK-MED ONE Stop: 07/02/20 21:40 Last Admin: 07/02/20 21:55 Dose: Not Given Documented by: Ceftriaxone Sodium/Dextrose 1 (gm/ Premix) 50 mls @ 100 mls/hr IV ONETIME ONE Stop: 07/02/20 22:11 Last Admin: 07/02/20 22:13 Dose: 100 mls/hr Documented by: Sodium Chloride (Normal Saline) 1,000 mls @ 125 mls/hr IV ASDIRECTED [facility] Sodium Chloride (Normal Saline) 1,000 mls @ 150 mls/hr IV ASDIRECTED [facility] Last Admin: 07/06/20 14:50 Dose: 150 mls/hr Documented by: Sodium Chloride (Normal Saline) 1,000 mls @ 999 mls/hr IV .Bolus ONE Stop: 07/03/20 14:17 Last Admin: 07/03/20 16:04 Dose: 999 mls/hr Documented by: Ceftriaxone Sodium/Dextrose 1 (gm/ Premix) 50 mls @ 100 mls/hr IV Q24H [facility] Last Admin: 07/07/20 03:14 Dose: 100 mls/hr Documented by: Sodium Chloride (Normal Saline) 1,000 mls @ 999 mls/hr IV .Bolus ONE Stop: 07/05/20 10:37 Last Admin: 07/05/20 22:07 Dose: Not Given Documented by: Sodium Chloride (Normal Saline) 1,000 mls @ 999 mls/hr IV .Bolus ONE Stop: 07/05/20 10:57 Last Admin: 07/05/20 10:11 Dose: 999 mls/hr Documented by: Sodium Chloride (Normal Saline) 1,000 mls @ 75 mls/hr IV ASDIRECTED [facility] Last Admin: 07/09/20 03:32 Dose: 75 mls/hr Documented by: Lactated Ringer's (Ringers, Lactated) 500 mls @ 999 mls/hr IV .BOLUS ONE Stop: 07/07/20 03:09 Last Admin: 07/07/20 02:50 Dose: 999 mls/hr Documented by: Magnesium Sulfate (Magnesium Sulfate In Water Premix) 100 mls @ 50 mls/hr IV ONETIME ONE Stop: 07/07/20 05:59 Last Admin: 07/07/20 04:00 Dose: 50 mls/hr Documented by: Lactated Ringer's (Ringers, Lactated) 500 mls @ 999 mls/hr IV BOLUS [facility] Stop: 07/07/20 07:31 Last Admin: 07/07/20 07:20 Dose: 999 mls/hr Documented by: Sodium Chloride (Normal Saline) 500 mls @ 999 mls/hr IV .BOLUS ONE Stop: 07/07/20 19:00 Last Admin: 07/07/20 18:30 Dose: 999 mls/hr Documented by: Magnesium Sulfate (Magnesium Sulfate In Water Premix) 2 gm in 50 mls @ 50 mls/hr IV ONETIME ONE Stop: 07/08/20 10:59 Last Admin: 07/08/20 10:57 Dose: 50 mls/hr Documented by: Magnesium Sulfate (Magnesium Sulfate In Water Premix) 2 gm in 50 mls @ 50 mls/hr IV ONETIME ONE Stop: 07/09/20 10:59 Last Admin: 07/09/20 10:58 Dose: 50 mls/hr Documented by: Piperacillin Sod/Tazobactam (Sod 3.375 gm/ Sodium Chloride) 50 mls @ 100 mls/hr IV Q8H [facility] Last Admin: 07/10/20 06:37 Dose: 100 mls/hr Documented by: Lactated Ringer's (Ringers, Lactated) 500 mls @ 999 mls/hr IV .BOLUS ONE Stop: 07/10/20 01:42 Last Admin: 07/10/20 01:27 Dose: 999 mls/hr Documented by: Piperacillin Sod/Tazobactam (Sod 3.375 gm/ Sodium Chloride) 50 mls @ 100 mls/hr IV Q6H [facility] Levofloxacin/Dextrose 750 mg/ (Premix) 150 mls @ 100 mls/hr IV Q24H [facility] Last Admin: 07/13/20 10:12 Dose: 100 mls/hr Documented by: Magnesium Sulfate (Magnesium Sulfate In Water Premix) 2 gm in 50 mls @ 50 mls/hr IV ONETIME ONE Stop: 07/11/20 09:59 Last Admin: 07/11/20 08:58 Dose: 50 mls/hr Documented by: Lactated Ringer's (Ringers, Lactated) 1,000 mls @ 999 mls/hr IV .BOLUS ONE Stop: 07/11/20 13:09 Last Admin: 07/11/20 12:42 Dose: 999 mls/hr Documented by: Magnesium Sulfate (Magnesium Sulfate In Water Premix) 2 gm in 50 mls @ 50 mls/hr IV ONETIME ONE Stop: 07/12/20 09:14 Last Admin: 07/12/20 08:30 Dose: 50 mls/hr Documented by: Sodium Chloride (Normal Saline) 500 mls @ 999 mls/hr IV .BOLUS ARI Iopamidol (Isovue Multipack-370 (76%)) 100 ml IVPUSH ONETIME STA Stop: 07/10/20 13:03 Last Admin: 07/10/20 13:05 Dose: 100 ml Documented by: Lorazepam (Ativan) Confirm Administered Dose 2 mg .ROUTE .STK-MED ONE Stop: 07/03/20 00:30 Last Admin: 07/03/20 00:37 Dose: Not Given Documented by: Lorazepam (Ativan) 1 mg IVPUSH NOW STA Stop: 07/03/20 00:37 Last Admin: 07/03/20 00:38 Dose: 1 mg Documented by: Lorazepam (Ativan) 1 mg IVPUSH ONETIME ONE Stop: 07/03/20 00:48 Last Admin: 07/03/20 00:50 Dose: 1 mg Documented by: Lorazepam (Ativan) 1 mg IVPUSH Q6H PRN PRN Reason: Agitation Lorazepam (Ativan) 2 mg IVPUSH ONETIME ONE Stop: 07/09/20 22:41 Last Admin: 07/09/20 22:55 Dose: 2 mg Documented by: Lorazepam (Ativan) 2 mg IVPUSH ONETIME ONE Stop: 07/10/20 22:26 Last Admin: 07/10/20 22:37 Dose: 2 mg Documented by: Magnesium Sulfate (Magnesium Sulfate In Water Premix) 2 gm IV ONETIME ONE Stop: 07/11/20 08:04 Last Admin: 07/11/20 09:11 Dose: Not Given Documented by: Potassium Chloride (Klor-Con M20) 40 meq PO ONETIME ONE Stop: 07/05/20 15:58 Last Admin: 07/05/20 16:14 Dose: 40 meq Documented by: Potassium Chloride (Klor-Con M20) 40 meq PO ONETIME ONE Stop: 07/07/20 03:42 Last Admin: 07/07/20 03:59 Dose: 40 meq Documented by: Potassium Chloride (Klor-Con M20) 40 meq PO ONETIME ONE Stop: 07/09/20 09:47 Last Admin: 07/09/20 10:58 Dose: 40 meq Documented by: Sterile Water (Sterile Water For Injection) 1.2 ml INJECT ONETIME ONE Stop: 07/03/20 00:59 Last Admin: 07/03/20 01:22 Dose: 1.2 ml Documented by: Ziprasidone (Geodon) 10 mg IM ONETIME ONE Stop: 07/03/20 00:59 Last Admin: 07/03/20 01:04 Dose: 10 mg Documented by: Ziprasidone (Geodon) Confirm Administered Dose 20 mg .ROUTE .STK-MED ONE Stop: 07/03/20 00:59 Last Admin: 07/03/20 01:15 Dose: Not Given Documented by: - Exam General: Alert, Cooperative Lungs: Clear to Auscultation, Normal Respiratory Effort Cardiovascular: Regular Rate, Regular Rhythm GI/Abdominal Exam: Normal Bowel Sounds, Soft, Non-Tender, No Distention Extremities: Normal Inspection, Non-Tender, No Pedal Edema Skin: Warm, Dry, Intact Neurological: No New Focal Deficit Sepsis Event Note - Evaluation Sepsis Screening Result: No Definite Risk - Focused Exam Vital Signs: Vital Signs Temp Pulse Resp BP Pulse Ox 07/15/20 08:00 36.4 C 86 17 117/57 L 95 07/15/20 04:00 36.0 C L 62 17 130/72 96 07/14/20 23:39 36.6 C 88 18 123/71 95 - Problem List Review Problem List Initiated/Reviewed/Updated: Yes - My Orders Last 24 Hours: My Active Orders 07/16/20 05:11 BASIC METABOLIC PANEL,BMP [CHEM] AM CBC WITH AUTO DIFF [HEME] AM - Plan Plan:: 64 yo male admitted for acute renal failure and metabolic encephalopathy 1. Schizophrenia- stable - continue haldol and cogentin for EPS symptoms 2. Bladder outlet obstruction/prostatitis - Lambert in place - Follow up with urology - Levaquin 750mg for prostatitis - will stop IV fluids 3. Dystonia/agitation: - Ativan prn 4. Self care deficit - PT/OT to evaluate and treat - Will need skilled care - SNF placement - Case management and social work involved VTE prophylaxis: Heparin Dispo: pending placement
[2020-07-15] MEDS: Levofloxacin 500 MG Tab PO SCH (13:18)
[2020-07-15] MEDS: Enoxaparin 40 MG/0.4 ML Syringe SUBCUT SCH (13:19)
[2020-07-15] MEDS: Haloperidol 5 MG Tab PO SCH (20:23)
[2020-07-15] MEDS: Melatonin 3 MG Tab PO SCH (20:23)
[2020-07-15] MEDS: Benztropine 1 MG Tab PO SCH (20:23)
[2020-07-16] MEDS: LORazepam 2 MG/ML SDV IVPUSH PRN (02:57)
[2020-07-16 05:56] LABS: BLOOD UREA NITROGEN,BUN 8 mg/dL (7.0-18.0); CARBON DIOXIDE,CO2 29.3 mmol/L (21.0-32.0); CHLORIDE,CL 102 mmol/L (98-107); GLUCOSE RANDOM 117 mg/dL (74-106); POTASSIUM,K 3.9 mmol/L (3.5-5.1); SODIUM,NA 137 mmol/L (136-148)
--- NOTE | 2020-07-16 08:54 | PCM.PN ---
- General Info Date of Service: 07/16/20 Admission Dx/Problem (Free Text): Admission Diagnosis/Problem Admission Diagnosis/Problem Metabolic encephalopathy Subjective Update: Reports not sleeping well. No chest pain or SOB. No concerns currently just wants to sleep. Functional Status: Reports: Pain Controlled, Tolerating Diet, Ambulating - Review of Systems General: Reports: Fatigue Pulmonary: Reports: No Symptoms. Denies: Shortness of Breath Cardiovascular: Reports: No Symptoms. Denies: Chest Pain Gastrointestinal: Reports: No Symptoms. Denies: Abdominal Pain, Nausea, Vomiting Genitourinary: Reports: No Symptoms. Denies: Dysuria, Frequency Musculoskeletal: Reports: No Symptoms Neurological: Reports: Tremors (reports they are stable) Psychiatric: Reports: No Symptoms - Patient Data Vitals - Most Recent: Last Vital Signs Temp 97.1 F 07/16/20 03:17 Pulse 79 07/16/20 03:17 Resp 16 07/16/20 03:17 BP 119/70 07/16/20 03:17 Pulse Ox 96 07/16/20 03:17 Weight - Most Recent: 83.915 kg I&O - Last 24 Hours: Intake & Output 07/15/20 07/16/20 07/16/20 22:59 06:59 14:59 Intake Total 1080 750 Output Total 575 400 Balance 505 350 Lab Results Last 24 Hours: Laboratory Results - last 24 hr 07/15/20 07/15/20 07/16/20 Range/Units 13:02 20:22 05:04 WBC 11.13 H (4.0-11.0) K/uL RBC 3.79 L (4.50-5.90) M/uL Hgb 10.3 L (13.0-17.0) g/dL Hct 33.4 L (38.0-50.0) % MCV 88.1 (80.0-98.0) fL MCH 27.2 (27.0-32.0) pg MCHC 30.8 L (31.0-37.0) g/dL RDW Std Deviation 50.6 (28.0-62.0) fl RDW Coeff of Dorothea 16 H (11.0-15.0) % Plt Count 367 (150-400) K/uL MPV 8.90 (7.40-12.00) fL Neut % (Auto) 71.5 (48.0-80.0) % Lymph % (Auto) 15.5 L (16.0-40.0) % [place] % (Auto) 11.4 (0.0-15.0) % Eos % (Auto) 1.4 (0.0-7.0) % Baso % (Auto) 0.2 (0.0-1.5) % Neut # (Auto) 8.0 H (1.4-5.7) K/uL Lymph # (Auto) 1.7 (0.6-2.4) K/uL Raw[place]ins # (Auto) 1.3 H (0.0-0.8) K/uL Eos # (Auto) 0.2 (0.0-0.7) K/uL Baso # (Auto) 0.0 (0.0-0.1) K/uL Nucleated RBC % 0.0 /100WBC Nucleated RBCs # 0 K/uL Sodium (136-148) mmol/L Potassium (3.5-5.1) mmol/L Chloride (98-107) mmol/L Carbon Dioxide (21.0-32.0) mmol/L BUN (7.0-18.0) mg/dL Creatinine (0.8-1.3) mg/dL Est Cr Clr Drug Dosing mL/min Estimated GFR (MDRD) ml/min Glucose (74-106) mg/dL POC Glucose 106 126 H (60-110) mg/dL Calcium (8.5-10.1) mg/dL 07/16/20 07/16/20 Range/Units 05:04 05:35 WBC (4.0-11.0) K/uL RBC (4.50-5.90) M/uL Hgb (13.0-17.0) g/dL Hct (38.0-50.0) % MCV (80.0-98.0) fL MCH (27.0-32.0) pg MCHC (31.0-37.0) g/dL RDW Std Deviation (28.0-62.0) fl RDW Coeff of Dorothea (11.0-15.0) % Plt Count (150-400) K/uL MPV (7.40-12.00) fL Neut % (Auto) (48.0-80.0) % Lymph % (Auto) (16.0-40.0) % [place] % (Auto) (0.0-15.0) % Eos % (Auto) (0.0-7.0) % Baso % (Auto) (0.0-1.5) % Neut # (Auto) (1.4-5.7) K/uL Lymph # (Auto) (0.6-2.4) K/uL [place]ins # (Auto) (0.0-0.8) K/uL Eos # (Auto) (0.0-0.7) K/uL Baso # (Auto) (0.0-0.1) K/uL Nucleated RBC % /100WBC Nucleated RBCs # K/uL Sodium 137 (136-148) mmol/L Potassium 3.9 (3.5-5.1) mmol/L Chloride 102 (98-107) mmol/L Carbon Dioxide 29.3 (21.0-32.0) mmol/L BUN 8 (7.0-18.0) mg/dL Creatinine 0.9 (0.8-1.3) mg/dL Est Cr Clr Drug Dosing 75.30 mL/min Estimated GFR (MDRD) > 60.0 ml/min Glucose 117 H (74-106) mg/dL POC Glucose 131 H (60-110) mg/dL Calcium 9.0 (8.5-10.1) mg/dL Med Orders - Current: Current Medications Acetaminophen (Tylenol) 650 mg PO Q4H PRN PRN Reason: Pain Last Admin: 07/14/20 05:39 Dose: 650 mg Documented by: Benztropine Mesylate (Cogentin) 1 mg PO BEDTIME [facility] Last Admin: 07/15/20 20:23 Dose: 1 mg Documented by: Enoxaparin Sodium (Lovenox) 40 mg SUBCUT Q24H [facility] Last Admin: 07/15/20 13:19 Dose: 40 mg Documented by: Haloperidol (Haldol) 5 mg PO BEDTIME [facility] Last Admin: 07/15/20 20:23 Dose: 5 mg Documented by: Levofloxacin (Levaquin) 750 mg PO Q24H [facility] Last Admin: 07/15/20 13:18 Dose: 750 mg Documented by: Lidocaine HCl (Lidocaine 5%) 0 gm TOP Q6HR PRN PRN Reason: Pain Last Admin: 07/09/20 13:07 Dose: 1 applic Documented by: Lorazepam (Ativan) 1 mg IVPUSH Q3H PRN PRN Reason: Agitation Last Admin: 07/16/20 02:57 Dose: 1 mg Documented by: Melatonin (Melatonin) 3 mg PO BEDTIME [facility] Last Admin: 07/15/20 20:23 Dose: 3 mg Documented by: Propranolol HCl (Inderal La) 60 mg PO DAILY [facility] Last Admin: 07/15/20 09:28 Dose: 60 mg Documented by: Sodium Chloride (Saline Flush) 10 ml FLUSH ASDIRECTED PRN PRN Reason: Keep Vein Open Sodium Chloride (Saline Flush) 2.5 ml FLUSH ASDIRECTED PRN PRN Reason: Keep Vein Open Discontinued Medications Benztropine Mesylate (Cogentin) 2 mg IM ONETIME ONE Stop: 07/02/20 21:08 Last Admin: 07/02/20 22:48 Dose: Not Given Documented by: Benztropine Mesylate (Cogentin) 2 mg PO ONETIME ONE Stop: 07/02/20 21:55 Last Admin: 07/02/20 22:13 Dose: 2 mg Documented by: Diltiazem HCl (Diltiazem) 20 mg IVPUSH ONETIME ONE Stop: 07/07/20 02:41 Last Admin: 07/07/20 04:35 Dose: Not Given Documented by: Haloperidol (Haldol) 5 mg PO BEDTIME [facility] Last Admin: 07/08/20 20:21 Dose: 5 mg Documented by: Haloperidol (Haldol) 10 mg PO BEDTIME [facility] Last Admin: 07/09/20 20:08 Dose: 10 mg Documented by: Ceftriaxone Sodium 1 gm/ (Sodium Chloride) 100 mls @ 200 mls/hr IV STAT ONE Stop: 07/02/20 21:33 Last Admin: 07/02/20 22:14 Dose: Not Given Documented by: Sodium Chloride (Normal Saline) 2,500 mls @ 2,500 mls/hr IV BOLUS ONE; Protocol Stop: 07/02/20 22:03 Last Admin: 07/02/20 22:12 Dose: 2,500 mls/hr Documented by: Ceftriaxone Sodium/Dextrose (Rocephin In Dextrose,Iso-Osm 1 Gm/50 Ml) Confirm Administered Dose 50 mls @ as directed .ROUTE .[facility] ONE Stop: 07/02/20 21:40 Last Admin: 07/02/20 21:55 Dose: Not Given Documented by: Ceftriaxone Sodium/Dextrose 1 (gm/ Premix) 50 mls @ 100 mls/hr IV ONETIME ONE Stop: 07/02/20 22:11 Last Admin: 07/02/20 22:13 Dose: 100 mls/hr Documented by: Sodium Chloride (Normal Saline) 1,000 mls @ 125 mls/hr IV ASDIRECTED ARI Sodium Chloride (Normal Saline) 1,000 mls @ 150 mls/hr IV ASDIRECTED [facility] Last Admin: 07/06/20 14:50 Dose: 150 mls/hr Documented by: Sodium Chloride (Normal Saline) 1,000 mls @ 999 mls/hr IV .[facility] ONE Stop: 07/03/20 14:17 Last Admin: 07/03/20 16:04 Dose: 999 mls/hr Documented by: Ceftriaxone Sodium/Dextrose 1 (gm/ Premix) 50 mls @ 100 mls/hr IV Q24H [facility] Last Admin: 07/07/20 03:14 Dose: 100 mls/hr Documented by: Sodium Chloride (Normal Saline) 1,000 mls @ 999 mls/hr IV .Bolus ONE Stop: 07/05/20 10:37 Last Admin: 07/05/20 22:07 Dose: Not Given Documented by: Sodium Chloride (Normal Saline) 1,000 mls @ 999 mls/hr IV .Bolus ONE Stop: 07/05/20 10:57 Last Admin: 07/05/20 10:11 Dose: 999 mls/hr Documented by: Sodium Chloride (Normal Saline) 1,000 mls @ 75 mls/hr IV ASDIRECTED [facility] Last Admin: 07/09/20 03:32 Dose: 75 mls/hr Documented by: Lactated Ringer's (Ringers, Lactated) 500 mls @ 999 mls/hr IV .BOLUS ONE Stop: 07/07/20 03:09 Last Admin: 07/07/20 02:50 Dose: 999 mls/hr Documented by: Magnesium Sulfate (Magnesium Sulfate In Water Premix) 100 mls @ 50 mls/hr IV ONETIME ONE Stop: 07/07/20 05:59 Last Admin: 07/07/20 04:00 Dose: 50 mls/hr Documented by: Lactated Ringer's (Ringers, Lactated) 500 mls @ 999 mls/hr IV BOLUS ARI Stop: 07/07/20 07:31 Last Admin: 07/07/20 07:20 Dose: 999 mls/hr Documented by: Sodium Chloride (Normal Saline) 500 mls @ 999 mls/hr IV .BOLUS ONE Stop: 07/07/20 19:00 Last Admin: 07/07/20 18:30 Dose: 999 mls/hr Documented by: Magnesium Sulfate (Magnesium Sulfate In Water Premix) 2 gm in 50 mls @ 50 mls/hr IV ONETIME ONE Stop: 07/08/20 10:59 Last Admin: 07/08/20 10:57 Dose: 50 mls/hr Documented by: Magnesium Sulfate (Magnesium Sulfate In Water Premix) 2 gm in 50 mls @ 50 mls/hr IV ONETIME ONE Stop: 07/09/20 10:59 Last Admin: 07/09/20 10:58 Dose: 50 mls/hr Documented by: Piperacillin Sod/Tazobactam (Sod 3.375 gm/ Sodium Chloride) 50 mls @ 100 mls/hr IV Q8H [facility] Last Admin: 07/10/20 06:37 Dose: 100 mls/hr Documented by: Lactated Ringer's (Ringers, Lactated) 500 mls @ 999 mls/hr IV .BOLUS ONE Stop: 07/10/20 01:42 Last Admin: 07/10/20 01:27 Dose: 999 mls/hr Documented by: Lactated Ringer's (Ringers, Lactated) 1,000 mls @ 100 mls/hr IV ASDIRECTED [facility] Last Admin: 07/15/20 05:15 Dose: 100 mls/hr Documented by: Piperacillin Sod/Tazobactam (Sod 3.375 gm/ Sodium Chloride) 50 mls @ 100 mls/hr IV Q6H [facility] Levofloxacin/Dextrose 750 mg/ (Premix) 150 mls @ 100 mls/hr IV Q24H [facility] Last Admin: 07/13/20 10:12 Dose: 100 mls/hr Documented by: Magnesium Sulfate (Magnesium Sulfate In Water Premix) 2 gm in 50 mls @ 50 mls/hr IV ONETIME ONE Stop: 07/11/20 09:59 Last Admin: 07/11/20 08:58 Dose: 50 mls/hr Documented by: Lactated Ringer's (Ringers, Lactated) 1,000 mls @ 999 mls/hr IV .BOLUS ONE Stop: 07/11/20 13:09 Last Admin: 07/11/20 12:42 Dose: 999 mls/hr Documented by: Magnesium Sulfate (Magnesium Sulfate In Water Premix) 2 gm in 50 mls @ 50 mls/hr IV ONETIME ONE Stop: 07/12/20 09:14 Last Admin: 07/12/20 08:30 Dose: 50 mls/hr Documented by: Sodium Chloride (Normal Saline) 500 mls @ 999 mls/hr IV .BOLUS ARI Iopamidol (Isovue Multipack-370 (76%)) 100 ml IVPUSH ONETIME STA Stop: 07/10/20 13:03 Last Admin: 07/10/20 13:05 Dose: 100 ml Documented by: Lorazepam (Ativan) Confirm Administered Dose 2 mg .ROUTE .STK-MED ONE Stop: 07/03/20 00:30 Last Admin: 07/03/20 00:37 Dose: Not Given Documented by: Lorazepam (Ativan) 1 mg IVPUSH NOW STA Stop: 07/03/20 00:37 Last Admin: 07/03/20 00:38 Dose: 1 mg Documented by: Lorazepam (Ativan) 1 mg IVPUSH ONETIME ONE Stop: 07/03/20 00:48 Last Admin: 07/03/20 00:50 Dose: 1 mg Documented by: Lorazepam (Ativan) 1 mg IVPUSH Q6H PRN PRN Reason: Agitation Lorazepam (Ativan) 2 mg IVPUSH ONETIME ONE Stop: 07/09/20 22:41 Last Admin: 07/09/20 22:55 Dose: 2 mg Documented by: Lorazepam (Ativan) 2 mg IVPUSH ONETIME ONE Stop: 07/10/20 22:26 Last Admin: 07/10/20 22:37 Dose: 2 mg Documented by: Magnesium Sulfate (Magnesium Sulfate In Water Premix) 2 gm IV ONETIME ONE Stop: 07/11/20 08:04 Last Admin: 07/11/20 09:11 Dose: Not Given Documented by: Potassium Chloride (Klor-Con M20) 40 meq PO ONETIME ONE Stop: 07/05/20 15:58 Last Admin: 07/05/20 16:14 Dose: 40 meq Documented by: Potassium Chloride (Klor-Con M20) 40 meq PO ONETIME ONE Stop: 07/07/20 03:42 Last Admin: 07/07/20 03:59 Dose: 40 meq Documented by: Potassium Chloride (Klor-Con M20) 40 meq PO ONETIME ONE Stop: 07/09/20 09:47 Last Admin: 07/09/20 10:58 Dose: 40 meq Documented by: Sterile Water (Sterile Water For Injection) 1.2 ml INJECT ONETIME ONE Stop: 07/03/20 00:59 Last Admin: 07/03/20 01:22 Dose: 1.2 ml Documented by: Ziprasidone (Geodon) 10 mg IM ONETIME ONE Stop: 07/03/20 00:59 Last Admin: 07/03/20 01:04 Dose: 10 mg Documented by: Ziprasidone (Geodon) Confirm Administered Dose 20 mg .ROUTE .STK-MED ONE Stop: 07/03/20 00:59 Last Admin: 07/03/20 01:15 Dose: Not Given Documented by: - Exam General: Alert, Oriented, Cooperative, No Acute Distress Lungs: Clear to Auscultation, Normal Respiratory Effort Cardiovascular: Regular Rate, Regular Rhythm GI/Abdominal Exam: Normal Bowel Sounds, Soft, Non-Tender Extremities: Normal Inspection, Normal Range of Motion, Non-Tender, No Pedal Edema Skin: Warm, Dry Neurological: Other (tremors) Psy/Mental Status: Alert, Normal Affect, Normal Mood, Other Sepsis Event Note - Evaluation Sepsis Screening Result: No Definite Risk - Focused Exam Vital Signs: Vital Signs Temp Pulse Resp BP Pulse Ox 07/16/20 03:17 97.1 F 79 16 119/70 96 07/15/20 23:50 97.0 F 89 17 113/72 95 - Problem List & Annotations (1) Acute metabolic encephalopathy SNOMED Code(s): 46162432, 823101166 Code(s): G93.41 - METABOLIC ENCEPHALOPATHY Status: Resolved Current Visit: Yes (2) HTN (hypertension) SNOMED Code(s): 89401377 Code(s): I10 - ESSENTIAL (PRIMARY) HYPERTENSION Status: Chronic Current Visit: No (3) Schizophrenia SNOMED Code(s): 42863191 Code(s): F20.9 - SCHIZOPHRENIA, UNSPECIFIED Status: Chronic Current Visit: No (4) Bladder outlet obstruction SNOMED Code(s): 885153667 Code(s): N32.0 - BLADDER-NECK OBSTRUCTION Status: Acute Current Visit: Yes (5) Prostatitis SNOMED Code(s): 0402373 Code(s): N41.9 - INFLAMMATORY DISEASE OF PROSTATE, UNSPECIFIED Status: Acute Current Visit: Yes Qualifiers: Prostatitis type: acute Qualified Code(s): N41.0 - Acute prostatitis - Problem List Review Problem List Initiated/Reviewed/Updated: Yes - Plan Plan:: 64 yo male admitted for acute renal failure and metabolic encephalopathy 1. Schizophrenia- stable - continue Haldol - Continue Cogentin for EPS symptoms 2. Bladder outlet obstruction/prostatitis - Lambert in place - Follow up with urology - Levaquin 750mg for prostatitis 3. Dystonia/agitation: - Ativan prn 4. Self care deficit - PT/OT to evaluate and treat - Will need skilled care - SNF placement - Case management and social work involved VTE prophylaxis: Heparin Dispo: pending placement
[2020-07-16] MEDS: Propranolol 60 MG Cap.ER PO SCH (09:20)
[2020-07-16] MEDS: Levofloxacin 500 MG Tab PO SCH (11:30)
[2020-07-16] MEDS ORDERED: FLU VAC QV 2020(18YR UP)RCM/PF 180 MCG/0.5 ML SYRINGE IM ONE (11:56)
[2020-07-16] MEDS ORDERED: Pneumococcal 23-Valent Conjugate Vaccine 0.5 ML Syringe IM ONE (11:56)
[2020-07-16] MEDS ORDERED: FLU VACC QS2020-21(6MOS UP)/PF 60 MCG/0.5 ML SYRINGE IM ONE (13:00)
[2020-07-16] MEDS: Enoxaparin 40 MG/0.4 ML Syringe SUBCUT SCH (15:15)
[2020-07-16] MEDS: Melatonin 3 MG Tab PO SCH (20:08)
[2020-07-16] MEDS: Benztropine 1 MG Tab PO SCH (20:08)
[2020-07-16] MEDS: Haloperidol 5 MG Tab PO SCH (20:09)
[2020-07-17] MEDS: LORazepam 2 MG/ML SDV IVPUSH PRN (00:49)
[2020-07-17 06:17] LABS: BLOOD UREA NITROGEN,BUN 10 mg/dL (7.0-18.0); CARBON DIOXIDE,CO2 28.5 mmol/L (21.0-32.0); CHLORIDE,CL 101 mmol/L (98-107); GLUCOSE RANDOM 157 mg/dL (74-106); POTASSIUM,K 3.7 mmol/L (3.5-5.1); SODIUM,NA 137 mmol/L (136-148)
[2020-07-17] MEDS: Propranolol 60 MG Cap.ER PO SCH (09:39)
--- NOTE | 2020-07-17 10:19 | PCM.PN ---
- General Info Date of Service: 07/17/20 Admission Dx/Problem (Free Text): Admission Diagnosis/Problem Admission Diagnosis/Problem Metabolic encephalopathy Subjective Update: Doing well today, tremors continue to improve. No complaints. - Review of Systems General: Reports: Fatigue. Denies: Malaise Pulmonary: Reports: No Symptoms. Denies: Shortness of Breath Cardiovascular: Reports: No Symptoms. Denies: Chest Pain Gastrointestinal: Reports: No Symptoms. Denies: Abdominal Pain, Nausea, Vomiting Genitourinary: Reports: No Symptoms Musculoskeletal: Reports: No Symptoms Skin: Reports: No Symptoms Neurological: Reports: Tremors Psychiatric: Reports: No Symptoms - Patient Data Vitals - Most Recent: Last Vital Signs Temp 97.9 F 07/17/20 07:03 Pulse 89 07/17/20 07:03 Resp 18 07/17/20 07:03 BP 105/59 L 07/17/20 07:03 Pulse Ox 96 07/17/20 07:03 Weight - Most Recent: 83.915 kg I&O - Last 24 Hours: Intake & Output 07/16/20 07/17/20 07/17/20 22:59 06:59 14:59 Intake Total 500 450 Output Total 550 350 Balance -50 100 Lab Results Last 24 Hours: Laboratory Results - last 24 hr 07/16/20 07/17/20 07/17/20 Range/Units 11:55 05:48 05:48 WBC 11.72 H (4.0-11.0) K/uL RBC 3.87 L (4.50-5.90) M/uL Hgb 10.3 L (13.0-17.0) g/dL Hct 34.0 L (38.0-50.0) % MCV 87.9 (80.0-98.0) fL MCH 26.6 L (27.0-32.0) pg MCHC 30.3 L (31.0-37.0) g/dL RDW Std Deviation 49.8 (28.0-62.0) fl RDW Coeff of Dorothea 16 H (11.0-15.0) % Plt Count 352 (150-400) K/uL MPV 8.60 (7.40-12.00) fL Neut % (Auto) 73.0 (48.0-80.0) % Lymph % (Auto) 14.2 L (16.0-40.0) % [place] % (Auto) 11.8 (0.0-15.0) % Eos % (Auto) 0.9 (0.0-7.0) % Baso % (Auto) 0.1 (0.0-1.5) % Neut # (Auto) 8.6 H (1.4-5.7) K/uL Lymph # (Auto) 1.7 (0.6-2.4) K/uL [place] # (Auto) 1.4 H (0.0-0.8) K/uL Eos # (Auto) 0.1 (0.0-0.7) K/uL Baso # (Auto) 0.0 (0.0-0.1) K/uL Nucleated RBC % 0.0 /100WBC Nucleated RBCs # 0 K/uL Sodium 137 (136-148) mmol/L Potassium 3.7 (3.5-5.1) mmol/L Chloride 101 (98-107) mmol/L Carbon Dioxide 28.5 (21.0-32.0) mmol/L BUN 10 (7.0-18.0) mg/dL Creatinine 0.9 (0.8-1.3) mg/dL Est Cr Clr Drug Dosing 75.30 mL/min Estimated GFR (MDRD) > 60.0 ml/min Glucose 157 H (74-106) mg/dL POC Glucose 239 H (60-110) mg/dL Calcium 8.7 (8.5-10.1) mg/dL Med Orders - Current: Current Medications Acetaminophen (Tylenol) 650 mg PO Q4H PRN PRN Reason: Pain Last Admin: 07/14/20 05:39 Dose: 650 mg Documented by: Benztropine Mesylate (Cogentin) 1 mg PO BEDTIME [facility] Last Admin: 07/16/20 20:08 Dose: 1 mg Documented by: Enoxaparin Sodium (Lovenox) 40 mg SUBCUT Q24H [facility] Last Admin: 07/16/20 15:15 Dose: 40 mg Documented by: Haloperidol (Haldol) 5 mg PO BEDTIME [facility] Last Admin: 07/16/20 20:09 Dose: 5 mg Documented by: Levofloxacin (Levaquin) 750 mg PO Q24H [facility] Last Admin: 07/16/20 11:30 Dose: 750 mg Documented by: Lidocaine HCl (Lidocaine 5%) 0 gm TOP Q6HR PRN PRN Reason: Pain Last Admin: 07/09/20 13:07 Dose: 1 applic Documented by: Lorazepam (Ativan) 1 mg IVPUSH Q3H PRN PRN Reason: Agitation Last Admin: 07/17/20 00:49 Dose: 1 mg Documented by: Melatonin (Melatonin) 3 mg PO BEDTIME [facility] Last Admin: 07/16/20 20:08 Dose: 3 mg Documented by: Propranolol HCl (Inderal La) 60 mg PO DAILY [facility] Last Admin: 07/17/20 09:39 Dose: 60 mg Documented by: Sodium Chloride (Saline Flush) 10 ml FLUSH ASDIRECTED PRN PRN Reason: Keep Vein Open Sodium Chloride (Saline Flush) 2.5 ml FLUSH ASDIRECTED PRN PRN Reason: Keep Vein Open Discontinued Medications Benztropine Mesylate (Cogentin) 2 mg IM ONETIME ONE Stop: 07/02/20 21:08 Last Admin: 07/02/20 22:48 Dose: Not Given Documented by: Benztropine Mesylate (Cogentin) 2 mg PO ONETIME ONE Stop: 07/02/20 21:55 Last Admin: 07/02/20 22:13 Dose: 2 mg Documented by: Diltiazem HCl (Diltiazem) 20 mg IVPUSH ONETIME ONE Stop: 07/07/20 02:41 Last Admin: 07/07/20 04:35 Dose: Not Given Documented by: Haloperidol (Haldol) 5 mg PO BEDTIME [facility] Last Admin: 07/08/20 20:21 Dose: 5 mg Documented by: Haloperidol (Haldol) 10 mg PO BEDTIME [facility] Last Admin: 07/09/20 20:08 Dose: 10 mg Documented by: Ceftriaxone Sodium 1 gm/ (Sodium Chloride) 100 mls @ 200 mls/hr IV STAT ONE Stop: 07/02/20 21:33 Last Admin: 07/02/20 22:14 Dose: Not Given Documented by: Sodium Chloride (Normal Saline) 2,500 mls @ 2,500 mls/hr IV BOLUS ONE; Protocol Stop: 07/02/20 22:03 Last Admin: 07/02/20 22:12 Dose: 2,500 mls/hr Documented by: Ceftriaxone Sodium/Dextrose (Rocephin In Dextrose,Iso-Osm 1 Gm/50 Ml) Confirm Administered Dose 50 mls @ as directed .ROUTE .STK-MED ONE Stop: 07/02/20 21:40 Last Admin: 07/02/20 21:55 Dose: Not Given Documented by: Ceftriaxone Sodium/Dextrose 1 (gm/ Premix) 50 mls @ 100 mls/hr IV ONETIME ONE Stop: 07/02/20 22:11 Last Admin: 07/02/20 22:13 Dose: 100 mls/hr Documented by: Sodium Chloride (Normal Saline) 1,000 mls @ 125 mls/hr IV ASDIRECTED ARI Sodium Chloride (Normal Saline) 1,000 mls @ 150 mls/hr IV ASDIRECTED [facility] Last Admin: 07/06/20 14:50 Dose: 150 mls/hr Documented by: Sodium Chloride (Normal Saline) 1,000 mls @ 999 mls/hr IV .Bolus ONE Stop: 07/03/20 14:17 Last Admin: 07/03/20 16:04 Dose: 999 mls/hr Documented by: Ceftriaxone Sodium/Dextrose 1 (gm/ Premix) 50 mls @ 100 mls/hr IV Q24H [facility] Last Admin: 07/07/20 03:14 Dose: 100 mls/hr Documented by: Sodium Chloride (Normal Saline) 1,000 mls @ 999 mls/hr IV .Bolus ONE Stop: 07/05/20 10:37 Last Admin: 07/05/20 22:07 Dose: Not Given Documented by: Sodium Chloride (Normal Saline) 1,000 mls @ 999 mls/hr IV .Bolus ONE Stop: 07/05/20 10:57 Last Admin: 07/05/20 10:11 Dose: 999 mls/hr Documented by: Sodium Chloride (Normal Saline) 1,000 mls @ 75 mls/hr IV ASDIRECTED [facility] Last Admin: 07/09/20 03:32 Dose: 75 mls/hr Documented by: Lactated Ringer's (Ringers, Lactated) 500 mls @ 999 mls/hr IV .BOLUS ONE Stop: 07/07/20 03:09 Last Admin: 07/07/20 02:50 Dose: 999 mls/hr Documented by: Magnesium Sulfate (Magnesium Sulfate In Water Premix) 100 mls @ 50 mls/hr IV ONETIME ONE Stop: 07/07/20 05:59 Last Admin: 07/07/20 04:00 Dose: 50 mls/hr Documented by: Lactated Ringer's (Ringers, Lactated) 500 mls @ 999 mls/hr IV BOLUS ARI Stop: 07/07/20 07:31 Last Admin: 07/07/20 07:20 Dose: 999 mls/hr Documented by: Sodium Chloride (Normal Saline) 500 mls @ 999 mls/hr IV .BOLUS ONE Stop: 07/07/20 19:00 Last Admin: 07/07/20 18:30 Dose: 999 mls/hr Documented by: Magnesium Sulfate (Magnesium Sulfate In Water Premix) 2 gm in 50 mls @ 50 mls/hr IV ONETIME ONE Stop: 07/08/20 10:59 Last Admin: 07/08/20 10:57 Dose: 50 mls/hr Documented by: Magnesium Sulfate (Magnesium Sulfate In Water Premix) 2 gm in 50 mls @ 50 mls/hr IV ONETIME ONE Stop: 07/09/20 10:59 Last Admin: 07/09/20 10:58 Dose: 50 mls/hr Documented by: Piperacillin Sod/Tazobactam (Sod 3.375 gm/ Sodium Chloride) 50 mls @ 100 mls/hr IV Q8H [facility] Last Admin: 07/10/20 06:37 Dose: 100 mls/hr Documented by: Lactated Ringer's (Ringers, Lactated) 500 mls @ 999 mls/hr IV .BOLUS ONE Stop: 07/10/20 01:42 Last Admin: 07/10/20 01:27 Dose: 999 mls/hr Documented by: Lactated Ringer's (Ringers, Lactated) 1,000 mls @ 100 mls/hr IV ASDIRECTED [facility] Last Admin: 07/15/20 05:15 Dose: 100 mls/hr Documented by: Piperacillin Sod/Tazobactam (Sod 3.375 gm/ Sodium Chloride) 50 mls @ 100 mls/hr IV Q6H [facility] Levofloxacin/Dextrose 750 mg/ (Premix) 150 mls @ 100 mls/hr IV Q24H [facility] Last Admin: 07/13/20 10:12 Dose: 100 mls/hr Documented by: Magnesium Sulfate (Magnesium Sulfate In Water Premix) 2 gm in 50 mls @ 50 mls/hr IV ONETIME ONE Stop: 07/11/20 09:59 Last Admin: 07/11/20 08:58 Dose: 50 mls/hr Documented by: Lactated Ringer's (Ringers, Lactated) 1,000 mls @ 999 mls/hr IV .BOLUS ONE Stop: 07/11/20 13:09 Last Admin: 07/11/20 12:42 Dose: 999 mls/hr Documented by: Magnesium Sulfate (Magnesium Sulfate In Water Premix) 2 gm in 50 mls @ 50 mls/hr IV ONETIME ONE Stop: 07/12/20 09:14 Last Admin: 07/12/20 08:30 Dose: 50 mls/hr Documented by: Sodium Chloride (Normal Saline) 500 mls @ 999 mls/hr IV .BOLUS ARI Influenza Virus Vaccine (Fluzone Quad Syringe) 60 mcg IM .ONCE ONE Stop: 07/16/20 13:01 Iopamidol (Isovue Multipack-370 (76%)) 100 ml IVPUSH ONETIME STA Stop: 07/10/20 13:03 Last Admin: 07/10/20 13:05 Dose: 100 ml Documented by: Lorazepam (Ativan) Confirm Administered Dose 2 mg .ROUTE .STK-MED ONE Stop: 07/03/20 00:30 Last Admin: 07/03/20 00:37 Dose: Not Given Documented by: Lorazepam (Ativan) 1 mg IVPUSH NOW STA Stop: 07/03/20 00:37 Last Admin: 07/03/20 00:38 Dose: 1 mg Documented by: Lorazepam (Ativan) 1 mg IVPUSH ONETIME ONE Stop: 07/03/20 00:48 Last Admin: 07/03/20 00:50 Dose: 1 mg Documented by: Lorazepam (Ativan) 1 mg IVPUSH Q6H PRN PRN Reason: Agitation Lorazepam (Ativan) 2 mg IVPUSH ONETIME ONE Stop: 07/09/20 22:41 Last Admin: 07/09/20 22:55 Dose: 2 mg Documented by: Lorazepam (Ativan) 2 mg IVPUSH ONETIME ONE Stop: 07/10/20 22:26 Last Admin: 07/10/20 22:37 Dose: 2 mg Documented by: Magnesium Sulfate (Magnesium Sulfate In Water Premix) 2 gm IV ONETIME ONE Stop: 07/11/20 08:04 Last Admin: 07/11/20 09:11 Dose: Not Given Documented by: Pneumococcal Polyvalent Vaccine (Pneumovax 23) 25 mcg IM .ONCE ONE Stop: 07/16/20 11:57 Potassium Chloride (Klor-Con M20) 40 meq PO ONETIME ONE Stop: 07/05/20 15:58 Last Admin: 07/05/20 16:14 Dose: 40 meq Documented by: Potassium Chloride (Klor-Con M20) 40 meq PO ONETIME ONE Stop: 07/07/20 03:42 Last Admin: 07/07/20 03:59 Dose: 40 meq Documented by: Potassium Chloride (Klor-Con M20) 40 meq PO ONETIME ONE Stop: 07/09/20 09:47 Last Admin: 07/09/20 10:58 Dose: 40 meq Documented by: Sterile Water (Sterile Water For Injection) 1.2 ml INJECT ONETIME ONE Stop: 07/03/20 00:59 Last Admin: 07/03/20 01:22 Dose: 1.2 ml Documented by: Ziprasidone (Geodon) 10 mg IM ONETIME ONE Stop: 07/03/20 00:59 Last Admin: 07/03/20 01:04 Dose: 10 mg Documented by: Ziprasidone (Geodon) Confirm Administered Dose 20 mg .ROUTE .STK-MED ONE Stop: 07/03/20 00:59 Last Admin: 07/03/20 01:15 Dose: Not Given Documented by: - Exam General: Alert, Oriented, Cooperative, No Acute Distress Lungs: Clear to Auscultation, Normal Respiratory Effort Cardiovascular: Regular Rate, Regular Rhythm GI/Abdominal Exam: Normal Bowel Sounds, Soft, Non-Tender Extremities: Normal Inspection, Normal Range of Motion, Non-Tender, No Pedal Edema Neurological: No New Focal Deficit, Other (tremors much improved) Psy/Mental Status: Alert, Normal Affect, Normal Mood Sepsis Event Note - Evaluation Sepsis Screening Result: No Definite Risk - Focused Exam Vital Signs: Vital Signs Temp Pulse Resp BP Pulse Ox 07/17/20 07:03 97.9 F 89 18 105/59 L 96 07/17/20 05:07 97.2 F 91 16 103/54 L 95 07/17/20 00:37 96.7 F L 85 14 113/61 94 L - Problem List & Annotations (1) Acute metabolic encephalopathy SNOMED Code(s): 26933939, 473597847 Code(s): G93.41 - METABOLIC ENCEPHALOPATHY Status: Resolved Current Visit: Yes (2) HTN (hypertension) SNOMED Code(s): 70365140 Code(s): I10 - ESSENTIAL (PRIMARY) HYPERTENSION Status: Chronic Current Visit: No (3) Schizophrenia SNOMED Code(s): 13903659 Code(s): F20.9 - SCHIZOPHRENIA, UNSPECIFIED Status: Chronic Current Visit: No (4) Bladder outlet obstruction SNOMED Code(s): 365794174 Code(s): N32.0 - BLADDER-NECK OBSTRUCTION Status: Acute Current Visit: Yes (5) Prostatitis SNOMED Code(s): 7384058 Code(s): N41.9 - INFLAMMATORY DISEASE OF PROSTATE, UNSPECIFIED Status: Acute Current Visit: Yes Qualifiers: Prostatitis type: acute Qualified Code(s): N41.0 - Acute prostatitis - Problem List Review Problem List Initiated/Reviewed/Updated: Yes - My Orders Last 24 Hours: My Active Orders 07/16/20 11:57 Influenza Vaccine Charge [RC] .DISCHARGE - Plan Plan:: 64 yo male admitted for acute renal failure and metabolic encephalopathy 1. Schizophrenia- stable - continue Haldol - Continue Cogentin for EPS symptoms 2. Bladder outlet obstruction/prostatitis - Lambert in place - Follow up with urology - Levaquin 750mg for prostatitis 3. Dystonia/agitation: - Ativan prn 4. Self care deficit - PT/OT to evaluate and treat - Will need skilled care - SNF placement - Case management and social work involved VTE prophylaxis: Heparin Dispo: pending placement
[2020-07-17] MEDS: Levofloxacin 500 MG Tab PO SCH (13:16)
[2020-07-17] MEDS: Enoxaparin 40 MG/0.4 ML Syringe SUBCUT SCH (13:17)
[2020-07-17] MEDS: Melatonin 3 MG Tab PO SCH (21:28)
[2020-07-17] MEDS: Benztropine 1 MG Tab PO SCH (21:28)
[2020-07-17] MEDS: Haloperidol 5 MG Tab PO SCH (21:28)
[2020-07-18] MEDS: Acetaminophen 325 MG Tab PO PRN (03:09)
[2020-07-18] MEDS: Propranolol 60 MG Cap.ER PO SCH (08:27)
--- NOTE | 2020-07-18 10:02 | PCM.PN ---
- General Info Date of Service: 07/18/20 - Review of Systems Systems Review Comment:: no new complaints - Patient Data Vitals - Most Recent: Last Vital Signs Temp 36.6 C 07/18/20 08:00 Pulse 91 07/18/20 08:00 Resp 18 07/18/20 08:00 BP 129/68 07/18/20 08:00 Pulse Ox 93 L 07/18/20 08:00 Weight - Most Recent: 83.915 kg I&O - Last 24 Hours: Intake & Output 07/17/20 07/18/20 07/18/20 22:59 06:59 14:59 Intake Total 550 600 Output Total 480 450 Balance 70 150 Lab Results Last 24 Hours: Laboratory Results - last 24 hr 07/18/20 Range/Units 05:32 POC Glucose 149 H (60-110) mg/dL Inocencio Results Last 24 Hours: Microbiology 07/17/20 13:45 CHU Preparation - Final Skin / Skin Scrapings - Buttock, Right Med Orders - Current: Current Medications Acetaminophen (Tylenol) 650 mg PO Q4H PRN PRN Reason: Pain Last Admin: 07/18/20 03:09 Dose: 650 mg Documented by: Benztropine Mesylate (Cogentin) 1 mg PO BEDTIME [facility] Last Admin: 07/17/20 21:28 Dose: 1 mg Documented by: Enoxaparin Sodium (Lovenox) 40 mg SUBCUT Q24H [facility] Last Admin: 07/17/20 13:17 Dose: 40 mg Documented by: Haloperidol (Haldol) 5 mg PO BEDTIME [facility] Last Admin: 07/17/20 21:28 Dose: 5 mg Documented by: Levofloxacin (Levaquin) 750 mg PO Q24H [facility] Last Admin: 07/17/20 13:16 Dose: 750 mg Documented by: Lidocaine HCl (Lidocaine 5%) 0 gm TOP Q6HR PRN PRN Reason: Pain Last Admin: 07/09/20 13:07 Dose: 1 applic Documented by: Lorazepam (Ativan) 1 mg IVPUSH Q3H PRN PRN Reason: Agitation Last Admin: 07/17/20 00:49 Dose: 1 mg Documented by: Melatonin (Melatonin) 3 mg PO BEDTIME [facility] Last Admin: 07/17/20 21:28 Dose: 3 mg Documented by: Nystatin/Triamcinolone Acetonide (Mycolog Crm) 0 gm TOP BID [facility] Last Admin: 07/18/20 09:36 Dose: 1 applic Documented by: Propranolol HCl (Inderal La) 60 mg PO DAILY [facility] Last Admin: 07/18/20 08:27 Dose: 60 mg Documented by: Sodium Chloride (Saline Flush) 10 ml FLUSH ASDIRECTED PRN PRN Reason: Keep Vein Open Sodium Chloride (Saline Flush) 2.5 ml FLUSH ASDIRECTED PRN PRN Reason: Keep Vein Open Discontinued Medications Benztropine Mesylate (Cogentin) 2 mg IM ONETIME ONE Stop: 07/02/20 21:08 Last Admin: 07/02/20 22:48 Dose: Not Given Documented by: Benztropine Mesylate (Cogentin) 2 mg PO ONETIME ONE Stop: 07/02/20 21:55 Last Admin: 07/02/20 22:13 Dose: 2 mg Documented by: Diltiazem HCl (Diltiazem) 20 mg IVPUSH ONETIME ONE Stop: 07/07/20 02:41 Last Admin: 07/07/20 04:35 Dose: Not Given Documented by: Haloperidol (Haldol) 5 mg PO BEDTIME [facility] Last Admin: 07/08/20 20:21 Dose: 5 mg Documented by: Haloperidol (Haldol) 10 mg PO BEDTIME [facility] Last Admin: 07/09/20 20:08 Dose: 10 mg Documented by: Ceftriaxone Sodium 1 gm/ (Sodium Chloride) 100 mls @ 200 mls/hr IV STAT ONE Stop: 07/02/20 21:33 Last Admin: 07/02/20 22:14 Dose: Not Given Documented by: Sodium Chloride (Normal Saline) 2,500 mls @ 2,500 mls/hr IV BOLUS ONE; Protocol Stop: 07/02/20 22:03 Last Admin: 07/02/20 22:12 Dose: 2,500 mls/hr Documented by: Ceftriaxone Sodium/Dextrose (Rocephin In Dextrose,Iso-Osm 1 Gm/50 Ml) Confirm Administered Dose 50 mls @ as directed .ROUTE .STK-MED ONE Stop: 07/02/20 21:40 Last Admin: 07/02/20 21:55 Dose: Not Given Documented by: Ceftriaxone Sodium/Dextrose 1 (gm/ Premix) 50 mls @ 100 mls/hr IV ONETIME ONE Stop: 07/02/20 22:11 Last Admin: 07/02/20 22:13 Dose: 100 mls/hr Documented by: Sodium Chloride (Normal Saline) 1,000 mls @ 125 mls/hr IV ASDIRECTED [facility] Sodium Chloride (Normal Saline) 1,000 mls @ 150 mls/hr IV ASDIRECTED [facility] Last Admin: 07/06/20 14:50 Dose: 150 mls/hr Documented by: Sodium Chloride (Normal Saline) 1,000 mls @ 999 mls/hr IV .Bolus ONE Stop: 07/03/20 14:17 Last Admin: 07/03/20 16:04 Dose: 999 mls/hr Documented by: Ceftriaxone Sodium/Dextrose 1 (gm/ Premix) 50 mls @ 100 mls/hr IV Q24H [facility] Last Admin: 07/07/20 03:14 Dose: 100 mls/hr Documented by: Sodium Chloride (Normal Saline) 1,000 mls @ 999 mls/hr IV .Bolus ONE Stop: 07/05/20 10:37 Last Admin: 07/05/20 22:07 Dose: Not Given Documented by: Sodium Chloride (Normal Saline) 1,000 mls @ 999 mls/hr IV .Bolus ONE Stop: 07/05/20 10:57 Last Admin: 07/05/20 10:11 Dose: 999 mls/hr Documented by: Sodium Chloride (Normal Saline) 1,000 mls @ 75 mls/hr IV ASDIRECTED [facility] Last Admin: 07/09/20 03:32 Dose: 75 mls/hr Documented by: Lactated Ringer's (Ringers, Lactated) 500 mls @ 999 mls/hr IV .BOLUS ONE Stop: 07/07/20 03:09 Last Admin: 07/07/20 02:50 Dose: 999 mls/hr Documented by: Magnesium Sulfate (Magnesium Sulfate In Water Premix) 100 mls @ 50 mls/hr IV ONETIME ONE Stop: 07/07/20 05:59 Last Admin: 07/07/20 04:00 Dose: 50 mls/hr Documented by: Lactated Ringer's (Ringers, Lactated) 500 mls @ 999 mls/hr IV BOLUS ARI Stop: 07/07/20 07:31 Last Admin: 07/07/20 07:20 Dose: 999 mls/hr Documented by: Sodium Chloride (Normal Saline) 500 mls @ 999 mls/hr IV .BOLUS ONE Stop: 07/07/20 19:00 Last Admin: 07/07/20 18:30 Dose: 999 mls/hr Documented by: Magnesium Sulfate (Magnesium Sulfate In Water Premix) 2 gm in 50 mls @ 50 mls/hr IV ONETIME ONE Stop: 07/08/20 10:59 Last Admin: 07/08/20 10:57 Dose: 50 mls/hr Documented by: Magnesium Sulfate (Magnesium Sulfate In Water Premix) 2 gm in 50 mls @ 50 mls/hr IV ONETIME ONE Stop: 07/09/20 10:59 Last Admin: 07/09/20 10:58 Dose: 50 mls/hr Documented by: Piperacillin Sod/Tazobactam (Sod 3.375 gm/ Sodium Chloride) 50 mls @ 100 mls/hr IV Q8H [facility] Last Admin: 07/10/20 06:37 Dose: 100 mls/hr Documented by: Lactated Ringer's (Ringers, Lactated) 500 mls @ 999 mls/hr IV .BOLUS ONE Stop: 07/10/20 01:42 Last Admin: 07/10/20 01:27 Dose: 999 mls/hr Documented by: Lactated Ringer's (Ringers, Lactated) 1,000 mls @ 100 mls/hr IV ASDIRECTED [facility] Last Admin: 07/15/20 05:15 Dose: 100 mls/hr Documented by: Piperacillin Sod/Tazobactam (Sod 3.375 gm/ Sodium Chloride) 50 mls @ 100 mls/hr IV Q6H [facility] Levofloxacin/Dextrose 750 mg/ (Premix) 150 mls @ 100 mls/hr IV Q24H [facility] Last Admin: 07/13/20 10:12 Dose: 100 mls/hr Documented by: Magnesium Sulfate (Magnesium Sulfate In Water Premix) 2 gm in 50 mls @ 50 mls/hr IV ONETIME ONE Stop: 07/11/20 09:59 Last Admin: 07/11/20 08:58 Dose: 50 mls/hr Documented by: Lactated Ringer's (Ringers, Lactated) 1,000 mls @ 999 mls/hr IV .BOLUS ONE Stop: 07/11/20 13:09 Last Admin: 07/11/20 12:42 Dose: 999 mls/hr Documented by: Magnesium Sulfate (Magnesium Sulfate In Water Premix) 2 gm in 50 mls @ 50 mls/hr IV ONETIME ONE Stop: 07/12/20 09:14 Last Admin: 07/12/20 08:30 Dose: 50 mls/hr Documented by: Sodium Chloride (Normal Saline) 500 mls @ 999 mls/hr IV .BOLUS ARI Influenza Virus Vaccine (Fluzone Quad Syringe) 60 mcg IM .ONCE ONE Stop: 07/16/20 13:01 Last Admin: 07/17/20 11:24 Dose: 60 mcg Documented by: Iopamidol (Isovue Multipack-370 (76%)) 100 ml IVPUSH ONETIME STA Stop: 07/10/20 13:03 Last Admin: 07/10/20 13:05 Dose: 100 ml Documented by: Lorazepam (Ativan) Confirm Administered Dose 2 mg .ROUTE .STK-MED ONE Stop: 07/03/20 00:30 Last Admin: 07/03/20 00:37 Dose: Not Given Documented by: Lorazepam (Ativan) 1 mg IVPUSH NOW STA Stop: 07/03/20 00:37 Last Admin: 07/03/20 00:38 Dose: 1 mg Documented by: Lorazepam (Ativan) 1 mg IVPUSH ONETIME ONE Stop: 07/03/20 00:48 Last Admin: 07/03/20 00:50 Dose: 1 mg Documented by: Lorazepam (Ativan) 1 mg IVPUSH Q6H PRN PRN Reason: Agitation Lorazepam (Ativan) 2 mg IVPUSH ONETIME ONE Stop: 07/09/20 22:41 Last Admin: 07/09/20 22:55 Dose: 2 mg Documented by: Lorazepam (Ativan) 2 mg IVPUSH ONETIME ONE Stop: 07/10/20 22:26 Last Admin: 07/10/20 22:37 Dose: 2 mg Documented by: Magnesium Sulfate (Magnesium Sulfate In Water Premix) 2 gm IV ONETIME ONE Stop: 07/11/20 08:04 Last Admin: 07/11/20 09:11 Dose: Not Given Documented by: Pneumococcal Polyvalent Vaccine (Pneumovax 23) 25 mcg IM .ONCE ONE Stop: 07/16/20 11:57 Last Admin: 07/17/20 13:17 Dose: 25 mcg Documented by: Potassium Chloride (Klor-Con M20) 40 meq PO ONETIME ONE Stop: 07/05/20 15:58 Last Admin: 07/05/20 16:14 Dose: 40 meq Documented by: Potassium Chloride (Klor-Con M20) 40 meq PO ONETIME ONE Stop: 07/07/20 03:42 Last Admin: 07/07/20 03:59 Dose: 40 meq Documented by: Potassium Chloride (Klor-Con M20) 40 meq PO ONETIME ONE Stop: 07/09/20 09:47 Last Admin: 07/09/20 10:58 Dose: 40 meq Documented by: Sterile Water (Sterile Water For Injection) 1.2 ml INJECT ONETIME ONE Stop: 07/03/20 00:59 Last Admin: 07/03/20 01:22 Dose: 1.2 ml Documented by: Ziprasidone (Geodon) 10 mg IM ONETIME ONE Stop: 07/03/20 00:59 Last Admin: 07/03/20 01:04 Dose: 10 mg Documented by: Ziprasidone (Geodon) Confirm Administered Dose 20 mg .ROUTE .STK-MED ONE Stop: 07/03/20 00:59 Last Admin: 07/03/20 01:15 Dose: Not Given Documented by: - Exam General: Alert, Oriented Neck: Supple Lungs: Clear to Auscultation, Normal Respiratory Effort Cardiovascular: Regular Rate, Regular Rhythm Extremities: Other (sore buttock) Skin: Warm, Dry, Intact Neurological: No New Focal Deficit Sepsis Event Note - Evaluation Sepsis Screening Result: No Definite Risk - Focused Exam Vital Signs: Vital Signs Temp Pulse Resp BP Pulse Ox 07/18/20 08:00 36.6 C 91 18 129/68 93 L 07/18/20 03:14 37.7 C 70 16 119/65 96 07/17/20 23:43 36.4 C 81 16 103/59 L 95 - Problem List Review Problem List Initiated/Reviewed/Updated: Yes - My Orders Last 24 Hours: My Active Orders 07/19/20 05:11 CBC WITH AUTO DIFF [HEME] AM COMPREHENSIVE METABOLIC PN,CMP [CHEM] AM - Plan Plan:: 64 yo male admitted for acute renal failure and metabolic encephalopathy 1. Schizophrenia- stable - continue Haldol - Continue Cogentin for EPS symptoms 2. Bladder outlet obstruction/prostatitis - Lambert in place - Follow up with urology - Levaquin 750mg for prostatitis 3. Dystonia/agitation: - Ativan prn 4. Self care deficit - PT/OT to evaluate and treat - Will need skilled care - SNF placement - Case management and social work involved VTE prophylaxis: Heparin Dispo: pending placement
[2020-07-18] MEDS: Levofloxacin 500 MG Tab PO SCH (12:10)
[2020-07-18] MEDS: Enoxaparin 40 MG/0.4 ML Syringe SUBCUT SCH (15:15)
[2020-07-18] MEDS: LORazepam 2 MG/ML SDV IVPUSH PRN (17:55)
[2020-07-18] MEDS: Haloperidol 5 MG Tab PO SCH (20:14)
[2020-07-18] MEDS: Melatonin 3 MG Tab PO SCH (20:14)
[2020-07-18] MEDS: Benztropine 1 MG Tab PO SCH (20:14)
[2020-07-19] MEDS: Acetaminophen 325 MG Tab PO PRN (03:28)
[2020-07-19 06:24] LABS: BLOOD UREA NITROGEN,BUN 8 mg/dL (7.0-18.0); CARBON DIOXIDE,CO2 29.8 mmol/L (21.0-32.0); CHLORIDE,CL 99 mmol/L (98-107); GLUCOSE RANDOM 134 mg/dL (74-106); POTASSIUM,K 3.7 mmol/L (3.5-5.1); SODIUM,NA 137 mmol/L (136-148)
[2020-07-19] MEDS ORDERED: Sodium Chloride 0.9% 1,000 ML IV ONE (07:52)
--- NOTE | 2020-07-19 07:53 | PCM.PN ---
- General Info Date of Service: 07/19/20 Admission Dx/Problem (Free Text): Admission Diagnosis/Problem Admission Diagnosis/Problem Metabolic encephalopathy Subjective Update: Reports he is doing well today, upin the chair eating breakfast. Tremors improved. Functional Status: Reports: Pain Controlled, Tolerating Diet, Ambulating - Review of Systems General: Reports: No Symptoms. Denies: Fatigue, Malaise Pulmonary: Reports: No Symptoms. Denies: Shortness of Breath Cardiovascular: Reports: No Symptoms. Denies: Chest Pain Gastrointestinal: Reports: No Symptoms. Denies: Abdominal Pain, Nausea, Vomiting Genitourinary: Reports: No Symptoms. Denies: Dysuria, Frequency Musculoskeletal: Reports: No Symptoms Skin: Reports: No Symptoms Neurological: Reports: Tremors Psychiatric: Reports: No Symptoms - Patient Data Vitals - Most Recent: Last Vital Signs Temp 97.3 F 07/19/20 07:43 Pulse 95 07/19/20 07:43 Resp 18 07/19/20 07:43 BP 119/71 07/19/20 07:43 Pulse Ox 96 07/19/20 07:43 Weight - Most Recent: 83.915 kg I&O - Last 24 Hours: Intake & Output 07/18/20 07/19/20 07/19/20 22:59 06:59 14:59 Intake Total 700 800 Output Total 350 250 Balance 350 550 Lab Results Last 24 Hours: Laboratory Results - last 24 hr 07/18/20 07/18/20 07/19/20 Range/Units 11:38 16:53 04:11 WBC (4.0-11.0) K/uL RBC (4.50-5.90) M/uL Hgb (13.0-17.0) g/dL Hct (38.0-50.0) % MCV (80.0-98.0) fL MCH (27.0-32.0) pg MCHC (31.0-37.0) g/dL RDW Std Deviation (28.0-62.0) fl RDW Coeff of Dorothea (11.0-15.0) % Plt Count (150-400) K/uL MPV (7.40-12.00) fL Neut % (Auto) (48.0-80.0) % Lymph % (Auto) (16.0-40.0) % [place] % (Auto) (0.0-15.0) % Eos % (Auto) (0.0-7.0) % Baso % (Auto) (0.0-1.5) % Neut # (Auto) (1.4-5.7) K/uL Lymph # (Auto) (0.6-2.4) K/uL [place] # (Auto) (0.0-0.8) K/uL Eos # (Auto) (0.0-0.7) K/uL Baso # (Auto) (0.0-0.1) K/uL Nucleated RBC % /100WBC Nucleated RBCs # K/uL Sodium (136-148) mmol/L Potassium (3.5-5.1) mmol/L Chloride (98-107) mmol/L Carbon Dioxide (21.0-32.0) mmol/L BUN (7.0-18.0) mg/dL Creatinine (0.8-1.3) mg/dL Est Cr Clr Drug Dosing mL/min Estimated GFR (MDRD) ml/min Glucose (74-106) mg/dL POC Glucose 145 H 113 H 131 H (60-110) mg/dL Calcium (8.5-10.1) mg/dL Total Bilirubin (0.2-1.0) mg/dL AST (15-37) IU/L ALT (14-63) IU/L Alkaline Phosphatase (46-116) U/L Total Protein (6.4-8.2) g/dL Albumin (3.4-5.0) g/dL Globulin (2.6-4.0) g/dL Albumin/Globulin Ratio (0.9-1.6) 07/19/20 07/19/20 Range/Units 05:43 05:43 WBC 14.02 H (4.0-11.0) K/uL RBC 4.11 L (4.50-5.90) M/uL Hgb 10.9 L (13.0-17.0) g/dL Hct 35.9 L (38.0-50.0) % MCV 87.3 (80.0-98.0) fL MCH 26.5 L (27.0-32.0) pg MCHC 30.4 L (31.0-37.0) g/dL RDW Std Deviation 49.3 (28.0-62.0) fl RDW Coeff of Dorothea 15 (11.0-15.0) % Plt Count 410 H (150-400) K/uL MPV 8.50 (7.40-12.00) fL Neut % (Auto) 74.7 (48.0-80.0) % Lymph % (Auto) 14.1 L (16.0-40.0) % [place] % (Auto) 10.1 (0.0-15.0) % Eos % (Auto) 0.9 (0.0-7.0) % Baso % (Auto) 0.2 (0.0-1.5) % Neut # (Auto) 10.5 H (1.4-5.7) K/uL Lymph # (Auto) 2.0 (0.6-2.4) K/uL [place] # (Auto) 1.4 H (0.0-0.8) K/uL Eos # (Auto) 0.1 (0.0-0.7) K/uL Baso # (Auto) 0.0 (0.0-0.1) K/uL Nucleated RBC % 0.0 /100WBC Nucleated RBCs # 0 K/uL Sodium 137 (136-148) mmol/L Potassium 3.7 (3.5-5.1) mmol/L Chloride 99 (98-107) mmol/L Carbon Dioxide 29.8 (21.0-32.0) mmol/L BUN 8 (7.0-18.0) mg/dL Creatinine 0.9 (0.8-1.3) mg/dL Est Cr Clr Drug Dosing 75.30 mL/min Estimated GFR (MDRD) > 60.0 ml/min Glucose 134 H (74-106) mg/dL POC Glucose (60-110) mg/dL Calcium 9.3 (8.5-10.1) mg/dL Total Bilirubin 0.4 (0.2-1.0) mg/dL AST 11 L (15-37) IU/L ALT 15 (14-63) IU/L Alkaline Phosphatase 71 (46-116) U/L Total Protein 7.8 (6.4-8.2) g/dL Albumin 2.3 L (3.4-5.0) g/dL Globulin 5.5 H (2.6-4.0) g/dL Albumin/Globulin Ratio 0.4 L (0.9-1.6) Med Orders - Current: Current Medications Acetaminophen (Tylenol) 650 mg PO Q4H PRN PRN Reason: Pain Last Admin: 07/19/20 03:28 Dose: 650 mg Documented by: Benztropine Mesylate (Cogentin) 1 mg PO BEDTIME [facility] Last Admin: 07/18/20 20:14 Dose: 1 mg Documented by: Enoxaparin Sodium (Lovenox) 40 mg SUBCUT Q24H [facility] Last Admin: 07/18/20 15:15 Dose: 40 mg Documented by: Haloperidol (Haldol) 5 mg PO BEDTIME [facility] Last Admin: 07/18/20 20:14 Dose: 5 mg Documented by: Sodium Chloride (Normal Saline) 1,000 mls @ 125 mls/hr IV ONETIME ONE Stop: 07/19/20 15:51 Levofloxacin (Levaquin) 750 mg PO Q24H [facility] Last Admin: 07/18/20 12:10 Dose: 750 mg Documented by: Lidocaine HCl (Lidocaine 5%) 0 gm TOP Q6HR PRN PRN Reason: Pain Last Admin: 07/09/20 13:07 Dose: 1 applic Documented by: Lorazepam (Ativan) 1 mg IVPUSH Q3H PRN PRN Reason: Agitation Last Admin: 07/18/20 17:55 Dose: 1 mg Documented by: Melatonin (Melatonin) 3 mg PO BEDTIME [facility] Last Admin: 07/18/20 20:14 Dose: 3 mg Documented by: Nystatin/Triamcinolone Acetonide (Mycolog Crm) 0 gm TOP BID [facility] Last Admin: 07/18/20 20:14 Dose: 1 applic Documented by: Propranolol HCl (Inderal La) 60 mg PO DAILY [facility] Last Admin: 07/18/20 08:27 Dose: 60 mg Documented by: Sodium Chloride (Saline Flush) 10 ml FLUSH ASDIRECTED PRN PRN Reason: Keep Vein Open Sodium Chloride (Saline Flush) 2.5 ml FLUSH ASDIRECTED PRN PRN Reason: Keep Vein Open Discontinued Medications Benztropine Mesylate (Cogentin) 2 mg IM ONETIME ONE Stop: 07/02/20 21:08 Last Admin: 07/02/20 22:48 Dose: Not Given Documented by: Benztropine Mesylate (Cogentin) 2 mg PO ONETIME ONE Stop: 07/02/20 21:55 Last Admin: 07/02/20 22:13 Dose: 2 mg Documented by: Diltiazem HCl (Diltiazem) 20 mg IVPUSH ONETIME ONE Stop: 07/07/20 02:41 Last Admin: 07/07/20 04:35 Dose: Not Given Documented by: Haloperidol (Haldol) 5 mg PO BEDTIME [facility] Last Admin: 07/08/20 20:21 Dose: 5 mg Documented by: Haloperidol (Haldol) 10 mg PO BEDTIME [facility] Last Admin: 07/09/20 20:08 Dose: 10 mg Documented by: Ceftriaxone Sodium 1 gm/ (Sodium Chloride) 100 mls @ 200 mls/hr IV STAT ONE Stop: 07/02/20 21:33 Last Admin: 07/02/20 22:14 Dose: Not Given Documented by: Sodium Chloride (Normal Saline) 2,500 mls @ 2,500 mls/hr IV BOLUS ONE; Protocol Stop: 07/02/20 22:03 Last Admin: 07/02/20 22:12 Dose: 2,500 mls/hr Documented by: Ceftriaxone Sodium/Dextrose (Rocephin In Dextrose,Iso-Osm 1 Gm/50 Ml) Confirm Administered Dose 50 mls @ as directed .ROUTE .STK-MED ONE Stop: 07/02/20 21:40 Last Admin: 07/02/20 21:55 Dose: Not Given Documented by: Ceftriaxone Sodium/Dextrose 1 (gm/ Premix) 50 mls @ 100 mls/hr IV ONETIME ONE Stop: 07/02/20 22:11 Last Admin: 07/02/20 22:13 Dose: 100 mls/hr Documented by: Sodium Chloride (Normal Saline) 1,000 mls @ 125 mls/hr IV ASDIRECTED [facility] Sodium Chloride (Normal Saline) 1,000 mls @ 150 mls/hr IV ASDIRECTED [facility] Last Admin: 07/06/20 14:50 Dose: 150 mls/hr Documented by: Sodium Chloride (Normal Saline) 1,000 mls @ 999 mls/hr IV .Bolus ONE Stop: 07/03/20 14:17 Last Admin: 07/03/20 16:04 Dose: 999 mls/hr Documented by: Ceftriaxone Sodium/Dextrose 1 (gm/ Premix) 50 mls @ 100 mls/hr IV Q24H [facility] Last Admin: 07/07/20 03:14 Dose: 100 mls/hr Documented by: Sodium Chloride (Normal Saline) 1,000 mls @ 999 mls/hr IV .Bolus ONE Stop: 07/05/20 10:37 Last Admin: 07/05/20 22:07 Dose: Not Given Documented by: Sodium Chloride (Normal Saline) 1,000 mls @ 999 mls/hr IV .Bolus ONE Stop: 07/05/20 10:57 Last Admin: 07/05/20 10:11 Dose: 999 mls/hr Documented by: Sodium Chloride (Normal Saline) 1,000 mls @ 75 mls/hr IV ASDIRECTED [facility] Last Admin: 07/09/20 03:32 Dose: 75 mls/hr Documented by: Lactated Ringer's (Ringers, Lactated) 500 mls @ 999 mls/hr IV .BOLUS ONE Stop: 07/07/20 03:09 Last Admin: 07/07/20 02:50 Dose: 999 mls/hr Documented by: Magnesium Sulfate (Magnesium Sulfate In Water Premix) 100 mls @ 50 mls/hr IV ONETIME ONE Stop: 07/07/20 05:59 Last Admin: 07/07/20 04:00 Dose: 50 mls/hr Documented by: Lactated Ringer's (Ringers, Lactated) 500 mls @ 999 mls/hr IV BOLUS [facility] Stop: 07/07/20 07:31 Last Admin: 07/07/20 07:20 Dose: 999 mls/hr Documented by: Sodium Chloride (Normal Saline) 500 mls @ 999 mls/hr IV .BOLUS ONE Stop: 07/07/20 19:00 Last Admin: 07/07/20 18:30 Dose: 999 mls/hr Documented by: Magnesium Sulfate (Magnesium Sulfate In Water Premix) 2 gm in 50 mls @ 50 mls/hr IV ONETIME ONE Stop: 07/08/20 10:59 Last Admin: 07/08/20 10:57 Dose: 50 mls/hr Documented by: Magnesium Sulfate (Magnesium Sulfate In Water Premix) 2 gm in 50 mls @ 50 mls/hr IV ONETIME ONE Stop: 07/09/20 10:59 Last Admin: 07/09/20 10:58 Dose: 50 mls/hr Documented by: Piperacillin Sod/Tazobactam (Sod 3.375 gm/ Sodium Chloride) 50 mls @ 100 mls/hr IV Q8H [facility] Last Admin: 07/10/20 06:37 Dose: 100 mls/hr Documented by: Lactated Ringer's (Ringers, Lactated) 500 mls @ 999 mls/hr IV .BOLUS ONE Stop: 07/10/20 01:42 Last Admin: 07/10/20 01:27 Dose: 999 mls/hr Documented by: Lactated Ringer's (Ringers, Lactated) 1,000 mls @ 100 mls/hr IV ASDIRECTED [facility] Last Admin: 07/15/20 05:15 Dose: 100 mls/hr Documented by: Piperacillin Sod/Tazobactam (Sod 3.375 gm/ Sodium Chloride) 50 mls @ 100 mls/hr IV Q6H [facility] Levofloxacin/Dextrose 750 mg/ (Premix) 150 mls @ 100 mls/hr IV Q24H [facility] Last Admin: 07/13/20 10:12 Dose: 100 mls/hr Documented by: Magnesium Sulfate (Magnesium Sulfate In Water Premix) 2 gm in 50 mls @ 50 mls/hr IV ONETIME ONE Stop: 07/11/20 09:59 Last Admin: 07/11/20 08:58 Dose: 50 mls/hr Documented by: Lactated Ringer's (Ringers, Lactated) 1,000 mls @ 999 mls/hr IV .BOLUS ONE Stop: 07/11/20 13:09 Last Admin: 07/11/20 12:42 Dose: 999 mls/hr Documented by: Magnesium Sulfate (Magnesium Sulfate In Water Premix) 2 gm in 50 mls @ 50 mls/hr IV ONETIME ONE Stop: 07/12/20 09:14 Last Admin: 07/12/20 08:30 Dose: 50 mls/hr Documented by: Sodium Chloride (Normal Saline) 500 mls @ 999 mls/hr IV .BOLUS [facility] Influenza Virus Vaccine (Fluzone Quad 3743-1646 Syringe) 60 mcg IM .ONCE ONE Stop: 07/16/20 13:01 Last Admin: 07/17/20 11:24 Dose: 60 mcg Documented by: Iopamidol (Isovue Multipack-370 (76%)) 100 ml IVPUSH ONETIME STA Stop: 07/10/20 13:03 Last Admin: 07/10/20 13:05 Dose: 100 ml Documented by: Lorazepam (Ativan) Confirm Administered Dose 2 mg .ROUTE .STK-MED ONE Stop: 07/03/20 00:30 Last Admin: 07/03/20 00:37 Dose: Not Given Documented by: Lorazepam (Ativan) 1 mg IVPUSH NOW STA Stop: 07/03/20 00:37 Last Admin: 07/03/20 00:38 Dose: 1 mg Documented by: Lorazepam (Ativan) 1 mg IVPUSH ONETIME ONE Stop: 07/03/20 00:48 Last Admin: 07/03/20 00:50 Dose: 1 mg Documented by: Lorazepam (Ativan) 1 mg IVPUSH Q6H PRN PRN Reason: Agitation Lorazepam (Ativan) 2 mg IVPUSH ONETIME ONE Stop: 07/09/20 22:41 Last Admin: 07/09/20 22:55 Dose: 2 mg Documented by: Lorazepam (Ativan) 2 mg IVPUSH ONETIME ONE Stop: 07/10/20 22:26 Last Admin: 07/10/20 22:37 Dose: 2 mg Documented by: Magnesium Sulfate (Magnesium Sulfate In Water Premix) 2 gm IV ONETIME ONE Stop: 07/11/20 08:04 Last Admin: 07/11/20 09:11 Dose: Not Given Documented by: Pneumococcal Polyvalent Vaccine (Pneumovax 23) 25 mcg IM .ONCE ONE Stop: 07/16/20 11:57 Last Admin: 07/17/20 13:17 Dose: 25 mcg Documented by: Potassium Chloride (Klor-Con M20) 40 meq PO ONETIME ONE Stop: 07/05/20 15:58 Last Admin: 07/05/20 16:14 Dose: 40 meq Documented by: Potassium Chloride (Klor-Con M20) 40 meq PO ONETIME ONE Stop: 07/07/20 03:42 Last Admin: 07/07/20 03:59 Dose: 40 meq Documented by: Potassium Chloride (Klor-Con M20) 40 meq PO ONETIME ONE Stop: 07/09/20 09:47 Last Admin: 07/09/20 10:58 Dose: 40 meq Documented by: Sterile Water (Sterile Water For Injection) 1.2 ml INJECT ONETIME ONE Stop: 07/03/20 00:59 Last Admin: 07/03/20 01:22 Dose: 1.2 ml Documented by: Ziprasidone (Geodon) 10 mg IM ONETIME ONE Stop: 07/03/20 00:59 Last Admin: 07/03/20 01:04 Dose: 10 mg Documented by: Ziprasidone (Geodon) Confirm Administered Dose 20 mg .ROUTE .STK-MED ONE Stop: 07/03/20 00:59 Last Admin: 07/03/20 01:15 Dose: Not Given Documented by: - Exam General: Alert, Oriented, Cooperative, No Acute Distress Lungs: Clear to Auscultation, Normal Respiratory Effort Cardiovascular: Regular Rate, Regular Rhythm GI/Abdominal Exam: Normal Bowel Sounds, Soft, Non-Tender Extremities: Normal Inspection, Normal Range of Motion, Non-Tender, No Pedal Edema Wound/Incisions: Erythema Improving Neurological: No New Focal Deficit Psy/Mental Status: Alert, Normal Affect, Normal Mood Sepsis Event Note - Evaluation Sepsis Screening Result: No Definite Risk - Focused Exam Vital Signs: Vital Signs Temp Temp Pulse Resp BP BP Pulse Ox 07/19/20 07:43 97.3 F 95 18 119/71 96 07/19/20 03:29 96.5 F L 93 18 141/83 H 95 07/18/20 23:00 96.5 F L 92 18 131/83 97 - Problem List & Annotations (1) Acute metabolic encephalopathy SNOMED Code(s): 04120557, 655426805 Code(s): G93.41 - METABOLIC ENCEPHALOPATHY Status: Resolved Current Visit: Yes (2) HTN (hypertension) SNOMED Code(s): 31871388 Code(s): I10 - ESSENTIAL (PRIMARY) HYPERTENSION Status: Chronic Current Visit: No (3) Schizophrenia SNOMED Code(s): 72399043 Code(s): F20.9 - SCHIZOPHRENIA, UNSPECIFIED Status: Chronic Current Visit: No (4) Bladder outlet obstruction SNOMED Code(s): 092955873 Code(s): N32.0 - BLADDER-NECK OBSTRUCTION Status: Acute Current Visit: Yes (5) Prostatitis SNOMED Code(s): 7708484 Code(s): N41.9 - INFLAMMATORY DISEASE OF PROSTATE, UNSPECIFIED Status: Acute Current Visit: Yes Qualifiers: Prostatitis type: acute Qualified Code(s): N41.0 - Acute prostatitis - Problem List Review Problem List Initiated/Reviewed/Updated: Yes - My Orders Last 24 Hours: My Active Orders 07/19/20 07:52 Sodium Chloride 0.9% [Normal Saline] 1,000 ml IV ONETIME - Plan Plan:: 64 yo male admitted for acute renal failure and metabolic encephalopathy 1. Schizophrenia- stable - continue Haldol - Continue Cogentin for EPS symptoms 2. Bladder outlet obstruction/prostatitis - Lambert in place - Follow up with urology - Levaquin 750mg for prostatitis - Increased leukocytosis, will check UA, CXR today. 3. Dystonia/agitation: - Ativan prn - Having diaphoresis, and apears urine output decreased slightly, will give 1 L NS today and monitor output. 4. Self care deficit - PT/OT to evaluate and treat - Will need skilled care - SNF placement - Case management and social work involved 5. Cher rash to buttocks - CHU skin scrapings showed hyphae - Nystatin cream started. - Will give Diflucan x 1 dose today PO - Keep dry and no brief on to help allow air flow. VTE prophylaxis: Heparin Dispo: pending placement
[2020-07-19] MEDS: Propranolol 60 MG Cap.ER PO SCH (08:43)
[2020-07-19] MEDS ORDERED: Fluconazole 150 MG Tab PO ONE (10:30)
[2020-07-19] MEDS: Levofloxacin 500 MG Tab PO SCH (11:48)
--- NOTE | 2020-07-19 12:29 | CR ---
INDICATION: Leukocytosis COMPARISON: July 10, 2020 TECHNIQUE: PA and lateral views of the chest were acquired FINDINGS: TUBES AND LINES: None. HEART AND MEDIASTINUM: The heart size is normal. The mediastinal contour appears normal for patient age.Mild tortuosity of the thoracic aorta. LUNGS AND PLEURAL SPACES: The lungs appear normal.There pleural spaces are unremarkable. OSSEOUS STRUCTURES: Age-appropriate appearance. No acute focal finding. IMPRESSION: No evidence of active pulmonary disease. Dictated by Blake Felipe MD @ Jul 19 2020 12:24PM Signed by Dr. Blake Felipe @ Jul 19 2020 12:27PM
[2020-07-19] MEDS: Enoxaparin 40 MG/0.4 ML Syringe SUBCUT SCH (15:53)
[2020-07-19] MEDS: Benztropine 1 MG Tab PO SCH (20:54)
[2020-07-19] MEDS: Melatonin 3 MG Tab PO SCH (20:54)
[2020-07-19] MEDS: Haloperidol 5 MG Tab PO SCH (20:55)
[2020-07-20] MEDS: Acetaminophen 325 MG Tab PO PRN (01:56)
[2020-07-20 06:48] LABS: BLOOD UREA NITROGEN,BUN 8 mg/dL (7.0-18.0); CARBON DIOXIDE,CO2 27.5 mmol/L (21.0-32.0); CHLORIDE,CL 103 mmol/L (98-107); GLUCOSE RANDOM 100 mg/dL (74-106); POTASSIUM,K 3.9 mmol/L (3.5-5.1); SODIUM,NA 139 mmol/L (136-148)
[2020-07-20] MEDS ORDERED: Magnesium Sulfate/Water 2 GM/50 ML Premix Bag IV ONE (08:05)
--- NOTE | 2020-07-20 08:07 | PCM.PN ---
- General Info Date of Service: 07/20/20 Admission Dx/Problem (Free Text): Admission Diagnosis/Problem Admission Diagnosis/Problem Metabolic encephalopathy Subjective Update: Feeling ok today, hot flashes intermittently. No chest pain or SOB. No other concerns Functional Status: Reports: Pain Controlled, Tolerating Diet, Ambulating - Review of Systems General: Reports: No Symptoms. Denies: Fatigue, Malaise Pulmonary: Reports: No Symptoms. Denies: Shortness of Breath Cardiovascular: Reports: No Symptoms. Denies: Chest Pain Gastrointestinal: Reports: No Symptoms. Denies: Abdominal Pain, Nausea, Vomiting Genitourinary: Reports: No Symptoms. Denies: Dysuria, Frequency Musculoskeletal: Reports: No Symptoms Skin: Reports: No Symptoms Neurological: Reports: No Symptoms Psychiatric: Reports: No Symptoms - Patient Data Vitals - Most Recent: Last Vital Signs Temp 97.0 F 07/20/20 04:13 Pulse 68 07/20/20 04:13 Resp 16 07/20/20 04:13 BP 116/53 L 07/20/20 04:13 Pulse Ox 98 07/20/20 04:13 Weight - Most Recent: 83.915 kg I&O - Last 24 Hours: Intake & Output 07/19/20 07/20/20 07/20/20 22:59 06:59 14:59 Intake Total 930 650 Output Total 225 550 Balance 705 100 Lab Results Last 24 Hours: Laboratory Results - last 24 hr 07/19/20 07/20/20 07/20/20 Range/Units 16:38 06:15 06:15 WBC 9.89 (4.0-11.0) K/uL RBC 3.62 L (4.50-5.90) M/uL Hgb 9.6 L (13.0-17.0) g/dL Hct 32.0 L (38.0-50.0) % MCV 88.4 (80.0-98.0) fL MCH 26.5 L (27.0-32.0) pg MCHC 30.0 L (31.0-37.0) g/dL RDW Std Deviation 51.3 (28.0-62.0) fl RDW Coeff of Dorothea 16 H (11.0-15.0) % Plt Count 302 (150-400) K/uL MPV 8.60 (7.40-12.00) fL Neut % (Auto) 67.2 (48.0-80.0) % Lymph % (Auto) 21.7 (16.0-40.0) % [place] % (Auto) 9.5 (0.0-15.0) % Eos % (Auto) 1.4 (0.0-7.0) % Baso % (Auto) 0.2 (0.0-1.5) % Neut # (Auto) 6.6 H (1.4-5.7) K/uL Lymph # (Auto) 2.2 (0.6-2.4) K/uL [place] # (Auto) 0.9 H (0.0-0.8) K/uL Eos # (Auto) 0.1 (0.0-0.7) K/uL Baso # (Auto) 0.0 (0.0-0.1) K/uL Nucleated RBC % 0.0 /100WBC Nucleated RBCs # 0 K/uL Sodium 139 (136-148) mmol/L Potassium 3.9 (3.5-5.1) mmol/L Chloride 103 (98-107) mmol/L Carbon Dioxide 27.5 (21.0-32.0) mmol/L BUN 8 (7.0-18.0) mg/dL Creatinine 0.7 L (0.8-1.3) mg/dL Est Cr Clr Drug Dosing 96.81 mL/min Estimated GFR (MDRD) > 60.0 ml/min Glucose 100 (74-106) mg/dL Calcium 8.7 (8.5-10.1) mg/dL Magnesium 1.7 L (1.8-2.4) mg/dL Urine Color YELLOW Urine Appearance CLEAR Urine pH 6.5 (5.0-8.0) Ur Specific [place] 1.025 (1.001-1.035) Urine Protein TRACE H (NEGATIVE) mg/dL Urine Glucose (UA) NEGATIVE (NEGATIVE) mg/dL Urine Ketones NEGATIVE (NEGATIVE) mg/dL Urine Occult Blood NEGATIVE (NEGATIVE) Urine Nitrite NEGATIVE (NEGATIVE) Urine Bilirubin NEGATIVE (NEGATIVE) Urine Urobilinogen 0.2 (<2.0) EU/dL Ur Leukocyte Esterase NEGATIVE (NEGATIVE) Urine RBC 0-1 (0-2/HPF) Urine WBC 0-1 (0-5/HPF) Ur Epithelial Cells RARE (NONE-FEW) Urine Bacteria RARE (NEGATIVE) Med Orders - Current: Current Medications Acetaminophen (Tylenol) 650 mg PO Q4H PRN PRN Reason: Pain Last Admin: 07/20/20 01:56 Dose: 650 mg Documented by: Benztropine Mesylate (Cogentin) 1 mg PO BEDTIME [facility] Last Admin: 07/19/20 20:54 Dose: 1 mg Documented by: Enoxaparin Sodium (Lovenox) 40 mg SUBCUT Q24H [facility] Last Admin: 07/19/20 15:53 Dose: 40 mg Documented by: Haloperidol (Haldol) 5 mg PO BEDTIME [facility] Last Admin: 07/19/20 20:55 Dose: 5 mg Documented by: Levofloxacin (Levaquin) 750 mg PO Q24H [facility] Last Admin: 07/19/20 11:48 Dose: 750 mg Documented by: Lorazepam (Ativan) 1 mg IVPUSH Q3H PRN PRN Reason: Agitation Last Admin: 07/18/20 17:55 Dose: 1 mg Documented by: Magnesium Sulfate (Magnesium Sulfate In Water Premix) 2 gm IV ONETIME ONE Stop: 07/20/20 08:06 Melatonin (Melatonin) 3 mg PO BEDTIME [facility] Last Admin: 07/19/20 20:54 Dose: 3 mg Documented by: Nystatin/Triamcinolone Acetonide (Mycolog Crm) 0 gm TOP BID [facility] Last Admin: 07/19/20 20:59 Dose: 1 applic Documented by: Propranolol HCl (Inderal La) 60 mg PO DAILY [facility] Last Admin: 07/19/20 08:43 Dose: 60 mg Documented by: Sodium Chloride (Saline Flush) 10 ml FLUSH ASDIRECTED PRN PRN Reason: Keep Vein Open Sodium Chloride (Saline Flush) 2.5 ml FLUSH ASDIRECTED PRN PRN Reason: Keep Vein Open Discontinued Medications Benztropine Mesylate (Cogentin) 2 mg IM ONETIME ONE Stop: 07/02/20 21:08 Last Admin: 07/02/20 22:48 Dose: Not Given Documented by: Benztropine Mesylate (Cogentin) 2 mg PO ONETIME ONE Stop: 07/02/20 21:55 Last Admin: 07/02/20 22:13 Dose: 2 mg Documented by: Diltiazem HCl (Diltiazem) 20 mg IVPUSH ONETIME ONE Stop: 07/07/20 02:41 Last Admin: 07/07/20 04:35 Dose: Not Given Documented by: Fluconazole (Diflucan) 150 mg PO ONETIME ONE Stop: 07/19/20 10:31 Last Admin: 07/19/20 11:48 Dose: 150 mg Documented by: Haloperidol (Haldol) 5 mg PO BEDTIME [facility] Last Admin: 07/08/20 20:21 Dose: 5 mg Documented by: Haloperidol (Haldol) 10 mg PO BEDTIME [facility] Last Admin: 07/09/20 20:08 Dose: 10 mg Documented by: Ceftriaxone Sodium 1 gm/ (Sodium Chloride) 100 mls @ 200 mls/hr IV STAT ONE Stop: 07/02/20 21:33 Last Admin: 07/02/20 22:14 Dose: Not Given Documented by: Sodium Chloride (Normal Saline) 2,500 mls @ 2,500 mls/hr IV BOLUS ONE; Protocol Stop: 07/02/20 22:03 Last Admin: 07/02/20 22:12 Dose: 2,500 mls/hr Documented by: Ceftriaxone Sodium/Dextrose (Rocephin In Dextrose,Iso-Osm 1 Gm/50 Ml) Confirm Administered Dose 50 mls @ as directed .ROUTE .STK-MED ONE Stop: 07/02/20 21:40 Last Admin: 07/02/20 21:55 Dose: Not Given Documented by: Ceftriaxone Sodium/Dextrose 1 (gm/ Premix) 50 mls @ 100 mls/hr IV ONETIME ONE Stop: 07/02/20 22:11 Last Admin: 07/02/20 22:13 Dose: 100 mls/hr Documented by: Sodium Chloride (Normal Saline) 1,000 mls @ 125 mls/hr IV ASDIRECTED [facility] Sodium Chloride (Normal Saline) 1,000 mls @ 150 mls/hr IV ASDIRECTED [facility] Last Admin: 07/06/20 14:50 Dose: 150 mls/hr Documented by: Sodium Chloride (Normal Saline) 1,000 mls @ 999 mls/hr IV .Bolus ONE Stop: 07/03/20 14:17 Last Admin: 07/03/20 16:04 Dose: 999 mls/hr Documented by: Ceftriaxone Sodium/Dextrose 1 (gm/ Premix) 50 mls @ 100 mls/hr IV Q24H [facility] Last Admin: 07/07/20 03:14 Dose: 100 mls/hr Documented by: Sodium Chloride (Normal Saline) 1,000 mls @ 999 mls/hr IV .Bolus ONE Stop: 07/05/20 10:37 Last Admin: 07/05/20 22:07 Dose: Not Given Documented by: Sodium Chloride (Normal Saline) 1,000 mls @ 999 mls/hr IV .Bolus ONE Stop: 07/05/20 10:57 Last Admin: 07/05/20 10:11 Dose: 999 mls/hr Documented by: Sodium Chloride (Normal Saline) 1,000 mls @ 75 mls/hr IV ASDIRECTED [facility] Last Admin: 07/09/20 03:32 Dose: 75 mls/hr Documented by: Lactated Ringer's (Ringers, Lactated) 500 mls @ 999 mls/hr IV .BOLUS ONE Stop: 07/07/20 03:09 Last Admin: 07/07/20 02:50 Dose: 999 mls/hr Documented by: Magnesium Sulfate (Magnesium Sulfate In Water Premix) 100 mls @ 50 mls/hr IV ONETIME ONE Stop: 07/07/20 05:59 Last Admin: 07/07/20 04:00 Dose: 50 mls/hr Documented by: Lactated Ringer's (Ringers, Lactated) 500 mls @ 999 mls/hr IV BOLUS [facility] Stop: 07/07/20 07:31 Last Admin: 07/07/20 07:20 Dose: 999 mls/hr Documented by: Sodium Chloride (Normal Saline) 500 mls @ 999 mls/hr IV .BOLUS ONE Stop: 07/07/20 19:00 Last Admin: 07/07/20 18:30 Dose: 999 mls/hr Documented by: Magnesium Sulfate (Magnesium Sulfate In Water Premix) 2 gm in 50 mls @ 50 mls/hr IV ONETIME ONE Stop: 07/08/20 10:59 Last Admin: 07/08/20 10:57 Dose: 50 mls/hr Documented by: Magnesium Sulfate (Magnesium Sulfate In Water Premix) 2 gm in 50 mls @ 50 mls/hr IV ONETIME ONE Stop: 07/09/20 10:59 Last Admin: 07/09/20 10:58 Dose: 50 mls/hr Documented by: Piperacillin Sod/Tazobactam (Sod 3.375 gm/ Sodium Chloride) 50 mls @ 100 mls/hr IV Q8H [facility] Last Admin: 07/10/20 06:37 Dose: 100 mls/hr Documented by: Lactated Ringer's (Ringers, Lactated) 500 mls @ 999 mls/hr IV .BOLUS ONE Stop: 07/10/20 01:42 Last Admin: 07/10/20 01:27 Dose: 999 mls/hr Documented by: Lactated Ringer's (Ringers, Lactated) 1,000 mls @ 100 mls/hr IV ASDIRECTED [facility] Last Admin: 07/15/20 05:15 Dose: 100 mls/hr Documented by: Piperacillin Sod/Tazobactam (Sod 3.375 gm/ Sodium Chloride) 50 mls @ 100 mls/hr IV Q6H [facility] Levofloxacin/Dextrose 750 mg/ (Premix) 150 mls @ 100 mls/hr IV Q24H [facility] Last Admin: 07/13/20 10:12 Dose: 100 mls/hr Documented by: Magnesium Sulfate (Magnesium Sulfate In Water Premix) 2 gm in 50 mls @ 50 mls/hr IV ONETIME ONE Stop: 07/11/20 09:59 Last Admin: 07/11/20 08:58 Dose: 50 mls/hr Documented by: Lactated Ringer's (Ringers, Lactated) 1,000 mls @ 999 mls/hr IV .BOLUS ONE Stop: 07/11/20 13:09 Last Admin: 07/11/20 12:42 Dose: 999 mls/hr Documented by: Magnesium Sulfate (Magnesium Sulfate In Water Premix) 2 gm in 50 mls @ 50 mls/hr IV ONETIME ONE Stop: 07/12/20 09:14 Last Admin: 07/12/20 08:30 Dose: 50 mls/hr Documented by: Sodium Chloride (Normal Saline) 500 mls @ 999 mls/hr IV .BOLUS [facility] Sodium Chloride (Normal Saline) 1,000 mls @ 125 mls/hr IV ONETIME ONE Stop: 07/19/20 15:51 Last Admin: 07/19/20 08:20 Dose: 125 mls/hr Documented by: Influenza Virus Vaccine (Fluzone Quad Syringe) 60 mcg IM .ONCE ONE Stop: 07/16/20 13:01 Last Admin: 07/17/20 11:24 Dose: 60 mcg Documented by: Iopamidol (Isovue Multipack-370 (76%)) 100 ml IVPUSH ONETIME STA Stop: 07/10/20 13:03 Last Admin: 07/10/20 13:05 Dose: 100 ml Documented by: Lidocaine HCl (Lidocaine 5%) 0 gm TOP Q6HR PRN PRN Reason: Pain Last Admin: 07/09/20 13:07 Dose: 1 applic Documented by: Lorazepam (Ativan) Confirm Administered Dose 2 mg .ROUTE .STK-MED ONE Stop: 07/03/20 00:30 Last Admin: 07/03/20 00:37 Dose: Not Given Documented by: Lorazepam (Ativan) 1 mg IVPUSH NOW STA Stop: 07/03/20 00:37 Last Admin: 07/03/20 00:38 Dose: 1 mg Documented by: Lorazepam (Ativan) 1 mg IVPUSH ONETIME ONE Stop: 07/03/20 00:48 Last Admin: 07/03/20 00:50 Dose: 1 mg Documented by: Lorazepam (Ativan) 1 mg IVPUSH Q6H PRN PRN Reason: Agitation Lorazepam (Ativan) 2 mg IVPUSH ONETIME ONE Stop: 07/09/20 22:41 Last Admin: 07/09/20 22:55 Dose: 2 mg Documented by: Lorazepam (Ativan) 2 mg IVPUSH ONETIME ONE Stop: 07/10/20 22:26 Last Admin: 07/10/20 22:37 Dose: 2 mg Documented by: Magnesium Sulfate (Magnesium Sulfate In Water Premix) 2 gm IV ONETIME ONE Stop: 07/11/20 08:04 Last Admin: 07/11/20 09:11 Dose: Not Given Documented by: Pneumococcal Polyvalent Vaccine (Pneumovax 23) 25 mcg IM .ONCE ONE Stop: 07/16/20 11:57 Last Admin: 07/17/20 13:17 Dose: 25 mcg Documented by: Potassium Chloride (Klor-Con M20) 40 meq PO ONETIME ONE Stop: 07/05/20 15:58 Last Admin: 07/05/20 16:14 Dose: 40 meq Documented by: Potassium Chloride (Klor-Con M20) 40 meq PO ONETIME ONE Stop: 07/07/20 03:42 Last Admin: 07/07/20 03:59 Dose: 40 meq Documented by: Potassium Chloride (Klor-Con M20) 40 meq PO ONETIME ONE Stop: 07/09/20 09:47 Last Admin: 07/09/20 10:58 Dose: 40 meq Documented by: Sterile Water (Sterile Water For Injection) 1.2 ml INJECT ONETIME ONE Stop: 07/03/20 00:59 Last Admin: 07/03/20 01:22 Dose: 1.2 ml Documented by: Ziprasidone (Kerri) 10 mg IM ONETIME ONE Stop: 07/03/20 00:59 Last Admin: 07/03/20 01:04 Dose: 10 mg Documented by: Ziprasidone (Geodon) Confirm Administered Dose 20 mg .ROUTE .STK-MED ONE Stop: 07/03/20 00:59 Last Admin: 07/03/20 01:15 Dose: Not Given Documented by: - Exam Quality Assessment: DVT Prophylaxis General: Alert, Oriented, Cooperative, No Acute Distress Neck: Supple Lungs: Clear to Auscultation, Normal Respiratory Effort Cardiovascular: Regular Rate, Regular Rhythm GI/Abdominal Exam: Normal Bowel Sounds, Soft, Non-Tender Extremities: Normal Inspection, Normal Range of Motion, Non-Tender, No Pedal Edema Skin: Rash (much improved to buttocks.) Neurological: No New Focal Deficit, Other (tremors) Psy/Mental Status: Alert, Normal Affect, Normal Mood, Labile Mood Sepsis Event Note - Evaluation Sepsis Screening Result: No Definite Risk - Focused Exam Vital Signs: Vital Signs Temp Pulse Resp BP Pulse Ox 07/20/20 04:13 97.0 F 68 16 116/53 L 98 07/20/20 01:00 97.7 F 77 16 106/55 L 95 - Problem List & Annotations (1) Acute metabolic encephalopathy SNOMED Code(s): 35913069, 823550889 Code(s): G93.41 - METABOLIC ENCEPHALOPATHY Status: Resolved Current Visit: Yes (2) HTN (hypertension) SNOMED Code(s): 21194110 Code(s): I10 - ESSENTIAL (PRIMARY) HYPERTENSION Status: Chronic Current Visit: No (3) Schizophrenia SNOMED Code(s): 90555671 Code(s): F20.9 - SCHIZOPHRENIA, UNSPECIFIED Status: Chronic Current Vis it: No (4) Bladder outlet obstruction SNOMED Code(s): 381041643 Code(s): N32.0 - BLADDER-NECK OBSTRUCTION Status: Acute Current Visit: Yes (5) Prostatitis SNOMED Code(s): 0549493 Code(s): N41.9 - INFLAMMATORY DISEASE OF PROSTATE, UNSPECIFIED Status: Acute Current Visit: Yes Qualifiers: Prostatitis type: acute Qualified Code(s): N41.0 - Acute prostatitis - Problem List Review Problem List Initiated/Reviewed/Updated: Yes - My Orders Last 24 Hours: My Active Orders 07/19/20 09:23 Blood Glucose Check, Bedside [RC] PRN 07/20/20 08:05 Magnesium Sulfate/Water [Magnesium Sulfate in Water Premix] 2 gm IV ONETIME ONE 07/20/20 08:06 Communication Order [RC] ROUTINE 07/21/20 05:11 BASIC METABOLIC PANEL,BMP [CHEM] AM CBC WITH AUTO DIFF [HEME] AM MG [MAGNESIUM] [CHEM] AM 07/22/20 05:11 BASIC METABOLIC PANEL,BMP [CHEM] AM CBC WITH AUTO DIFF [HEME] AM MG [MAGNESIUM] [CHEM] AM - Plan Plan:: 64 yo male admitted for acute renal failure and metabolic encephalopathy 1. Schizophrenia- stable - continue Haldol - Increase Cogentin to 1 mg BID for EPS symptoms, monitor - Discussed EPS with Dr Munoz, agrees with Cogentin as other Parkinsonian medications would not have good side effects for him. 2. Bladder outlet obstruction/prostatitis - Lambert in place - Follow up with urology - Levaquin 750mg for prostatitis - Increased leukocytosis resolved with hydration. CXR and UA negative. could be related to dehydration from insensible loss, sweating and tremors 3. Dystonia/agitation: - Ativan prn 4. Self care deficit - PT/OT to evaluate and treat - Will need skilled care - SNF placement - Case management and social work involved 5. Cher rash to buttocks - Much improved - CHU skin scrapings showed hyphae - Nystatin cream started. - had Diflucan x 1 dose 07/19 - Keep dry and no brief on to help allow air flow. VTE prophylaxis: Heparin Dispo: pending placement
[2020-07-20] MEDS ORDERED: Magnesium Sulfate/Water 2 GM/50 ML BAG IV ONE (08:15)
[2020-07-20] MEDS: Propranolol 60 MG Cap.ER PO SCH ×2 (09:06→09:15)
[2020-07-20] MEDS ORDERED: Sodium Chloride 0.9% 1,000 ML IV SCH (09:30)
[2020-07-20] MEDS: Benztropine 1 MG Tab PO SCH ×2 (11:54→21:36)
[2020-07-20] MEDS: Levofloxacin 500 MG Tab PO SCH (11:54)
[2020-07-20] MEDS: Enoxaparin 40 MG/0.4 ML Syringe SUBCUT SCH (14:57)
[2020-07-20] MEDS: Haloperidol 5 MG Tab PO SCH (21:36)
[2020-07-20] MEDS: Melatonin 3 MG Tab PO SCH (21:36)
[2020-07-21 06:19] LABS: BLOOD UREA NITROGEN,BUN 6 mg/dL (7.0-18.0); CHLORIDE,CL 101 mmol/L (98-107); GLUCOSE RANDOM 121 mg/dL (74-106); POTASSIUM,K 3.9 mmol/L (3.5-5.1); SODIUM,NA 137 mmol/L (136-148)
[2020-07-21] MEDS: Propranolol 60 MG Cap.ER PO SCH (09:55)
[2020-07-21] MEDS: Benztropine 1 MG Tab PO SCH ×2 (09:55→20:37)
--- NOTE | 2020-07-21 11:26 | PCM.PN ---
- General Info Date of Service: 07/21/20 Admission Dx/Problem (Free Text): Admission Diagnosis/Problem Admission Diagnosis/Problem Metabolic encephalopathy Subjective Update: Feeling well, No chest pain or SOB. No other concerns Functional Status: Reports: Pain Controlled, Tolerating Diet, Urinating - Review of Systems General: Denies: Fever, Weakness, Fatigue Pulmonary: Denies: Shortness of Breath, Pleuritic Chest Pain Cardiovascular: Denies: Chest Pain, Palpitations, Dyspnea on Exertion Gastrointestinal: Denies: Abdominal Pain, Constipation, Decreased Appetite Genitourinary: Denies: Dysuria, Frequency, Burning Musculoskeletal: Denies: Neck Pain, Shoulder Pain, Arm Pain - Patient Data Vitals - Most Recent: Last Vital Signs Temp 36.1 C 07/21/20 07:00 Pulse 98 07/21/20 07:00 Resp 16 07/21/20 07:00 BP 127/71 07/21/20 07:00 Pulse Ox 95 07/21/20 07:00 Weight - Most Recent: 83.915 kg I&O - Last 24 Hours: Intake & Output 07/20/20 07/21/20 07/21/20 22:59 06:59 14:59 Intake Total 600 700 Output Total 1500 850 Balance -900 -150 Lab Results Last 24 Hours: Laboratory Results - last 24 hr 07/21/20 07/21/20 07/21/20 Range/Units 05:00 05:00 10:04 WBC 11.69 H (4.0-11.0) K/uL RBC 4.38 L (4.50-5.90) M/uL Hgb 11.7 L (13.0-17.0) g/dL Hct 38.0 (38.0-50.0) % MCV 86.8 (80.0-98.0) fL MCH 26.7 L (27.0-32.0) pg MCHC 30.8 L (31.0-37.0) g/dL RDW Std Deviation 49.2 (28.0-62.0) fl RDW Coeff of Dorothea 15 (11.0-15.0) % Plt Count 410 H (150-400) K/uL MPV 8.80 (7.40-12.00) fL Neut % (Auto) 72.2 (48.0-80.0) % Lymph % (Auto) 14.7 L (16.0-40.0) % Mckinley % (Auto) 12.0 (0.0-15.0) % Eos % (Auto) 0.8 (0.0-7.0) % Baso % (Auto) 0.3 (0.0-1.5) % Neut # (Auto) 8.4 H (1.4-5.7) K/uL Lymph # (Auto) 1.7 (0.6-2.4) K/uL Mckinley # (Auto) 1.4 H (0.0-0.8) K/uL Eos # (Auto) 0.1 (0.0-0.7) K/uL Baso # (Auto) 0.0 (0.0-0.1) K/uL Nucleated RBC % 0.0 /100WBC Nucleated RBCs # 0 K/uL Sodium 137 (136-148) mmol/L Potassium 3.9 (3.5-5.1) mmol/L Chloride 101 (98-107) mmol/L Carbon Dioxide 27.0 (21.0-32.0) mmol/L BUN 6 L (7.0-18.0) mg/dL Creatinine 0.9 (0.8-1.3) mg/dL Est Cr Clr Drug Dosing 75.30 mL/min Estimated GFR (MDRD) > 60.0 ml/min Glucose 121 H (74-106) mg/dL POC Glucose 133 H (60-110) mg/dL Calcium 8.9 (8.5-10.1) mg/dL Magnesium 2.0 (1.8-2.4) mg/dL Med Orders - Current: Current Medications Acetaminophen (Tylenol) 650 mg PO Q4H PRN PRN Reason: Pain Last Admin: 07/20/20 01:56 Dose: 650 mg Documented by: Benztropine Mesylate (Cogentin) 1 mg PO BID [facility] Last Admin: 07/21/20 09:55 Dose: 1 mg Documented by: Enoxaparin Sodium (Lovenox) 40 mg SUBCUT Q24H [facility] Last Admin: 07/20/20 14:57 Dose: 40 mg Documented by: Haloperidol (Haldol) 5 mg PO BEDTIME [facility] Last Admin: 07/20/20 21:36 Dose: 5 mg Documented by: Levofloxacin (Levaquin) 750 mg PO Q24H [facility] Last Admin: 07/20/20 11:54 Dose: 750 mg Documented by: Lorazepam (Ativan) 1 mg IVPUSH Q3H PRN PRN Reason: Agitation Last Admin: 07/18/20 17:55 Dose: 1 mg Documented by: Melatonin (Melatonin) 3 mg PO BEDTIME [facility] Last Admin: 07/20/20 21:36 Dose: 3 mg Documented by: Nystatin/Triamcinolone Acetonide (Mycolog Crm) 0 gm TOP BID [facility] Last Admin: 07/21/20 09:58 Dose: 1 applic Documented by: Propranolol HCl (Inderal La) 60 mg PO DAILY [facility] Last Admin: 07/21/20 09:55 Dose: 60 mg Documented by: Sodium Chloride (Saline Flush) 10 ml FLUSH ASDIRECTED PRN PRN Reason: Keep Vein Open Sodium Chloride (Saline Flush) 2.5 ml FLUSH ASDIRECTED PRN PRN Reason: Keep Vein Open Discontinued Medications Benztropine Mesylate (Cogentin) 2 mg IM ONETIME ONE Stop: 07/02/20 21:08 Last Admin: 07/02/20 22:48 Dose: Not Given Documented by: Benztropine Mesylate (Cogentin) 2 mg PO ONETIME ONE Stop: 07/02/20 21:55 Last Admin: 07/02/20 22:13 Dose: 2 mg Documented by: Benztropine Mesylate (Cogentin) 1 mg PO BEDTIME [facility] Last Admin: 07/19/20 20:54 Dose: 1 mg Documented by: Diltiazem HCl (Diltiazem) 20 mg IVPUSH ONETIME ONE Stop: 07/07/20 02:41 Last Admin: 07/07/20 04:35 Dose: Not Given Documented by: Fluconazole (Diflucan) 150 mg PO ONETIME ONE Stop: 07/19/20 10:31 Last Admin: 07/19/20 11:48 Dose: 150 mg Documented by: Haloperidol (Haldol) 5 mg PO BEDTIME [facility] Last Admin: 07/08/20 20:21 Dose: 5 mg Documented by: Haloperidol (Haldol) 10 mg PO BEDTIME [facility] Last Admin: 07/09/20 20:08 Dose: 10 mg Documented by: Ceftriaxone Sodium 1 gm/ (Sodium Chloride) 100 mls @ 200 mls/hr IV STAT ONE Stop: 07/02/20 21:33 Last Admin: 07/02/20 22:14 Dose: Not Given Documented by: Sodium Chloride (Normal Saline) 2,500 mls @ 2,500 mls/hr IV BOLUS ONE; Protocol Stop: 07/02/20 22:03 Last Admin: 07/02/20 22:12 Dose: 2,500 mls/hr Documented by: Ceftriaxone Sodium/Dextrose (Rocephin In Dextrose,Iso-Osm 1 Gm/50 Ml) Confirm Administered Dose 50 mls @ as directed .ROUTE .STK-MED ONE Stop: 07/02/20 21:40 Last Admin: 07/02/20 21:55 Dose: Not Given Documented by: Ceftriaxone Sodium/Dextrose 1 (gm/ Premix) 50 mls @ 100 mls/hr IV ONETIME ONE Stop: 07/02/20 22:11 Last Admin: 07/02/20 22:13 Dose: 100 mls/hr Documented by: Sodium Chloride (Normal Saline) 1,000 mls @ 125 mls/hr IV ASDIRECTED [facility] Sodium Chloride (Normal Saline) 1,000 mls @ 150 mls/hr IV ASDIRECTED [facility] Last Admin: 07/06/20 14:50 Dose: 150 mls/hr Documented by: Sodium Chloride (Normal Saline) 1,000 mls @ 999 mls/hr IV .Bolus ONE Stop: 07/03/20 14:17 Last Admin: 07/03/20 16:04 Dose: 999 mls/hr Documented by: Ceftriaxone Sodium/Dextrose 1 (gm/ Premix) 50 mls @ 100 mls/hr IV Q24H [facility] Last Admin: 07/07/20 03:14 Dose: 100 mls/hr Documented by: Sodium Chloride (Normal Saline) 1,000 mls @ 999 mls/hr IV .Bolus ONE Stop: 07/05/20 10:37 Last Admin: 07/05/20 22:07 Dose: Not Given Documented by: Sodium Chloride (Normal Saline) 1,000 mls @ 999 mls/hr IV .Bolus ONE Stop: 07/05/20 10:57 Last Admin: 07/05/20 10:11 Dose: 999 mls/hr Documented by: Sodium Chloride (Normal Saline) 1,000 mls @ 75 mls/hr IV ASDIRECTED [facility] Last Admin: 07/09/20 03:32 Dose: 75 mls/hr Documented by: Lactated Ringer's (Ringers, Lactated) 500 mls @ 999 mls/hr IV .BOLUS ONE Stop: 07/07/20 03:09 Last Admin: 07/07/20 02:50 Dose: 999 mls/hr Documented by: Magnesium Sulfate (Magnesium Sulfate In Water Premix) 100 mls @ 50 mls/hr IV ONETIME ONE Stop: 07/07/20 05:59 Last Admin: 07/07/20 04:00 Dose: 50 mls/hr Documented by: Lactated Ringer's (Ringers, Lactated) 500 mls @ 999 mls/hr IV BOLUS ARI Stop: 07/07/20 07:31 Last Admin: 07/07/20 07:20 Dose: 999 mls/hr Documented by: Sodium Chloride (Normal Saline) 500 mls @ 999 mls/hr IV .BOLUS ONE Stop: 07/07/20 19:00 Last Admin: 07/07/20 18:30 Dose: 999 mls/hr Documented by: Magnesium Sulfate (Magnesium Sulfate In Water Premix) 2 gm in 50 mls @ 50 mls/hr IV ONETIME ONE Stop: 07/08/20 10:59 Last Admin: 07/08/20 10:57 Dose: 50 mls/hr Documented by: Magnesium Sulfate (Magnesium Sulfate In Water Premix) 2 gm in 50 mls @ 50 mls/hr IV ONETIME ONE Stop: 07/09/20 10:59 Last Admin: 07/09/20 10:58 Dose: 50 mls/hr Documented by: Piperacillin Sod/Tazobactam (Sod 3.375 gm/ Sodium Chloride) 50 mls @ 100 mls/hr IV Q8H [facility] Last Admin: 07/10/20 06:37 Dose: 100 mls/hr Documented by: Lactated Ringer's (Ringers, Lactated) 500 mls @ 999 mls/hr IV .BOLUS ONE Stop: 07/10/20 01:42 Last Admin: 07/10/20 01:27 Dose: 999 mls/hr Documented by: Lactated Ringer's (Ringers, Lactated) 1,000 mls @ 100 mls/hr IV ASDIRECTED [facility] Last Admin: 07/15/20 05:15 Dose: 100 mls/hr Documented by: Piperacillin Sod/Tazobactam (Sod 3.375 gm/ Sodium Chloride) 50 mls @ 100 mls/hr IV Q6H [facility] Levofloxacin/Dextrose 750 mg/ (Premix) 150 mls @ 100 mls/hr IV Q24H [facility] Last Admin: 07/13/20 10:12 Dose: 100 mls/hr Documented by: Magnesium Sulfate (Magnesium Sulfate In Water Premix) 2 gm in 50 mls @ 50 mls/hr IV ONETIME ONE Stop: 07/11/20 09:59 Last Admin: 07/11/20 08:58 Dose: 50 mls/hr Documented by: Lactated Ringer's (Ringers, Lactated) 1,000 mls @ 999 mls/hr IV .BOLUS ONE Stop: 07/11/20 13:09 Last Admin: 07/11/20 12:42 Dose: 999 mls/hr Documented by: Magnesium Sulfate (Magnesium Sulfate In Water Premix) 2 gm in 50 mls @ 50 mls/hr IV ONETIME ONE Stop: 07/12/20 09:14 Last Admin: 07/12/20 08:30 Dose: 50 mls/hr Documented by: Sodium Chloride (Normal Saline) 500 mls @ 999 mls/hr IV .BOLUS ARI Sodium Chloride (Normal Saline) 1,000 mls @ 125 mls/hr IV ONETIME ONE Stop: 07/19/20 15:51 Last Admin: 07/19/20 08:20 Dose: 125 mls/hr Documented by: Magnesium Sulfate (Magnesium Sulfate In Water Premix) 2 gm in 50 mls @ 50 mls/hr IV ONETIME ONE Stop: 07/20/20 09:14 Last Admin: 07/20/20 09:06 Dose: 50 mls/hr Documented by: Sodium Chloride (Normal Saline) 1,000 mls @ 125 mls/hr IV Q8H [facility] Stop: 07/20/20 17:29 Last Admin: 07/20/20 10:37 Dose: 125 mls/hr Documented by: Influenza Virus Vaccine (Fluzone Quad Syringe) 60 mcg IM .ONCE ONE Stop: 07/16/20 13:01 Last Admin: 07/17/20 11:24 Dose: 60 mcg Documented by: Iopamidol (Isovue Multipack-370 (76%)) 100 ml IVPUSH ONETIME STA Stop: 07/10/20 13:03 Last Admin: 07/10/20 13:05 Dose: 100 ml Documented by: Lidocaine HCl (Lidocaine 5%) 0 gm TOP Q6HR PRN PRN Reason: Pain Last Admin: 07/09/20 13:07 Dose: 1 applic Documented by: Lorazepam (Ativan) Confirm Administered Dose 2 mg .ROUTE .STK-MED ONE Stop: 07/03/20 00:30 Last Admin: 07/03/20 00:37 Dose: Not Given Documented by: Lorazepam (Ativan) 1 mg IVPUSH NOW STA Stop: 07/03/20 00:37 Last Admin: 07/03/20 00:38 Dose: 1 mg Documented by: Lorazepam (Ativan) 1 mg IVPUSH ONETIME ONE Stop: 07/03/20 00:48 Last Admin: 07/03/20 00:50 Dose: 1 mg Documented by: Lorazepam (Ativan) 1 mg IVPUSH Q6H PRN PRN Reason: Agitation Lorazepam (Ativan) 2 mg IVPUSH ONETIME ONE Stop: 07/09/20 22:41 Last Admin: 07/09/20 22:55 Dose: 2 mg Documented by: Lorazepam (Ativan) 2 mg IVPUSH ONETIME ONE Stop: 07/10/20 22:26 Last Admin: 07/10/20 22:37 Dose: 2 mg Documented by: Magnesium Sulfate (Magnesium Sulfate In Water Premix) 2 gm IV ONETIME ONE Stop: 07/11/20 08:04 Last Admin: 07/11/20 09:11 Dose: Not Given Documented by: Pneumococcal Polyvalent Vaccine (Pneumovax 23) 25 mcg IM .ONCE ONE Stop: 07/16/20 11:57 Last Admin: 07/17/20 13:17 Dose: 25 mcg Documented by: Potassium Chloride (Klor-Con M20) 40 meq PO ONETIME ONE Stop: 07/05/20 15:58 Last Admin: 07/05/20 16:14 Dose: 40 meq Documented by: Potassium Chloride (Klor-Con M20) 40 meq PO ONETIME ONE Stop: 07/07/20 03:42 Last Admin: 07/07/20 03:59 Dose: 40 meq Documented by: Potassium Chloride (Klor-Con M20) 40 meq PO ONETIME ONE Stop: 07/09/20 09:47 Last Admin: 07/09/20 10:58 Dose: 40 meq Documented by: Sterile Water (Sterile Water For Injection) 1.2 ml INJECT ONETIME ONE Stop: 07/03/20 00:59 Last Admin: 07/03/20 01:22 Dose: 1.2 ml Documented by: Ziprasidone (Kerri) 10 mg IM ONETIME ONE Stop: 07/03/20 00:59 Last Admin: 07/03/20 01:04 Dose: 10 mg Documented by: Ziprasidone (Kerri) Confirm Administered Dose 20 mg .ROUTE .STK-MED ONE Stop: 07/03/20 00:59 Last Admin: 07/03/20 01:15 Dose: Not Given Documented by: - Exam General: Alert, Oriented, Cooperative Neck: Supple, Trachea Midline Lungs: Clear to Auscultation, Normal Respiratory Effort Cardiovascular: Regular Rate, Regular Rhythm GI/Abdominal Exam: Normal Bowel Sounds, Soft, Non-Tender Sepsis Event Note - Evaluation Sepsis Screening Result: No Definite Risk - Focused Exam Vital Signs: Vital Signs Temp Pulse Resp BP BP Pulse Ox Pulse Ox 07/21/20 07:00 36.1 C 98 16 127/71 95 07/21/20 03:00 36.4 C 103 H 18 123/55 L 94 L 07/21/20 02:00 98 - Problem List & Annotations (1) Bladder outlet obstruction SNOMED Code(s): 071494416 Code(s): N32.0 - BLADDER-NECK OBSTRUCTION Status: Acute Current Visit: Yes (2) Prostatitis SNOMED Code(s): 8040715 Code(s): N41.9 - INFLAMMATORY DISEASE OF PROSTATE, UNSPECIFIED Status: Acute Current Visit: Yes Qualifiers: Prostatitis type: acute Qualified Code(s): N41.0 - Acute prostatitis (3) Frequent falls SNOMED Code(s): 882224250 Code(s): R29.6 - REPEATED FALLS Status: Acute Current Visit: No (4) Leukocytosis SNOMED Code(s): 495436560, 070229044 Code(s): D72.829 - ELEVATED WHITE BLOOD CELL COUNT, UNSPECIFIED Status: Acute Current Visit: No Qualifiers: Leukocytosis type: unspecified Qualified Code(s): D72.829 - Elevated white blood cell count, unspecified (5) HTN (hypertension) SNOMED Code(s): 10323880 Code(s): I10 - ESSENTIAL (PRIMARY) HYPERTENSION Status: Chronic Current Visit: No (6) Schizophrenia SNOMED Code(s): 50863814 Code(s): F20.9 - SCHIZOPHRENIA, UNSPECIFIED Status: Chronic Current Visit: No - Problem List Review Problem List Initiated/Reviewed/Updated: Yes - Plan Plan:: 64 yo male admitted for acute renal failure and metabolic encephalopathy 1. Schizophrenia- stable - continue Haldol - Increase Cogentin to 1 mg BID for EPS symptoms, monitor - Discussed EPS with Dr Munoz, agrees with Cogentin as other Parkinsonian medications would not have good side effects for him. 2. Bladder outlet obstruction/prostatitis - Lambert in place - Follow up with urology - Levaquin 750mg for prostatitis - Increased leukocytosis resolved with hydration. CXR and UA negative. could be related to dehydration from insensible loss, sweating and tremors 3. Dystonia/agitation: - Ativan prn 4. Self care deficit - PT/OT to evaluate and treat - Will need skilled care - SNF placement - Case management and social work involved 5. Cher rash to buttocks - Much improved - CHU skin scrapings showed hyphae - Nystatin cream started. - had Diflucan x 1 dose 07/19 - Keep dry and no brief on to help allow air flow. VTE prophylaxis: Heparin Dispo: pending placement
[2020-07-21] MEDS ORDERED: Lactated Ringers 1,000 ML IV ONE ×2 (11:40→15:33)
[2020-07-21] MEDS: Levofloxacin 500 MG Tab PO SCH (11:52)
[2020-07-21] MEDS: Enoxaparin 40 MG/0.4 ML Syringe SUBCUT SCH (13:15)
[2020-07-21] MEDS ORDERED: Vancomycin 1.25 GM SDV ONE (15:00)
[2020-07-21] MEDS ORDERED: Piperacillin/Tazobactam 4.5 GM AdvVial ONE (15:00)
--- NOTE | 2020-07-21 16:21 | PCM.SN.2 ---
- Free Text/Narrative Note: nurse notified of low bp and tachycardia, sepsis protocol initiated IV fluid bolus check lactic acid start broad spectrum antibiotics blood cultures obtain CXR, UA Frequent vitals will continue to monitor closely
--- NOTE | 2020-07-21 18:19 | CR ---
INDICATION: Sepsis TECHNIQUE: Single view chest. FINDINGS: The lungs are clear. The heart, mediastinum and pulmonary vessels are of normal size. There is no evidence of pleural disease. IMPRESSION: Negative chest. Dictated by Shanice Benson MD @ Jul 21 2020 6:18PM Signed by Dr. Shanice Benson @ Jul 21 2020 6:18PM
[2020-07-21] MEDS: Haloperidol 5 MG Tab PO SCH (20:36)
[2020-07-21] MEDS: Melatonin 3 MG Tab PO SCH (20:36)
[2020-07-21] MEDS: Piperacillin/Tazobactam 4.5 GM in Sodium Chloride 0.9% 100 ML IV SCH (23:08)
[2020-07-22] MEDS: Lactated Ringers 1,000 ML IV SCH ×3 (01:41→21:16)
[2020-07-22 06:26] LABS: BLOOD UREA NITROGEN,BUN 8 mg/dL (7.0-18.0); CARBON DIOXIDE,CO2 28.9 mmol/L (21.0-32.0); CHLORIDE,CL 105 mmol/L (98-107); GLUCOSE RANDOM 101 mg/dL (74-106); POTASSIUM,K 3.7 mmol/L (3.5-5.1); SODIUM,NA 139 mmol/L (136-148)
[2020-07-22] MEDS: Piperacillin/Tazobactam 4.5 GM in Sodium Chloride 0.9% 100 ML IV SCH ×3 (06:27→23:48)
[2020-07-22] MEDS: Benztropine 1 MG Tab PO SCH ×2 (09:33→20:25)
[2020-07-22] MEDS ORDERED: Magnesium Sulfate/Water 4 GM in Premix Bag 1 BAG IV ONE (10:09)
--- NOTE | 2020-07-22 12:48 | PCM.PN ---
- General Info Date of Service: 07/22/20 Admission Dx/Problem (Free Text): Admission Diagnosis/Problem Admission Diagnosis/Problem Metabolic encephalopathy Subjective Update: No chest pain or SOB. No other concerns, SIRS has resolved this AM but continues to be intermittently hypotensive, responsive to fluids Functional Status: Reports: Tolerating Diet, Urinating - Review of Systems General: Reports: Weakness. Denies: Fever, Fatigue, Malaise Pulmonary: Denies: Shortness of Breath, Pleuritic Chest Pain Cardiovascular: Denies: Chest Pain, Palpitations Gastrointestinal: Denies: Abdominal Pain, Constipation, Decreased Appetite Genitourinary: Reports: Frequency. Denies: Dysuria, Burning, Pain Musculoskeletal: Denies: Neck Pain, Shoulder Pain, Arm Pain, Hand Pain Skin: Reports: Pruritis, Rash (buttocks ( improving)). Denies: Cyanosis, Jaundice, Mottled, Pallor - Patient Data Vitals - Most Recent: Last Vital Signs Temp 36.7 C 07/22/20 08:00 Pulse 80 07/22/20 08:00 Resp 16 07/22/20 08:00 BP 110/61 07/22/20 08:00 Pulse Ox 91 L 07/22/20 08:00 Weight - Most Recent: 83.915 kg I&O - Last 24 Hours: Intake & Output 07/21/20 07/22/20 07/22/20 22:59 06:59 14:59 Intake Total 1970 2000 100 Output Total 1400 1450 Balance 570 550 100 Lab Results Last 24 Hours: Laboratory Results - last 24 hr 07/21/20 07/21/20 07/22/20 Range/Units 17:19 19:00 05:45 WBC 8.41 (4.0-11.0) K/uL RBC 3.49 L (4.50-5.90) M/uL Hgb 9.2 L (13.0-17.0) g/dL Hct 30.8 L (38.0-50.0) % MCV 88.3 (80.0-98.0) fL MCH 26.4 L (27.0-32.0) pg MCHC 29.9 L (31.0-37.0) g/dL RDW Std Deviation 50.6 (28.0-62.0) fl RDW Coeff of Dorothea 16 H (11.0-15.0) % Plt Count 305 (150-400) K/uL MPV 8.30 (7.40-12.00) fL Neut % (Auto) 65.6 (48.0-80.0) % Lymph % (Auto) 20.2 (16.0-40.0) % [place] % (Auto) 12.7 (0.0-15.0) % Eos % (Auto) 1.4 (0.0-7.0) % Baso % (Auto) 0.1 (0.0-1.5) % Neut # (Auto) 5.5 (1.4-5.7) K/uL Lymph # (Auto) 1.7 (0.6-2.4) K/uL [place] # (Auto) 1.1 H (0.0-0.8) K/uL Eos # (Auto) 0.1 (0.0-0.7) K/uL Baso # (Auto) 0.0 (0.0-0.1) K/uL Nucleated RBC % 0.0 /100WBC Nucleated RBCs # 0 K/uL Lactate 1.0 (0.20-2.00) mmol/L Sodium (136-148) mmol/L Potassium (3.5-5.1) mmol/L Chloride (98-107) mmol/L Carbon Dioxide (21.0-32.0) mmol/L BUN (7.0-18.0) mg/dL Creatinine (0.8-1.3) mg/dL Est Cr Clr Drug Dosing mL/min Estimated GFR (MDRD) ml/min Glucose (74-106) mg/dL Calcium (8.5-10.1) mg/dL Magnesium (1.8-2.4) mg/dL Urine Color YELLOW Urine Appearance CLEAR Urine pH 8.0 (5.0-8.0) Ur Specific [place] 1.020 (1.001-1.035) Urine Protein NEGATIVE (NEGATIVE) mg/dL Urine Glucose (UA) NEGATIVE (NEGATIVE) mg/dL Urine Ketones NEGATIVE (NEGATIVE) mg/dL Urine Occult Blood NEGATIVE (NEGATIVE) Urine Nitrite NEGATIVE (NEGATIVE) Urine Bilirubin NEGATIVE (NEGATIVE) Urine Urobilinogen 0.2 (<2.0) EU/dL Ur Leukocyte Esterase NEGATIVE (NEGATIVE) 07/22/20 Range/Units 05:45 WBC (4.0-11.0) K/uL RBC (4.50-5.90) M/uL Hgb (13.0-17.0) g/dL Hct (38.0-50.0) % MCV (80.0-98.0) fL MCH (27.0-32.0) pg MCHC (31.0-37.0) g/dL RDW Std Deviation (28.0-62.0) fl RDW Coeff of Dorothea (11.0-15.0) % Plt Count (150-400) K/uL MPV (7.40-12.00) fL Neut % (Auto) (48.0-80.0) % Lymph % (Auto) (16.0-40.0) % [place] % (Auto) (0.0-15.0) % Eos % (Auto) (0.0-7.0) % Baso % (Auto) (0.0-1.5) % Neut # (Auto) (1.4-5.7) K/uL Lymph # (Auto) (0.6-2.4) K/uL [place] # (Auto) (0.0-0.8) K/uL Eos # (Auto) (0.0-0.7) K/uL Baso # (Auto) (0.0-0.1) K/uL Nucleated RBC % /100WBC Nucleated RBCs # K/uL Lactate (0.20-2.00) mmol/L Sodium 139 (136-148) mmol/L Potassium 3.7 (3.5-5.1) mmol/L Chloride 105 (98-107) mmol/L Carbon Dioxide 28.9 (21.0-32.0) mmol/L BUN 8 (7.0-18.0) mg/dL Creatinine 0.9 (0.8-1.3) mg/dL Est Cr Clr Drug Dosing 75.30 mL/min Estimated GFR (MDRD) > 60.0 ml/min Glucose 101 (74-106) mg/dL Calcium 8.5 (8.5-10.1) mg/dL Magnesium 1.5 L (1.8-2.4) mg/dL Urine Color Urine Appearance Urine pH (5.0-8.0) Ur Specific [place] (1.001-1.035) Urine Protein (NEGATIVE) mg/dL Urine Glucose (UA) (NEGATIVE) mg/dL Urine Ketones (NEGATIVE) mg/dL Urine Occult Blood (NEGATIVE) Urine Nitrite (NEGATIVE) Urine Bilirubin (NEGATIVE) Urine Urobilinogen (<2.0) EU/dL Ur Leukocyte Esterase (NEGATIVE) Inocencio Results Last 24 Hours: Microbiology 07/21/20 16:42 Anaerobic Blood Culture - Final Blood - Venous Med Orders - Current: Current Medications Acetaminophen (Tylenol) 650 mg PO Q4H PRN PRN Reason: Pain Last Admin: 07/20/20 01:56 Dose: 650 mg Documented by: Benztropine Mesylate (Cogentin) 1 mg PO BID [facility] Last Admin: 07/22/20 09:33 Dose: 1 mg Documented by: Enoxaparin Sodium (Lovenox) 40 mg SUBCUT Q24H [facility] Last Admin: 07/21/20 13:15 Dose: 40 mg Documented by: Haloperidol (Haldol) 5 mg PO BEDTIME [facility] Last Admin: 07/21/20 20:36 Dose: 5 mg Documented by: Piperacillin Sod/Tazobactam (Sod 4.5 gm/ Sodium Chloride) 100 mls @ 200 mls/hr IV Q8H [facility] Last Admin: 07/22/20 06:27 Dose: 200 mls/hr Documented by: Vancomycin HCl 1.25 gm/ Sodium (Chloride) 250 mls @ 250 mls/hr IV Q12H [facility] Last Admin: 07/22/20 03:30 Dose: 250 mls/hr Documented by: Lactated Ringer's (Ringers, Lactated) 1,000 mls @ 125 mls/hr IV ASDIRECTED [facility] Last Admin: 07/22/20 09:31 Dose: 125 mls/hr Documented by: Magnesium Sulfate 4 gm/ Premix 100 mls @ 33.333 mls/hr IV ONETIME ONE Stop: 07/22/20 13:08 Last Admin: 07/22/20 10:34 Dose: 33.333 mls/hr Documented by: Lorazepam (Ativan) 1 mg IVPUSH Q3H PRN PRN Reason: Agitation Last Admin: 07/18/20 17:55 Dose: 1 mg Documented by: Melatonin (Melatonin) 3 mg PO BEDTIME [facility] Last Admin: 07/21/20 20:36 Dose: 3 mg Documented by: Nystatin/Triamcinolone Acetonide (Mycolog Crm) 0 gm TOP BID [facility] Last Admin: 07/22/20 09:36 Dose: 1 applic Documented by: Sodium Chloride (Saline Flush) 10 ml FLUSH ASDIRECTED PRN PRN Reason: Keep Vein Open Sodium Chloride (Saline Flush) 2.5 ml FLUSH ASDIRECTED PRN PRN Reason: Keep Vein Open Discontinued Medications Benztropine Mesylate (Cogentin) 2 mg IM ONETIME ONE Stop: 07/02/20 21:08 Last Admin: 07/02/20 22:48 Dose: Not Given Documented by: Benztropine Mesylate (Cogentin) 2 mg PO ONETIME ONE Stop: 07/02/20 21:55 Last Admin: 07/02/20 22:13 Dose: 2 mg Documented by: Benztropine Mesylate (Cogentin) 1 mg PO BEDTIME [facility] Last Admin: 07/19/20 20:54 Dose: 1 mg Documented by: Diltiazem HCl (Diltiazem) 20 mg IVPUSH ONETIME ONE Stop: 07/07/20 02:41 Last Admin: 07/07/20 04:35 Dose: Not Given Documented by: Fluconazole (Diflucan) 150 mg PO ONETIME ONE Stop: 07/19/20 10:31 Last Admin: 07/19/20 11:48 Dose: 150 mg Documented by: Haloperidol (Haldol) 5 mg PO BEDTIME [facility] Last Admin: 07/08/20 20:21 Dose: 5 mg Documented by: Haloperidol (Haldol) 10 mg PO BEDTIME [facility] Last Admin: 07/09/20 20:08 Dose: 10 mg Documented by: Ceftriaxone Sodium 1 gm/ (Sodium Chloride) 100 mls @ 200 mls/hr IV STAT ONE Stop: 07/02/20 21:33 Last Admin: 07/02/20 22:14 Dose: Not Given Documented by: Sodium Chloride (Normal Saline) 2,500 mls @ 2,500 mls/hr IV BOLUS ONE; Protocol Stop: 07/02/20 22:03 Last Admin: 07/02/20 22:12 Dose: 2,500 mls/hr Documented by: Ceftriaxone Sodium/Dextrose (Rocephin In Dextrose,Iso-Osm 1 Gm/50 Ml) Confirm Administered Dose 50 mls @ as directed .ROUTE .STK-MED ONE Stop: 07/02/20 21:40 Last Admin: 07/02/20 21:55 Dose: Not Given Documented by: Ceftriaxone Sodium/Dextrose 1 (gm/ Premix) 50 mls @ 100 mls/hr IV ONETIME ONE Stop: 07/02/20 22:11 Last Admin: 07/02/20 22:13 Dose: 100 mls/hr Documented by: Sodium Chloride (Normal Saline) 1,000 mls @ 125 mls/hr IV ASDIRECTED [facility] Sodium Chloride (Normal Saline) 1,000 mls @ 150 mls/hr IV ASDIRECTED [facility] Last Admin: 07/06/20 14:50 Dose: 150 mls/hr Documented by: Sodium Chloride (Normal Saline) 1,000 mls @ 999 mls/hr IV .Bolus ONE Stop: 07/03/20 14:17 Last Admin: 07/03/20 16:04 Dose: 999 mls/hr Documented by: Ceftriaxone Sodium/Dextrose 1 (gm/ Premix) 50 mls @ 100 mls/hr IV Q24H [facility] Last Admin: 07/07/20 03:14 Dose: 100 mls/hr Documented by: Sodium Chloride (Normal Saline) 1,000 mls @ 999 mls/hr IV .Bolus ONE Stop: 07/05/20 10:37 Last Admin: 07/05/20 22:07 Dose: Not Given Documented by: Sodium Chloride (Normal Saline) 1,000 mls @ 999 mls/hr IV .Bolus ONE Stop: 07/05/20 10:57 Last Admin: 07/05/20 10:11 Dose: 999 mls/hr Documented by: Sodium Chloride (Normal Saline) 1,000 mls @ 75 mls/hr IV ASDIRECTED [facility] Last Admin: 07/09/20 03:32 Dose: 75 mls/hr Documented by: Lactated Ringer's (Ringers, Lactated) 500 mls @ 999 mls/hr IV .BOLUS ONE Stop: 07/07/20 03:09 Last Admin: 07/07/20 02:50 Dose: 999 mls/hr Documented by: Magnesium Sulfate (Magnesium Sulfate In Water Premix) 100 mls @ 50 mls/hr IV ONETIME ONE Stop: 07/07/20 05:59 Last Admin: 07/07/20 04:00 Dose: 50 mls/hr Documented by: Lactated Ringer's (Ringers, Lactated) 500 mls @ 999 mls/hr IV BOLUS ARI Stop: 07/07/20 07:31 Last Admin: 07/07/20 07:20 Dose: 999 mls/hr Documented by: Sodium Chloride (Normal Saline) 500 mls @ 999 mls/hr IV .BOLUS ONE Stop: 07/07/20 19:00 Last Admin: 07/07/20 18:30 Dose: 999 mls/hr Documented by: Magnesium Sulfate (Magnesium Sulfate In Water Premix) 2 gm in 50 mls @ 50 mls/hr IV ONETIME ONE Stop: 07/08/20 10:59 Last Admin: 07/08/20 10:57 Dose: 50 mls/hr Documented by: Magnesium Sulfate (Magnesium Sulfate In Water Premix) 2 gm in 50 mls @ 50 mls/hr IV ONETIME ONE Stop: 07/09/20 10:59 Last Admin: 07/09/20 10:58 Dose: 50 mls/hr Documented by: Piperacillin Sod/Tazobactam (Sod 3.375 gm/ Sodium Chloride) 50 mls @ 100 mls/hr IV Q8H [facility] Last Admin: 07/10/20 06:37 Dose: 100 mls/hr Documented by: Lactated Ringer's (Ringers, Lactated) 500 mls @ 999 mls/hr IV .BOLUS ONE Stop: 07/10/20 01:42 Last Admin: 07/10/20 01:27 Dose: 999 mls/hr Documented by: Lactated Ringer's (Ringers, Lactated) 1,000 mls @ 100 mls/hr IV ASDIRECTED [facility] Last Admin: 07/15/20 05:15 Dose: 100 mls/hr Documented by: Piperacillin Sod/Tazobactam (Sod 3.375 gm/ Sodium Chloride) 50 mls @ 100 mls/hr IV Q6H [facility] Levofloxacin/Dextrose 750 mg/ (Premix) 150 mls @ 100 mls/hr IV Q24H [facility] Last Admin: 07/13/20 10:12 Dose: 100 mls/hr Documented by: Magnesium Sulfate (Magnesium Sulfate In Water Premix) 2 gm in 50 mls @ 50 mls/hr IV ONETIME ONE Stop: 07/11/20 09:59 Last Admin: 07/11/20 08:58 Dose: 50 mls/hr Documented by: Lactated Ringer's (Ringers, Lactated) 1,000 mls @ 999 mls/hr IV .BOLUS ONE Stop: 07/11/20 13:09 Last Admin: 07/11/20 12:42 Dose: 999 mls/hr Documented by: Magnesium Sulfate (Magnesium Sulfate In Water Premix) 2 gm in 50 mls @ 50 mls/hr IV ONETIME ONE Stop: 07/12/20 09:14 Last Admin: 07/12/20 08:30 Dose: 50 mls/hr Documented by: Sodium Chloride (Normal Saline) 500 mls @ 999 mls/hr IV .BOLUS ARI Sodium Chloride (Normal Saline) 1,000 mls @ 125 mls/hr IV ONETIME ONE Stop: 07/19/20 15:51 Last Admin: 07/19/20 08:20 Dose: 125 mls/hr Documented by: Magnesium Sulfate (Magnesium Sulfate In Water Premix) 2 gm in 50 mls @ 50 mls/hr IV ONETIME ONE Stop: 07/20/20 09:14 Last Admin: 07/20/20 09:06 Dose: 50 mls/hr Documented by: Sodium Chloride (Normal Saline) 1,000 mls @ 125 mls/hr IV Q8H [facility] Stop: 07/20/20 17:29 Last Admin: 07/20/20 10:37 Dose: 125 mls/hr Documented by: Lactated Ringer's (Ringers, Lactated) 1,000 mls @ 999 mls/hr IV .BOLUS ONE Stop: 07/21/20 12:40 Last Admin: 07/21/20 11:40 Dose: 999 mls/hr Documented by: Lactated Ringer's (Ringers, Lactated) 1,000 mls @ 999 mls/hr IV .BOLUS ONE Stop: 07/21/20 16:33 Last Admin: 07/21/20 15:42 Dose: 999 mls/hr Documented by: Influenza Virus Vaccine (Fluzone Quad [id number] Syringe) 60 mcg IM .ONCE ONE Stop: 07/16/20 13:01 Last Admin: 07/17/20 11:24 Dose: 60 mcg Documented by: Iopamidol (Isovue Multipack-370 (76%)) 100 ml IVPUSH ONETIME STA Stop: 07/10/20 13:03 Last Admin: 07/10/20 13:05 Dose: 100 ml Documented by: Levofloxacin (Levaquin) 750 mg PO Q24H [facility] Last Admin: 07/21/20 11:52 Dose: 750 mg Documented by: Lidocaine HCl (Lidocaine 5%) 0 gm TOP Q6HR PRN PRN Reason: Pain Last Admin: 07/09/20 13:07 Dose: 1 applic Documented by: Lorazepam (Ativan) Confirm Administered Dose 2 mg .ROUTE .STK-MED ONE Stop: 07/03/20 00:30 Last Admin: 07/03/20 00:37 Dose: Not Given Documented by: Lorazepam (Ativan) 1 mg IVPUSH NOW STA Stop: 07/03/20 00:37 Last Admin: 07/03/20 00:38 Dose: 1 mg Documented by: Lorazepam (Ativan) 1 mg IVPUSH ONETIME ONE Stop: 07/03/20 00:48 Last Admin: 07/03/20 00:50 Dose: 1 mg Documented by: Lorazepam (Ativan) 1 mg IVPUSH Q6H PRN PRN Reason: Agitation Lorazepam (Ativan) 2 mg IVPUSH ONETIME ONE Stop: 07/09/20 22:41 Last Admin: 07/09/20 22:55 Dose: 2 mg Documented by: Lorazepam (Ativan) 2 mg IVPUSH ONETIME ONE Stop: 07/10/20 22:26 Last Admin: 07/10/20 22:37 Dose: 2 mg Documented by: Magnesium Sulfate (Magnesium Sulfate In Water Premix) 2 gm IV ONETIME ONE Stop: 07/11/20 08:04 Last Admin: 07/11/20 09:11 Dose: Not Given Documented by: Piperacillin Sod/Tazobactam Sod (Piperacil-Tazobact) 4.5 gm .ROUTE .STK-MED ONE Stop: 07/21/20 15:01 Pneumococcal Polyvalent Vaccine (Pneumovax 23) 25 mcg IM .ONCE ONE Stop: 07/16/20 11:57 Last Admin: 07/17/20 13:17 Dose: 25 mcg Documented by: Potassium Chloride (Klor-Con M20) 40 meq PO ONETIME ONE Stop: 07/05/20 15:58 Last Admin: 07/05/20 16:14 Dose: 40 meq Documented by: Potassium Chloride (Klor-Con M20) 40 meq PO ONETIME ONE Stop: 07/07/20 03:42 Last Admin: 07/07/20 03:59 Dose: 40 meq Documented by: Potassium Chloride (Klor-Con M20) 40 meq PO ONETIME ONE Stop: 07/09/20 09:47 Last Admin: 07/09/20 10:58 Dose: 40 meq Documented by: Propranolol HCl (Inderal La) 60 mg PO DAILY ARI Last Admin: 07/21/20 09:55 Dose: 60 mg Documented by: Sterile Water (Sterile Water For Injection) 1.2 ml INJECT ONETIME ONE Stop: 07/03/20 00:59 Last Admin: 07/03/20 01:22 Dose: 1.2 ml Documented by: Vancomycin HCl (Vancomycin) 1.25 gm .ROUTE .STK-MED ONE Stop: 07/21/20 15:01 Ziprasidone (Geodon) 10 mg IM ONETIME ONE Stop: 07/03/20 00:59 Last Admin: 07/03/20 01:04 Dose: 10 mg Documented by: Ziprasidone (Geodon) Confirm Administered Dose 20 mg .ROUTE .STK-MED ONE Stop: 07/03/20 00:59 Last Admin: 07/03/20 01:15 Dose: Not Given Documented by: - Exam General: Alert, Oriented, Cooperative Lungs: Clear to Auscultation, Normal Respiratory Effort Cardiovascular: Regular Rate, Regular Rhythm GI/Abdominal Exam: Normal Bowel Sounds, Soft, Non-Tender Sepsis Event Note - Evaluation Sepsis Screening Result: No Definite Risk - Focused Exam Vital Signs: Vital Signs Temp Pulse Resp BP Pulse Ox 07/22/20 08:00 36.7 C 80 16 110/61 91 L 07/22/20 03:37 36.6 C 79 17 107/59 L 96 - Problem List & Annotations (1) Bladder outlet obstruction SNOMED Code(s): 545846961 Code(s): N32.0 - BLADDER-NECK OBSTRUCTION Status: Acute Current Visit: Yes (2) Prostatitis SNOMED Code(s): 5398516 Code(s): N41.9 - INFLAMMATORY DISEASE OF PROSTATE, UNSPECIFIED Status: Acute Current Visit: Yes Qualifiers: Prostatitis type: acute Qualified Code(s): N41.0 - Acute prostatitis (3) Frequent falls SNOMED Code(s): 221057092 Code(s): R29.6 - REPEATED FALLS Status: Acute Current Visit: No (4) Leukocytosis SNOMED Code(s): 615183526, 064801105 Code(s): D72.829 - ELEVATED WHITE BLOOD CELL COUNT, UNSPECIFIED Status: Acute Current Visit: No Qualifiers: Leukocytosis type: unspecified Qualified Code(s): D72.829 - Elevated white blood cell count, unspecified (5) HTN (hypertension) SNOMED Code(s): 13120727 Code(s): I10 - ESSENTIAL (PRIMARY) HYPERTENSION Status: Chronic Current Visit: No (6) Schizophrenia SNOMED Code(s): 01556065 Code(s): F20.9 - SCHIZOPHRENIA, UNSPECIFIED Status: Chronic Current Visit: No - Problem List Review Problem List Initiated/Reviewed/Updated: Yes - My Orders Last 24 Hours: My Active Orders 07/21/20 13:20 Lactated Ringers [Ringers, Lactated] 1,000 ml IV ASDIRECTED 07/21/20 15:35 Blood Culture x2 Reflex Set [OM.PC] Stat 07/21/20 16:42 CULTURE BLOOD [BC] Stat 07/21/20 16:52 CULTURE BLOOD [BC] Stat 07/21/20 23:00 Piperacillin/Tazobactam [Piperacil-Tazobact] 4.5 gm Sodium Chloride 0.9% [Normal Saline] 100 ml IV Q8H 07/22/20 10:09 Magnesium Sulfate/Water [Magnesium Sulfate in Water Premix] 4 gm Premix Bag 1 bag IV ONETIME 07/23/20 02:30 VANCOMYCIN TROUGH [CHEM] Routine - Plan Plan:: 64 yo male admitted for acute renal failure and metabolic encephalopathy 1) SIRS: resolved, cont IV antibiotics F/U on blood cultures No evident source of infection as of now CXR and UA negative. could be related to dehydration from insensible loss, sweating and tremors 2. Schizophrenia- stable - continue Haldol - Increase Cogentin to 1 mg BID for EPS symptoms, monitor - Discussed EPS with Dr Munoz, agrees with Cogentin as other Parkinsonian medications would not have good side effects for him. 2. Bladder outlet obstruction/prostatitis - Lambert in place - Follow up with urology - Levaquin stop, cont broad spectrum antibiotics for now - Increased leukocytosis resolved with hydration and antibiotics. 3. Dystonia/agitation: - Ativan prn 4. Self care deficit - PT/OT to evaluate and treat - Will need skilled care - SNF placement - Case management and social work involved 5. Cher rash to buttocks - Much improved - CHU skin scrapings showed hyphae - Nystatin cream started. - had Diflucan x 1 dose 07/19 - Keep dry and no brief on to help allow air flow. VTE prophylaxis: Heparin Dispo: pending placement
[2020-07-22] MEDS: Enoxaparin 40 MG/0.4 ML Syringe SUBCUT SCH (14:49)
[2020-07-22] MEDS: Haloperidol 5 MG Tab PO SCH (20:26)
[2020-07-22] MEDS: Melatonin 3 MG Tab PO SCH (20:26)
[2020-07-23 05:49] LABS: BLOOD UREA NITROGEN,BUN 7 mg/dL (7.0-18.0); CARBON DIOXIDE,CO2 28.8 mmol/L (21.0-32.0); CHLORIDE,CL 103 mmol/L (98-107); GLUCOSE RANDOM 97 mg/dL (74-106); POTASSIUM,K 3.7 mmol/L (3.5-5.1); SODIUM,NA 139 mmol/L (136-148)
[2020-07-23] MEDS: Piperacillin/Tazobactam 4.5 GM in Sodium Chloride 0.9% 100 ML IV SCH (06:24)
[2020-07-23] MEDS: Lactated Ringers 1,000 ML IV SCH ×2 (08:13→18:14)
--- NOTE | 2020-07-23 08:56 | PCM.PN ---
- General Info Date of Service: 07/23/20 Admission Dx/Problem (Free Text): Admission Diagnosis/Problem Admission Diagnosis/Problem Metabolic encephalopathy Subjective Update: Doing well this morning, sleeping. - Review of Systems General: Reports: No Symptoms. Denies: Fever, Weakness, Fatigue HEENT: Reports: No Symptoms. Denies: Headaches, Sore Throat, Visual Changes Pulmonary: Reports: No Symptoms. Denies: Shortness of Breath Cardiovascular: Denies: Chest Pain Gastrointestinal: Reports: No Symptoms. Denies: Abdominal Pain, Nausea, Vomiting Genitourinary: Reports: No Symptoms Musculoskeletal: Reports: No Symptoms Skin: Reports: No Symptoms Neurological: Reports: No Symptoms Psychiatric: Reports: No Symptoms - Patient Data Vitals - Most Recent: Last Vital Signs Temp 98.2 F 07/23/20 04:00 Pulse 84 07/23/20 04:00 Resp 18 07/23/20 04:00 BP 95/56 L 07/23/20 04:00 Pulse Ox 97 07/23/20 04:00 Weight - Most Recent: 83.915 kg I&O - Last 24 Hours: Intake & Output 07/22/20 07/23/20 07/23/20 22:59 06:59 14:59 Intake Total 1915 Output Total 2600 Balance -685 Lab Results Last 24 Hours: Laboratory Results - last 24 hr 07/23/20 07/23/20 07/23/20 Range/Units 02:30 05:10 05:10 WBC 8.23 (4.0-11.0) K/uL RBC 3.40 L (4.50-5.90) M/uL Hgb 9.1 L (13.0-17.0) g/dL Hct 29.8 L (38.0-50.0) % MCV 87.6 (80.0-98.0) fL MCH 26.8 L (27.0-32.0) pg MCHC 30.5 L (31.0-37.0) g/dL RDW Std Deviation 50.5 (28.0-62.0) fl RDW Coeff of Dorothea 16 H (11.0-15.0) % Plt Count 281 (150-400) K/uL MPV 8.30 (7.40-12.00) fL Neut % (Auto) 66.9 (48.0-80.0) % Lymph % (Auto) 20.3 (16.0-40.0) % Cochran % (Auto) 11.1 (0.0-15.0) % Eos % (Auto) 1.6 (0.0-7.0) % Baso % (Auto) 0.1 (0.0-1.5) % Neut # (Auto) 5.5 (1.4-5.7) K/uL Lymph # (Auto) 1.7 (0.6-2.4) K/uL Cochran # (Auto) 0.9 H (0.0-0.8) K/uL Eos # (Auto) 0.1 (0.0-0.7) K/uL Baso # (Auto) 0.0 (0.0-0.1) K/uL Nucleated RBC % 0.0 /100WBC Nucleated RBCs # 0 K/uL Sodium 139 (136-148) mmol/L Potassium 3.7 (3.5-5.1) mmol/L Chloride 103 (98-107) mmol/L Carbon Dioxide 28.8 (21.0-32.0) mmol/L BUN 7 (7.0-18.0) mg/dL Creatinine 0.8 (0.8-1.3) mg/dL Est Cr Clr Drug Dosing 84.71 mL/min Estimated GFR (MDRD) > 60.0 ml/min Glucose 97 (74-106) mg/dL Calcium 8.6 (8.5-10.1) mg/dL Phosphorus 4.2 (2.6-4.7) mg/dL Magnesium 2.0 (1.8-2.4) mg/dL Vancomycin Trough 18.3 H (5.0-10.0) ug/mL Inocencio Results Last 24 Hours: Microbiology 07/21/20 16:52 Aerobic Blood Culture - Preliminary Blood - Venous - Lab Draw NO GROWTH AFTER 1 DAY Anaerobic Blood Culture - Preliminary NO GROWTH AFTER 1 DAY 07/21/20 16:42 Aerobic Blood Culture - Preliminary Blood - Venous NO GROWTH AFTER 1 DAY Anaerobic Blood Culture - Final Med Orders - Current: Current Medications Acetaminophen (Tylenol) 650 mg PO Q4H PRN PRN Reason: Pain Last Admin: 07/20/20 01:56 Dose: 650 mg Documented by: Benztropine Mesylate (Cogentin) 1 mg PO BID ARI Last Admin: 07/22/20 20:25 Dose: 1 mg Documented by: Enoxaparin Sodium (Lovenox) 40 mg SUBCUT Q24H [facility] Last Admin: 07/22/20 14:49 Dose: 40 mg Documented by: Haloperidol (Haldol) 5 mg PO BEDTIME [facility] Last Admin: 07/22/20 20:26 Dose: 5 mg Documented by: Piperacillin Sod/Tazobactam (Sod 4.5 gm/ Sodium Chloride) 100 mls @ 200 mls/hr IV Q8H [facility] Last Admin: 07/23/20 06:24 Dose: 200 mls/hr Documented by: Vancomycin HCl 1.25 gm/ Sodium (Chloride) 250 mls @ 250 mls/hr IV Q12H [facility] Last Admin: 07/23/20 03:50 Dose: 250 mls/hr Documented by: Lactated Ringer's (Ringers, Lactated) 1,000 mls @ 125 mls/hr IV ASDIRECTED [facility] Last Admin: 07/23/20 08:13 Dose: 125 mls/hr Documented by: Lorazepam (Ativan) 1 mg IVPUSH Q3H PRN PRN Reason: Agitation Last Admin: 07/18/20 17:55 Dose: 1 mg Documented by: Melatonin (Melatonin) 3 mg PO BEDTIME [facility] Last Admin: 07/22/20 20:26 Dose: 3 mg Documented by: Nystatin/Triamcinolone Acetonide (Mycolog Crm) 0 gm TOP BID [facility] Last Admin: 07/22/20 21:14 Dose: 1 applic Documented by: Sodium Chloride (Saline Flush) 10 ml FLUSH ASDIRECTED PRN PRN Reason: Keep Vein Open Sodium Chloride (Saline Flush) 2.5 ml FLUSH ASDIRECTED PRN PRN Reason: Keep Vein Open Discontinued Medications Benztropine Mesylate (Cogentin) 2 mg IM ONETIME ONE Stop: 07/02/20 21:08 Last Admin: 07/02/20 22:48 Dose: Not Given Documented by: Benztropine Mesylate (Cogentin) 2 mg PO ONETIME ONE Stop: 07/02/20 21:55 Last Admin: 07/02/20 22:13 Dose: 2 mg Documented by: Benztropine Mesylate (Cogentin) 1 mg PO BEDTIME [facility] Last Admin: 07/19/20 20:54 Dose: 1 mg Documented by: Diltiazem HCl (Diltiazem) 20 mg IVPUSH ONETIME ONE Stop: 07/07/20 02:41 Last Admin: 07/07/20 04:35 Dose: Not Given Documented by: Fluconazole (Diflucan) 150 mg PO ONETIME ONE Stop: 07/19/20 10:31 Last Admin: 07/19/20 11:48 Dose: 150 mg Documented by: Haloperidol (Haldol) 5 mg PO BEDTIME ARI Last Admin: 07/08/20 20:21 Dose: 5 mg Documented by: Haloperidol (Haldol) 10 mg PO BEDTIME ARI Last Admin: 07/09/20 20:08 Dose: 10 mg Documented by: Ceftriaxone Sodium 1 gm/ (Sodium Chloride) 100 mls @ 200 mls/hr IV STAT ONE Stop: 07/02/20 21:33 Last Admin: 07/02/20 22:14 Dose: Not Given Documented by: Sodium Chloride (Normal Saline) 2,500 mls @ 2,500 mls/hr IV BOLUS ONE; Protocol Stop: 07/02/20 22:03 Last Admin: 07/02/20 22:12 Dose: 2,500 mls/hr Documented by: Ceftriaxone Sodium/Dextrose (Rocephin In Dextrose,Iso-Osm 1 Gm/50 Ml) Confirm Administered Dose 50 mls @ as directed .ROUTE .STK-MED ONE Stop: 07/02/20 21:40 Last Admin: 07/02/20 21:55 Dose: Not Given Documented by: Ceftriaxone Sodium/Dextrose 1 (gm/ Premix) 50 mls @ 100 mls/hr IV ONETIME ONE Stop: 07/02/20 22:11 Last Admin: 07/02/20 22:13 Dose: 100 mls/hr Documented by: Sodium Chloride (Normal Saline) 1,000 mls @ 125 mls/hr IV ASDIRECTED ARI Sodium Chloride (Normal Saline) 1,000 mls @ 150 mls/hr IV ASDIRECTED ARI Last Admin: 07/06/20 14:50 Dose: 150 mls/hr Documented by: Sodium Chloride (Normal Saline) 1,000 mls @ 999 mls/hr IV .Bolus ONE Stop: 07/03/20 14:17 Last Admin: 07/03/20 16:04 Dose: 999 mls/hr Documented by: Ceftriaxone Sodium/Dextrose 1 (gm/ Premix) 50 mls @ 100 mls/hr IV Q24H [facility] Last Admin: 07/07/20 03:14 Dose: 100 mls/hr Documented by: Sodium Chloride (Normal Saline) 1,000 mls @ 999 mls/hr IV .Bolus ONE Stop: 07/05/20 10:37 Last Admin: 07/05/20 22:07 Dose: Not Given Documented by: Sodium Chloride (Normal Saline) 1,000 mls @ 999 mls/hr IV .Bolus ONE Stop: 07/05/20 10:57 Last Admin: 07/05/20 10:11 Dose: 999 mls/hr Documented by: Sodium Chloride (Normal Saline) 1,000 mls @ 75 mls/hr IV ASDIRECTED [facility] Last Admin: 07/09/20 03:32 Dose: 75 mls/hr Documented by: Lactated Ringer's (Ringers, Lactated) 500 mls @ 999 mls/hr IV .BOLUS ONE Stop: 07/07/20 03:09 Last Admin: 07/07/20 02:50 Dose: 999 mls/hr Documented by: Magnesium Sulfate (Magnesium Sulfate In Water Premix) 100 mls @ 50 mls/hr IV ONETIME ONE Stop: 07/07/20 05:59 Last Admin: 07/07/20 04:00 Dose: 50 mls/hr Documented by: Lactated Ringer's (Ringers, Lactated) 500 mls @ 999 mls/hr IV BOLUS [facility] Stop: 07/07/20 07:31 Last Admin: 07/07/20 07:20 Dose: 999 mls/hr Documented by: Sodium Chloride (Normal Saline) 500 mls @ 999 mls/hr IV .BOLUS ONE Stop: 07/07/20 19:00 Last Admin: 07/07/20 18:30 Dose: 999 mls/hr Documented by: Magnesium Sulfate (Magnesium Sulfate In Water Premix) 2 gm in 50 mls @ 50 mls/hr IV ONETIME ONE Stop: 07/08/20 10:59 Last Admin: 07/08/20 10:57 Dose: 50 mls/hr Documented by: Magnesium Sulfate (Magnesium Sulfate In Water Premix) 2 gm in 50 mls @ 50 mls/hr IV ONETIME ONE Stop: 07/09/20 10:59 Last Admin: 07/09/20 10:58 Dose: 50 mls/hr Documented by: Piperacillin Sod/Tazobactam (Sod 3.375 gm/ Sodium Chloride) 50 mls @ 100 mls/hr IV Q8H [facility] Last Admin: 07/10/20 06:37 Dose: 100 mls/hr Documented by: Lactated Ringer's (Ringers, Lactated) 500 mls @ 999 mls/hr IV .BOLUS ONE Stop: 07/10/20 01:42 Last Admin: 07/10/20 01:27 Dose: 999 mls/hr Documented by: Lactated Ringer's (Ringers, Lactated) 1,000 mls @ 100 mls/hr IV ASDIRECTED [facility] Last Admin: 07/15/20 05:15 Dose: 100 mls/hr Documented by: Piperacillin Sod/Tazobactam (Sod 3.375 gm/ Sodium Chloride) 50 mls @ 100 mls/hr IV Q6H [facility] Levofloxacin/Dextrose 750 mg/ (Premix) 150 mls @ 100 mls/hr IV Q24H [facility] Last Admin: 07/13/20 10:12 Dose: 100 mls/hr Documented by: Magnesium Sulfate (Magnesium Sulfate In Water Premix) 2 gm in 50 mls @ 50 mls/hr IV ONETIME ONE Stop: 07/11/20 09:59 Last Admin: 07/11/20 08:58 Dose: 50 mls/hr Documented by: Lactated Ringer's (Ringers, Lactated) 1,000 mls @ 999 mls/hr IV .BOLUS ONE Stop: 07/11/20 13:09 Last Admin: 07/11/20 12:42 Dose: 999 mls/hr Documented by: Magnesium Sulfate (Magnesium Sulfate In Water Premix) 2 gm in 50 mls @ 50 mls/hr IV ONETIME ONE Stop: 07/12/20 09:14 Last Admin: 07/12/20 08:30 Dose: 50 mls/hr Documented by: Sodium Chloride (Normal Saline) 500 mls @ 999 mls/hr IV .BOLUS ARI Sodium Chloride (Normal Saline) 1,000 mls @ 125 mls/hr IV ONETIME ONE Stop: 07/19/20 15:51 Last Admin: 07/19/20 08:20 Dose: 125 mls/hr Documented by: Magnesium Sulfate (Magnesium Sulfate In Water Premix) 2 gm in 50 mls @ 50 mls/hr IV ONETIME ONE Stop: 07/20/20 09:14 Last Admin: 07/20/20 09:06 Dose: 50 mls/hr Documented by: Sodium Chloride (Normal Saline) 1,000 mls @ 125 mls/hr IV Q8H [facility] Stop: 07/20/20 17:29 Last Admin: 07/20/20 10:37 Dose: 125 mls/hr Documented by: Lactated Ringer's (Ringers, Lactated) 1,000 mls @ 999 mls/hr IV .BOLUS ONE Stop: 07/21/20 12:40 Last Admin: 07/21/20 11:40 Dose: 999 mls/hr Documented by: Lactated Ringer's (Ringers, Lactated) 1,000 mls @ 999 mls/hr IV .BOLUS ONE Stop: 07/21/20 16:33 Last Admin: 07/21/20 15:42 Dose: 999 mls/hr Documented by: Magnesium Sulfate 4 gm/ Premix 100 mls @ 33.333 mls/hr IV ONETIME ONE Stop: 07/22/20 13:08 Last Admin: 07/22/20 10:34 Dose: 33.333 mls/hr Documented by: Influenza Virus Vaccine (Fluzone Quad [id number] Syringe) 60 mcg IM .ONCE ONE Stop: 07/16/20 13:01 Last Admin: 07/17/20 11:24 Dose: 60 mcg Documented by: Iopamidol (Isovue Multipack-370 (76%)) 100 ml IVPUSH ONETIME STA Stop: 07/10/20 13:03 Last Admin: 07/10/20 13:05 Dose: 100 ml Documented by: Levofloxacin (Levaquin) 750 mg PO Q24H [facility] Last Admin: 07/21/20 11:52 Dose: 750 mg Documented by: Lidocaine HCl (Lidocaine 5%) 0 gm TOP Q6HR PRN PRN Reason: Pain Last Admin: 07/09/20 13:07 Dose: 1 applic Documented by: Lorazepam (Ativan) Confirm Administered Dose 2 mg .ROUTE .STK-MED ONE Stop: 07/03/20 00:30 Last Admin: 07/03/20 00:37 Dose: Not Given Documented by: Lorazepam (Ativan) 1 mg IVPUSH NOW STA Stop: 07/03/20 00:37 Last Admin: 07/03/20 00:38 Dose: 1 mg Documented by: Lorazepam (Ativan) 1 mg IVPUSH ONETIME ONE Stop: 07/03/20 00:48 Last Admin: 07/03/20 00:50 Dose: 1 mg Documented by: Lorazepam (Ativan) 1 mg IVPUSH Q6H PRN PRN Reason: Agitation Lorazepam (Ativan) 2 mg IVPUSH ONETIME ONE Stop: 07/09/20 22:41 Last Admin: 07/09/20 22:55 Dose: 2 mg Documented by: Lorazepam (Ativan) 2 mg IVPUSH ONETIME ONE Stop: 07/10/20 22:26 Last Admin: 07/10/20 22:37 Dose: 2 mg Documented by: Magnesium Sulfate (Magnesium Sulfate In Water Premix) 2 gm IV ONETIME ONE Stop: 07/11/20 08:04 Last Admin: 07/11/20 09:11 Dose: Not Given Documented by: Piperacillin Sod/Tazobactam Sod (Piperacil-Tazobact) 4.5 gm .ROUTE .STK-MED ONE Stop: 07/21/20 15:01 Pneumococcal Polyvalent Vaccine (Pneumovax 23) 25 mcg IM .ONCE ONE Stop: 07/16/20 11:57 Last Admin: 07/17/20 13:17 Dose: 25 mcg Documented by: Potassium Chloride (Klor-Con M20) 40 meq PO ONETIME ONE Stop: 07/05/20 15:58 Last Admin: 07/05/20 16:14 Dose: 40 meq Documented by: Potassium Chloride (Klor-Con M20) 40 meq PO ONETIME ONE Stop: 07/07/20 03:42 Last Admin: 07/07/20 03:59 Dose: 40 meq Documented by: Potassium Chloride (Klor-Con M20) 40 meq PO ONETIME ONE Stop: 07/09/20 09:47 Last Admin: 07/09/20 10:58 Dose: 40 meq Documented by: Propranolol HCl (Inderal La) 60 mg PO DAILY ARI Last Admin: 07/21/20 09:55 Dose: 60 mg Documented by: Sterile Water (Sterile Water For Injection) 1.2 ml INJECT ONETIME ONE Stop: 07/03/20 00:59 Last Admin: 07/03/20 01:22 Dose: 1.2 ml Documented by: Vancomycin HCl (Vancomycin) 1.25 gm .ROUTE .STK-MED ONE Stop: 07/21/20 15:01 Ziprasidone (Geodon) 10 mg IM ONETIME ONE Stop: 07/03/20 00:59 Last Admin: 07/03/20 01:04 Dose: 10 mg Documented by: Ziprasidone (Geodon) Confirm Administered Dose 20 mg .ROUTE .STK-MED ONE Stop: 07/03/20 00:59 Last Admin: 07/03/20 01:15 Dose: Not Given Documented by: - Exam General: Alert, Oriented, Cooperative, No Acute Distress Lungs: Clear to Auscultation, Normal Respiratory Effort Cardiovascular: Regular Rate, Regular Rhythm GI/Abdominal Exam: Normal Bowel Sounds, Soft, Non-Tender Extremities: Normal Inspection, Normal Range of Motion, Non-Tender, No Pedal Edema Skin: Rash (much improved to buttocks. ) Neurological: No New Focal Deficit Psy/Mental Status: Alert, Normal Affect, Normal Mood Sepsis Event Note - Evaluation Sepsis Screening Result: No Definite Risk - Focused Exam Vital Signs: Vital Signs Temp Pulse Resp BP Pulse Ox Pulse Ox 07/23/20 04:00 98.2 F 84 18 95/56 L 97 07/23/20 02:00 98 07/23/20 00:00 97.9 F 82 18 98/55 L 98 - Problem List & Annotations (1) HTN (hypertension) SNOMED Code(s): 47378108 Code(s): I10 - ESSENTIAL (PRIMARY) HYPERTENSION Status: Chronic Current Visit: No (2) Schizophrenia SNOMED Code(s): 54852462 Code(s): F20.9 - SCHIZOPHRENIA, UNSPECIFIED Status: Chronic Current Visit: No (3) Bladder outlet obstruction SNOMED Code(s): 644929515 Code(s): N32.0 - BLADDER-NECK OBSTRUCTION Status: Acute Current Visit: Yes (4) Prostatitis SNOMED Code(s): 1407224 Code(s): N41.9 - INFLAMMATORY DISEASE OF PROSTATE, UNSPECIFIED Status: Acute Current Visit: Yes Qualifiers: Prostatitis type: acute Qualified Code(s): N41.0 - Acute prostatitis (5) Cher infection of genital region SNOMED Code(s): 018067716 Code(s): B37.49 - OTHER UROGENITAL CANDIDIASIS Status: Chronic Current Visit: Yes - Problem List Review Problem List Initiated/Reviewed/Updated: Yes - Plan Plan:: 64 yo male admitted for acute renal failure and metabolic encephalopathy 1. Schizophrenia- stable - continue Haldol 5 mg bedtime - Continue Cogentin to 1 mg BID for EPS symptoms, monitor - Discussed EPS with Dr Munoz, agrees with Cogentin as other Parkinsonian medications would not have good side effects for him. 2. Bladder outlet obstruction/prostatitis - Lambert in place - Follow up with urology - De-escalate antibiotics, SIRS resolved, no infectious cause. Will restart Levaquin - Prostatitis treatment has been x 14 days 3. Dystonia/agitation: - Ativan prn 4. Self care deficit - PT/OT to evaluate and treat - Will need skilled care - SNF placement - Case management and social work involved 5. Cher rash to buttocks - Much improved - Nystatin cream BID - had Diflucan x 1 dose 07/19 - Keep dry and no brief on to help allow air flow. VTE prophylaxis: Heparin Dispo: pending placement
[2020-07-23] MEDS: Benztropine 1 MG Tab PO SCH ×2 (09:26→20:14)
[2020-07-23] MEDS: Midodrine 5 MG Tab PO SCH (10:56)
[2020-07-23] MEDS: Levofloxacin/Dextrose 5%-Water 750 MG in Premix Bag 1 BAG IV SCH (10:57)
[2020-07-23] MEDS: Enoxaparin 40 MG/0.4 ML Syringe SUBCUT SCH (13:52)
[2020-07-23] MEDS: Melatonin 3 MG Tab PO SCH (20:14)
[2020-07-23] MEDS: Haloperidol 5 MG Tab PO SCH (20:14)
[2020-07-24] MEDS: Lactated Ringers 1,000 ML IV SCH ×3 (02:10→22:39)
[2020-07-24 07:02] LABS: BLOOD UREA NITROGEN,BUN 4 mg/dL (7.0-18.0); CARBON DIOXIDE,CO2 28.6 mmol/L (21.0-32.0); CHLORIDE,CL 103 mmol/L (98-107); GLUCOSE RANDOM 118 mg/dL (74-106); POTASSIUM,K 3.5 mmol/L (3.5-5.1); SODIUM,NA 139 mmol/L (136-148)
[2020-07-24] MEDS ORDERED: Magnesium Sulfate/Water 4 GM in Premix Bag 1 BAG IV ONE (08:04)
[2020-07-24] MEDS ORDERED: Potassium Chloride 20 MEQ Tab.ER PO ONE (08:04)
[2020-07-24] MEDS: Midodrine 5 MG Tab PO SCH (08:28)
[2020-07-24] MEDS: Benztropine 1 MG Tab PO SCH ×2 (08:28→20:13)
--- NOTE | 2020-07-24 08:54 | PCM.PN ---
- General Info Date of Service: 07/24/20 Admission Dx/Problem (Free Text): Admission Diagnosis/Problem Admission Diagnosis/Problem Metabolic encephalopathy Subjective Update: Doing well today, no concerns. Functional Status: Reports: Pain Controlled, Tolerating Diet, Ambulating, Urinating - Review of Systems General: Reports: No Symptoms. Denies: Fatigue, Malaise Pulmonary: Reports: No Symptoms. Denies: Shortness of Breath Cardiovascular: Reports: No Symptoms. Denies: Chest Pain Gastrointestinal: Reports: No Symptoms. Denies: Abdominal Pain, Nausea, Vomiting Genitourinary: Reports: No Symptoms Musculoskeletal: Reports: No Symptoms Skin: Reports: No Symptoms Neurological: Reports: No Symptoms Psychiatric: Reports: No Symptoms - Patient Data Vitals - Most Recent: Last Vital Signs Temp 98.6 F 07/24/20 07:44 Pulse 85 07/24/20 07:44 Resp 18 07/24/20 07:44 BP 112/71 07/24/20 07:44 Pulse Ox 94 L 07/24/20 07:44 Weight - Most Recent: 83.915 kg I&O - Last 24 Hours: Intake & Output 07/23/20 07/24/20 07/24/20 22:59 06:59 14:59 Intake Total 1515 1950 Output Total 1850 0 Balance -335 -100 Lab Results Last 24 Hours: Laboratory Results - last 24 hr 07/24/20 07/24/20 Range/Units 06:24 06:24 WBC 9.98 (4.0-11.0) K/uL RBC 3.85 L (4.50-5.90) M/uL Hgb 10.1 L (13.0-17.0) g/dL Hct 33.6 L (38.0-50.0) % MCV 87.3 (80.0-98.0) fL MCH 26.2 L (27.0-32.0) pg MCHC 30.1 L (31.0-37.0) g/dL RDW Std Deviation 50.1 (28.0-62.0) fl RDW Coeff of Dorothea 16 H (11.0-15.0) % Plt Count 344 (150-400) K/uL MPV 8.30 (7.40-12.00) fL Neut % (Auto) 68.1 (48.0-80.0) % Lymph % (Auto) 18.7 (16.0-40.0) % Gaston % (Auto) 11.0 (0.0-15.0) % Eos % (Auto) 1.9 (0.0-7.0) % Baso % (Auto) 0.3 (0.0-1.5) % Neut # (Auto) 6.8 H (1.4-5.7) K/uL Lymph # (Auto) 1.9 (0.6-2.4) K/uL Gaston # (Auto) 1.1 H (0.0-0.8) K/uL Eos # (Auto) 0.2 (0.0-0.7) K/uL Baso # (Auto) 0.0 (0.0-0.1) K/uL Nucleated RBC % 0.0 /100WBC Nucleated RBCs # 0 K/uL Sodium 139 (136-148) mmol/L Potassium 3.5 (3.5-5.1) mmol/L Chloride 103 (98-107) mmol/L Carbon Dioxide 28.6 (21.0-32.0) mmol/L BUN 4 L (7.0-18.0) mg/dL Creatinine 0.8 (0.8-1.3) mg/dL Est Cr Clr Drug Dosing 84.71 mL/min Estimated GFR (MDRD) > 60.0 ml/min Glucose 118 H (74-106) mg/dL Calcium 8.7 (8.5-10.1) mg/dL Magnesium 1.6 L (1.8-2.4) mg/dL Inocencio Results Last 24 Hours: Microbiology 07/21/20 16:52 Aerobic Blood Culture - Preliminary Blood - Venous - Lab Draw NO GROWTH AFTER 2 DAYS Anaerobic Blood Culture - Preliminary NO GROWTH AFTER 2 DAYS 07/21/20 16:42 Aerobic Blood Culture - Preliminary Blood - Venous NO GROWTH AFTER 2 DAYS Anaerobic Blood Culture - Final Med Orders - Current: Current Medications Acetaminophen (Tylenol) 650 mg PO Q4H PRN PRN Reason: Pain Last Admin: 07/20/20 01:56 Dose: 650 mg Documented by: Benztropine Mesylate (Cogentin) 1 mg PO BID ARI Last Admin: 07/24/20 08:28 Dose: 1 mg Documented by: Enoxaparin Sodium (Lovenox) 40 mg SUBCUT Q24H [facility] Last Admin: 07/23/20 13:52 Dose: 40 mg Documented by: Haloperidol (Haldol) 5 mg PO BEDTIME [facility] Last Admin: 07/23/20 20:14 Dose: 5 mg Documented by: Lactated Ringer's (Ringers, Lactated) 1,000 mls @ 125 mls/hr IV ASDIRECTED [facility] Last Admin: 07/24/20 02:10 Dose: 125 mls/hr Documented by: Levofloxacin/Dextrose 750 mg/ (Premix) 150 mls @ 100 mls/hr IV Q24H [facility] Last Admin: 07/23/20 10:57 Dose: 100 mls/hr Documented by: Magnesium Sulfate 4 gm/ Premix 100 mls @ 50 mls/hr IV ONETIME ONE Stop: 07/24/20 10:03 Last Admin: 07/24/20 08:28 Dose: 50 mls/hr Documented by: Lorazepam (Ativan) 1 mg IVPUSH Q3H PRN PRN Reason: Agitation Last Admin: 07/18/20 17:55 Dose: 1 mg Documented by: Melatonin (Melatonin) 3 mg PO BEDTIME [facility] Last Admin: 07/23/20 20:14 Dose: 3 mg Documented by: Midodrine (Midodrine) 5 mg PO DAILY [facility] Last Admin: 07/24/20 08:28 Dose: 5 mg Documented by: Nystatin/Triamcinolone Acetonide (Mycolog Crm) 0 gm TOP BID [facility] Last Admin: 07/24/20 08:33 Dose: 1 applic Documented by: Sodium Chloride (Saline Flush) 10 ml FLUSH ASDIRECTED PRN PRN Reason: Keep Vein Open Sodium Chloride (Saline Flush) 2.5 ml FLUSH ASDIRECTED PRN PRN Reason: Keep Vein Open Discontinued Medications Benztropine Mesylate (Cogentin) 2 mg IM ONETIME ONE Stop: 07/02/20 21:08 Last Admin: 07/02/20 22:48 Dose: Not Given Documented by: Benztropine Mesylate (Cogentin) 2 mg PO ONETIME ONE Stop: 07/02/20 21:55 Last Admin: 07/02/20 22:13 Dose: 2 mg Documented by: Benztropine Mesylate (Cogentin) 1 mg PO BEDTIME [facility] Last Admin: 07/19/20 20:54 Dose: 1 mg Documented by: Diltiazem HCl (Diltiazem) 20 mg IVPUSH ONETIME ONE Stop: 07/07/20 02:41 Last Admin: 07/07/20 04:35 Dose: Not Given Documented by: Fluconazole (Diflucan) 150 mg PO ONETIME ONE Stop: 07/19/20 10:31 Last Admin: 07/19/20 11:48 Dose: 150 mg Documented by: Haloperidol (Haldol) 5 mg PO BEDTIME [facility] Last Admin: 07/08/20 20:21 Dose: 5 mg Documented by: Haloperidol (Haldol) 10 mg PO BEDTIME [facility] Last Admin: 07/09/20 20:08 Dose: 10 mg Documented by: Ceftriaxone Sodium 1 gm/ (Sodium Chloride) 100 mls @ 200 mls/hr IV STAT ONE Stop: 07/02/20 21:33 Last Admin: 07/02/20 22:14 Dose: Not Given Documented by: Sodium Chloride (Normal Saline) 2,500 mls @ 2,500 mls/hr IV BOLUS ONE; Protocol Stop: 07/02/20 22:03 Last Admin: 07/02/20 22:12 Dose: 2,500 mls/hr Documented by: Ceftriaxone Sodium/Dextrose (Rocephin In Dextrose,Iso-Osm 1 Gm/50 Ml) Confirm Administered Dose 50 mls @ as directed .ROUTE .STK-MED ONE Stop: 07/02/20 21:40 Last Admin: 07/02/20 21:55 Dose: Not Given Documented by: Ceftriaxone Sodium/Dextrose 1 (gm/ Premix) 50 mls @ 100 mls/hr IV ONETIME ONE Stop: 07/02/20 22:11 Last Admin: 07/02/20 22:13 Dose: 100 mls/hr Documented by: Sodium Chloride (Normal Saline) 1,000 mls @ 125 mls/hr IV ASDIRECTED ARI Sodium Chloride (Normal Saline) 1,000 mls @ 150 mls/hr IV ASDIRECTED [facility] Last Admin: 07/06/20 14:50 Dose: 150 mls/hr Documented by: Sodium Chloride (Normal Saline) 1,000 mls @ 999 mls/hr IV .Bolus ONE Stop: 07/03/20 14:17 Last Admin: 07/03/20 16:04 Dose: 999 mls/hr Documented by: Ceftriaxone Sodium/Dextrose 1 (gm/ Premix) 50 mls @ 100 mls/hr IV Q24H [facility] Last Admin: 07/07/20 03:14 Dose: 100 mls/hr Documented by: Sodium Chloride (Normal Saline) 1,000 mls @ 999 mls/hr IV .Bolus ONE Stop: 07/05/20 10:37 Last Admin: 07/05/20 22:07 Dose: Not Given Documented by: Sodium Chloride (Normal Saline) 1,000 mls @ 999 mls/hr IV .Bolus ONE Stop: 07/05/20 10:57 Last Admin: 07/05/20 10:11 Dose: 999 mls/hr Documented by: Sodium Chloride (Normal Saline) 1,000 mls @ 75 mls/hr IV ASDIRECTED [facility] Last Admin: 07/09/20 03:32 Dose: 75 mls/hr Documented by: Lactated Ringer's (Ringers, Lactated) 500 mls @ 999 mls/hr IV .BOLUS ONE Stop: 07/07/20 03:09 Last Admin: 07/07/20 02:50 Dose: 999 mls/hr Documented by: Magnesium Sulfate (Magnesium Sulfate In Water Premix) 100 mls @ 50 mls/hr IV ONETIME ONE Stop: 07/07/20 05:59 Last Admin: 07/07/20 04:00 Dose: 50 mls/hr Documented by: Lactated Ringer's (Ringers, Lactated) 500 mls @ 999 mls/hr IV BOLUS ARI Stop: 07/07/20 07:31 Last Admin: 07/07/20 07:20 Dose: 999 mls/hr Documented by: Sodium Chloride (Normal Saline) 500 mls @ 999 mls/hr IV .BOLUS ONE Stop: 07/07/20 19:00 Last Admin: 07/07/20 18:30 Dose: 999 mls/hr Documented by: Magnesium Sulfate (Magnesium Sulfate In Water Premix) 2 gm in 50 mls @ 50 mls/hr IV ONETIME ONE Stop: 07/08/20 10:59 Last Admin: 07/08/20 10:57 Dose: 50 mls/hr Documented by: Magnesium Sulfate (Magnesium Sulfate In Water Premix) 2 gm in 50 mls @ 50 mls/hr IV ONETIME ONE Stop: 07/09/20 10:59 Last Admin: 07/09/20 10:58 Dose: 50 mls/hr Documented by: Piperacillin Sod/Tazobactam (Sod 3.375 gm/ Sodium Chloride) 50 mls @ 100 mls/hr IV Q8H [facility] Last Admin: 07/10/20 06:37 Dose: 100 mls/hr Documented by: Lactated Ringer's (Ringers, Lactated) 500 mls @ 999 mls/hr IV .BOLUS ONE Stop: 07/10/20 01:42 Last Admin: 07/10/20 01:27 Dose: 999 mls/hr Documented by: Lactated Ringer's (Ringers, Lactated) 1,000 mls @ 100 mls/hr IV ASDIRECTED [facility] Last Admin: 07/15/20 05:15 Dose: 100 mls/hr Documented by: Piperacillin Sod/Tazobactam (Sod 3.375 gm/ Sodium Chloride) 50 mls @ 100 mls/hr IV Q6H [facility] Levofloxacin/Dextrose 750 mg/ (Premix) 150 mls @ 100 mls/hr IV Q24H [facility] Last Admin: 07/13/20 10:12 Dose: 100 mls/hr Documented by: Magnesium Sulfate (Magnesium Sulfate In Water Premix) 2 gm in 50 mls @ 50 mls/hr IV ONETIME ONE Stop: 07/11/20 09:59 Last Admin: 07/11/20 08:58 Dose: 50 mls/hr Documented by: Lactated Ringer's (Ringers, Lactated) 1,000 mls @ 999 mls/hr IV .BOLUS ONE Stop: 07/11/20 13:09 Last Admin: 07/11/20 12:42 Dose: 999 mls/hr Documented by: Magnesium Sulfate (Magnesium Sulfate In Water Premix) 2 gm in 50 mls @ 50 mls/hr IV ONETIME ONE Stop: 07/12/20 09:14 Last Admin: 07/12/20 08:30 Dose: 50 mls/hr Documented by: Sodium Chloride (Normal Saline) 500 mls @ 999 mls/hr IV .BOLUS ARI Sodium Chloride (Normal Saline) 1,000 mls @ 125 mls/hr IV ONETIME ONE Stop: 07/19/20 15:51 Last Admin: 07/19/20 08:20 Dose: 125 mls/hr Documented by: Magnesium Sulfate (Magnesium Sulfate In Water Premix) 2 gm in 50 mls @ 50 mls/hr IV ONETIME ONE Stop: 07/20/20 09:14 Last Admin: 07/20/20 09:06 Dose: 50 mls/hr Documented by: Sodium Chloride (Normal Saline) 1,000 mls @ 125 mls/hr IV Q8H [facility] Stop: 07/20/20 17:29 Last Admin: 07/20/20 10:37 Dose: 125 mls/hr Documented by: Lactated Ringer's (Ringers, Lactated) 1,000 mls @ 999 mls/hr IV .BOLUS ONE Stop: 07/21/20 12:40 Last Admin: 07/21/20 11:40 Dose: 999 mls/hr Documented by: Piperacillin Sod/Tazobactam (Sod 4.5 gm/ Sodium Chloride) 100 mls @ 200 mls/hr IV Q8H [facility] Last Admin: 07/23/20 06:24 Dose: 200 mls/hr Documented by: Vancomycin HCl 1.25 gm/ Sodium (Chloride) 250 mls @ 250 mls/hr IV Q12H [facility] Last Admin: 07/23/20 03:50 Dose: 250 mls/hr Documented by: Lactated Ringer's (Ringers, Lactated) 1,000 mls @ 999 mls/hr IV .BOLUS ONE Stop: 07/21/20 16:33 Last Admin: 07/21/20 15:42 Dose: 999 mls/hr Documented by: Magnesium Sulfate 4 gm/ Premix 100 mls @ 33.333 mls/hr IV ONETIME ONE Stop: 07/22/20 13:08 Last Admin: 07/22/20 10:34 Dose: 33.333 mls/hr Documented by: Influenza Virus Vaccine (Fluzone Quad [id number] Syringe) 60 mcg IM .ONCE ONE Stop: 07/16/20 13:01 Last Admin: 07/17/20 11:24 Dose: 60 mcg Documented by: Iopamidol (Isovue Multipack-370 (76%)) 100 ml IVPUSH ONETIME STA Stop: 07/10/20 13:03 Last Admin: 07/10/20 13:05 Dose: 100 ml Documented by: Levofloxacin (Levaquin) 750 mg PO Q24H [facility] Last Admin: 07/21/20 11:52 Dose: 750 mg Documented by: Lidocaine HCl (Lidocaine 5%) 0 gm TOP Q6HR PRN PRN Reason: Pain Last Admin: 07/09/20 13:07 Dose: 1 applic Documented by: Lorazepam (Ativan) Confirm Administered Dose 2 mg .ROUTE .STK-MED ONE Stop: 07/03/20 00:30 Last Admin: 07/03/20 00:37 Dose: Not Given Documented by: Lorazepam (Ativan) 1 mg IVPUSH NOW STA Stop: 07/03/20 00:37 Last Admin: 07/03/20 00:38 Dose: 1 mg Documented by: Lorazepam (Ativan) 1 mg IVPUSH ONETIME ONE Stop: 07/03/20 00:48 Last Admin: 07/03/20 00:50 Dose: 1 mg Documented by: Lorazepam (Ativan) 1 mg IVPUSH Q6H PRN PRN Reason: Agitation Lorazepam (Ativan) 2 mg IVPUSH ONETIME ONE Stop: 07/09/20 22:41 Last Admin: 07/09/20 22:55 Dose: 2 mg Documented by: Lorazepam (Ativan) 2 mg IVPUSH ONETIME ONE Stop: 07/10/20 22:26 Last Admin: 07/10/20 22:37 Dose: 2 mg Documented by: Magnesium Sulfate (Magnesium Sulfate In Water Premix) 2 gm IV ONETIME ONE Stop: 07/11/20 08:04 Last Admin: 07/11/20 09:11 Dose: Not Given Documented by: Piperacillin Sod/Tazobactam Sod (Piperacil-Tazobact) 4.5 gm .ROUTE .STK-MED ONE Stop: 07/21/20 15:01 Pneumococcal Polyvalent Vaccine (Pneumovax 23) 25 mcg IM .ONCE ONE Stop: 07/16/20 11:57 Last Admin: 07/17/20 13:17 Dose: 25 mcg Documented by: Potassium Chloride (Klor-Con M20) 40 meq PO ONETIME ONE Stop: 07/05/20 15:58 Last Admin: 07/05/20 16:14 Dose: 40 meq Documented by: Potassium Chloride (Klor-Con M20) 40 meq PO ONETIME ONE Stop: 07/07/20 03:42 Last Admin: 07/07/20 03:59 Dose: 40 meq Documented by: Potassium Chloride (Klor-Con M20) 40 meq PO ONETIME ONE Stop: 07/09/20 09:47 Last Admin: 07/09/20 10:58 Dose: 40 meq Documented by: Potassium Chloride (Klor-Con M20) 40 meq PO ONETIME ONE Stop: 07/24/20 08:05 Last Admin: 07/24/20 08:28 Dose: 40 meq Documented by: Propranolol HCl (Inderal La) 60 mg PO DAILY ARI Last Admin: 07/21/20 09:55 Dose: 60 mg Documented by: Sterile Water (Sterile Water For Injection) 1.2 ml INJECT ONETIME ONE Stop: 07/03/20 00:59 Last Admin: 07/03/20 01:22 Dose: 1.2 ml Documented by: Vancomycin HCl (Vancomycin) 1.25 gm .ROUTE .STK-MED ONE Stop: 07/21/20 15:01 Ziprasidone (Geodon) 10 mg IM ONETIME ONE Stop: 07/03/20 00:59 Last Admin: 07/03/20 01:04 Dose: 10 mg Documented by: Ziprasidone (Geodon) Confirm Administered Dose 20 mg .ROUTE .STK-MED ONE Stop: 07/03/20 00:59 Last Admin: 07/03/20 01:15 Dose: Not Given Documented by: - Exam General: Alert, Oriented, Cooperative, No Acute Distress Lungs: Clear to Auscultation, Normal Respiratory Effort Cardiovascular: Regular Rate, Regular Rhythm GI/Abdominal Exam: Normal Bowel Sounds, Soft, Non-Tender Back Exam: Normal Inspection, Full Range of Motion Extremities: Normal Inspection, Normal Range of Motion, Non-Tender, No Pedal Edema Neurological: No New Focal Deficit Psy/Mental Status: Alert, Normal Affect, Normal Mood Sepsis Event Note - Evaluation Sepsis Screening Result: No Definite Risk - Focused Exam Vital Signs: Vital Signs Temp Pulse Resp BP Pulse Ox Pulse Ox 07/24/20 07:44 98.6 F 85 18 112/71 94 L 07/24/20 04:00 98.2 F 92 18 108/58 L 98 07/24/20 02:00 98 07/24/20 00:00 98.2 F 86 18 110/60 98 - Problem List & Annotations (1) HTN (hypertension) SNOMED Code(s): 30487052 Code(s): I10 - ESSENTIAL (PRIMARY) HYPERTENSION Status: Chronic Current Visit: No (2) Schizophrenia SNOMED Code(s): 42883505 Code(s): F20.9 - SCHIZOPHRENIA, UNSPECIFIED Status: Chronic Current Visit: No (3) Bladder outlet obstruction SNOMED Code(s): 663621996 Code(s): N32.0 - BLADDER-NECK OBSTRUCTION Status: Acute Current Visit: Yes (4) Prostatitis SNOMED Code(s): 3389201 Code(s): N41.9 - INFLAMMATORY DISEASE OF PROSTATE, UNSPECIFIED Status: Acute Current Visit: Yes Qualifiers: Prostatitis type: acute Qualified Code(s): N41.0 - Acute prostatitis (5) Cher infection of genital region SNOMED Code(s): 579807040 Code(s): B37.49 - OTHER UROGENITAL CANDIDIASIS Status: Chronic Current Visit: Yes - Problem List Review Problem List Initiated/Reviewed/Updated: Yes - My Orders Last 24 Hours: My Active Orders 07/23/20 10:45 Levofloxacin/Dextrose 5%-Water [Levaquin in D5W 750 MG/150 ML] 750 mg Premix Bag 1 bag IV Q24H Midodrine 5 mg PO DAILY 07/23/20 13:36 Communication Order [RC] PRN 07/24/20 08:04 Magnesium Sulfate/Water [Magnesium Sulfate in Water Premix] 4 gm Premix Bag 1 bag IV ONETIME 07/24/20 08:05 Flat Optical Element Maker Discontinue [Cardiac Monitoring Discontinue] [RC] Click to Edit - Plan Plan:: 64 yo male admitted for acute renal failure and metabolic encephalopathy 1. Schizophrenia- stable - continue Haldol 5 mg bedtime - Continue Cogentin to 1 mg BID for EPS symptoms, monitor 2. Bladder outlet obstruction/prostatitis - Lambert in place - Follow up with urology - De-escalate antibiotics, Doxycycline to start in am. 3. Dystonia/agitation: - Ativan prn 4. Self care deficit - PT/OT to evaluate and treat - Will need skilled care - SNF placement - Case management and social work involved 5. Cher rash to buttocks - Much improved - Nystatin cream BID - had Diflucan x 1 dose 07/19 - Keep dry and no brief on to help allow air flow. VTE prophylaxis: Heparin Dispo: pending placement
[2020-07-24] MEDS: Levofloxacin/Dextrose 5%-Water 750 MG in Premix Bag 1 BAG IV SCH (11:02)
[2020-07-24] MEDS: Enoxaparin 40 MG/0.4 ML Syringe SUBCUT SCH (13:22)
[2020-07-24] MEDS: Haloperidol 5 MG Tab PO SCH (20:13)
[2020-07-25] MEDS: Melatonin 3 MG Tab PO SCH ×2 (01:23→20:33)
[2020-07-25] MEDS: Lactated Ringers 1,000 ML IV SCH ×2 (05:36→23:56)
[2020-07-25 06:33] LABS: BLOOD UREA NITROGEN,BUN 6 mg/dL (7.0-18.0); CARBON DIOXIDE,CO2 29.1 mmol/L (21.0-32.0); CHLORIDE,CL 104 mmol/L (98-107); GLUCOSE RANDOM 110 mg/dL (74-106); POTASSIUM,K 4.3 mmol/L (3.5-5.1); SODIUM,NA 138 mmol/L (136-148)
--- NOTE | 2020-07-25 06:38 | PCM.PN ---
- General Info Date of Service: 07/25/20 - Patient Data Vitals - Most Recent: Last Vital Signs Temp 36.8 C 07/25/20 00:00 Pulse 88 07/25/20 00:00 Resp 18 07/25/20 00:00 BP 108/60 07/25/20 00:00 Pulse Ox 97 07/25/20 00:00 Weight - Most Recent: 83.915 kg I&O - Last 24 Hours: Intake & Output 07/24/20 07/24/20 07/25/20 14:59 22:59 06:59 Intake Total 750 Output Total 1950 Balance -1200 Lab Results Last 24 Hours: Laboratory Results - last 24 hr 07/24/20 07/24/20 Range/Units 06:24 06:24 WBC 9.98 (4.0-11.0) K/uL RBC 3.85 L (4.50-5.90) M/uL Hgb 10.1 L (13.0-17.0) g/dL Hct 33.6 L (38.0-50.0) % MCV 87.3 (80.0-98.0) fL MCH 26.2 L (27.0-32.0) pg MCHC 30.1 L (31.0-37.0) g/dL RDW Std Deviation 50.1 (28.0-62.0) fl RDW Coeff of Dorothea 16 H (11.0-15.0) % Plt Count 344 (150-400) K/uL MPV 8.30 (7.40-12.00) fL Neut % (Auto) 68.1 (48.0-80.0) % Lymph % (Auto) 18.7 (16.0-40.0) % [place] % (Auto) 11.0 (0.0-15.0) % Eos % (Auto) 1.9 (0.0-7.0) % Baso % (Auto) 0.3 (0.0-1.5) % Neut # (Auto) 6.8 H (1.4-5.7) K/uL Lymph # (Auto) 1.9 (0.6-2.4) K/uL [place] # (Auto) 1.1 H (0.0-0.8) K/uL Eos # (Auto) 0.2 (0.0-0.7) K/uL Baso # (Auto) 0.0 (0.0-0.1) K/uL Nucleated RBC % 0.0 /100WBC Nucleated RBCs # 0 K/uL Sodium 139 (136-148) mmol/L Potassium 3.5 (3.5-5.1) mmol/L Chloride 103 (98-107) mmol/L Carbon Dioxide 28.6 (21.0-32.0) mmol/L BUN 4 L (7.0-18.0) mg/dL Creatinine 0.8 (0.8-1.3) mg/dL Est Cr Clr Drug Dosing 84.71 mL/min Estimated GFR (MDRD) > 60.0 ml/min Glucose 118 H (74-106) mg/dL Calcium 8.7 (8.5-10.1) mg/dL Magnesium 1.6 L (1.8-2.4) mg/dL Inocencio Results Last 24 Hours: Microbiology 07/21/20 16:52 Aerobic Blood Culture - Preliminary Blood - Venous - Lab Draw NO GROWTH AFTER 3 DAYS Anaerobic Blood Culture - Preliminary NO GROWTH AFTER 3 DAYS 07/21/20 16:42 Aerobic Blood Culture - Preliminary Blood - Venous NO GROWTH AFTER 3 DAYS Anaerobic Blood Culture - Final Med Orders - Current: Current Medications Acetaminophen (Tylenol) 650 mg PO Q4H PRN PRN Reason: Pain Last Admin: 07/20/20 01:56 Dose: 650 mg Documented by: Benztropine Mesylate (Cogentin) 1 mg PO BID [facility] Last Admin: 07/24/20 20:13 Dose: 1 mg Documented by: Doxycycline Hyclate (Vibramycin) 100 mg PO BID [facility] Enoxaparin Sodium (Lovenox) 40 mg SUBCUT Q24H [facility] Last Admin: 07/24/20 13:22 Dose: 40 mg Documented by: Haloperidol (Haldol) 5 mg PO BEDTIME [facility] Last Admin: 07/24/20 20:13 Dose: 5 mg Documented by: Lactated Ringer's (Ringers, Lactated) 1,000 mls @ 125 mls/hr IV ASDIRECTED [facility] Last Admin: 07/25/20 05:36 Dose: 125 mls/hr Documented by: Levofloxacin/Dextrose 750 mg/ (Premix) 150 mls @ 100 mls/hr IV Q24H [facility] Last Admin: 07/24/20 11:02 Dose: 100 mls/hr Documented by: Lorazepam (Ativan) 1 mg IVPUSH Q3H PRN PRN Reason: Agitation Last Admin: 07/18/20 17:55 Dose: 1 mg Documented by: Melatonin (Melatonin) 3 mg PO BEDTIME [facility] Last Admin: 07/25/20 01:23 Dose: Not Given Documented by: Midodrine (Midodrine) 5 mg PO DAILY [facility] Last Admin: 07/24/20 08:28 Dose: 5 mg Documented by: Nystatin/Triamcinolone Acetonide (Mycolog Crm) 0 gm TOP BID [facility] Last Admin: 07/24/20 20:18 Dose: 1 applic Documented by: Sodium Chloride (Saline Flush) 10 ml FLUSH ASDIRECTED PRN PRN Reason: Keep Vein Open Sodium Chloride (Saline Flush) 2.5 ml FLUSH ASDIRECTED PRN PRN Reason: Keep Vein Open Discontinued Medications Benztropine Mesylate (Cogentin) 2 mg IM ONETIME ONE Stop: 07/02/20 21:08 Last Admin: 07/02/20 22:48 Dose: Not Given Documented by: Benztropine Mesylate (Cogentin) 2 mg PO ONETIME ONE Stop: 07/02/20 21:55 Last Admin: 07/02/20 22:13 Dose: 2 mg Documented by: Benztropine Mesylate (Cogentin) 1 mg PO BEDTIME [facility] Last Admin: 07/19/20 20:54 Dose: 1 mg Documented by: Diltiazem HCl (Diltiazem) 20 mg IVPUSH ONETIME ONE Stop: 07/07/20 02:41 Last Admin: 07/07/20 04:35 Dose: Not Given Documented by: Fluconazole (Diflucan) 150 mg PO ONETIME ONE Stop: 07/19/20 10:31 Last Admin: 07/19/20 11:48 Dose: 150 mg Documented by: Haloperidol (Haldol) 5 mg PO BEDTIME [facility] Last Admin: 07/08/20 20:21 Dose: 5 mg Documented by: Haloperidol (Haldol) 10 mg PO BEDTIME [facility] Last Admin: 07/09/20 20:08 Dose: 10 mg Documented by: Ceftriaxone Sodium 1 gm/ (Sodium Chloride) 100 mls @ 200 mls/hr IV STAT ONE Stop: 07/02/20 21:33 Last Admin: 07/02/20 22:14 Dose: Not Given Documented by: Sodium Chloride (Normal Saline) 2,500 mls @ 2,500 mls/hr IV BOLUS ONE; Protocol Stop: 07/02/20 22:03 Last Admin: 07/02/20 22:12 Dose: 2,500 mls/hr Documented by: Ceftriaxone Sodium/Dextrose (Rocephin In Dextrose,Iso-Osm 1 Gm/50 Ml) Confirm Administered Dose 50 mls @ as directed .ROUTE .STK-MED ONE Stop: 07/02/20 21:40 Last Admin: 07/02/20 21:55 Dose: Not Given Documented by: Ceftriaxone Sodium/Dextrose 1 (gm/ Premix) 50 mls @ 100 mls/hr IV ONETIME ONE Stop: 07/02/20 22:11 Last Admin: 07/02/20 22:13 Dose: 100 mls/hr Documented by: Sodium Chloride (Normal Saline) 1,000 mls @ 125 mls/hr IV ASDIRECTED [facility] Sodium Chloride (Normal Saline) 1,000 mls @ 150 mls/hr IV ASDIRECTED [facility] Last Admin: 07/06/20 14:50 Dose: 150 mls/hr Documented by: Sodium Chloride (Normal Saline) 1,000 mls @ 999 mls/hr IV .Bolus ONE Stop: 07/03/20 14:17 Last Admin: 07/03/20 16:04 Dose: 999 mls/hr Documented by: Ceftriaxone Sodium/Dextrose 1 (gm/ Premix) 50 mls @ 100 mls/hr IV Q24H [facility] Last Admin: 07/07/20 03:14 Dose: 100 mls/hr Documented by: Sodium Chloride (Normal Saline) 1,000 mls @ 999 mls/hr IV .Bolus ONE Stop: 07/05/20 10:37 Last Admin: 07/05/20 22:07 Dose: Not Given Documented by: Sodium Chloride (Normal Saline) 1,000 mls @ 999 mls/hr IV .Bolus ONE Stop: 07/05/20 10:57 Last Admin: 07/05/20 10:11 Dose: 999 mls/hr Documented by: Sodium Chloride (Normal Saline) 1,000 mls @ 75 mls/hr IV ASDIRECTED [facility] Last Admin: 07/09/20 03:32 Dose: 75 mls/hr Documented by: Lactated Ringer's (Ringers, Lactated) 500 mls @ 999 mls/hr IV .BOLUS ONE Stop: 07/07/20 03:09 Last Admin: 07/07/20 02:50 Dose: 999 mls/hr Documented by: Magnesium Sulfate (Magnesium Sulfate In Water Premix) 100 mls @ 50 mls/hr IV ONETIME ONE Stop: 07/07/20 05:59 Last Admin: 07/07/20 04:00 Dose: 50 mls/hr Documented by: Lactated Ringer's (Ringers, Lactated) 500 mls @ 999 mls/hr IV BOLUS AIR Stop: 07/07/20 07:31 Last Admin: 07/07/20 07:20 Dose: 999 mls/hr Documented by: Sodium Chloride (Normal Saline) 500 mls @ 999 mls/hr IV .BOLUS ONE Stop: 07/07/20 19:00 Last Admin: 07/07/20 18:30 Dose: 999 mls/hr Documented by: Magnesium Sulfate (Magnesium Sulfate In Water Premix) 2 gm in 50 mls @ 50 mls/hr IV ONETIME ONE Stop: 07/08/20 10:59 Last Admin: 07/08/20 10:57 Dose: 50 mls/hr Documented by: Magnesium Sulfate (Magnesium Sulfate In Water Premix) 2 gm in 50 mls @ 50 mls/hr IV ONETIME ONE Stop: 07/09/20 10:59 Last Admin: 07/09/20 10:58 Dose: 50 mls/hr Documented by: Piperacillin Sod/Tazobactam (Sod 3.375 gm/ Sodium Chloride) 50 mls @ 100 mls/hr IV Q8H [facility] Last Admin: 07/10/20 06:37 Dose: 100 mls/hr Documented by: Lactated Ringer's (Ringers, Lactated) 500 mls @ 999 mls/hr IV .BOLUS ONE Stop: 07/10/20 01:42 Last Admin: 07/10/20 01:27 Dose: 999 mls/hr Documented by: Lactated Ringer's (Ringers, Lactated) 1,000 mls @ 100 mls/hr IV ASDIRECTED [facility] Last Admin: 07/15/20 05:15 Dose: 100 mls/hr Documented by: Piperacillin Sod/Tazobactam (Sod 3.375 gm/ Sodium Chloride) 50 mls @ 100 mls/hr IV Q6H [facility] Levofloxacin/Dextrose 750 mg/ (Premix) 150 mls @ 100 mls/hr IV Q24H [facility] Last Admin: 07/13/20 10:12 Dose: 100 mls/hr Documented by: Magnesium Sulfate (Magnesium Sulfate In Water Premix) 2 gm in 50 mls @ 50 mls/hr IV ONETIME ONE Stop: 07/11/20 09:59 Last Admin: 07/11/20 08:58 Dose: 50 mls/hr Documented by: Lactated Ringer's (Ringers, Lactated) 1,000 mls @ 999 mls/hr IV .BOLUS ONE Stop: 07/11/20 13:09 Last Admin: 07/11/20 12:42 Dose: 999 mls/hr Documented by: Magnesium Sulfate (Magnesium Sulfate In Water Premix) 2 gm in 50 mls @ 50 mls/hr IV ONETIME ONE Stop: 07/12/20 09:14 Last Admin: 07/12/20 08:30 Dose: 50 mls/hr Documented by: Sodium Chloride (Normal Saline) 500 mls @ 999 mls/hr IV .BOLUS ARI Sodium Chloride (Normal Saline) 1,000 mls @ 125 mls/hr IV ONETIME ONE Stop: 07/19/20 15:51 Last Admin: 07/19/20 08:20 Dose: 125 mls/hr Documented by: Magnesium Sulfate (Magnesium Sulfate In Water Premix) 2 gm in 50 mls @ 50 mls/hr IV ONETIME ONE Stop: 07/20/20 09:14 Last Admin: 07/20/20 09:06 Dose: 50 mls/hr Documented by: Sodium Chloride (Normal Saline) 1,000 mls @ 125 mls/hr IV Q8H [facility] Stop: 07/20/20 17:29 Last Admin: 07/20/20 10:37 Dose: 125 mls/hr Documented by: Lactated Ringer's (Ringers, Lactated) 1,000 mls @ 999 mls/hr IV .BOLUS ONE Stop: 07/21/20 12:40 Last Admin: 07/21/20 11:40 Dose: 999 mls/hr Documented by: Piperacillin Sod/Tazobactam (Sod 4.5 gm/ Sodium Chloride) 100 mls @ 200 mls/hr IV Q8H [facility] Last Admin: 07/23/20 06:24 Dose: 200 mls/hr Documented by: Vancomycin HCl 1.25 gm/ Sodium (Chloride) 250 mls @ 250 mls/hr IV Q12H [facility] Last Admin: 07/23/20 03:50 Dose: 250 mls/hr Documented by: Lactated Ringer's (Ringers, Lactated) 1,000 mls @ 999 mls/hr IV .BOLUS ONE Stop: 07/21/20 16:33 Last Admin: 07/21/20 15:42 Dose: 999 mls/hr Documented by: Magnesium Sulfate 4 gm/ Premix 100 mls @ 33.333 mls/hr IV ONETIME ONE Stop: 07/22/20 13:08 Last Admin: 07/22/20 10:34 Dose: 33.333 mls/hr Documented by: Magnesium Sulfate 4 gm/ Premix 100 mls @ 50 mls/hr IV ONETIME ONE Stop: 07/24/20 10:03 Last Admin: 07/24/20 08:28 Dose: 50 mls/hr Documented by: Influenza Virus Vaccine (Fluzone Quad [id number] Syringe) 60 mcg IM .ONCE ONE Stop: 07/16/20 13:01 Last Admin: 07/17/20 11:24 Dose: 60 mcg Documented by: Iopamidol (Isovue Multipack-370 (76%)) 100 ml IVPUSH ONETIME STA Stop: 07/10/20 13:03 Last Admin: 07/10/20 13:05 Dose: 100 ml Documented by: Levofloxacin (Levaquin) 750 mg PO Q24H [facility] Last Admin: 07/21/20 11:52 Dose: 750 mg Documented by: Lidocaine HCl (Lidocaine 5%) 0 gm TOP Q6HR PRN PRN Reason: Pain Last Admin: 07/09/20 13:07 Dose: 1 applic Documented by: Lorazepam (Ativan) Confirm Administered Dose 2 mg .ROUTE .STK-MED ONE Stop: 07/03/20 00:30 Last Admin: 07/03/20 00:37 Dose: Not Given Documented by: Lorazepam (Ativan) 1 mg IVPUSH NOW STA Stop: 07/03/20 00:37 Last Admin: 07/03/20 00:38 Dose: 1 mg Documented by: Lorazepam (Ativan) 1 mg IVPUSH ONETIME ONE Stop: 07/03/20 00:48 Last Admin: 07/03/20 00:50 Dose: 1 mg Documented by: Lorazepam (Ativan) 1 mg IVPUSH Q6H PRN PRN Reason: Agitation Lorazepam (Ativan) 2 mg IVPUSH ONETIME ONE Stop: 07/09/20 22:41 Last Admin: 07/09/20 22:55 Dose: 2 mg Documented by: Lorazepam (Ativan) 2 mg IVPUSH ONETIME ONE Stop: 07/10/20 22:26 Last Admin: 07/10/20 22:37 Dose: 2 mg Documented by: Magnesium Sulfate (Magnesium Sulfate In Water Premix) 2 gm IV ONETIME ONE Stop: 07/11/20 08:04 Last Admin: 07/11/20 09:11 Dose: Not Given Documented by: Piperacillin Sod/Tazobactam Sod (Piperacil-Tazobact) 4.5 gm .ROUTE .STK-MED ONE Stop: 07/21/20 15:01 Pneumococcal Polyvalent Vaccine (Pneumovax 23) 25 mcg IM .ONCE ONE Stop: 07/16/20 11:57 Last Admin: 07/17/20 13:17 Dose: 25 mcg Documented by: Potassium Chloride (Klor-Con M20) 40 meq PO ONETIME ONE Stop: 07/05/20 15:58 Last Admin: 07/05/20 16:14 Dose: 40 meq Documented by: Potassium Chloride (Klor-Con M20) 40 meq PO ONETIME ONE Stop: 07/07/20 03:42 Last Admin: 07/07/20 03:59 Dose: 40 meq Documented by: Potassium Chloride (Klor-Con M20) 40 meq PO ONETIME ONE Stop: 07/09/20 09:47 Last Admin: 07/09/20 10:58 Dose: 40 meq Documented by: Potassium Chloride (Klor-Con M20) 40 meq PO ONETIME ONE Stop: 07/24/20 08:05 Last Admin: 07/24/20 08:28 Dose: 40 meq Documented by: Propranolol HCl (Inderal La) 60 mg PO DAILY [facility] Last Admin: 07/21/20 09:55 Dose: 60 mg Documented by: Sterile Water (Sterile Water For Injection) 1.2 ml INJECT ONETIME ONE Stop: 07/03/20 00:59 Last Admin: 07/03/20 01:22 Dose: 1.2 ml Documented by: Vancomycin HCl (Vancomycin) 1.25 gm .ROUTE .STK-MED ONE Stop: 07/21/20 15:01 Ziprasidone (Geodon) 10 mg IM ONETIME ONE Stop: 07/03/20 00:59 Last Admin: 07/03/20 01:04 Dose: 10 mg Documented by: Ziprasidone (Geodon) Confirm Administered Dose 20 mg .ROUTE .STK-MED ONE Stop: 07/03/20 00:59 Last Admin: 07/03/20 01:15 Dose: Not Given Documented by: - Exam General: Alert, Oriented Lungs: Clear to Auscultation, Normal Respiratory Effort Cardiovascular: Regular Rate, Regular Rhythm GI/Abdominal Exam: Soft, Non-Tender Extremities: Non-Tender, No Pedal Edema Skin: Warm, Dry, Intact Sepsis Event Note - Evaluation Sepsis Screening Result: No Definite Risk - Focused Exam Vital Signs: Vital Signs Temp Pulse Resp BP Pulse Ox 07/25/20 00:00 36.8 C 88 18 108/60 97 07/24/20 20:00 36.8 C 92 18 110/62 96 - Problem List Review Problem List Initiated/Reviewed/Updated: Yes - Plan Plan:: 64 yo male admitted for acute renal failure and metabolic encephalopathy `. Schizophrenia- stable - continue Haldol 5 mg bedtime - Continue Cogentin to 1 mg BID for EPS symptoms, monitor 2. Bladder outlet obstruction/prostatitis - Lambert in place - Follow up with urology - De-escalate antibiotics, Doxycycline to start in am. 3. Dystonia/agitation: - Ativan prn 4. Self care deficit - PT/OT to evaluate and treat - Will need skilled care - SNF placement - Case management and social work involved 5. Cher rash to buttocks - Much improved - Nystatin cream BID - had Diflucan x 1 dose 07/19 - Keep dry and no brief on to help allow air flow. 6. Hypotension - on Midodrine and IV fluids VTE prophylaxis: Heparin Dispo: pending placement
[2020-07-25] MEDS: Benztropine 1 MG Tab PO SCH ×2 (09:14→20:34)
[2020-07-25] MEDS: Midodrine 5 MG Tab PO SCH (09:14)
[2020-07-25] MEDS: Doxycycline 100 MG Cap PO SCH ×2 (09:14→20:34)
[2020-07-25] MEDS: Enoxaparin 40 MG/0.4 ML Syringe SUBCUT SCH (13:19)
[2020-07-25] MEDS: Haloperidol 5 MG Tab PO SCH (20:34)
[2020-07-26 06:36] LABS: BLOOD UREA NITROGEN,BUN 4 mg/dL (7.0-18.0); CARBON DIOXIDE,CO2 27.6 mmol/L (21.0-32.0); CHLORIDE,CL 102 mmol/L (98-107); GLUCOSE RANDOM 110 mg/dL (74-106); POTASSIUM,K 4.3 mmol/L (3.5-5.1); SODIUM,NA 137 mmol/L (136-148)
[2020-07-26] MEDS ORDERED: Magnesium Sulfate/Water 2 GM/50 ML Premix Bag IV ONE (08:09)
[2020-07-26] MEDS ORDERED: Magnesium Sulfate/Water 2 GM/50 ML BAG IV ONE (08:15)
[2020-07-26] MEDS: Lactated Ringers 1,000 ML IV SCH (08:17)
[2020-07-26] MEDS: Benztropine 1 MG Tab PO SCH ×2 (10:13→20:58)
[2020-07-26] MEDS: Doxycycline 100 MG Cap PO SCH ×2 (10:13→20:57)
[2020-07-26] MEDS: Midodrine 5 MG Tab PO SCH (10:13)
--- NOTE | 2020-07-26 11:40 | PCM.PN ---
- General Info Date of Service: 07/26/20 Admission Dx/Problem (Free Text): Admission Diagnosis/Problem Admission Diagnosis/Problem Metabolic encephalopathy Subjective Update: Doing well today, no concerns today Functional Status: Reports: Pain Controlled, Tolerating Diet, Ambulating, Urinating - Review of Systems General: Reports: No Symptoms HEENT: Reports: No Symptoms Pulmonary: Reports: No Symptoms. Denies: Shortness of Breath Cardiovascular: Reports: No Symptoms. Denies: Chest Pain Gastrointestinal: Reports: No Symptoms. Denies: Abdominal Pain, Nausea, Vomiting Genitourinary: Reports: No Symptoms Musculoskeletal: Reports: No Symptoms Skin: Reports: No Symptoms Neurological: Reports: Tremors (improving) - Patient Data Vitals - Most Recent: Last Vital Signs Temp 97.5 F 07/26/20 11:00 Pulse 128 H 07/26/20 11:00 Resp 18 07/26/20 11:00 BP 127/78 07/26/20 11:00 Pulse Ox 97 07/26/20 11:00 Weight - Most Recent: 83.915 kg I&O - Last 24 Hours: Intake & Output 07/25/20 07/26/20 07/26/20 22:59 06:59 14:59 Intake Total 800 2182 Output Total 1950 1850 Balance -1150 332 Lab Results Last 24 Hours: Laboratory Results - last 24 hr 07/26/20 Range/Units 05:57 Sodium 137 (136-148) mmol/L Potassium 4.3 (3.5-5.1) mmol/L Chloride 102 (98-107) mmol/L Carbon Dioxide 27.6 (21.0-32.0) mmol/L BUN 4 L (7.0-18.0) mg/dL Creatinine 0.8 (0.8-1.3) mg/dL Est Cr Clr Drug Dosing 84.71 mL/min Estimated GFR (MDRD) > 60.0 ml/min Glucose 110 H (74-106) mg/dL Calcium 9.4 (8.5-10.1) mg/dL Magnesium 1.7 L (1.8-2.4) mg/dL Inocencio Results Last 24 Hours: Microbiology 07/21/20 16:52 Aerobic Blood Culture - Preliminary Blood - Venous - Lab Draw NO GROWTH AFTER 4 DAYS Anaerobic Blood Culture - Preliminary NO GROWTH AFTER 4 DAYS 07/21/20 16:42 Aerobic Blood Culture - Preliminary Blood - Venous NO GROWTH AFTER 4 DAYS Anaerobic Blood Culture - Final Med Orders - Current: Current Medications Acetaminophen (Tylenol) 650 mg PO Q4H PRN PRN Reason: Pain Last Admin: 07/20/20 01:56 Dose: 650 mg Documented by: Benztropine Mesylate (Cogentin) 1 mg PO BID [facility] Last Admin: 07/26/20 10:13 Dose: 1 mg Documented by: Doxycycline Hyclate (Vibramycin) 100 mg PO BID [facility] Last Admin: 07/26/20 10:13 Dose: 100 mg Documented by: Enoxaparin Sodium (Lovenox) 40 mg SUBCUT Q24H [facility] Last Admin: 07/25/20 13:19 Dose: 40 mg Documented by: Haloperidol (Haldol) 5 mg PO BEDTIME [facility] Last Admin: 07/25/20 20:34 Dose: 5 mg Documented by: Lactated Ringer's (Ringers, Lactated) 1,000 mls @ 125 mls/hr IV ASDIRECTED [facility] Last Admin: 07/26/20 08:17 Dose: 125 mls/hr Documented by: Lorazepam (Ativan) 1 mg IVPUSH Q3H PRN PRN Reason: Agitation Last Admin: 07/18/20 17:55 Dose: 1 mg Documented by: Melatonin (Melatonin) 3 mg PO BEDTIME [facility] Last Admin: 07/25/20 20:33 Dose: 3 mg Documented by: Midodrine (Midodrine) 5 mg PO DAILY [facility] Last Admin: 07/26/20 10:13 Dose: 5 mg Documented by: Nystatin/Triamcinolone Acetonide (Mycolog Crm) 0 gm TOP BID [facility] Last Admin: 07/26/20 10:13 Dose: 1 applic Documented by: Sodium Chloride (Saline Flush) 10 ml FLUSH ASDIRECTED PRN PRN Reason: Keep Vein Open Sodium Chloride (Saline Flush) 2.5 ml FLUSH ASDIRECTED PRN PRN Reason: Keep Vein Open Discontinued Medications Benztropine Mesylate (Cogentin) 2 mg IM ONETIME ONE Stop: 07/02/20 21:08 Last Admin: 07/02/20 22:48 Dose: Not Given Documented by: Benztropine Mesylate (Cogentin) 2 mg PO ONETIME ONE Stop: 07/02/20 21:55 Last Admin: 07/02/20 22:13 Dose: 2 mg Documented by: Benztropine Mesylate (Cogentin) 1 mg PO BEDTIME [facility] Last Admin: 07/19/20 20:54 Dose: 1 mg Documented by: Diltiazem HCl (Diltiazem) 20 mg IVPUSH ONETIME ONE Stop: 07/07/20 02:41 Last Admin: 07/07/20 04:35 Dose: Not Given Documented by: Fluconazole (Diflucan) 150 mg PO ONETIME ONE Stop: 07/19/20 10:31 Last Admin: 07/19/20 11:48 Dose: 150 mg Documented by: Haloperidol (Haldol) 5 mg PO BEDTIME [facility] Last Admin: 07/08/20 20:21 Dose: 5 mg Documented by: Haloperidol (Haldol) 10 mg PO BEDTIME [facility] Last Admin: 07/09/20 20:08 Dose: 10 mg Documented by: Ceftriaxone Sodium 1 gm/ (Sodium Chloride) 100 mls @ 200 mls/hr IV STAT ONE Stop: 07/02/20 21:33 Last Admin: 07/02/20 22:14 Dose: Not Given Documented by: Sodium Chloride (Normal Saline) 2,500 mls @ 2,500 mls/hr IV BOLUS ONE; Protocol Stop: 07/02/20 22:03 Last Admin: 07/02/20 22:12 Dose: 2,500 mls/hr Documented by: Ceftriaxone Sodium/Dextrose (Rocephin In Dextrose,Iso-Osm 1 Gm/50 Ml) Confirm Administered Dose 50 mls @ as directed .ROUTE .STK-MED ONE Stop: 07/02/20 21:40 Last Admin: 07/02/20 21:55 Dose: Not Given Documented by: Ceftriaxone Sodium/Dextrose 1 (gm/ Premix) 50 mls @ 100 mls/hr IV ONETIME ONE Stop: 07/02/20 22:11 Last Admin: 07/02/20 22:13 Dose: 100 mls/hr Documented by: Sodium Chloride (Normal Saline) 1,000 mls @ 125 mls/hr IV ASDIRECTED [facility] Sodium Chloride (Normal Saline) 1,000 mls @ 150 mls/hr IV ASDIRECTED [facility] Last Admin: 07/06/20 14:50 Dose: 150 mls/hr Documented by: Sodium Chloride (Normal Saline) 1,000 mls @ 999 mls/hr IV .Bolus ONE Stop: 07/03/20 14:17 Last Admin: 07/03/20 16:04 Dose: 999 mls/hr Documented by: Ceftriaxone Sodium/Dextrose 1 (gm/ Premix) 50 mls @ 100 mls/hr IV Q24H [facility] Last Admin: 07/07/20 03:14 Dose: 100 mls/hr Documented by: Sodium Chloride (Normal Saline) 1,000 mls @ 999 mls/hr IV .Bolus ONE Stop: 07/05/20 10:37 Last Admin: 07/05/20 22:07 Dose: Not Given Documented by: Sodium Chloride (Normal Saline) 1,000 mls @ 999 mls/hr IV .Bolus ONE Stop: 07/05/20 10:57 Last Admin: 07/05/20 10:11 Dose: 999 mls/hr Documented by: Sodium Chloride (Normal Saline) 1,000 mls @ 75 mls/hr IV ASDIRECTED [facility] Last Admin: 07/09/20 03:32 Dose: 75 mls/hr Documented by: Lactated Ringer's (Ringers, Lactated) 500 mls @ 999 mls/hr IV .BOLUS ONE Stop: 07/07/20 03:09 Last Admin: 07/07/20 02:50 Dose: 999 mls/hr Documented by: Magnesium Sulfate (Magnesium Sulfate In Water Premix) 100 mls @ 50 mls/hr IV ONETIME ONE Stop: 07/07/20 05:59 Last Admin: 07/07/20 04:00 Dose: 50 mls/hr Documented by: Lactated Ringer's (Ringers, Lactated) 500 mls @ 999 mls/hr IV BOLUS [facility] Stop: 07/07/20 07:31 Last Admin: 07/07/20 07:20 Dose: 999 mls/hr Documented by: Sodium Chloride (Normal Saline) 500 mls @ 999 mls/hr IV .BOLUS ONE Stop: 07/07/20 19:00 Last Admin: 07/07/20 18:30 Dose: 999 mls/hr Documented by: Magnesium Sulfate (Magnesium Sulfate In Water Premix) 2 gm in 50 mls @ 50 mls/hr IV ONETIME ONE Stop: 07/08/20 10:59 Last Admin: 07/08/20 10:57 Dose: 50 mls/hr Documented by: Magnesium Sulfate (Magnesium Sulfate In Water Premix) 2 gm in 50 mls @ 50 mls/hr IV ONETIME ONE Stop: 07/09/20 10:59 Last Admin: 07/09/20 10:58 Dose: 50 mls/hr Documented by: Piperacillin Sod/Tazobactam (Sod 3.375 gm/ Sodium Chloride) 50 mls @ 100 mls/hr IV Q8H [facility] Last Admin: 07/10/20 06:37 Dose: 100 mls/hr Documented by: Lactated Ringer's (Ringers, Lactated) 500 mls @ 999 mls/hr IV .BOLUS ONE Stop: 07/10/20 01:42 Last Admin: 07/10/20 01:27 Dose: 999 mls/hr Documented by: Lactated Ringer's (Ringers, Lactated) 1,000 mls @ 100 mls/hr IV ASDIRECTED [facility] Last Admin: 07/15/20 05:15 Dose: 100 mls/hr Documented by: Piperacillin Sod/Tazobactam (Sod 3.375 gm/ Sodium Chloride) 50 mls @ 100 mls/hr IV Q6H [facility] Levofloxacin/Dextrose 750 mg/ (Premix) 150 mls @ 100 mls/hr IV Q24H [facility] Last Admin: 07/13/20 10:12 Dose: 100 mls/hr Documented by: Magnesium Sulfate (Magnesium Sulfate In Water Premix) 2 gm in 50 mls @ 50 mls/hr IV ONETIME ONE Stop: 07/11/20 09:59 Last Admin: 07/11/20 08:58 Dose: 50 mls/hr Documented by: Lactated Ringer's (Ringers, Lactated) 1,000 mls @ 999 mls/hr IV .BOLUS ONE Stop: 07/11/20 13:09 Last Admin: 07/11/20 12:42 Dose: 999 mls/hr Documented by: Magnesium Sulfate (Magnesium Sulfate In Water Premix) 2 gm in 50 mls @ 50 mls/hr IV ONETIME ONE Stop: 07/12/20 09:14 Last Admin: 07/12/20 08:30 Dose: 50 mls/hr Documented by: Sodium Chloride (Normal Saline) 500 mls @ 999 mls/hr IV .BOLUS [facility] Sodium Chloride (Normal Saline) 1,000 mls @ 125 mls/hr IV ONETIME ONE Stop: 07/19/20 15:51 Last Admin: 07/19/20 08:20 Dose: 125 mls/hr Documented by: Magnesium Sulfate (Magnesium Sulfate In Water Premix) 2 gm in 50 mls @ 50 mls/hr IV ONETIME ONE Stop: 07/20/20 09:14 Last Admin: 07/20/20 09:06 Dose: 50 mls/hr Documented by: Sodium Chloride (Normal Saline) 1,000 mls @ 125 mls/hr IV Q8H [facility] Stop: 07/20/20 17:29 Last Admin: 07/20/20 10:37 Dose: 125 mls/hr Documented by: Lactated Ringer's (Ringers, Lactated) 1,000 mls @ 999 mls/hr IV .BOLUS ONE Stop: 07/21/20 12:40 Last Admin: 07/21/20 11:40 Dose: 999 mls/hr Documented by: Piperacillin Sod/Tazobactam (Sod 4.5 gm/ Sodium Chloride) 100 mls @ 200 mls/hr IV Q8H [facility] Last Admin: 07/23/20 06:24 Dose: 200 mls/hr Documented by: Vancomycin HCl 1.25 gm/ Sodium (Chloride) 250 mls @ 250 mls/hr IV Q12H [facility] Last Admin: 07/23/20 03:50 Dose: 250 mls/hr Documented by: Lactated Ringer's (Ringers, Lactated) 1,000 mls @ 999 mls/hr IV .BOLUS ONE Stop: 07/21/20 16:33 Last Admin: 07/21/20 15:42 Dose: 999 mls/hr Documented by: Magnesium Sulfate 4 gm/ Premix 100 mls @ 33.333 mls/hr IV ONETIME ONE Stop: 07/22/20 13:08 Last Admin: 07/22/20 10:34 Dose: 33.333 mls/hr Documented by: Levofloxacin/Dextrose 750 mg/ (Premix) 150 mls @ 100 mls/hr IV Q24H [facility] Last Admin: 07/24/20 11:02 Dose: 100 mls/hr Documented by: Magnesium Sulfate 4 gm/ Premix 100 mls @ 50 mls/hr IV ONETIME ONE Stop: 07/24/20 10:03 Last Admin: 07/24/20 08:28 Dose: 50 mls/hr Documented by: Magnesium Sulfate (Magnesium Sulfate In Water Premix) 2 gm in 50 mls @ 50 mls/hr IV ONETIME ONE Stop: 07/26/20 09:14 Last Admin: 07/26/20 09:26 Dose: 50 mls/hr Documented by: Influenza Virus Vaccine (Fluzone Quad [id number] Syringe) 60 mcg IM .ONCE ONE Stop: 07/16/20 13:01 Last Admin: 07/17/20 11:24 Dose: 60 mcg Documented by: Iopamidol (Isovue Multipack-370 (76%)) 100 ml IVPUSH ONETIME STA Stop: 07/10/20 13:03 Last Admin: 07/10/20 13:05 Dose: 100 ml Documented by: Levofloxacin (Levaquin) 750 mg PO Q24H [facility] Last Admin: 07/21/20 11:52 Dose: 750 mg Documented by: Lidocaine HCl (Lidocaine 5%) 0 gm TOP Q6HR PRN PRN Reason: Pain Last Admin: 07/09/20 13:07 Dose: 1 applic Documented by: Lorazepam (Ativan) Confirm Administered Dose 2 mg .ROUTE .STK-MED ONE Stop: 07/03/20 00:30 Last Admin: 07/03/20 00:37 Dose: Not Given Documented by: Lorazepam (Ativan) 1 mg IVPUSH NOW STA Stop: 07/03/20 00:37 Last Admin: 07/03/20 00:38 Dose: 1 mg Documented by: Lorazepam (Ativan) 1 mg IVPUSH ONETIME ONE Stop: 07/03/20 00:48 Last Admin: 07/03/20 00:50 Dose: 1 mg Documented by: Lorazepam (Ativan) 1 mg IVPUSH Q6H PRN PRN Reason: Agitation Lorazepam (Ativan) 2 mg IVPUSH ONETIME ONE Stop: 07/09/20 22:41 Last Admin: 07/09/20 22:55 Dose: 2 mg Documented by: Lorazepam (Ativan) 2 mg IVPUSH ONETIME ONE Stop: 07/10/20 22:26 Last Admin: 07/10/20 22:37 Dose: 2 mg Documented by: Magnesium Sulfate (Magnesium Sulfate In Water Premix) 2 gm IV ONETIME ONE Stop: 07/11/20 08:04 Last Admin: 07/11/20 09:11 Dose: Not Given Documented by: Piperacillin Sod/Tazobactam Sod (Piperacil-Tazobact) 4.5 gm .ROUTE .STK-MED ONE Stop: 07/21/20 15:01 Pneumococcal Polyvalent Vaccine (Pneumovax 23) 25 mcg IM .ONCE ONE Stop: 07/16/20 11:57 Last Admin: 07/17/20 13:17 Dose: 25 mcg Documented by: Potassium Chloride (Klor-Con M20) 40 meq PO ONETIME ONE Stop: 07/05/20 15:58 Last Admin: 07/05/20 16:14 Dose: 40 meq Documented by: Potassium Chloride (Klor-Con M20) 40 meq PO ONETIME ONE Stop: 07/07/20 03:42 Last Admin: 07/07/20 03:59 Dose: 40 meq Documented by: Potassium Chloride (Klor-Con M20) 40 meq PO ONETIME ONE Stop: 07/09/20 09:47 Last Admin: 07/09/20 10:58 Dose: 40 meq Documented by: Potassium Chloride (Klor-Con M20) 40 meq PO ONETIME ONE Stop: 07/24/20 08:05 Last Admin: 07/24/20 08:28 Dose: 40 meq Documented by: Propranolol HCl (Inderal La) 60 mg PO DAILY [facility] Last Admin: 07/21/20 09:55 Dose: 60 mg Documented by: Sterile Water (Sterile Water For Injection) 1.2 ml INJECT ONETIME ONE Stop: 07/03/20 00:59 Last Admin: 07/03/20 01:22 Dose: 1.2 ml Documented by: Vancomycin HCl (Vancomycin) 1.25 gm .ROUTE .STK-MED ONE Stop: 07/21/20 15:01 Ziprasidone (Geodon) 10 mg IM ONETIME ONE Stop: 07/03/20 00:59 Last Admin: 07/03/20 01:04 Dose: 10 mg Documented by: Ziprasidone (Geodon) Confirm Administered Dose 20 mg .ROUTE .STK-MED ONE Stop: 07/03/20 00:59 Last Admin: 07/03/20 01:15 Dose: Not Given Documented by: - Exam General: Alert, Oriented, Cooperative Neck: Supple Lungs: Clear to Auscultation, Normal Respiratory Effort Cardiovascular: Regular Rate, Regular Rhythm GI/Abdominal Exam: Normal Bowel Sounds, Soft, Non-Tender Extremities: Normal Inspection, Normal Range of Motion, Non-Tender, No Pedal Edema Neurological: No New Focal Deficit Psy/Mental Status: Alert, Normal Affect, Normal Mood Sepsis Event Note - Evaluation Sepsis Screening Result: No Definite Risk - Focused Exam Vital Signs: Vital Signs Temp Temp Pulse Resp BP Pulse Ox 07/26/20 11:00 97.5 F 128 H 18 127/78 97 07/26/20 08:00 99.0 F 98 16 114/70 93 L 07/26/20 04:23 97.9 F 103 H 18 112/74 93 L 07/26/20 00:36 96.9 F 93 18 135/72 94 L - Problem List & Annotations (1) HTN (hypertension) SNOMED Code(s): 76372259 Code(s): I10 - ESSENTIAL (PRIMARY) HYPERTENSION Status: Chronic Current Visit: No (2) Schizophrenia SNOMED Code(s): 34401283 Code(s): F20.9 - SCHIZOPHRENIA, UNSPECIFIED Status: Chronic Current Visit: No (3) Bladder outlet obstruction SNOMED Code(s): 036089554 Code(s): N32.0 - BLADDER-NECK OBSTRUCTION Status: Acute Current Visit: Yes (4) Prostatitis SNOMED Code(s): 1254205 Code(s): N41.9 - INFLAMMATORY DISEASE OF PROSTATE, UNSPECIFIED Status: Acute Current Visit: Yes Qualifiers: Prostatitis type: acute Qualified Code(s): N41.0 - Acute prostatitis (5) Cher infection of genital region SNOMED Code(s): 829221063 Code(s): B37.49 - OTHER UROGENITAL CANDIDIASIS Status: Chronic Current Visit: Yes - Problem List Review Problem List Initiated/Reviewed/Updated: Yes - My Orders Last 24 Hours: My Active Orders 07/27/20 05:11 BASIC METABOLIC PANEL,BMP [CHEM] AM MAGNESIUM [CHEM] AM - Plan Plan:: 64 yo male admitted for acute renal failure and metabolic encephalopathy 1. Schizophrenia- stable - continue Haldol 5 mg bedtime - Continue Cogentin to 1 mg BID for EPS symptoms, monitor 2. Bladder outlet obstruction/prostatitis - Lambert in place - Follow up with urology - De-escalate antibiotics, Doxycycline to start in am. 3. Dystonia/agitation: - Ativan prn 4. Self care deficit - PT/OT to evaluate and treat - Will need skilled care - SNF placement - Case management and social work involved 5. Cher rash to buttocks - Much improved - Nystatin cream BID - had Diflucan x 1 dose 07/19 - Keep dry and no brief on to help allow air flow. 6. Hypotension - on Midodrine - Stop IVFs today and monitor. VTE prophylaxis: Heparin Dispo: pending placement
[2020-07-26] MEDS: Enoxaparin 40 MG/0.4 ML Syringe SUBCUT SCH (14:42)
[2020-07-26] MEDS: Melatonin 3 MG Tab PO SCH (20:58)
[2020-07-26] MEDS: Haloperidol 5 MG Tab PO SCH (20:59)
[2020-07-27 06:28] LABS: BLOOD UREA NITROGEN,BUN 8 mg/dL (7.0-18.0); CARBON DIOXIDE,CO2 27.5 mmol/L (21.0-32.0); CHLORIDE,CL 103 mmol/L (98-107); GLUCOSE RANDOM 109 mg/dL (74-106); POTASSIUM,K 4.1 mmol/L (3.5-5.1); SODIUM,NA 136 mmol/L (136-148)
[2020-07-27] MEDS: Benztropine 1 MG Tab PO SCH ×2 (09:19→21:41)
[2020-07-27] MEDS: Midodrine 5 MG Tab PO SCH (09:19)
[2020-07-27] MEDS: Doxycycline 100 MG Cap PO SCH ×2 (09:19→21:41)
--- NOTE | 2020-07-27 12:36 | PCM.PN ---
- General Info Date of Service: 07/27/20 Admission Dx/Problem (Free Text): Admission Diagnosis/Problem Admission Diagnosis/Problem Metabolic encephalopathy Subjective Update: Doing well this morning, tired and wants to continue to sleep. No chest pain or SOB. No abdominal pain. Functional Status: Reports: Pain Controlled, Tolerating Diet, Ambulating - Review of Systems General: Reports: No Symptoms. Denies: Weakness, Fatigue, Malaise Pulmonary: Reports: No Symptoms. Denies: Shortness of Breath Cardiovascular: Reports: No Symptoms. Denies: Chest Pain Gastrointestinal: Reports: No Symptoms. Denies: Abdominal Pain, Nausea, Vomiting Genitourinary: Reports: No Symptoms Skin: Reports: No Symptoms Neurological: Reports: Tremors (stable) Psychiatric: Reports: No Symptoms - Patient Data Vitals - Most Recent: Last Vital Signs Temp 97.1 F 07/27/20 12:00 Pulse 112 H 07/27/20 12:00 Resp 16 07/27/20 12:00 BP 102/64 07/27/20 12:00 Pulse Ox 96 07/27/20 12:00 Weight - Most Recent: 83.915 kg I&O - Last 24 Hours: Intake & Output 07/26/20 07/27/20 07/27/20 22:59 06:59 14:59 Intake Total 720 710 Output Total 2450 1150 Balance -1730 -440 Lab Results Last 24 Hours: Laboratory Results - last 24 hr 07/27/20 Range/Units 05:50 Sodium 136 (136-148) mmol/L Potassium 4.1 (3.5-5.1) mmol/L Chloride 103 (98-107) mmol/L Carbon Dioxide 27.5 (21.0-32.0) mmol/L BUN 8 (7.0-18.0) mg/dL Creatinine 1.0 (0.8-1.3) mg/dL Est Cr Clr Drug Dosing 67.77 mL/min Estimated GFR (MDRD) > 60.0 ml/min Glucose 109 H (74-106) mg/dL Calcium 8.9 (8.5-10.1) mg/dL Magnesium 1.8 (1.8-2.4) mg/dL Inocencio Results Last 24 Hours: Microbiology 07/21/20 16:52 Aerobic Blood Culture - Final Blood - Venous - Lab Draw NO GROWTH AFTER 5 DAYS Anaerobic Blood Culture - Final NO GROWTH AFTER 5 DAYS 07/21/20 16:42 Aerobic Blood Culture - Final Blood - Venous NO GROWTH AFTER 5 DAYS Anaerobic Blood Culture - Final Med Orders - Current: Current Medications Acetaminophen (Tylenol) 650 mg PO Q4H PRN PRN Reason: Pain Last Admin: 07/20/20 01:56 Dose: 650 mg Documented by: Benztropine Mesylate (Cogentin) 1 mg PO BID [facility] Last Admin: 07/27/20 09:19 Dose: 1 mg Documented by: Doxycycline Hyclate (Vibramycin) 100 mg PO BID [facility] Last Admin: 07/27/20 09:19 Dose: 100 mg Documented by: Enoxaparin Sodium (Lovenox) 40 mg SUBCUT Q24H [facility] Last Admin: 07/26/20 14:42 Dose: 40 mg Documented by: Haloperidol (Haldol) 5 mg PO BEDTIME [facility] Last Admin: 07/26/20 20:59 Dose: 5 mg Documented by: Lorazepam (Ativan) 1 mg IVPUSH Q3H PRN PRN Reason: Agitation Last Admin: 07/18/20 17:55 Dose: 1 mg Documented by: Melatonin (Melatonin) 3 mg PO BEDTIME [facility] Last Admin: 07/26/20 20:58 Dose: 3 mg Documented by: Midodrine (Midodrine) 5 mg PO DAILY [facility] Last Admin: 07/27/20 09:19 Dose: 5 mg Documented by: Nystatin/Triamcinolone Acetonide (Mycolog Crm) 0 gm TOP BID [facility] Last Admin: 07/27/20 09:19 Dose: 1 applic Documented by: Sodium Chloride (Saline Flush) 2.5 ml FLUSH ASDIRECTED PRN PRN Reason: Keep Vein Open Discontinued Medications Benztropine Mesylate (Cogentin) 2 mg IM ONETIME ONE Stop: 07/02/20 21:08 Last Admin: 07/02/20 22:48 Dose: Not Given Documented by: Benztropine Mesylate (Cogentin) 2 mg PO ONETIME ONE Stop: 07/02/20 21:55 Last Admin: 07/02/20 22:13 Dose: 2 mg Documented by: Benztropine Mesylate (Cogentin) 1 mg PO BEDTIME [facility] Last Admin: 07/19/20 20:54 Dose: 1 mg Documented by: Benztropine Mesylate (Cogentin) 1 mg PO BID [facility] Last Admin: 07/26/20 10:13 Dose: 1 mg Documented by: Diltiazem HCl (Diltiazem) 20 mg IVPUSH ONETIME ONE Stop: 07/07/20 02:41 Last Admin: 07/07/20 04:35 Dose: Not Given Documented by: Fluconazole (Diflucan) 150 mg PO ONETIME ONE Stop: 07/19/20 10:31 Last Admin: 07/19/20 11:48 Dose: 150 mg Documented by: Haloperidol (Haldol) 5 mg PO BEDTIME [facility] Last Admin: 07/08/20 20:21 Dose: 5 mg Documented by: Haloperidol (Haldol) 10 mg PO BEDTIME [facility] Last Admin: 07/09/20 20:08 Dose: 10 mg Documented by: Ceftriaxone Sodium 1 gm/ (Sodium Chloride) 100 mls @ 200 mls/hr IV STAT ONE Stop: 07/02/20 21:33 Last Admin: 07/02/20 22:14 Dose: Not Given Documented by: Sodium Chloride (Normal Saline) 2,500 mls @ 2,500 mls/hr IV BOLUS ONE; Protocol Stop: 07/02/20 22:03 Last Admin: 07/02/20 22:12 Dose: 2,500 mls/hr Documented by: Ceftriaxone Sodium/Dextrose (Rocephin In Dextrose,Iso-Osm 1 Gm/50 Ml) Confirm Administered Dose 50 mls @ as directed .ROUTE .STK-MED ONE Stop: 07/02/20 21:40 Last Admin: 07/02/20 21:55 Dose: Not Given Documented by: Ceftriaxone Sodium/Dextrose 1 (gm/ Premix) 50 mls @ 100 mls/hr IV ONETIME ONE Stop: 07/02/20 22:11 Last Admin: 07/02/20 22:13 Dose: 100 mls/hr Documented by: Sodium Chloride (Normal Saline) 1,000 mls @ 125 mls/hr IV ASDIRECTED [facility] Sodium Chloride (Normal Saline) 1,000 mls @ 150 mls/hr IV ASDIRECTED [facility] Last Admin: 07/06/20 14:50 Dose: 150 mls/hr Documented by: Sodium Chloride (Normal Saline) 1,000 mls @ 999 mls/hr IV .Bolus ONE Stop: 07/03/20 14:17 Last Admin: 07/03/20 16:04 Dose: 999 mls/hr Documented by: Ceftriaxone Sodium/Dextrose 1 (gm/ Premix) 50 mls @ 100 mls/hr IV Q24H [facility] Last Admin: 07/07/20 03:14 Dose: 100 mls/hr Documented by: Sodium Chloride (Normal Saline) 1,000 mls @ 999 mls/hr IV .Bolus ONE Stop: 07/05/20 10:37 Last Admin: 07/05/20 22:07 Dose: Not Given Documented by: Sodium Chloride (Normal Saline) 1,000 mls @ 999 mls/hr IV .Bolus ONE Stop: 07/05/20 10:57 Last Admin: 07/05/20 10:11 Dose: 999 mls/hr Documented by: Sodium Chloride (Normal Saline) 1,000 mls @ 75 mls/hr IV ASDIRECTED [facility] Last Admin: 07/09/20 03:32 Dose: 75 mls/hr Documented by: Lactated Ringer's (Ringers, Lactated) 500 mls @ 999 mls/hr IV .BOLUS ONE Stop: 07/07/20 03:09 Last Admin: 07/07/20 02:50 Dose: 999 mls/hr Documented by: Magnesium Sulfate (Magnesium Sulfate In Water Premix) 100 mls @ 50 mls/hr IV ONETIME ONE Stop: 07/07/20 05:59 Last Admin: 07/07/20 04:00 Dose: 50 mls/hr Documented by: Lactated Ringer's (Ringers, Lactated) 500 mls @ 999 mls/hr IV BOLUS [facility] Stop: 07/07/20 07:31 Last Admin: 07/07/20 07:20 Dose: 999 mls/hr Documented by: Sodium Chloride (Normal Saline) 500 mls @ 999 mls/hr IV .BOLUS ONE Stop: 07/07/20 19:00 Last Admin: 07/07/20 18:30 Dose: 999 mls/hr Documented by: Magnesium Sulfate (Magnesium Sulfate In Water Premix) 2 gm in 50 mls @ 50 mls/hr IV ONETIME ONE Stop: 07/08/20 10:59 Last Admin: 07/08/20 10:57 Dose: 50 mls/hr Documented by: Magnesium Sulfate (Magnesium Sulfate In Water Premix) 2 gm in 50 mls @ 50 mls/hr IV ONETIME ONE Stop: 07/09/20 10:59 Last Admin: 07/09/20 10:58 Dose: 50 mls/hr Documented by: Piperacillin Sod/Tazobactam (Sod 3.375 gm/ Sodium Chloride) 50 mls @ 100 mls/hr IV Q8H [facility] Last Admin: 07/10/20 06:37 Dose: 100 mls/hr Documented by: Lactated Ringer's (Ringers, Lactated) 500 mls @ 999 mls/hr IV .BOLUS ONE Stop: 07/10/20 01:42 Last Admin: 07/10/20 01:27 Dose: 999 mls/hr Documented by: Lactated Ringer's (Ringers, Lactated) 1,000 mls @ 100 mls/hr IV ASDIRECTED [facility] Last Admin: 07/15/20 05:15 Dose: 100 mls/hr Documented by: Piperacillin Sod/Tazobactam (Sod 3.375 gm/ Sodium Chloride) 50 mls @ 100 mls/hr IV Q6H [facility] Levofloxacin/Dextrose 750 mg/ (Premix) 150 mls @ 100 mls/hr IV Q24H [facility] Last Admin: 07/13/20 10:12 Dose: 100 mls/hr Documented by: Magnesium Sulfate (Magnesium Sulfate In Water Premix) 2 gm in 50 mls @ 50 mls/hr IV ONETIME ONE Stop: 07/11/20 09:59 Last Admin: 07/11/20 08:58 Dose: 50 mls/hr Documented by: Lactated Ringer's (Ringers, Lactated) 1,000 mls @ 999 mls/hr IV .BOLUS ONE Stop: 07/11/20 13:09 Last Admin: 07/11/20 12:42 Dose: 999 mls/hr Documented by: Magnesium Sulfate (Magnesium Sulfate In Water Premix) 2 gm in 50 mls @ 50 mls/hr IV ONETIME ONE Stop: 07/12/20 09:14 Last Admin: 07/12/20 08:30 Dose: 50 mls/hr Documented by: Sodium Chloride (Normal Saline) 500 mls @ 999 mls/hr IV .BOLUS [facility] Sodium Chloride (Normal Saline) 1,000 mls @ 125 mls/hr IV ONETIME ONE Stop: 07/19/20 15:51 Last Admin: 07/19/20 08:20 Dose: 125 mls/hr Documented by: Magnesium Sulfate (Magnesium Sulfate In Water Premix) 2 gm in 50 mls @ 50 mls/hr IV ONETIME ONE Stop: 07/20/20 09:14 Last Admin: 07/20/20 09:06 Dose: 50 mls/hr Documented by: Sodium Chloride (Normal Saline) 1,000 mls @ 125 mls/hr IV Q8H [facility] Stop: 07/20/20 17:29 Last Admin: 07/20/20 10:37 Dose: 125 mls/hr Documented by: Lactated Ringer's (Ringers, Lactated) 1,000 mls @ 999 mls/hr IV .BOLUS ONE Stop: 07/21/20 12:40 Last Admin: 07/21/20 11:40 Dose: 999 mls/hr Documented by: Piperacillin Sod/Tazobactam (Sod 4.5 gm/ Sodium Chloride) 100 mls @ 200 mls/hr IV Q8H [facility] Last Admin: 07/23/20 06:24 Dose: 200 mls/hr Documented by: Vancomycin HCl 1.25 gm/ Sodium (Chloride) 250 mls @ 250 mls/hr IV Q12H [facility] Last Admin: 07/23/20 03:50 Dose: 250 mls/hr Documented by: Lactated Ringer's (Ringers, Lactated) 1,000 mls @ 999 mls/hr IV .BOLUS ONE Stop: 07/21/20 16:33 Last Admin: 07/21/20 15:42 Dose: 999 mls/hr Documented by: Lactated Ringer's (Ringers, Lactated) 1,000 mls @ 125 mls/hr IV ASDIRECTED [facility] Last Admin: 07/26/20 08:17 Dose: 125 mls/hr Documented by: Magnesium Sulfate 4 gm/ Premix 100 mls @ 33.333 mls/hr IV ONETIME ONE Stop: 07/22/20 13:08 Last Admin: 07/22/20 10:34 Dose: 33.333 mls/hr Documented by: Levofloxacin/Dextrose 750 mg/ (Premix) 150 mls @ 100 mls/hr IV Q24H [facility] Last Admin: 07/24/20 11:02 Dose: 100 mls/hr Documented by: Magnesium Sulfate 4 gm/ Premix 100 mls @ 50 mls/hr IV ONETIME ONE Stop: 07/24/20 10:03 Last Admin: 07/24/20 08:28 Dose: 50 mls/hr Documented by: Magnesium Sulfate (Magnesium Sulfate In Water Premix) 2 gm in 50 mls @ 50 mls/hr IV ONETIME ONE Stop: 07/26/20 09:14 Last Admin: 07/26/20 09:26 Dose: 50 mls/hr Documented by: Influenza Virus Vaccine (Fluzone Quad Syringe) 60 mcg IM .ONCE ONE Stop: 07/16/20 13:01 Last Admin: 07/17/20 11:24 Dose: 60 mcg Documented by: Iopamidol (Isovue Multipack-370 (76%)) 100 ml IVPUSH ONETIME STA Stop: 07/10/20 13:03 Last Admin: 07/10/20 13:05 Dose: 100 ml Documented by: Levofloxacin (Levaquin) 750 mg PO Q24H [facility] Last Admin: 07/21/20 11:52 Dose: 750 mg Documented by: Lidocaine HCl (Lidocaine 5%) 0 gm TOP Q6HR PRN PRN Reason: Pain Last Admin: 07/09/20 13:07 Dose: 1 applic Documented by: Lorazepam (Ativan) Confirm Administered Dose 2 mg .ROUTE .STK-MED ONE Stop: 07/03/20 00:30 Last Admin: 07/03/20 00:37 Dose: Not Given Documented by: Lorazepam (Ativan) 1 mg IVPUSH NOW STA Stop: 07/03/20 00:37 Last Admin: 07/03/20 00:38 Dose: 1 mg Documented by: Lorazepam (Ativan) 1 mg IVPUSH ONETIME ONE Stop: 07/03/20 00:48 Last Admin: 07/03/20 00:50 Dose: 1 mg Documented by: Lorazepam (Ativan) 1 mg IVPUSH Q6H PRN PRN Reason: Agitation Lorazepam (Ativan) 2 mg IVPUSH ONETIME ONE Stop: 07/09/20 22:41 Last Admin: 07/09/20 22:55 Dose: 2 mg Documented by: Lorazepam (Ativan) 2 mg IVPUSH ONETIME ONE Stop: 07/10/20 22:26 Last Admin: 07/10/20 22:37 Dose: 2 mg Documented by: Magnesium Sulfate (Magnesium Sulfate In Water Premix) 2 gm IV ONETIME ONE Stop: 07/11/20 08:04 Last Admin: 07/11/20 09:11 Dose: Not Given Documented by: Midodrine (Midodrine) 5 mg PO DAILY [facility] Last Admin: 07/26/20 10:13 Dose: 5 mg Documented by: Piperacillin Sod/Tazobactam Sod (Piperacil-Tazobact) 4.5 gm .ROUTE .STK-MED ONE Stop: 07/21/20 15:01 Pneumococcal Polyvalent Vaccine (Pneumovax 23) 25 mcg IM .ONCE ONE Stop: 07/16/20 11:57 Last Admin: 07/17/20 13:17 Dose: 25 mcg Documented by: Potassium Chloride (Klor-Con M20) 40 meq PO ONETIME ONE Stop: 07/05/20 15:58 Last Admin: 07/05/20 16:14 Dose: 40 meq Documented by: Potassium Chloride (Klor-Con M20) 40 meq PO ONETIME ONE Stop: 07/07/20 03:42 Last Admin: 07/07/20 03:59 Dose: 40 meq Documented by: Potassium Chloride (Klor-Con M20) 40 meq PO ONETIME ONE Stop: 07/09/20 09:47 Last Admin: 07/09/20 10:58 Dose: 40 meq Documented by: Potassium Chloride (Klor-Con M20) 40 meq PO ONETIME ONE Stop: 07/24/20 08:05 Last Admin: 07/24/20 08:28 Dose: 40 meq Documented by: Propranolol HCl (Inderal La) 60 mg PO DAILY [facility] Last Admin: 07/21/20 09:55 Dose: 60 mg Documented by: Sodium Chloride (Saline Flush) 10 ml FLUSH ASDIRECTED PRN PRN Reason: Keep Vein Open Sodium Chloride (Saline Flush) 2.5 ml FLUSH ASDIRECTED PRN PRN Reason: Keep Vein Open Sterile Water (Sterile Water For Injection) 1.2 ml INJECT ONETIME ONE Stop: 07/03/20 00:59 Last Admin: 07/03/20 01:22 Dose: 1.2 ml Documented by: Vancomycin HCl (Vancomycin) 1.25 gm .ROUTE .STK-MED ONE Stop: 07/21/20 15:01 Ziprasidone (Geodon) 10 mg IM ONETIME ONE Stop: 07/03/20 00:59 Last Admin: 07/03/20 01:04 Dose: 10 mg Documented by: Ziprasidone Shikha) Confirm Administered Dose 20 mg .ROUTE .STK-MED ONE Stop: 07/03/20 00:59 Last Admin: 07/03/20 01:15 Dose: Not Given Documented by: - Exam General: Alert, Oriented, Cooperative, No Acute Distress Lungs: Clear to Auscultation, Normal Respiratory Effort Cardiovascular: Regular Rate, Regular Rhythm GI/Abdominal Exam: Normal Bowel Sounds, Soft, Non-Tender Extremities: Normal Inspection, Normal Range of Motion, Non-Tender, No Pedal Edema Wound/Incisions: Other (bruisnig to L buttock, non blanchable. stage 1 ulcer noted. encouraged movement and repositioning, which he does frequently) Neurological: No New Focal Deficit Psy/Mental Status: Alert, Normal Affect, Normal Mood. No: Hallucinations Sepsis Event Note - Evaluation Sepsis Screening Result: No Definite Risk - Focused Exam Vital Signs: Vital Signs Temp Pulse Resp BP Pulse Ox 07/27/20 12:00 97.1 F 112 H 16 102/64 96 07/27/20 08:00 97.9 F 67 17 97/62 92 L 07/27/20 04:22 98.1 F 95 17 106/62 95 - Problem List & Annotations (1) HTN (hypertension) SNOMED Code(s): 03971418 Code(s): I10 - ESSENTIAL (PRIMARY) HYPERTENSION Status: Chronic Current Visit: No (2) Schizophrenia SNOMED Code(s): 90298594 Code(s): F20.9 - SCHIZOPHRENIA, UNSPECIFIED Status: Chronic Current Visit: No (3) Bladder outlet obstruction SNOMED Code(s): 496435321 Code(s): N32.0 - BLADDER-NECK OBSTRUCTION Status: Acute Current Visit: Yes (4) Prostatitis SNOMED Code(s): 0734899 Code(s): N41.9 - INFLAMMATORY DISEASE OF PROSTATE, UNSPECIFIED Status: Acute Current Visit: Yes Qualifiers: Prostatitis type: acute Qualified Code(s): N41.0 - Acute prostatitis (5) Cher infection of genital region SNOMED Code(s): 739797775 Code(s): B37.49 - OTHER UROGENITAL CANDIDIASIS Status: Chronic Current Visit: Yes - Problem List Review Problem List Initiated/Reviewed/Updated: Yes - My Orders Last 24 Hours: My Active Orders 07/26/20 11:48 Sodium Chloride 0.9% [Saline Flush] 2.5 ml FLUSH ASDIRECTED PRN 07/26/20 21:00 Benztropine [Cogentin] 1 mg PO BID 07/27/20 09:00 Midodrine 5 mg PO DAILY - Plan Plan:: 64 yo male admitted for acute renal failure and metabolic encephalopathy 1. Schizophrenia- stable - continue Haldol 5 mg bedtime - Continue Cogentin to 1 mg BID for EPS symptoms, monitor 2. Bladder outlet obstruction/prostatitis - Lambert in place - Follow up with urology - De-escalate antibiotics, Doxycycline to start in am. 3. Dystonia/agitation: - Ativan prn 4. Self care deficit - PT/OT to evaluate and treat - Will need skilled care - SNF placement - Case management and social work involved 5. Cher rash to buttocks - Much improved - Nystatin cream BID - had Diflucan x 1 dose 07/19 - Keep dry and no brief on to help allow air flow. 6. Hypotension - on Midodrine - Stable. VTE prophylaxis: Heparin Dispo: pending placement
[2020-07-27] MEDS: Enoxaparin 40 MG/0.4 ML Syringe SUBCUT SCH (13:53)
[2020-07-27] MEDS: Melatonin 3 MG Tab PO SCH (21:41)
[2020-07-27] MEDS: Haloperidol 5 MG Tab PO SCH (21:43)
[2020-07-28 06:57] LABS: BLOOD UREA NITROGEN,BUN 12 mg/dL (7.0-18.0); CARBON DIOXIDE,CO2 26.8 mmol/L (21.0-32.0); CHLORIDE,CL 101 mmol/L (98-107); GLUCOSE RANDOM 111 mg/dL (74-106); SODIUM,NA 136 mmol/L (136-148)
[2020-07-28] MEDS: Sodium Chloride 0.9% 2.5 ML Syringe FLUSH PRN ×2 (08:34→13:59)
[2020-07-28] MEDS: Midodrine 5 MG Tab PO SCH (08:35)
[2020-07-28] MEDS: Benztropine 1 MG Tab PO SCH ×2 (08:35→20:13)
[2020-07-28] MEDS: Doxycycline 100 MG Cap PO SCH ×2 (08:36→20:12)
--- NOTE | 2020-07-28 12:50 | PCM.PN ---
- General Info Date of Service: 07/28/20 - Review of Systems Systems Review Comment:: doing well no complaints - Patient Data Vitals - Most Recent: Last Vital Signs Temp 36.7 C 07/28/20 11:19 Pulse 116 H 07/28/20 11:19 Resp 16 07/28/20 11:19 BP 106/66 07/28/20 11:19 Pulse Ox 96 07/28/20 11:19 Weight - Most Recent: 83.915 kg I&O - Last 24 Hours: Intake & Output 07/27/20 07/28/20 07/28/20 22:59 06:59 14:59 Intake Total 750 300 Output Total 550 350 Balance 200 -50 Lab Results Last 24 Hours: Laboratory Results - last 24 hr 07/28/20 Range/Units 05:25 Sodium 136 (136-148) mmol/L Potassium 4.0 (3.5-5.1) mmol/L Chloride 101 (98-107) mmol/L Carbon Dioxide 26.8 (21.0-32.0) mmol/L BUN 12 (7.0-18.0) mg/dL Creatinine 0.9 (0.8-1.3) mg/dL Est Cr Clr Drug Dosing 75.30 mL/min Estimated GFR (MDRD) > 60.0 ml/min Glucose 111 H (74-106) mg/dL Calcium 9.5 (8.5-10.1) mg/dL Magnesium 1.7 L (1.8-2.4) mg/dL Med Orders - Current: Current Medications Acetaminophen (Tylenol) 650 mg PO Q4H PRN PRN Reason: Pain Last Admin: 07/20/20 01:56 Dose: 650 mg Documented by: Benztropine Mesylate (Cogentin) 1 mg PO BID [facility] Last Admin: 07/28/20 08:35 Dose: 1 mg Documented by: Doxycycline Hyclate (Vibramycin) 100 mg PO BID [facility] Last Admin: 07/28/20 08:36 Dose: 100 mg Documented by: Enoxaparin Sodium (Lovenox) 40 mg SUBCUT Q24H [facility] Last Admin: 07/27/20 13:53 Dose: 40 mg Documented by: Haloperidol (Haldol) 5 mg PO BEDTIME [facility] Last Admin: 07/27/20 21:43 Dose: 5 mg Documented by: Lorazepam (Ativan) 1 mg IVPUSH Q3H PRN PRN Reason: Agitation Last Admin: 07/18/20 17:55 Dose: 1 mg Documented by: Melatonin (Melatonin) 3 mg PO BEDTIME [facility] Last Admin: 07/27/20 21:41 Dose: 3 mg Documented by: Midodrine (Midodrine) 5 mg PO DAILY [facility] Last Admin: 07/28/20 08:35 Dose: 5 mg Documented by: Nystatin/Triamcinolone Acetonide (Mycolog Crm) 0 gm TOP BID [facility] Last Admin: 07/28/20 08:36 Dose: 1 applic Documented by: Sodium Chloride (Saline Flush) 2.5 ml FLUSH ASDIRECTED PRN PRN Reason: Keep Vein Open Last Admin: 07/28/20 08:34 Dose: 2.5 ml Documented by: Discontinued Medications Benztropine Mesylate (Cogentin) 2 mg IM ONETIME ONE Stop: 07/02/20 21:08 Last Admin: 07/02/20 22:48 Dose: Not Given Documented by: Benztropine Mesylate (Cogentin) 2 mg PO ONETIME ONE Stop: 07/02/20 21:55 Last Admin: 07/02/20 22:13 Dose: 2 mg Documented by: Benztropine Mesylate (Cogentin) 1 mg PO BEDTIME [facility] Last Admin: 07/19/20 20:54 Dose: 1 mg Documented by: Benztropine Mesylate (Cogentin) 1 mg PO BID [facility] Last Admin: 07/26/20 10:13 Dose: 1 mg Documented by: Diltiazem HCl (Diltiazem) 20 mg IVPUSH ONETIME ONE Stop: 07/07/20 02:41 Last Admin: 07/07/20 04:35 Dose: Not Given Documented by: Fluconazole (Diflucan) 150 mg PO ONETIME ONE Stop: 07/19/20 10:31 Last Admin: 07/19/20 11:48 Dose: 150 mg Documented by: Haloperidol (Haldol) 5 mg PO BEDTIME [facility] Last Admin: 07/08/20 20:21 Dose: 5 mg Documented by: Haloperidol (Haldol) 10 mg PO BEDTIME [facility] Last Admin: 07/09/20 20:08 Dose: 10 mg Documented by: Ceftriaxone Sodium 1 gm/ (Sodium Chloride) 100 mls @ 200 mls/hr IV STAT ONE Stop: 07/02/20 21:33 Last Admin: 07/02/20 22:14 Dose: Not Given Documented by: Sodium Chloride (Normal Saline) 2,500 mls @ 2,500 mls/hr IV BOLUS ONE; Protocol Stop: 07/02/20 22:03 Last Admin: 07/02/20 22:12 Dose: 2,500 mls/hr Documented by: Ceftriaxone Sodium/Dextrose (Rocephin In Dextrose,Iso-Osm 1 Gm/50 Ml) Confirm Administered Dose 50 mls @ as directed .ROUTE .STK-MED ONE Stop: 07/02/20 21:40 Last Admin: 07/02/20 21:55 Dose: Not Given Documented by: Ceftriaxone Sodium/Dextrose 1 (gm/ Premix) 50 mls @ 100 mls/hr IV ONETIME ONE Stop: 07/02/20 22:11 Last Admin: 07/02/20 22:13 Dose: 100 mls/hr Documented by: Sodium Chloride (Normal Saline) 1,000 mls @ 125 mls/hr IV ASDIRECTED [facility] Sodium Chloride (Normal Saline) 1,000 mls @ 150 mls/hr IV ASDIRECTED [facility] Last Admin: 07/06/20 14:50 Dose: 150 mls/hr Documented by: Sodium Chloride (Normal Saline) 1,000 mls @ 999 mls/hr IV .Bolus ONE Stop: 07/03/20 14:17 Last Admin: 07/03/20 16:04 Dose: 999 mls/hr Documented by: Ceftriaxone Sodium/Dextrose 1 (gm/ Premix) 50 mls @ 100 mls/hr IV Q24H [facility] Last Admin: 07/07/20 03:14 Dose: 100 mls/hr Documented by: Sodium Chloride (Normal Saline) 1,000 mls @ 999 mls/hr IV .Bolus ONE Stop: 07/05/20 10:37 Last Admin: 07/05/20 22:07 Dose: Not Given Documented by: Sodium Chloride (Normal Saline) 1,000 mls @ 999 mls/hr IV .Bolus ONE Stop: 07/05/20 10:57 Last Admin: 07/05/20 10:11 Dose: 999 mls/hr Documented by: Sodium Chloride (Normal Saline) 1,000 mls @ 75 mls/hr IV ASDIRECTED [facility] Last Admin: 07/09/20 03:32 Dose: 75 mls/hr Documented by: Lactated Ringer's (Ringers, Lactated) 500 mls @ 999 mls/hr IV .BOLUS ONE Stop: 07/07/20 03:09 Last Admin: 07/07/20 02:50 Dose: 999 mls/hr Documented by: Magnesium Sulfate (Magnesium Sulfate In Water Premix) 100 mls @ 50 mls/hr IV ONETIME ONE Stop: 07/07/20 05:59 Last Admin: 07/07/20 04:00 Dose: 50 mls/hr Documented by: Lactated Ringer's (Ringers, Lactated) 500 mls @ 999 mls/hr IV BOLUS ARI Stop: 07/07/20 07:31 Last Admin: 07/07/20 07:20 Dose: 999 mls/hr Documented by: Sodium Chloride (Normal Saline) 500 mls @ 999 mls/hr IV .BOLUS ONE Stop: 07/07/20 19:00 Last Admin: 07/07/20 18:30 Dose: 999 mls/hr Documented by: Magnesium Sulfate (Magnesium Sulfate In Water Premix) 2 gm in 50 mls @ 50 mls/hr IV ONETIME ONE Stop: 07/08/20 10:59 Last Admin: 07/08/20 10:57 Dose: 50 mls/hr Documented by: Magnesium Sulfate (Magnesium Sulfate In Water Premix) 2 gm in 50 mls @ 50 mls/hr IV ONETIME ONE Stop: 07/09/20 10:59 Last Admin: 07/09/20 10:58 Dose: 50 mls/hr Documented by: Piperacillin Sod/Tazobactam (Sod 3.375 gm/ Sodium Chloride) 50 mls @ 100 mls/hr IV Q8H [facility] Last Admin: 07/10/20 06:37 Dose: 100 mls/hr Documented by: Lactated Ringer's (Ringers, Lactated) 500 mls @ 999 mls/hr IV .BOLUS ONE Stop: 07/10/20 01:42 Last Admin: 07/10/20 01:27 Dose: 999 mls/hr Documented by: Lactated Ringer's (Ringers, Lactated) 1,000 mls @ 100 mls/hr IV ASDIRECTED [facility] Last Admin: 07/15/20 05:15 Dose: 100 mls/hr Documented by: Piperacillin Sod/Tazobactam (Sod 3.375 gm/ Sodium Chloride) 50 mls @ 100 mls/hr IV Q6H [facility] Levofloxacin/Dextrose 750 mg/ (Premix) 150 mls @ 100 mls/hr IV Q24H [facility] Last Admin: 07/13/20 10:12 Dose: 100 mls/hr Documented by: Magnesium Sulfate (Magnesium Sulfate In Water Premix) 2 gm in 50 mls @ 50 mls/hr IV ONETIME ONE Stop: 07/11/20 09:59 Last Admin: 07/11/20 08:58 Dose: 50 mls/hr Documented by: Lactated Ringer's (Ringers, Lactated) 1,000 mls @ 999 mls/hr IV .BOLUS ONE Stop: 07/11/20 13:09 Last Admin: 07/11/20 12:42 Dose: 999 mls/hr Documented by: Magnesium Sulfate (Magnesium Sulfate In Water Premix) 2 gm in 50 mls @ 50 mls/hr IV ONETIME ONE Stop: 07/12/20 09:14 Last Admin: 07/12/20 08:30 Dose: 50 mls/hr Documented by: Sodium Chloride (Normal Saline) 500 mls @ 999 mls/hr IV .BOLUS ARI Sodium Chloride (Normal Saline) 1,000 mls @ 125 mls/hr IV ONETIME ONE Stop: 07/19/20 15:51 Last Admin: 07/19/20 08:20 Dose: 125 mls/hr Documented by: Magnesium Sulfate (Magnesium Sulfate In Water Premix) 2 gm in 50 mls @ 50 mls/hr IV ONETIME ONE Stop: 07/20/20 09:14 Last Admin: 07/20/20 09:06 Dose: 50 mls/hr Documented by: Sodium Chloride (Normal Saline) 1,000 mls @ 125 mls/hr IV Q8H [facility] Stop: 07/20/20 17:29 Last Admin: 07/20/20 10:37 Dose: 125 mls/hr Documented by: Lactated Ringer's (Ringers, Lactated) 1,000 mls @ 999 mls/hr IV .BOLUS ONE Stop: 07/21/20 12:40 Last Admin: 07/21/20 11:40 Dose: 999 mls/hr Documented by: Piperacillin Sod/Tazobactam (Sod 4.5 gm/ Sodium Chloride) 100 mls @ 200 mls/hr IV Q8H [facility] Last Admin: 07/23/20 06:24 Dose: 200 mls/hr Documented by: Vancomycin HCl 1.25 gm/ Sodium (Chloride) 250 mls @ 250 mls/hr IV Q12H [facility] Last Admin: 07/23/20 03:50 Dose: 250 mls/hr Documented by: Lactated Ringer's (Ringers, Lactated) 1,000 mls @ 999 mls/hr IV .BOLUS ONE Stop: 07/21/20 16:33 Last Admin: 07/21/20 15:42 Dose: 999 mls/hr Documented by: Lactated Ringer's (Ringers, Lactated) 1,000 mls @ 125 mls/hr IV ASDIRECTED [facility] Last Admin: 07/26/20 08:17 Dose: 125 mls/hr Documented by: Magnesium Sulfate 4 gm/ Premix 100 mls @ 33.333 mls/hr IV ONETIME ONE Stop: 07/22/20 13:08 Last Admin: 07/22/20 10:34 Dose: 33.333 mls/hr Documented by: Levofloxacin/Dextrose 750 mg/ (Premix) 150 mls @ 100 mls/hr IV Q24H [facility] Last Admin: 07/24/20 11:02 Dose: 100 mls/hr Documented by: Magnesium Sulfate 4 gm/ Premix 100 mls @ 50 mls/hr IV ONETIME ONE Stop: 07/24/20 10:03 Last Admin: 07/24/20 08:28 Dose: 50 mls/hr Documented by: Magnesium Sulfate (Magnesium Sulfate In Water Premix) 2 gm in 50 mls @ 50 mls/hr IV ONETIME ONE Stop: 07/26/20 09:14 Last Admin: 07/26/20 09:26 Dose: 50 mls/hr Documented by: Influenza Virus Vaccine (Fluzone Quad [id number] Syringe) 60 mcg IM .ONCE ONE Stop: 07/16/20 13:01 Last Admin: 07/17/20 11:24 Dose: 60 mcg Documented by: Iopamidol (Isovue Multipack-370 (76%)) 100 ml IVPUSH ONETIME STA Stop: 07/10/20 13:03 Last Admin: 07/10/20 13:05 Dose: 100 ml Documented by: Levofloxacin (Levaquin) 750 mg PO Q24H [facility] Last Admin: 07/21/20 11:52 Dose: 750 mg Documented by: Lidocaine HCl (Lidocaine 5%) 0 gm TOP Q6HR PRN PRN Reason: Pain Last Admin: 07/09/20 13:07 Dose: 1 applic Documented by: Lorazepam (Ativan) Confirm Administered Dose 2 mg .ROUTE .STK-MED ONE Stop: 07/03/20 00:30 Last Admin: 07/03/20 00:37 Dose: Not Given Documented by: Lorazepam (Ativan) 1 mg IVPUSH NOW STA Stop: 07/03/20 00:37 Last Admin: 07/03/20 00:38 Dose: 1 mg Documented by: Lorazepam (Ativan) 1 mg IVPUSH ONETIME ONE Stop: 07/03/20 00:48 Last Admin: 07/03/20 00:50 Dose: 1 mg Documented by: Lorazepam (Ativan) 1 mg IVPUSH Q6H PRN PRN Reason: Agitation Lorazepam (Ativan) 2 mg IVPUSH ONETIME ONE Stop: 07/09/20 22:41 Last Admin: 07/09/20 22:55 Dose: 2 mg Documented by: Lorazepam (Ativan) 2 mg IVPUSH ONETIME ONE Stop: 07/10/20 22:26 Last Admin: 07/10/20 22:37 Dose: 2 mg Documented by: Magnesium Sulfate (Magnesium Sulfate In Water Premix) 2 gm IV ONETIME ONE Stop: 07/11/20 08:04 Last Admin: 07/11/20 09:11 Dose: Not Given Documented by: Midodrine (Midodrine) 5 mg PO DAILY [facility] Last Admin: 07/26/20 10:13 Dose: 5 mg Documented by: Piperacillin Sod/Tazobactam Sod (Piperacil-Tazobact) 4.5 gm .ROUTE .STK-MED ONE Stop: 07/21/20 15:01 Pneumococcal Polyvalent Vaccine (Pneumovax 23) 25 mcg IM .ONCE ONE Stop: 07/16/20 11:57 Last Admin: 07/17/20 13:17 Dose: 25 mcg Documented by: Potassium Chloride (Klor-Con M20) 40 meq PO ONETIME ONE Stop: 07/05/20 15:58 Last Admin: 07/05/20 16:14 Dose: 40 meq Documented by: Potassium Chloride (Klor-Con M20) 40 meq PO ONETIME ONE Stop: 07/07/20 03:42 Last Admin: 07/07/20 03:59 Dose: 40 meq Documented by: Potassium Chloride (Klor-Con M20) 40 meq PO ONETIME ONE Stop: 07/09/20 09:47 Last Admin: 07/09/20 10:58 Dose: 40 meq Documented by: Potassium Chloride (Klor-Con M20) 40 meq PO ONETIME ONE Stop: 07/24/20 08:05 Last Admin: 07/24/20 08:28 Dose: 40 meq Documented by: Propranolol HCl (Inderal La) 60 mg PO DAILY [facility] Last Admin: 07/21/20 09:55 Dose: 60 mg Documented by: Sodium Chloride (Saline Flush) 10 ml FLUSH ASDIRECTED PRN PRN Reason: Keep Vein Open Sodium Chloride (Saline Flush) 2.5 ml FLUSH ASDIRECTED PRN PRN Reason: Keep Vein Open Sterile Water (Sterile Water For Injection) 1.2 ml INJECT ONETIME ONE Stop: 07/03/20 00:59 Last Admin: 07/03/20 01:22 Dose: 1.2 ml Documented by: Vancomycin HCl (Vancomycin) 1.25 gm .ROUTE .STK-MED ONE Stop: 07/21/20 15:01 Ziprasidone (Geodon) 10 mg IM ONETIME ONE Stop: 07/03/20 00:59 Last Admin: 07/03/20 01:04 Dose: 10 mg Documented by: Ziprasidone (Geodon) Confirm Administered Dose 20 mg .ROUTE .STK-MED ONE Stop: 07/03/20 00:59 Last Admin: 07/03/20 01:15 Dose: Not Given Documented by: - Exam General: Alert, Oriented Neck: Supple Lungs: Clear to Auscultation, Normal Respiratory Effort Cardiovascular: Regular Rate, Regular Rhythm GI/Abdominal Exam: Normal Bowel Sounds, Soft, Non-Tender, No Distention Extremities: Normal Inspection, Non-Tender, No Pedal Edema Skin: Warm, Dry, Intact Neurological: No New Focal Deficit Sepsis Event Note - Evaluation Sepsis Screening Result: No Definite Risk - Focused Exam Vital Signs: Vital Signs Temp Temp Pulse Resp BP Pulse Ox 07/28/20 11:19 36.7 C 116 H 16 106/66 96 07/28/20 07:42 37.5 C 103 H 16 110/69 94 L 07/28/20 04:00 36.7 C 97 18 118/63 94 L - Problem List Review Problem List Initiated/Reviewed/Updated: Yes - Plan Plan:: 64 yo male admitted for acute renal failure and metabolic encephalopathy 1. Schizophrenia- stable - continue Haldol 5 mg bedtime - Continue Cogentin to 1 mg BID for EPS symptoms, monitor 2. Bladder outlet obstruction/prostatitis - Nelson in place - Follow up with urology - Doxycycline - exchange nelson as has been one month since insertion 3. Dystonia/agitation: - Ativan prn 4. Self care deficit - PT/OT to evaluate and treat - Will need skilled care - SNF placement - Case management and social work involved 5. Cher rash to buttocks - Much improved - Nystatin cream BID - had Diflucan x 1 dose 07/19 - Keep dry and no brief on to help allow air flow. 6. Hypotension - on Midodrine - Stable. VTE prophylaxis: Heparin Dispo: pending placement
[2020-07-28] MEDS: Enoxaparin 40 MG/0.4 ML Syringe SUBCUT SCH (13:59)
[2020-07-28] MEDS: Melatonin 3 MG Tab PO SCH (20:12)
[2020-07-28] MEDS: Haloperidol 5 MG Tab PO SCH (20:13)
[2020-07-29 06:31] LABS: BLOOD UREA NITROGEN,BUN 13 mg/dL (7.0-18.0); CARBON DIOXIDE,CO2 29.1 mmol/L (21.0-32.0); CHLORIDE,CL 102 mmol/L (98-107); GLUCOSE RANDOM 117 mg/dL (74-106); POTASSIUM,K 4.5 mmol/L (3.5-5.1); SODIUM,NA 137 mmol/L (136-148)
[2020-07-29] MEDS: Midodrine 5 MG Tab PO SCH (09:10)
[2020-07-29] MEDS: Doxycycline 100 MG Cap PO SCH ×2 (09:11→20:30)
[2020-07-29] MEDS: Benztropine 1 MG Tab PO SCH ×2 (09:11→20:30)
--- NOTE | 2020-07-29 10:52 | PCM.PN ---
- General Info Date of Service: 07/29/20 - Review of Systems Systems Review Comment:: no pain, no fevers, tremors improving - Patient Data Vitals - Most Recent: Last Vital Signs Temp 36.6 C 07/29/20 07:38 Pulse 103 H 07/29/20 07:38 Resp 14 07/29/20 07:38 BP 109/69 07/29/20 07:38 Pulse Ox 94 L 07/29/20 07:38 Weight - Most Recent: 83.915 kg I&O - Last 24 Hours: Intake & Output 07/28/20 07/29/20 07/29/20 22:59 06:59 14:59 Intake Total 860 700 Output Total 550 250 Balance 310 450 Lab Results Last 24 Hours: Laboratory Results - last 24 hr 07/29/20 Range/Units 05:18 Sodium 137 (136-148) mmol/L Potassium 4.5 (3.5-5.1) mmol/L Chloride 102 (98-107) mmol/L Carbon Dioxide 29.1 (21.0-32.0) mmol/L BUN 13 (7.0-18.0) mg/dL Creatinine 1.0 (0.8-1.3) mg/dL Est Cr Clr Drug Dosing 67.77 mL/min Estimated GFR (MDRD) > 60.0 ml/min Glucose 117 H (74-106) mg/dL Calcium 9.3 (8.5-10.1) mg/dL Magnesium 1.7 L (1.8-2.4) mg/dL Med Orders - Current: Current Medications Acetaminophen (Tylenol) 650 mg PO Q4H PRN PRN Reason: Pain Last Admin: 07/20/20 01:56 Dose: 650 mg Documented by: Benztropine Mesylate (Cogentin) 1 mg PO BID [facility] Last Admin: 07/29/20 09:11 Dose: 1 mg Documented by: Doxycycline Hyclate (Vibramycin) 100 mg PO BID [facility] Last Admin: 07/29/20 09:11 Dose: 100 mg Documented by: Enoxaparin Sodium (Lovenox) 40 mg SUBCUT Q24H [facility] Last Admin: 07/28/20 13:59 Dose: 40 mg Documented by: Haloperidol (Haldol) 5 mg PO BEDTIME [facility] Last Admin: 07/28/20 20:13 Dose: 5 mg Documented by: Lorazepam (Ativan) 1 mg IVPUSH Q3H PRN PRN Reason: Agitation Last Admin: 07/18/20 17:55 Dose: 1 mg Documented by: Melatonin (Melatonin) 3 mg PO BEDTIME [facility] Last Admin: 07/28/20 20:12 Dose: 3 mg Documented by: Midodrine (Midodrine) 5 mg PO DAILY [facility] Last Admin: 07/29/20 09:10 Dose: 5 mg Documented by: Nystatin (Nystop) 1 gm TOP BID [facility] Nystatin/Triamcinolone Acetonide (Mycolog Crm) 0 gm TOP BID [facility] Last Admin: 07/29/20 09:11 Dose: 1 applic Documented by: Sodium Chloride (Saline Flush) 2.5 ml FLUSH ASDIRECTED PRN PRN Reason: Keep Vein Open Last Admin: 07/28/20 13:59 Dose: 2.5 ml Documented by: Discontinued Medications Benztropine Mesylate (Cogentin) 2 mg IM ONETIME ONE Stop: 07/02/20 21:08 Last Admin: 07/02/20 22:48 Dose: Not Given Documented by: Benztropine Mesylate (Cogentin) 2 mg PO ONETIME ONE Stop: 07/02/20 21:55 Last Admin: 07/02/20 22:13 Dose: 2 mg Documented by: Benztropine Mesylate (Cogentin) 1 mg PO BEDTIME [facility] Last Admin: 07/19/20 20:54 Dose: 1 mg Documented by: Benztropine Mesylate (Cogentin) 1 mg PO BID [facility] Last Admin: 07/26/20 10:13 Dose: 1 mg Documented by: Diltiazem HCl (Diltiazem) 20 mg IVPUSH ONETIME ONE Stop: 07/07/20 02:41 Last Admin: 07/07/20 04:35 Dose: Not Given Documented by: Fluconazole (Diflucan) 150 mg PO ONETIME ONE Stop: 07/19/20 10:31 Last Admin: 07/19/20 11:48 Dose: 150 mg Documented by: Haloperidol (Haldol) 5 mg PO BEDTIME [facility] Last Admin: 07/08/20 20:21 Dose: 5 mg Documented by: Haloperidol (Haldol) 10 mg PO BEDTIME [facility] Last Admin: 07/09/20 20:08 Dose: 10 mg Documented by: Ceftriaxone Sodium 1 gm/ (Sodium Chloride) 100 mls @ 200 mls/hr IV STAT ONE Stop: 07/02/20 21:33 Last Admin: 07/02/20 22:14 Dose: Not Given Documented by: Sodium Chloride (Normal Saline) 2,500 mls @ 2,500 mls/hr IV BOLUS ONE; Protocol Stop: 07/02/20 22:03 Last Admin: 07/02/20 22:12 Dose: 2,500 mls/hr Documented by: Ceftriaxone Sodium/Dextrose (Rocephin In Dextrose,Iso-Osm 1 Gm/50 Ml) Confirm Administered Dose 50 mls @ as directed .ROUTE .STK-MED ONE Stop: 07/02/20 21:40 Last Admin: 07/02/20 21:55 Dose: Not Given Documented by: Ceftriaxone Sodium/Dextrose 1 (gm/ Premix) 50 mls @ 100 mls/hr IV ONETIME ONE Stop: 07/02/20 22:11 Last Admin: 07/02/20 22:13 Dose: 100 mls/hr Documented by: Sodium Chloride (Normal Saline) 1,000 mls @ 125 mls/hr IV ASDIRECTED [facility] Sodium Chloride (Normal Saline) 1,000 mls @ 150 mls/hr IV ASDIRECTED [facility] Last Admin: 07/06/20 14:50 Dose: 150 mls/hr Documented by: Sodium Chloride (Normal Saline) 1,000 mls @ 999 mls/hr IV .Bolus ONE Stop: 07/03/20 14:17 Last Admin: 07/03/20 16:04 Dose: 999 mls/hr Documented by: Ceftriaxone Sodium/Dextrose 1 (gm/ Premix) 50 mls @ 100 mls/hr IV Q24H [facility] Last Admin: 07/07/20 03:14 Dose: 100 mls/hr Documented by: Sodium Chloride (Normal Saline) 1,000 mls @ 999 mls/hr IV .Bolus ONE Stop: 07/05/20 10:37 Last Admin: 07/05/20 22:07 Dose: Not Given Documented by: Sodium Chloride (Normal Saline) 1,000 mls @ 999 mls/hr IV .Bolus ONE Stop: 07/05/20 10:57 Last Admin: 07/05/20 10:11 Dose: 999 mls/hr Documented by: Sodium Chloride (Normal Saline) 1,000 mls @ 75 mls/hr IV ASDIRECTED [facility] Last Admin: 07/09/20 03:32 Dose: 75 mls/hr Documented by: Lactated Ringer's (Ringers, Lactated) 500 mls @ 999 mls/hr IV .BOLUS ONE Stop: 07/07/20 03:09 Last Admin: 07/07/20 02:50 Dose: 999 mls/hr Documented by: Magnesium Sulfate (Magnesium Sulfate In Water Premix) 100 mls @ 50 mls/hr IV ONETIME ONE Stop: 07/07/20 05:59 Last Admin: 07/07/20 04:00 Dose: 50 mls/hr Documented by: Lactated Ringer's (Ringers, Lactated) 500 mls @ 999 mls/hr IV BOLUS [facility] Stop: 07/07/20 07:31 Last Admin: 07/07/20 07:20 Dose: 999 mls/hr Documented by: Sodium Chloride (Normal Saline) 500 mls @ 999 mls/hr IV .BOLUS ONE Stop: 07/07/20 19:00 Last Admin: 07/07/20 18:30 Dose: 999 mls/hr Documented by: Magnesium Sulfate (Magnesium Sulfate In Water Premix) 2 gm in 50 mls @ 50 mls/hr IV ONETIME ONE Stop: 07/08/20 10:59 Last Admin: 07/08/20 10:57 Dose: 50 mls/hr Documented by: Magnesium Sulfate (Magnesium Sulfate In Water Premix) 2 gm in 50 mls @ 50 mls/hr IV ONETIME ONE Stop: 07/09/20 10:59 Last Admin: 07/09/20 10:58 Dose: 50 mls/hr Documented by: Piperacillin Sod/Tazobactam (Sod 3.375 gm/ Sodium Chloride) 50 mls @ 100 mls/hr IV Q8H [facility] Last Admin: 07/10/20 06:37 Dose: 100 mls/hr Documented by: Lactated Ringer's (Ringers, Lactated) 500 mls @ 999 mls/hr IV .BOLUS ONE Stop: 07/10/20 01:42 Last Admin: 07/10/20 01:27 Dose: 999 mls/hr Documented by: Lactated Ringer's (Ringers, Lactated) 1,000 mls @ 100 mls/hr IV ASDIRECTED [facility] Last Admin: 07/15/20 05:15 Dose: 100 mls/hr Documented by: Piperacillin Sod/Tazobactam (Sod 3.375 gm/ Sodium Chloride) 50 mls @ 100 mls/hr IV Q6H [facility] Levofloxacin/Dextrose 750 mg/ (Premix) 150 mls @ 100 mls/hr IV Q24H [facility] Last Admin: 07/13/20 10:12 Dose: 100 mls/hr Documented by: Magnesium Sulfate (Magnesium Sulfate In Water Premix) 2 gm in 50 mls @ 50 mls/hr IV ONETIME ONE Stop: 07/11/20 09:59 Last Admin: 07/11/20 08:58 Dose: 50 mls/hr Documented by: Lactated Ringer's (Ringers, Lactated) 1,000 mls @ 999 mls/hr IV .BOLUS ONE Stop: 07/11/20 13:09 Last Admin: 07/11/20 12:42 Dose: 999 mls/hr Documented by: Magnesium Sulfate (Magnesium Sulfate In Water Premix) 2 gm in 50 mls @ 50 mls/hr IV ONETIME ONE Stop: 07/12/20 09:14 Last Admin: 07/12/20 08:30 Dose: 50 mls/hr Documented by: Sodium Chloride (Normal Saline) 500 mls @ 999 mls/hr IV .BOLUS [facility] Sodium Chloride (Normal Saline) 1,000 mls @ 125 mls/hr IV ONETIME ONE Stop: 07/19/20 15:51 Last Admin: 07/19/20 08:20 Dose: 125 mls/hr Documented by: Magnesium Sulfate (Magnesium Sulfate In Water Premix) 2 gm in 50 mls @ 50 mls/hr IV ONETIME ONE Stop: 07/20/20 09:14 Last Admin: 07/20/20 09:06 Dose: 50 mls/hr Documented by: Sodium Chloride (Normal Saline) 1,000 mls @ 125 mls/hr IV Q8H [facility] Stop: 07/20/20 17:29 Last Admin: 07/20/20 10:37 Dose: 125 mls/hr Documented by: Lactated Ringer's (Ringers, Lactated) 1,000 mls @ 999 mls/hr IV .BOLUS ONE Stop: 07/21/20 12:40 Last Admin: 07/21/20 11:40 Dose: 999 mls/hr Documented by: Piperacillin Sod/Tazobactam (Sod 4.5 gm/ Sodium Chloride) 100 mls @ 200 mls/hr IV Q8H [facility] Last Admin: 07/23/20 06:24 Dose: 200 mls/hr Documented by: Vancomycin HCl 1.25 gm/ Sodium (Chloride) 250 mls @ 250 mls/hr IV Q12H [facility] Last Admin: 07/23/20 03:50 Dose: 250 mls/hr Documented by: Lactated Ringer's (Ringers, Lactated) 1,000 mls @ 999 mls/hr IV .BOLUS ONE Stop: 07/21/20 16:33 Last Admin: 07/21/20 15:42 Dose: 999 mls/hr Documented by: Lactated Ringer's (Ringers, Lactated) 1,000 mls @ 125 mls/hr IV ASDIRECTED [facility] Last Admin: 07/26/20 08:17 Dose: 125 mls/hr Documented by: Magnesium Sulfate 4 gm/ Premix 100 mls @ 33.333 mls/hr IV ONETIME ONE Stop: 07/22/20 13:08 Last Admin: 07/22/20 10:34 Dose: 33.333 mls/hr Documented by: Levofloxacin/Dextrose 750 mg/ (Premix) 150 mls @ 100 mls/hr IV Q24H [facility] Last Admin: 07/24/20 11:02 Dose: 100 mls/hr Documented by: Magnesium Sulfate 4 gm/ Premix 100 mls @ 50 mls/hr IV ONETIME ONE Stop: 07/24/20 10:03 Last Admin: 07/24/20 08:28 Dose: 50 mls/hr Documented by: Magnesium Sulfate (Magnesium Sulfate In Water Premix) 2 gm in 50 mls @ 50 mls/hr IV ONETIME ONE Stop: 07/26/20 09:14 Last Admin: 07/26/20 09:26 Dose: 50 mls/hr Documented by: Influenza Virus Vaccine (Fluzone Quad 1354-3646 Syringe) 60 mcg IM .ONCE ONE Stop: 07/16/20 13:01 Last Admin: 07/17/20 11:24 Dose: 60 mcg Documented by: Iopamidol (Isovue Multipack-370 (76%)) 100 ml IVPUSH ONETIME STA Stop: 07/10/20 13:03 Last Admin: 07/10/20 13:05 Dose: 100 ml Documented by: Levofloxacin (Levaquin) 750 mg PO Q24H [facility] Last Admin: 07/21/20 11:52 Dose: 750 mg Documented by: Lidocaine HCl (Lidocaine 5%) 0 gm TOP Q6HR PRN PRN Reason: Pain Last Admin: 07/09/20 13:07 Dose: 1 applic Documented by: Lorazepam (Ativan) Confirm Administered Dose 2 mg .ROUTE .STK-MED ONE Stop: 07/03/20 00:30 Last Admin: 07/03/20 00:37 Dose: Not Given Documented by: Lorazepam (Ativan) 1 mg IVPUSH NOW STA Stop: 07/03/20 00:37 Last Admin: 07/03/20 00:38 Dose: 1 mg Documented by: Lorazepam (Ativan) 1 mg IVPUSH ONETIME ONE Stop: 07/03/20 00:48 Last Admin: 07/03/20 00:50 Dose: 1 mg Documented by: Lorazepam (Ativan) 1 mg IVPUSH Q6H PRN PRN Reason: Agitation Lorazepam (Ativan) 2 mg IVPUSH ONETIME ONE Stop: 07/09/20 22:41 Last Admin: 07/09/20 22:55 Dose: 2 mg Documented by: Lorazepam (Ativan) 2 mg IVPUSH ONETIME ONE Stop: 07/10/20 22:26 Last Admin: 07/10/20 22:37 Dose: 2 mg Documented by: Magnesium Sulfate (Magnesium Sulfate In Water Premix) 2 gm IV ONETIME ONE Stop: 07/11/20 08:04 Last Admin: 07/11/20 09:11 Dose: Not Given Documented by: Midodrine (Midodrine) 5 mg PO DAILY [facility] Last Admin: 07/26/20 10:13 Dose: 5 mg Documented by: Piperacillin Sod/Tazobactam Sod (Piperacil-Tazobact) 4.5 gm .ROUTE .STK-MED ONE Stop: 07/21/20 15:01 Pneumococcal Polyvalent Vaccine (Pneumovax 23) 25 mcg IM .ONCE ONE Stop: 07/16/20 11:57 Last Admin: 07/17/20 13:17 Dose: 25 mcg Documented by: Potassium Chloride (Klor-Con M20) 40 meq PO ONETIME ONE Stop: 07/05/20 15:58 Last Admin: 07/05/20 16:14 Dose: 40 meq Documented by: Potassium Chloride (Klor-Con M20) 40 meq PO ONETIME ONE Stop: 07/07/20 03:42 Last Admin: 07/07/20 03:59 Dose: 40 meq Documented by: Potassium Chloride (Klor-Con M20) 40 meq PO ONETIME ONE Stop: 07/09/20 09:47 Last Admin: 07/09/20 10:58 Dose: 40 meq Documented by: Potassium Chloride (Klor-Con M20) 40 meq PO ONETIME ONE Stop: 07/24/20 08:05 Last Admin: 07/24/20 08:28 Dose: 40 meq Documented by: Propranolol HCl (Inderal La) 60 mg PO DAILY [facility] Last Admin: 07/21/20 09:55 Dose: 60 mg Documented by: Sodium Chloride (Saline Flush) 10 ml FLUSH ASDIRECTED PRN PRN Reason: Keep Vein Open Sodium Chloride (Saline Flush) 2.5 ml FLUSH ASDIRECTED PRN PRN Reason: Keep Vein Open Sterile Water (Sterile Water For Injection) 1.2 ml INJECT ONETIME ONE Stop: 07/03/20 00:59 Last Admin: 07/03/20 01:22 Dose: 1.2 ml Documented by: Vancomycin HCl (Vancomycin) 1.25 gm .ROUTE .STK-MED ONE Stop: 07/21/20 15:01 Ziprasidone (Geodon) 10 mg IM ONETIME ONE Stop: 07/03/20 00:59 Last Admin: 07/03/20 01:04 Dose: 10 mg Documented by: Ziprasidone (Geodon) Confirm Administered Dose 20 mg .ROUTE .STK-MED ONE Stop: 07/03/20 00:59 Last Admin: 07/03/20 01:15 Dose: Not Given Documented by: - Exam General: Alert, Oriented Neck: Supple Lungs: Clear to Auscultation, Normal Respiratory Effort Cardiovascular: Regular Rate, Regular Rhythm GI/Abdominal Exam: Normal Bowel Sounds, Soft, Non-Tender, No Distention Extremities: Non-Tender, No Pedal Edema Skin: Warm, Dry, Intact Sepsis Event Note - Evaluation Sepsis Screening Result: No Definite Risk - Focused Exam Vital Signs: Vital Signs Temp Temp Pulse Resp BP Pulse Ox 07/29/20 07:38 36.6 C 103 H 14 109/69 94 L 07/29/20 04:34 36.4 C 97 16 113/67 95 - Problem List Review Problem List Initiated/Reviewed/Updated: Yes - My Orders Last 24 Hours: My Active Orders 07/29/20 09:15 Nystatin [Nystop] 1 gm TOP BID - Plan Plan:: 64 yo male admitted for acute renal failure and metabolic encephalopathy 1. Schizophrenia- stable - continue Haldol 5 mg bedtime - Continue Cogentin to 1 mg BID for EPS symptoms, monitor 2. Bladder outlet obstruction/prostatitis - Nelson in place - Follow up with urology - Doxycycline - exchanged nelson yesterday 3. Cher rash to buttocks - Much improved - Nystatin cream BID - had Diflucan x 1 dose 07/19 - Keep dry and no brief on to help allow air flow. 6. Hypotension - on Midodrine - Stable. VTE prophylaxis: Heparin Dispo: pending placement
[2020-07-29] MEDS: Enoxaparin 40 MG/0.4 ML Syringe SUBCUT SCH (14:46)
[2020-07-29] MEDS: Nystatin Topical Powder 15 GM Bottle TOP SCH ×2 (14:47→20:31)
[2020-07-29] MEDS: Melatonin 3 MG Tab PO SCH (20:30)
[2020-07-29] MEDS: Haloperidol 5 MG Tab PO SCH (20:33)
[2020-07-30 06:31] LABS: BLOOD UREA NITROGEN,BUN 16 mg/dL (7.0-18.0); CARBON DIOXIDE,CO2 25.9 mmol/L (21.0-32.0); CHLORIDE,CL 102 mmol/L (98-107); GLUCOSE RANDOM 109 mg/dL (74-106); SODIUM,NA 135 mmol/L (136-148)
[2020-07-30] MEDS: Midodrine 5 MG Tab PO SCH (09:29)
[2020-07-30] MEDS: Benztropine 1 MG Tab PO SCH ×2 (09:29→21:17)
[2020-07-30] MEDS: Doxycycline 100 MG Cap PO SCH ×2 (09:29→21:17)
[2020-07-30] MEDS: Nystatin Topical Powder 15 GM Bottle TOP SCH ×2 (09:30→21:21)
--- NOTE | 2020-07-30 11:49 | PCM.PN ---
- General Info Date of Service: 07/30/20 - Review of Systems Systems Review Comment:: no complaints, no fevers, no diarrhea, tremors improving - Patient Data Vitals - Most Recent: Last Vital Signs Temp 36.8 C 07/30/20 07:10 Pulse 107 H 07/30/20 07:10 Resp 15 07/30/20 07:10 BP 102/59 L 07/30/20 07:10 Pulse Ox 93 L 07/30/20 07:10 Weight - Most Recent: 83.915 kg I&O - Last 24 Hours: Intake & Output 07/29/20 07/30/20 07/30/20 22:59 06:59 14:59 Intake Total 450 900 Output Total 650 450 Balance -200 450 Lab Results Last 24 Hours: Laboratory Results - last 24 hr 07/30/20 Range/Units 05:09 Sodium 135 L (136-148) mmol/L Potassium 4.0 (3.5-5.1) mmol/L Chloride 102 (98-107) mmol/L Carbon Dioxide 25.9 (21.0-32.0) mmol/L BUN 16 (7.0-18.0) mg/dL Creatinine 0.9 (0.8-1.3) mg/dL Est Cr Clr Drug Dosing 75.30 mL/min Estimated GFR (MDRD) > 60.0 ml/min Glucose 109 H (74-106) mg/dL Calcium 9.4 (8.5-10.1) mg/dL Magnesium 1.8 (1.8-2.4) mg/dL Med Orders - Current: Current Medications Acetaminophen (Tylenol) 650 mg PO Q4H PRN PRN Reason: Pain Last Admin: 07/20/20 01:56 Dose: 650 mg Documented by: Benztropine Mesylate (Cogentin) 1 mg PO BID [facility] Last Admin: 07/30/20 09:29 Dose: 1 mg Documented by: Doxycycline Hyclate (Vibramycin) 100 mg PO BID [facility] Last Admin: 07/30/20 09:29 Dose: 100 mg Documented by: Enoxaparin Sodium (Lovenox) 40 mg SUBCUT Q24H [facility] Last Admin: 07/29/20 14:46 Dose: 40 mg Documented by: Haloperidol (Haldol) 5 mg PO BEDTIME [facility] Last Admin: 07/29/20 20:33 Dose: 5 mg Documented by: Lorazepam (Ativan) 1 mg IVPUSH Q3H PRN PRN Reason: Agitation Last Admin: 07/18/20 17:55 Dose: 1 mg Documented by: Melatonin (Melatonin) 3 mg PO BEDTIME [facility] Last Admin: 07/29/20 20:30 Dose: 3 mg Documented by: Midodrine (Midodrine) 5 mg PO DAILY [facility] Last Admin: 07/30/20 09:29 Dose: 5 mg Documented by: Nystatin (Nystop) 1 gm TOP BID [facility] Last Admin: 07/30/20 09:30 Dose: 1 applic Documented by: Nystatin/Triamcinolone Acetonide (Mycolog Crm) 0 gm TOP BID [facility] Last Admin: 07/30/20 09:29 Dose: 1 applic Documented by: Sodium Chloride (Saline Flush) 2.5 ml FLUSH ASDIRECTED PRN PRN Reason: Keep Vein Open Last Admin: 07/28/20 13:59 Dose: 2.5 ml Documented by: Discontinued Medications Benztropine Mesylate (Cogentin) 2 mg IM ONETIME ONE Stop: 07/02/20 21:08 Last Admin: 07/02/20 22:48 Dose: Not Given Documented by: Benztropine Mesylate (Cogentin) 2 mg PO ONETIME ONE Stop: 07/02/20 21:55 Last Admin: 07/02/20 22:13 Dose: 2 mg Documented by: Benztropine Mesylate (Cogentin) 1 mg PO BEDTIME [facility] Last Admin: 07/19/20 20:54 Dose: 1 mg Documented by: Benztropine Mesylate (Cogentin) 1 mg PO BID [facility] Last Admin: 07/26/20 10:13 Dose: 1 mg Documented by: Diltiazem HCl (Diltiazem) 20 mg IVPUSH ONETIME ONE Stop: 07/07/20 02:41 Last Admin: 07/07/20 04:35 Dose: Not Given Documented by: Fluconazole (Diflucan) 150 mg PO ONETIME ONE Stop: 07/19/20 10:31 Last Admin: 07/19/20 11:48 Dose: 150 mg Documented by: Haloperidol (Haldol) 5 mg PO BEDTIME [facility] Last Admin: 07/08/20 20:21 Dose: 5 mg Documented by: Haloperidol (Haldol) 10 mg PO BEDTIME [facility] Last Admin: 07/09/20 20:08 Dose: 10 mg Documented by: Ceftriaxone Sodium 1 gm/ (Sodium Chloride) 100 mls @ 200 mls/hr IV STAT ONE Stop: 07/02/20 21:33 Last Admin: 07/02/20 22:14 Dose: Not Given Documented by: Sodium Chloride (Normal Saline) 2,500 mls @ 2,500 mls/hr IV BOLUS ONE; Protocol Stop: 07/02/20 22:03 Last Admin: 07/02/20 22:12 Dose: 2,500 mls/hr Documented by: Ceftriaxone Sodium/Dextrose (Rocephin In Dextrose,Iso-Osm 1 Gm/50 Ml) Confirm Administered Dose 50 mls @ as directed .ROUTE .STK-MED ONE Stop: 07/02/20 21:40 Last Admin: 07/02/20 21:55 Dose: Not Given Documented by: Ceftriaxone Sodium/Dextrose 1 (gm/ Premix) 50 mls @ 100 mls/hr IV ONETIME ONE Stop: 07/02/20 22:11 Last Admin: 07/02/20 22:13 Dose: 100 mls/hr Documented by: Sodium Chloride (Normal Saline) 1,000 mls @ 125 mls/hr IV ASDIRECTED [facility] Sodium Chloride (Normal Saline) 1,000 mls @ 150 mls/hr IV ASDIRECTED [facility] Last Admin: 07/06/20 14:50 Dose: 150 mls/hr Documented by: Sodium Chloride (Normal Saline) 1,000 mls @ 999 mls/hr IV .Bolus ONE Stop: 07/03/20 14:17 Last Admin: 07/03/20 16:04 Dose: 999 mls/hr Documented by: Ceftriaxone Sodium/Dextrose 1 (gm/ Premix) 50 mls @ 100 mls/hr IV Q24H [facility] Last Admin: 07/07/20 03:14 Dose: 100 mls/hr Documented by: Sodium Chloride (Normal Saline) 1,000 mls @ 999 mls/hr IV .Bolus ONE Stop: 07/05/20 10:37 Last Admin: 07/05/20 22:07 Dose: Not Given Documented by: Sodium Chloride (Normal Saline) 1,000 mls @ 999 mls/hr IV .Bolus ONE Stop: 07/05/20 10:57 Last Admin: 07/05/20 10:11 Dose: 999 mls/hr Documented by: Sodium Chloride (Normal Saline) 1,000 mls @ 75 mls/hr IV ASDIRECTED [facility] Last Admin: 07/09/20 03:32 Dose: 75 mls/hr Documented by: Lactated Ringer's (Ringers, Lactated) 500 mls @ 999 mls/hr IV .BOLUS ONE Stop: 07/07/20 03:09 Last Admin: 07/07/20 02:50 Dose: 999 mls/hr Documented by: Magnesium Sulfate (Magnesium Sulfate In Water Premix) 100 mls @ 50 mls/hr IV ONETIME ONE Stop: 07/07/20 05:59 Last Admin: 07/07/20 04:00 Dose: 50 mls/hr Documented by: Lactated Ringer's (Ringers, Lactated) 500 mls @ 999 mls/hr IV BOLUS [facility] Stop: 07/07/20 07:31 Last Admin: 07/07/20 07:20 Dose: 999 mls/hr Documented by: Sodium Chloride (Normal Saline) 500 mls @ 999 mls/hr IV .BOLUS ONE Stop: 07/07/20 19:00 Last Admin: 07/07/20 18:30 Dose: 999 mls/hr Documented by: Magnesium Sulfate (Magnesium Sulfate In Water Premix) 2 gm in 50 mls @ 50 mls/hr IV ONETIME ONE Stop: 07/08/20 10:59 Last Admin: 07/08/20 10:57 Dose: 50 mls/hr Documented by: Magnesium Sulfate (Magnesium Sulfate In Water Premix) 2 gm in 50 mls @ 50 mls/hr IV ONETIME ONE Stop: 07/09/20 10:59 Last Admin: 07/09/20 10:58 Dose: 50 mls/hr Documented by: Piperacillin Sod/Tazobactam (Sod 3.375 gm/ Sodium Chloride) 50 mls @ 100 mls/hr IV Q8H [facility] Last Admin: 07/10/20 06:37 Dose: 100 mls/hr Documented by: Lactated Ringer's (Ringers, Lactated) 500 mls @ 999 mls/hr IV .BOLUS ONE Stop: 07/10/20 01:42 Last Admin: 07/10/20 01:27 Dose: 999 mls/hr Documented by: Lactated Ringer's (Ringers, Lactated) 1,000 mls @ 100 mls/hr IV ASDIRECTED [facility] Last Admin: 07/15/20 05:15 Dose: 100 mls/hr Documented by: Piperacillin Sod/Tazobactam (Sod 3.375 gm/ Sodium Chloride) 50 mls @ 100 mls/hr IV Q6H [facility] Levofloxacin/Dextrose 750 mg/ (Premix) 150 mls @ 100 mls/hr IV Q24H [facility] Last Admin: 07/13/20 10:12 Dose: 100 mls/hr Documented by: Magnesium Sulfate (Magnesium Sulfate In Water Premix) 2 gm in 50 mls @ 50 mls/hr IV ONETIME ONE Stop: 07/11/20 09:59 Last Admin: 07/11/20 08:58 Dose: 50 mls/hr Documented by: Lactated Ringer's (Ringers, Lactated) 1,000 mls @ 999 mls/hr IV .BOLUS ONE Stop: 07/11/20 13:09 Last Admin: 07/11/20 12:42 Dose: 999 mls/hr Documented by: Magnesium Sulfate (Magnesium Sulfate In Water Premix) 2 gm in 50 mls @ 50 mls/hr IV ONETIME ONE Stop: 07/12/20 09:14 Last Admin: 07/12/20 08:30 Dose: 50 mls/hr Documented by: Sodium Chloride (Normal Saline) 500 mls @ 999 mls/hr IV .BOLUS [facility] Sodium Chloride (Normal Saline) 1,000 mls @ 125 mls/hr IV ONETIME ONE Stop: 07/19/20 15:51 Last Admin: 07/19/20 08:20 Dose: 125 mls/hr Documented by: Magnesium Sulfate (Magnesium Sulfate In Water Premix) 2 gm in 50 mls @ 50 mls/hr IV ONETIME ONE Stop: 07/20/20 09:14 Last Admin: 07/20/20 09:06 Dose: 50 mls/hr Documented by: Sodium Chloride (Normal Saline) 1,000 mls @ 125 mls/hr IV Q8H [facility] Stop: 07/20/20 17:29 Last Admin: 07/20/20 10:37 Dose: 125 mls/hr Documented by: Lactated Ringer's (Ringers, Lactated) 1,000 mls @ 999 mls/hr IV .BOLUS ONE Stop: 07/21/20 12:40 Last Admin: 07/21/20 11:40 Dose: 999 mls/hr Documented by: Piperacillin Sod/Tazobactam (Sod 4.5 gm/ Sodium Chloride) 100 mls @ 200 mls/hr IV Q8H [facility] Last Admin: 07/23/20 06:24 Dose: 200 mls/hr Documented by: Vancomycin HCl 1.25 gm/ Sodium (Chloride) 250 mls @ 250 mls/hr IV Q12H [facility] Last Admin: 07/23/20 03:50 Dose: 250 mls/hr Documented by: Lactated Ringer's (Ringers, Lactated) 1,000 mls @ 999 mls/hr IV .BOLUS ONE Stop: 07/21/20 16:33 Last Admin: 07/21/20 15:42 Dose: 999 mls/hr Documented by: Lactated Ringer's (Ringers, Lactated) 1,000 mls @ 125 mls/hr IV ASDIRECTED [facility] Last Admin: 07/26/20 08:17 Dose: 125 mls/hr Documented by: Magnesium Sulfate 4 gm/ Premix 100 mls @ 33.333 mls/hr IV ONETIME ONE Stop: 07/22/20 13:08 Last Admin: 07/22/20 10:34 Dose: 33.333 mls/hr Documented by: Levofloxacin/Dextrose 750 mg/ (Premix) 150 mls @ 100 mls/hr IV Q24H [facility] Last Admin: 07/24/20 11:02 Dose: 100 mls/hr Documented by: Magnesium Sulfate 4 gm/ Premix 100 mls @ 50 mls/hr IV ONETIME ONE Stop: 07/24/20 10:03 Last Admin: 07/24/20 08:28 Dose: 50 mls/hr Documented by: Magnesium Sulfate (Magnesium Sulfate In Water Premix) 2 gm in 50 mls @ 50 mls/hr IV ONETIME ONE Stop: 07/26/20 09:14 Last Admin: 07/26/20 09:26 Dose: 50 mls/hr Documented by: Influenza Virus Vaccine (Fluzone Quad [id number] Syringe) 60 mcg IM .ONCE ONE Stop: 07/16/20 13:01 Last Admin: 07/17/20 11:24 Dose: 60 mcg Documented by: Iopamidol (Isovue Multipack-370 (76%)) 100 ml IVPUSH ONETIME STA Stop: 07/10/20 13:03 Last Admin: 07/10/20 13:05 Dose: 100 ml Documented by: Levofloxacin (Levaquin) 750 mg PO Q24H [facility] Last Admin: 07/21/20 11:52 Dose: 750 mg Documented by: Lidocaine HCl (Lidocaine 5%) 0 gm TOP Q6HR PRN PRN Reason: Pain Last Admin: 07/09/20 13:07 Dose: 1 applic Documented by: Lorazepam (Ativan) Confirm Administered Dose 2 mg .ROUTE .STK-MED ONE Stop: 07/03/20 00:30 Last Admin: 07/03/20 00:37 Dose: Not Given Documented by: Lorazepam (Ativan) 1 mg IVPUSH NOW STA Stop: 07/03/20 00:37 Last Admin: 07/03/20 00:38 Dose: 1 mg Documented by: Lorazepam (Ativan) 1 mg IVPUSH ONETIME ONE Stop: 07/03/20 00:48 Last Admin: 07/03/20 00:50 Dose: 1 mg Documented by: Lorazepam (Ativan) 1 mg IVPUSH Q6H PRN PRN Reason: Agitation Lorazepam (Ativan) 2 mg IVPUSH ONETIME ONE Stop: 07/09/20 22:41 Last Admin: 07/09/20 22:55 Dose: 2 mg Documented by: Lorazepam (Ativan) 2 mg IVPUSH ONETIME ONE Stop: 07/10/20 22:26 Last Admin: 07/10/20 22:37 Dose: 2 mg Documented by: Magnesium Sulfate (Magnesium Sulfate In Water Premix) 2 gm IV ONETIME ONE Stop: 07/11/20 08:04 Last Admin: 07/11/20 09:11 Dose: Not Given Documented by: Midodrine (Midodrine) 5 mg PO DAILY [facility] Last Admin: 07/26/20 10:13 Dose: 5 mg Documented by: Piperacillin Sod/Tazobactam Sod (Piperacil-Tazobact) 4.5 gm .ROUTE .STK-MED ONE Stop: 07/21/20 15:01 Pneumococcal Polyvalent Vaccine (Pneumovax 23) 25 mcg IM .ONCE ONE Stop: 07/16/20 11:57 Last Admin: 10/13/20 13:17 Dose: 25 mcg Documented by: Potassium Chloride (Klor-Con M20) 40 meq PO ONETIME ONE Stop: 07/05/20 15:58 Last Admin: 07/05/20 16:14 Dose: 40 meq Documented by: Potassium Chloride (Klor-Con M20) 40 meq PO ONETIME ONE Stop: 07/07/20 03:42 Last Admin: 07/07/20 03:59 Dose: 40 meq Documented by: Potassium Chloride (Klor-Con M20) 40 meq PO ONETIME ONE Stop: 07/09/20 09:47 Last Admin: 07/09/20 10:58 Dose: 40 meq Documented by: Potassium Chloride (Klor-Con M20) 40 meq PO ONETIME ONE Stop: 07/24/20 08:05 Last Admin: 07/24/20 08:28 Dose: 40 meq Documented by: Propranolol HCl (Inderal La) 60 mg PO DAILY [facility] Last Admin: 07/21/20 09:55 Dose: 60 mg Documented by: Sodium Chloride (Saline Flush) 10 ml FLUSH ASDIRECTED PRN PRN Reason: Keep Vein Open Sodium Chloride (Saline Flush) 2.5 ml FLUSH ASDIRECTED PRN PRN Reason: Keep Vein Open Sterile Water (Sterile Water For Injection) 1.2 ml INJECT ONETIME ONE Stop: 07/03/20 00:59 Last Admin: 07/03/20 01:22 Dose: 1.2 ml Documented by: Vancomycin HCl (Vancomycin) 1.25 gm .ROUTE .STK-MED ONE Stop: 07/21/20 15:01 Ziprasidone (Geodon) 10 mg IM ONETIME ONE Stop: 07/03/20 00:59 Last Admin: 07/03/20 01:04 Dose: 10 mg Documented by: Ziprasidone (Geodon) Confirm Administered Dose 20 mg .ROUTE .STK-MED ONE Stop: 07/03/20 00:59 Last Admin: 07/03/20 01:15 Dose: Not Given Documented by: - Exam General: Alert, Cooperative Lungs: Clear to Auscultation, Normal Respiratory Effort Cardiovascular: Regular Rate, Regular Rhythm GI/Abdominal Exam: Normal Bowel Sounds, Soft, Non-Tender Extremities: Non-Tender, No Pedal Edema Neurological: No New Focal Deficit Sepsis Event Note - Evaluation Sepsis Screening Result: No Definite Risk - Focused Exam Vital Signs: Vital Signs Temp Temp Pulse Resp BP Pulse Ox 07/30/20 07:10 36.8 C 107 H 15 102/59 L 93 L 07/30/20 05:20 36.4 C 93 13 118/63 94 L 07/30/20 01:50 36.6 C 104 H 16 107/68 95 - Problem List Review Problem List Initiated/Reviewed/Updated: Yes - My Orders Last 24 Hours: My Active Orders 07/31/20 05:11 BASIC METABOLIC PANEL,BMP [CHEM] AM CBC WITH AUTO DIFF [HEME] AM - Plan Plan:: 64 yo male admitted for acute renal failure and metabolic encephalopathy 1. Schizophrenia- stable - continue Haldol 5 mg bedtime - Continue Cogentin to 1 mg BID for EPS symptoms, monitor 2. Bladder outlet obstruction/prostatitis - Lambert in place - Follow up with urology - Doxycycline 3. Cher rash to buttocks and groin - Much improved - Nystatin cream BID - had Diflucan x 1 dose 07/19 - Keep dry and no brief on to help allow air flow. 6. Hypotension - on Midodrine - Stable. VTE prophylaxis: Heparin Dispo: pending placement
[2020-07-30] MEDS: Enoxaparin 40 MG/0.4 ML Syringe SUBCUT SCH (14:01)
[2020-07-30] MEDS: Melatonin 3 MG Tab PO SCH (21:17)
[2020-07-30] MEDS: Haloperidol 5 MG Tab PO SCH (21:19)
[2020-07-31 06:42] LABS: BLOOD UREA NITROGEN,BUN 15 mg/dL (7.0-18.0); CARBON DIOXIDE,CO2 25.5 mmol/L (21.0-32.0); CHLORIDE,CL 103 mmol/L (98-107); GLUCOSE RANDOM 109 mg/dL (74-106); POTASSIUM,K 4.1 mmol/L (3.5-5.1); SODIUM,NA 137 mmol/L (136-148)
[2020-07-31] MEDS: Doxycycline 100 MG Cap PO SCH ×2 (10:08→21:10)
[2020-07-31] MEDS: Midodrine 5 MG Tab PO SCH (10:08)
[2020-07-31] MEDS: Benztropine 1 MG Tab PO SCH ×2 (10:09→21:11)
[2020-07-31] MEDS: Nystatin Topical Powder 15 GM Bottle TOP SCH ×2 (10:18→21:13)
[2020-07-31] MEDS: Enoxaparin 40 MG/0.4 ML Syringe SUBCUT SCH (13:41)
--- NOTE | 2020-07-31 13:49 | PCM.DCSUM1 ---
Discharge Summary - Discharge Data Discharge Disposition: Home, Self-Care 01 Condition: Fair - Referral to Home Health Primary Care Physician: PCP None - Discharge Diagnosis/Problem(s) (1) Bladder outlet obstruction SNOMED Code(s): 872082910 ICD Code: N32.0 - BLADDER-NECK OBSTRUCTION Status: Acute Current Visit: Yes (2) Prostatitis SNOMED Code(s): 4510406 ICD Code: N41.9 - INFLAMMATORY DISEASE OF PROSTATE, UNSPECIFIED Status: Acute Current Visit: Yes Qualifiers: Prostatitis type: acute Qualified Code(s): N41.0 - Acute prostatitis (3) Frequent falls SNOMED Code(s): 884304691 ICD Code: R29.6 - REPEATED FALLS Status: Acute Current Visit: No (4) Leukocytosis SNOMED Code(s): 132386470, 188386136 ICD Code: D72.829 - ELEVATED WHITE BLOOD CELL COUNT, UNSPECIFIED Status: Acute Current Visit: No Qualifiers: Leukocytosis type: unspecified Qualified Code(s): D72.829 - Elevated white blood cell count, unspecified (5) HTN (hypertension) SNOMED Code(s): 74166881 ICD Code: I10 - ESSENTIAL (PRIMARY) HYPERTENSION Status: Chronic Current Visit: No (6) Schizophrenia SNOMED Code(s): 11082760 ICD Code: F20.9 - SCHIZOPHRENIA, UNSPECIFIED Status: Chronic Current Visit: No - Patient Summary/Data Consults: Consultations 07/13/20 10:07 PT Evaluation and Treatment [CONS] Routine 07/13/20 12:31 OT Evaluation and Treatment [CONS] Routine - Discharge Plan *PRESCRIPTION DRUG MONITORING PROGRAM REVIEWED*: Not Applicable *COPY OF PRESCRIPTION DRUG MONITORING REPORT IN PATIENT COLLETTE: Not Applicable Home Medications: Home Meds Propranolol HCl [Propranolol HCl ER] 60 mg PO DAILY 01/24/14 [History] Cholecalciferol (Vitamin D3) [Vitamin D3] 5,000 unit PO DAILY 06/26/20 [History] Acetaminophen [Tylenol] 650 mg PO Q4H PRN 1 Days #30 tablet 06/28/20 [Rx] FLUoxetine HCl [Fluoxetine HCl] 40 mg PO DAILY #30 06/28/20 [Rx] amantadine HCL [Amantadine] 200 mg PO BID #60 06/28/20 [Rx] traZODone HCl [Trazodone HCl] 150 mg PO BEDTIME #30 06/28/20 [Rx] haloperidoL [Haldol] 10 mg PO BEDTIME 07/03/20 [History] Referrals: Chung Crowell MD [Physician] - Quincy Rey MD [Physician] - - Patient Data Vitals - Most Recent: Last Vital Signs Temp 36.1 C 07/31/20 12:14 Pulse 116 H 07/31/20 12:14 Resp 16 07/31/20 12:14 BP 112/71 07/31/20 12:14 Pulse Ox 97 07/31/20 12:14 Weight - Most Recent: 83.915 kg I&O - Last 24 hours: Intake & Output 07/30/20 07/31/20 07/31/20 22:59 06:59 14:59 Intake Total 650 650 Output Total 550 500 Balance 100 150 Lab Results - Last 24 hrs: Laboratory Results - last 24 hr 07/31/20 07/31/20 Range/Units 05:52 05:52 WBC 11.41 H (4.0-11.0) K/uL RBC 4.06 L (4.50-5.90) M/uL Hgb 10.6 L (13.0-17.0) g/dL Hct 35.7 L (38.0-50.0) % MCV 87.9 (80.0-98.0) fL MCH 26.1 L (27.0-32.0) pg MCHC 29.7 L (31.0-37.0) g/dL RDW Std Deviation 49.8 (28.0-62.0) fl RDW Coeff of Dorothea 16 H (11.0-15.0) % Plt Count 407 H (150-400) K/uL MPV 8.90 (7.40-12.00) fL Neut % (Auto) 69.3 (48.0-80.0) % Lymph % (Auto) 17.4 (16.0-40.0) % [place] % (Auto) 9.6 (0.0-15.0) % Eos % (Auto) 3.4 (0.0-7.0) % Baso % (Auto) 0.3 (0.0-1.5) % Neut # (Auto) 7.9 H (1.4-5.7) K/uL Lymph # (Auto) 2.0 (0.6-2.4) K/uL [place] # (Auto) 1.1 H (0.0-0.8) K/uL Eos # (Auto) 0.4 (0.0-0.7) K/uL Baso # (Auto) 0.0 (0.0-0.1) K/uL Nucleated RBC % 0.0 /100WBC Nucleated RBCs # 0 K/uL Sodium 137 (136-148) mmol/L Potassium 4.1 (3.5-5.1) mmol/L Chloride 103 (98-107) mmol/L Carbon Dioxide 25.5 (21.0-32.0) mmol/L BUN 15 (7.0-18.0) mg/dL Creatinine 0.9 (0.8-1.3) mg/dL Est Cr Clr Drug Dosing 75.30 mL/min Estimated GFR (MDRD) > 60.0 ml/min Glucose 109 H (74-106) mg/dL Calcium 9.4 (8.5-10.1) mg/dL Med Orders - Current: Current Medications Acetaminophen (Tylenol) 650 mg PO Q4H PRN PRN Reason: Pain Last Admin: 07/20/20 01:56 Dose: 650 mg Documented by: Benztropine Mesylate (Cogentin) 1 mg PO BID [facility] Last Admin: 07/31/20 10:09 Dose: 1 mg Documented by: Doxycycline Hyclate (Vibramycin) 100 mg PO BID [facility] Last Admin: 07/31/20 10:08 Dose: 100 mg Documented by: Enoxaparin Sodium (Lovenox) 40 mg SUBCUT Q24H [facility] Last Admin: 07/31/20 13:41 Dose: 40 mg Documented by: Haloperidol (Haldol) 5 mg PO BEDTIME [facility] Last Admin: 07/30/20 21:19 Dose: 5 mg Documented by: Lorazepam (Ativan) 1 mg IVPUSH Q3H PRN PRN Reason: Agitation Last Admin: 07/18/20 17:55 Dose: 1 mg Documented by: Melatonin (Melatonin) 3 mg PO BEDTIME [facility] Last Admin: 07/30/20 21:17 Dose: 3 mg Documented by: Midodrine (Midodrine) 5 mg PO DAILY [facility] Last Admin: 07/31/20 10:08 Dose: 5 mg Documented by: Nystatin (Nystop) 1 gm TOP BID ARI Last Admin: 07/31/20 10:18 Dose: 1 applic Documented by: Nystatin/Triamcinolone Acetonide (Mycolog Crm) 0 gm TOP BID [facility] Last Admin: 07/31/20 10:17 Dose: 1 applic Documented by: Sodium Chloride (Saline Flush) 2.5 ml FLUSH ASDIRECTED PRN PRN Reason: Keep Vein Open Last Admin: 07/28/20 13:59 Dose: 2.5 ml Documented by: Discontinued Medications Benztropine Mesylate (Cogentin) 2 mg IM ONETIME ONE Stop: 07/02/20 21:08 Last Admin: 07/02/20 22:48 Dose: Not Given Documented by: Benztropine Mesylate (Cogentin) 2 mg PO ONETIME ONE Stop: 07/02/20 21:55 Last Admin: 07/02/20 22:13 Dose: 2 mg Documented by: Benztropine Mesylate (Cogentin) 1 mg PO BEDTIME ARI Last Admin: 07/19/20 20:54 Dose: 1 mg Documented by: Benztropine Mesylate (Cogentin) 1 mg PO BID ARI Last Admin: 07/26/20 10:13 Dose: 1 mg Documented by: Diltiazem HCl (Diltiazem) 20 mg IVPUSH ONETIME ONE Stop: 07/07/20 02:41 Last Admin: 07/07/20 04:35 Dose: Not Given Documented by: Fluconazole (Diflucan) 150 mg PO ONETIME ONE Stop: 07/19/20 10:31 Last Admin: 07/19/20 11:48 Dose: 150 mg Documented by: Haloperidol (Haldol) 5 mg PO BEDTIME ARI Last Admin: 07/08/20 20:21 Dose: 5 mg Documented by: Haloperidol (Haldol) 10 mg PO BEDTIME ARI Last Admin: 07/09/20 20:08 Dose: 10 mg Documented by: Ceftriaxone Sodium 1 gm/ (Sodium Chloride) 100 mls @ 200 mls/hr IV STAT ONE Stop: 07/02/20 21:33 Last Admin: 07/02/20 22:14 Dose: Not Given Documented by: Sodium Chloride (Normal Saline) 2,500 mls @ 2,500 mls/hr IV BOLUS ONE; Protocol Stop: 07/02/20 22:03 Last Admin: 07/02/20 22:12 Dose: 2,500 mls/hr Documented by: Ceftriaxone Sodium/Dextrose (Rocephin In Dextrose,Iso-Osm 1 Gm/50 Ml) Confirm Administered Dose 50 mls @ as directed .ROUTE .STK-MED ONE Stop: 07/02/20 21:40 Last Admin: 07/02/20 21:55 Dose: Not Given Documented by: Ceftriaxone Sodium/Dextrose 1 (gm/ Premix) 50 mls @ 100 mls/hr IV ONETIME ONE Stop: 07/02/20 22:11 Last Admin: 07/02/20 22:13 Dose: 100 mls/hr Documented by: Sodium Chloride (Normal Saline) 1,000 mls @ 125 mls/hr IV ASDIRECTED ARI Sodium Chloride (Normal Saline) 1,000 mls @ 150 mls/hr IV ASDIRECTED [facility] Last Admin: 07/06/20 14:50 Dose: 150 mls/hr Documented by: Sodium Chloride (Normal Saline) 1,000 mls @ 999 mls/hr IV .Bolus ONE Stop: 07/03/20 14:17 Last Admin: 07/03/20 16:04 Dose: 999 mls/hr Documented by: Ceftriaxone Sodium/Dextrose 1 (gm/ Premix) 50 mls @ 100 mls/hr IV Q24H [facility] Last Admin: 07/07/20 03:14 Dose: 100 mls/hr Documented by: Sodium Chloride (Normal Saline) 1,000 mls @ 999 mls/hr IV .Bolus ONE Stop: 07/05/20 10:37 Last Admin: 07/05/20 22:07 Dose: Not Given Documented by: Sodium Chloride (Normal Saline) 1,000 mls @ 999 mls/hr IV .Bolus ONE Stop: 07/05/20 10:57 Last Admin: 07/05/20 10:11 Dose: 999 mls/hr Documented by: Sodium Chloride (Normal Saline) 1,000 mls @ 75 mls/hr IV ASDIRECTED [facility] Last Admin: 07/09/20 03:32 Dose: 75 mls/hr Documented by: Lactated Ringer's (Ringers, Lactated) 500 mls @ 999 mls/hr IV .BOLUS ONE Stop: 07/07/20 03:09 Last Admin: 07/07/20 02:50 Dose: 999 mls/hr Documented by: Magnesium Sulfate (Magnesium Sulfate In Water Premix) 100 mls @ 50 mls/hr IV ONETIME ONE Stop: 07/07/20 05:59 Last Admin: 07/07/20 04:00 Dose: 50 mls/hr Documented by: Lactated Ringer's (Ringers, Lactated) 500 mls @ 999 mls/hr IV BOLUS ARI Stop: 07/07/20 07:31 Last Admin: 07/07/20 07:20 Dose: 999 mls/hr Documented by: Sodium Chloride (Normal Saline) 500 mls @ 999 mls/hr IV .BOLUS ONE Stop: 07/07/20 19:00 Last Admin: 07/07/20 18:30 Dose: 999 mls/hr Documented by: Magnesium Sulfate (Magnesium Sulfate In Water Premix) 2 gm in 50 mls @ 50 mls/hr IV ONETIME ONE Stop: 07/08/20 10:59 Last Admin: 07/08/20 10:57 Dose: 50 mls/hr Documented by: Magnesium Sulfate (Magnesium Sulfate In Water Premix) 2 gm in 50 mls @ 50 mls/hr IV ONETIME ONE Stop: 07/09/20 10:59 Last Admin: 07/09/20 10:58 Dose: 50 mls/hr Documented by: Piperacillin Sod/Tazobactam (Sod 3.375 gm/ Sodium Chloride) 50 mls @ 100 mls/hr IV Q8H [facility] Last Admin: 07/10/20 06:37 Dose: 100 mls/hr Documented by: Lactated Ringer's (Ringers, Lactated) 500 mls @ 999 mls/hr IV .BOLUS ONE Stop: 07/10/20 01:42 Last Admin: 07/10/20 01:27 Dose: 999 mls/hr Documented by: Lactated Ringer's (Ringers, Lactated) 1,000 mls @ 100 mls/hr IV ASDIRECTED [facility] Last Admin: 07/15/20 05:15 Dose: 100 mls/hr Documented by: Piperacillin Sod/Tazobactam (Sod 3.375 gm/ Sodium Chloride) 50 mls @ 100 mls/hr IV Q6H [facility] Levofloxacin/Dextrose 750 mg/ (Premix) 150 mls @ 100 mls/hr IV Q24H [facility] Last Admin: 07/13/20 10:12 Dose: 100 mls/hr Documented by: Magnesium Sulfate (Magnesium Sulfate In Water Premix) 2 gm in 50 mls @ 50 mls/hr IV ONETIME ONE Stop: 07/11/20 09:59 Last Admin: 07/11/20 08:58 Dose: 50 mls/hr Documented by: Lactated Ringer's (Ringers, Lactated) 1,000 mls @ 999 mls/hr IV .BOLUS ONE Stop: 07/11/20 13:09 Last Admin: 07/11/20 12:42 Dose: 999 mls/hr Documented by: Magnesium Sulfate (Magnesium Sulfate In Water Premix) 2 gm in 50 mls @ 50 mls/hr IV ONETIME ONE Stop: 07/12/20 09:14 Last Admin: 07/12/20 08:30 Dose: 50 mls/hr Documented by: Sodium Chloride (Normal Saline) 500 mls @ 999 mls/hr IV .BOLUS [facility] Sodium Chloride (Normal Saline) 1,000 mls @ 125 mls/hr IV ONETIME ONE Stop: 07/19/20 15:51 Last Admin: 07/19/20 08:20 Dose: 125 mls/hr Documented by: Magnesium Sulfate (Magnesium Sulfate In Water Premix) 2 gm in 50 mls @ 50 mls/hr IV ONETIME ONE Stop: 07/20/20 09:14 Last Admin: 07/20/20 09:06 Dose: 50 mls/hr Documented by: Sodium Chloride (Normal Saline) 1,000 mls @ 125 mls/hr IV Q8H [facility] Stop: 07/20/20 17:29 Last Admin: 07/20/20 10:37 Dose: 125 mls/hr Documented by: Lactated Ringer's (Ringers, Lactated) 1,000 mls @ 999 mls/hr IV .BOLUS ONE Stop: 07/21/20 12:40 Last Admin: 07/21/20 11:40 Dose: 999 mls/hr Documented by: Piperacillin Sod/Tazobactam (Sod 4.5 gm/ Sodium Chloride) 100 mls @ 200 mls/hr IV Q8H [facility] Last Admin: 07/23/20 06:24 Dose: 200 mls/hr Documented by: Vancomycin HCl 1.25 gm/ Sodium (Chloride) 250 mls @ 250 mls/hr IV Q12H [facility] Last Admin: 07/23/20 03:50 Dose: 250 mls/hr Documented by: Lactated Ringer's (Ringers, Lactated) 1,000 mls @ 999 mls/hr IV .BOLUS ONE Stop: 07/21/20 16:33 Last Admin: 07/21/20 15:42 Dose: 999 mls/hr Documented by: Lactated Ringer's (Ringers, Lactated) 1,000 mls @ 125 mls/hr IV ASDIRECTED [facility] Last Admin: 07/26/20 08:17 Dose: 125 mls/hr Documented by: Magnesium Sulfate 4 gm/ Premix 100 mls @ 33.333 mls/hr IV ONETIME ONE Stop: 07/22/20 13:08 Last Admin: 07/22/20 10:34 Dose: 33.333 mls/hr Documented by: Levofloxacin/Dextrose 750 mg/ (Premix) 150 mls @ 100 mls/hr IV Q24H [facility] Last Admin: 07/24/20 11:02 Dose: 100 mls/hr Documented by: Magnesium Sulfate 4 gm/ Premix 100 mls @ 50 mls/hr IV ONETIME ONE Stop: 07/24/20 10:03 Last Admin: 07/24/20 08:28 Dose: 50 mls/hr Documented by: Magnesium Sulfate (Magnesium Sulfate In Water Premix) 2 gm in 50 mls @ 50 mls/hr IV ONETIME ONE Stop: 07/26/20 09:14 Last Admin: 07/26/20 09:26 Dose: 50 mls/hr Documented by: Influenza Virus Vaccine (Fluzone Quad [id number] Syringe) 60 mcg IM .ONCE ONE Stop: 07/16/20 13:01 Last Admin: 07/17/20 11:24 Dose: 60 mcg Documented by: Iopamidol (Isovue Multipack-370 (76%)) 100 ml IVPUSH ONETIME STA Stop: 07/10/20 13:03 Last Admin: 07/10/20 13:05 Dose: 100 ml Documented by: Levofloxacin (Levaquin) 750 mg PO Q24H [facility] Last Admin: 07/21/20 11:52 Dose: 750 mg Documented by: Lidocaine HCl (Lidocaine 5%) 0 gm TOP Q6HR PRN PRN Reason: Pain Last Admin: 07/09/20 13:07 Dose: 1 applic Documented by: Lorazepam (Ativan) Confirm Administered Dose 2 mg .ROUTE .STK-MED ONE Stop: 07/03/20 00:30 Last Admin: 07/03/20 00:37 Dose: Not Given Documented by: Lorazepam (Ativan) 1 mg IVPUSH NOW STA Stop: 07/03/20 00:37 Last Admin: 07/03/20 00:38 Dose: 1 mg Documented by: Lorazepam (Ativan) 1 mg IVPUSH ONETIME ONE Stop: 07/03/20 00:48 Last Admin: 07/03/20 00:50 Dose: 1 mg Documented by: Lorazepam (Ativan) 1 mg IVPUSH Q6H PRN PRN Reason: Agitation Lorazepam (Ativan) 2 mg IVPUSH ONETIME ONE Stop: 07/09/20 22:41 Last Admin: 07/09/20 22:55 Dose: 2 mg Documented by: Lorazepam (Ativan) 2 mg IVPUSH ONETIME ONE Stop: 07/10/20 22:26 Last Admin: 07/10/20 22:37 Dose: 2 mg Documented by: Magnesium Sulfate (Magnesium Sulfate In Water Premix) 2 gm IV ONETIME ONE Stop: 07/11/20 08:04 Last Admin: 07/11/20 09:11 Dose: Not Given Documented by: Midodrine (Midodrine) 5 mg PO DAILY ARI Last Admin: 07/26/20 10:13 Dose: 5 mg Documented by: Piperacillin Sod/Tazobactam Sod (Piperacil-Tazobact) 4.5 gm .ROUTE .STK-MED ONE Stop: 07/21/20 15:01 Pneumococcal Polyvalent Vaccine (Pneumovax 23) 25 mcg IM .ONCE ONE Stop: 07/16/20 11:57 Last Admin: 07/17/20 13:17 Dose: 25 mcg Documented by: Potassium Chloride (Klor-Con M20) 40 meq PO ONETIME ONE Stop: 07/05/20 15:58 Last Admin: 07/05/20 16:14 Dose: 40 meq Documented by: Potassium Chloride (Klor-Con M20) 40 meq PO ONETIME ONE Stop: 07/07/20 03:42 Last Admin: 07/07/20 03:59 Dose: 40 meq Documented by: Potassium Chloride (Klor-Con M20) 40 meq PO ONETIME ONE Stop: 07/09/20 09:47 Last Admin: 07/09/20 10:58 Dose: 40 meq Documented by: Potassium Chloride (Klor-Con M20) 40 meq PO ONETIME ONE Stop: 07/24/20 08:05 Last Admin: 07/24/20 08:28 Dose: 40 meq Documented by: Propranolol HCl (Inderal La) 60 mg PO DAILY ARI Last Admin: 07/21/20 09:55 Dose: 60 mg Documented by: Sodium Chloride (Saline Flush) 10 ml FLUSH ASDIRECTED PRN PRN Reason: Keep Vein Open Sodium Chloride (Saline Flush) 2.5 ml FLUSH ASDIRECTED PRN PRN Reason: Keep Vein Open Sterile Water (Sterile Water For Injection) 1.2 ml INJECT ONETIME ONE Stop: 07/03/20 00:59 Last Admin: 07/03/20 01:22 Dose: 1.2 ml Documented by: Vancomycin HCl (Vancomycin) 1.25 gm .ROUTE .STK-MED ONE Stop: 07/21/20 15:01 Ziprasidone (Geodon) 10 mg IM ONETIME ONE Stop: 07/03/20 00:59 Last Admin: 07/03/20 01:04 Dose: 10 mg Documented by: Ziprasidone (Geodon) Confirm Administered Dose 20 mg .ROUTE .STK-MED ONE Stop: 07/03/20 00:59 Last Admin: 07/03/20 01:15 Dose: Not Given Documented by:
--- NOTE | 2020-07-31 13:52 | PCM.PN ---
- General Info Date of Service: 07/31/20 Admission Dx/Problem (Free Text): Admission Diagnosis/Problem Admission Diagnosis/Problem Metabolic encephalopathy Subjective Update: No chest pain or SOB. No other concerns, - Review of Systems General: Denies: Fever, Weakness, Fatigue, Malaise Pulmonary: Denies: Shortness of Breath, Pleuritic Chest Pain, Cough Gastrointestinal: Denies: Abdominal Pain, Constipation, Decreased Appetite Genitourinary: Denies: Dysuria, Frequency, Burning, Pain Musculoskeletal: Denies: Neck Pain, Shoulder Pain, Arm Pain, Hand Pain Skin: Denies: Cyanosis, Jaundice, Mottled - Patient Data Vitals - Most Recent: Last Vital Signs Temp 36.1 C 07/31/20 12:14 Pulse 116 H 07/31/20 12:14 Resp 16 07/31/20 12:14 BP 112/71 07/31/20 12:14 Pulse Ox 97 07/31/20 12:14 Weight - Most Recent: 83.915 kg I&O - Last 24 Hours: Intake & Output 07/30/20 07/31/20 07/31/20 22:59 06:59 14:59 Intake Total 650 650 Output Total 550 500 Balance 100 150 Lab Results Last 24 Hours: Laboratory Results - last 24 hr 07/31/20 07/31/20 Range/Units 05:52 05:52 WBC 11.41 H (4.0-11.0) K/uL RBC 4.06 L (4.50-5.90) M/uL Hgb 10.6 L (13.0-17.0) g/dL Hct 35.7 L (38.0-50.0) % MCV 87.9 (80.0-98.0) fL MCH 26.1 L (27.0-32.0) pg MCHC 29.7 L (31.0-37.0) g/dL RDW Std Deviation 49.8 (28.0-62.0) fl RDW Coeff of Dorothea 16 H (11.0-15.0) % Plt Count 407 H (150-400) K/uL MPV 8.90 (7.40-12.00) fL Neut % (Auto) 69.3 (48.0-80.0) % Lymph % (Auto) 17.4 (16.0-40.0) % Motley % (Auto) 9.6 (0.0-15.0) % Eos % (Auto) 3.4 (0.0-7.0) % Baso % (Auto) 0.3 (0.0-1.5) % Neut # (Auto) 7.9 H (1.4-5.7) K/uL Lymph # (Auto) 2.0 (0.6-2.4) K/uL Motley # (Auto) 1.1 H (0.0-0.8) K/uL Eos # (Auto) 0.4 (0.0-0.7) K/uL Baso # (Auto) 0.0 (0.0-0.1) K/uL Nucleated RBC % 0.0 /100WBC Nucleated RBCs # 0 K/uL Sodium 137 (136-148) mmol/L Potassium 4.1 (3.5-5.1) mmol/L Chloride 103 (98-107) mmol/L Carbon Dioxide 25.5 (21.0-32.0) mmol/L BUN 15 (7.0-18.0) mg/dL Creatinine 0.9 (0.8-1.3) mg/dL Est Cr Clr Drug Dosing 75.30 mL/min Estimated GFR (MDRD) > 60.0 ml/min Glucose 109 H (74-106) mg/dL Calcium 9.4 (8.5-10.1) mg/dL Med Orders - Current: Current Medications Acetaminophen (Tylenol) 650 mg PO Q4H PRN PRN Reason: Pain Last Admin: 07/20/20 01:56 Dose: 650 mg Documented by: Benztropine Mesylate (Cogentin) 1 mg PO BID [facility] Last Admin: 07/31/20 10:09 Dose: 1 mg Documented by: Doxycycline Hyclate (Vibramycin) 100 mg PO BID [facility] Last Admin: 07/31/20 10:08 Dose: 100 mg Documented by: Enoxaparin Sodium (Lovenox) 40 mg SUBCUT Q24H [facility] Last Admin: 07/31/20 13:41 Dose: 40 mg Documented by: Haloperidol (Haldol) 5 mg PO BEDTIME [facility] Last Admin: 07/30/20 21:19 Dose: 5 mg Documented by: Lorazepam (Ativan) 1 mg IVPUSH Q3H PRN PRN Reason: Agitation Last Admin: 07/18/20 17:55 Dose: 1 mg Documented by: Melatonin (Melatonin) 3 mg PO BEDTIME [facility] Last Admin: 07/30/20 21:17 Dose: 3 mg Documented by: Midodrine (Midodrine) 5 mg PO DAILY [facility] Last Admin: 07/31/20 10:08 Dose: 5 mg Documented by: Nystatin (Nystop) 1 gm TOP BID [facility] Last Admin: 07/31/20 10:18 Dose: 1 applic Documented by: Nystatin/Triamcinolone Acetonide (Mycolog Crm) 0 gm TOP BID [facility] Last Admin: 07/31/20 10:17 Dose: 1 applic Documented by: Sodium Chloride (Saline Flush) 2.5 ml FLUSH ASDIRECTED PRN PRN Reason: Keep Vein Open Last Admin: 07/28/20 13:59 Dose: 2.5 ml Documented by: Discontinued Medications Benztropine Mesylate (Cogentin) 2 mg IM ONETIME ONE Stop: 07/02/20 21:08 Last Admin: 07/02/20 22:48 Dose: Not Given Documented by: Benztropine Mesylate (Cogentin) 2 mg PO ONETIME ONE Stop: 07/02/20 21:55 Last Admin: 07/02/20 22:13 Dose: 2 mg Documented by: Benztropine Mesylate (Cogentin) 1 mg PO BEDTIME [facility] Last Admin: 07/19/20 20:54 Dose: 1 mg Documented by: Benztropine Mesylate (Cogentin) 1 mg PO BID [facility] Last Admin: 07/26/20 10:13 Dose: 1 mg Documented by: Diltiazem HCl (Diltiazem) 20 mg IVPUSH ONETIME ONE Stop: 07/07/20 02:41 Last Admin: 07/07/20 04:35 Dose: Not Given Documented by: Fluconazole (Diflucan) 150 mg PO ONETIME ONE Stop: 07/19/20 10:31 Last Admin: 07/19/20 11:48 Dose: 150 mg Documented by: Haloperidol (Haldol) 5 mg PO BEDTIME [facility] Last Admin: 07/08/20 20:21 Dose: 5 mg Documented by: Haloperidol (Haldol) 10 mg PO BEDTIME [facility] Last Admin: 07/09/20 20:08 Dose: 10 mg Documented by: Ceftriaxone Sodium 1 gm/ (Sodium Chloride) 100 mls @ 200 mls/hr IV STAT ONE Stop: 07/02/20 21:33 Last Admin: 07/02/20 22:14 Dose: Not Given Documented by: Sodium Chloride (Normal Saline) 2,500 mls @ 2,500 mls/hr IV BOLUS ONE; Protocol Stop: 07/02/20 22:03 Last Admin: 07/02/20 22:12 Dose: 2,500 mls/hr Documented by: Ceftriaxone Sodium/Dextrose (Rocephin In Dextrose,Iso-Osm 1 Gm/50 Ml) Confirm Administered Dose 50 mls @ as directed .ROUTE .STK-MED ONE Stop: 07/02/20 21:40 Last Admin: 07/02/20 21:55 Dose: Not Given Documented by: Ceftriaxone Sodium/Dextrose 1 (gm/ Premix) 50 mls @ 100 mls/hr IV ONETIME ONE Stop: 07/02/20 22:11 Last Admin: 07/02/20 22:13 Dose: 100 mls/hr Documented by: Sodium Chloride (Normal Saline) 1,000 mls @ 125 mls/hr IV ASDIRECTED [facility] Sodium Chloride (Normal Saline) 1,000 mls @ 150 mls/hr IV ASDIRECTED [facility] Last Admin: 07/06/20 14:50 Dose: 150 mls/hr Documented by: Sodium Chloride (Normal Saline) 1,000 mls @ 999 mls/hr IV .Bolus ONE Stop: 07/03/20 14:17 Last Admin: 07/03/20 16:04 Dose: 999 mls/hr Documented by: Ceftriaxone Sodium/Dextrose 1 (gm/ Premix) 50 mls @ 100 mls/hr IV Q24H [facility] Last Admin: 07/07/20 03:14 Dose: 100 mls/hr Documented by: Sodium Chloride (Normal Saline) 1,000 mls @ 999 mls/hr IV .Bolus ONE Stop: 07/05/20 10:37 Last Admin: 07/05/20 22:07 Dose: Not Given Documented by: Sodium Chloride (Normal Saline) 1,000 mls @ 999 mls/hr IV .Bolus ONE Stop: 07/05/20 10:57 Last Admin: 07/05/20 10:11 Dose: 999 mls/hr Documented by: Sodium Chloride (Normal Saline) 1,000 mls @ 75 mls/hr IV ASDIRECTED [facility] Last Admin: 07/09/20 03:32 Dose: 75 mls/hr Documented by: Lactated Ringer's (Ringers, Lactated) 500 mls @ 999 mls/hr IV .BOLUS ONE Stop: 07/07/20 03:09 Last Admin: 07/07/20 02:50 Dose: 999 mls/hr Documented by: Magnesium Sulfate (Magnesium Sulfate In Water Premix) 100 mls @ 50 mls/hr IV ONETIME ONE Stop: 07/07/20 05:59 Last Admin: 07/07/20 04:00 Dose: 50 mls/hr Documented by: Lactated Ringer's (Ringers, Lactated) 500 mls @ 999 mls/hr IV BOLUS [facility] Stop: 07/07/20 07:31 Last Admin: 07/07/20 07:20 Dose: 999 mls/hr Documented by: Sodium Chloride (Normal Saline) 500 mls @ 999 mls/hr IV .BOLUS ONE Stop: 07/07/20 19:00 Last Admin: 07/07/20 18:30 Dose: 999 mls/hr Documented by: Magnesium Sulfate (Magnesium Sulfate In Water Premix) 2 gm in 50 mls @ 50 mls/hr IV ONETIME ONE Stop: 07/08/20 10:59 Last Admin: 07/08/20 10:57 Dose: 50 mls/hr Documented by: Magnesium Sulfate (Magnesium Sulfate In Water Premix) 2 gm in 50 mls @ 50 mls/hr IV ONETIME ONE Stop: 07/09/20 10:59 Last Admin: 07/09/20 10:58 Dose: 50 mls/hr Documented by: Piperacillin Sod/Tazobactam (Sod 3.375 gm/ Sodium Chloride) 50 mls @ 100 mls/hr IV Q8H [facility] Last Admin: 07/10/20 06:37 Dose: 100 mls/hr Documented by: Lactated Ringer's (Ringers, Lactated) 500 mls @ 999 mls/hr IV .BOLUS ONE Stop: 07/10/20 01:42 Last Admin: 07/10/20 01:27 Dose: 999 mls/hr Documented by: Lactated Ringer's (Ringers, Lactated) 1,000 mls @ 100 mls/hr IV ASDIRECTED [facility] Last Admin: 07/15/20 05:15 Dose: 100 mls/hr Documented by: Piperacillin Sod/Tazobactam (Sod 3.375 gm/ Sodium Chloride) 50 mls @ 100 mls/hr IV Q6H [facility] Levofloxacin/Dextrose 750 mg/ (Premix) 150 mls @ 100 mls/hr IV Q24H [facility] Last Admin: 07/13/20 10:12 Dose: 100 mls/hr Documented by: Magnesium Sulfate (Magnesium Sulfate In Water Premix) 2 gm in 50 mls @ 50 mls/hr IV ONETIME ONE Stop: 07/11/20 09:59 Last Admin: 07/11/20 08:58 Dose: 50 mls/hr Documented by: Lactated Ringer's (Ringers, Lactated) 1,000 mls @ 999 mls/hr IV .BOLUS ONE Stop: 07/11/20 13:09 Last Admin: 07/11/20 12:42 Dose: 999 mls/hr Documented by: Magnesium Sulfate (Magnesium Sulfate In Water Premix) 2 gm in 50 mls @ 50 mls/hr IV ONETIME ONE Stop: 07/12/20 09:14 Last Admin: 07/12/20 08:30 Dose: 50 mls/hr Documented by: Sodium Chloride (Normal Saline) 500 mls @ 999 mls/hr IV .BOLUS [facility] Sodium Chloride (Normal Saline) 1,000 mls @ 125 mls/hr IV ONETIME ONE Stop: 07/19/20 15:51 Last Admin: 07/19/20 08:20 Dose: 125 mls/hr Documented by: Magnesium Sulfate (Magnesium Sulfate In Water Premix) 2 gm in 50 mls @ 50 mls/hr IV ONETIME ONE Stop: 07/20/20 09:14 Last Admin: 07/20/20 09:06 Dose: 50 mls/hr Documented by: Sodium Chloride (Normal Saline) 1,000 mls @ 125 mls/hr IV Q8H [facility] Stop: 07/20/20 17:29 Last Admin: 07/20/20 10:37 Dose: 125 mls/hr Documented by: Lactated Ringer's (Ringers, Lactated) 1,000 mls @ 999 mls/hr IV .BOLUS ONE Stop: 07/21/20 12:40 Last Admin: 07/21/20 11:40 Dose: 999 mls/hr Documented by: Piperacillin Sod/Tazobactam (Sod 4.5 gm/ Sodium Chloride) 100 mls @ 200 mls/hr IV Q8H [facility] Last Admin: 07/23/20 06:24 Dose: 200 mls/hr Documented by: Vancomycin HCl 1.25 gm/ Sodium (Chloride) 250 mls @ 250 mls/hr IV Q12H [facility] Last Admin: 07/23/20 03:50 Dose: 250 mls/hr Documented by: Lactated Ringer's (Ringers, Lactated) 1,000 mls @ 999 mls/hr IV .BOLUS ONE Stop: 07/21/20 16:33 Last Admin: 07/21/20 15:42 Dose: 999 mls/hr Documented by: Lactated Ringer's (Ringers, Lactated) 1,000 mls @ 125 mls/hr IV ASDIRECTED [facility] Last Admin: 07/26/20 08:17 Dose: 125 mls/hr Documented by: Magnesium Sulfate 4 gm/ Premix 100 mls @ 33.333 mls/hr IV ONETIME ONE Stop: 07/22/20 13:08 Last Admin: 07/22/20 10:34 Dose: 33.333 mls/hr Documented by: Levofloxacin/Dextrose 750 mg/ (Premix) 150 mls @ 100 mls/hr IV Q24H [facility] Last Admin: 07/24/20 11:02 Dose: 100 mls/hr Documented by: Magnesium Sulfate 4 gm/ Premix 100 mls @ 50 mls/hr IV ONETIME ONE Stop: 07/24/20 10:03 Last Admin: 07/24/20 08:28 Dose: 50 mls/hr Documented by: Magnesium Sulfate (Magnesium Sulfate In Water Premix) 2 gm in 50 mls @ 50 mls/hr IV ONETIME ONE Stop: 07/26/20 09:14 Last Admin: 07/26/20 09:26 Dose: 50 mls/hr Documented by: Influenza Virus Vaccine (Fluzone Quad [id number] Syringe) 60 mcg IM .ONCE ONE Stop: 07/16/20 13:01 Last Admin: 07/17/20 11:24 Dose: 60 mcg Documented by: Iopamidol (Isovue Multipack-370 (76%)) 100 ml IVPUSH ONETIME STA Stop: 07/10/20 13:03 Last Admin: 07/10/20 13:05 Dose: 100 ml Documented by: Levofloxacin (Levaquin) 750 mg PO Q24H [facility] Last Admin: 07/21/20 11:52 Dose: 750 mg Documented by: Lidocaine HCl (Lidocaine 5%) 0 gm TOP Q6HR PRN PRN Reason: Pain Last Admin: 07/09/20 13:07 Dose: 1 applic Documented by: Lorazepam (Ativan) Confirm Administered Dose 2 mg .ROUTE .STK-MED ONE Stop: 07/03/20 00:30 Last Admin: 07/03/20 00:37 Dose: Not Given Documented by: Lorazepam (Ativan) 1 mg IVPUSH NOW STA Stop: 07/03/20 00:37 Last Admin: 07/03/20 00:38 Dose: 1 mg Documented by: Lorazepam (Ativan) 1 mg IVPUSH ONETIME ONE Stop: 07/03/20 00:48 Last Admin: 07/03/20 00:50 Dose: 1 mg Documented by: Lorazepam (Ativan) 1 mg IVPUSH Q6H PRN PRN Reason: Agitation Lorazepam (Ativan) 2 mg IVPUSH ONETIME ONE Stop: 07/09/20 22:41 Last Admin: 07/09/20 22:55 Dose: 2 mg Documented by: Lorazepam (Ativan) 2 mg IVPUSH ONETIME ONE Stop: 07/10/20 22:26 Last Admin: 07/10/20 22:37 Dose: 2 mg Documented by: Magnesium Sulfate (Magnesium Sulfate In Water Premix) 2 gm IV ONETIME ONE Stop: 07/11/20 08:04 Last Admin: 07/11/20 09:11 Dose: Not Given Documented by: Midodrine (Midodrine) 5 mg PO DAILY [facility] Last Admin: 07/26/20 10:13 Dose: 5 mg Documented by: Piperacillin Sod/Tazobactam Sod (Piperacil-Tazobact) 4.5 gm .ROUTE .STK-MED ONE Stop: 07/21/20 15:01 Pneumococcal Polyvalent Vaccine (Pneumovax 23) 25 mcg IM .ONCE ONE Stop: 07/16/20 11:57 Last Admin: 07/17/20 13:17 Dose: 25 mcg Documented by: Potassium Chloride (Klor-Con M20) 40 meq PO ONETIME ONE Stop: 07/05/20 15:58 Last Admin: 07/05/20 16:14 Dose: 40 meq Documented by: Potassium Chloride (Klor-Con M20) 40 meq PO ONETIME ONE Stop: 07/07/20 03:42 Last Admin: 07/07/20 03:59 Dose: 40 meq Documented by: Potassium Chloride (Klor-Con M20) 40 meq PO ONETIME ONE Stop: 07/09/20 09:47 Last Admin: 07/09/20 10:58 Dose: 40 meq Documented by: Potassium Chloride (Klor-Con M20) 40 meq PO ONETIME ONE Stop: 07/24/20 08:05 Last Admin: 07/24/20 08:28 Dose: 40 meq Documented by: Propranolol HCl (Inderal La) 60 mg PO DAILY [facility] Last Admin: 07/21/20 09:55 Dose: 60 mg Documented by: Sodium Chloride (Saline Flush) 10 ml FLUSH ASDIRECTED PRN PRN Reason: Keep Vein Open Sodium Chloride (Saline Flush) 2.5 ml FLUSH ASDIRECTED PRN PRN Reason: Keep Vein Open Sterile Water (Sterile Water For Injection) 1.2 ml INJECT ONETIME ONE Stop: 07/03/20 00:59 Last Admin: 07/03/20 01:22 Dose: 1.2 ml Documented by: Vancomycin HCl (Vancomycin) 1.25 gm .ROUTE .STK-MED ONE Stop: 07/21/20 15:01 Ziprasidone (Geodon) 10 mg IM ONETIME ONE Stop: 07/03/20 00:59 Last Admin: 07/03/20 01:04 Dose: 10 mg Documented by: Ziprasidone (Geodon) Confirm Administered Dose 20 mg .ROUTE .STK-MED ONE Stop: 07/03/20 00:59 Last Admin: 07/03/20 01:15 Dose: Not Given Documented by: - Exam General: Alert, Oriented Neck: Supple Lungs: Clear to Auscultation, Normal Respiratory Effort Cardiovascular: Regular Rate, Regular Rhythm GI/Abdominal Exam: Normal Bowel Sounds, Soft, Non-Tender, No Organomegaly Sepsis Event Note - Evaluation Sepsis Screening Result: No Definite Risk - Focused Exam Vital Signs: Vital Signs Temp Pulse Resp BP Pulse Ox 07/31/20 12:14 36.1 C 116 H 16 112/71 97 07/31/20 09:00 36.4 C 91 18 106/65 94 L 07/31/20 04:00 37.0 C 90 18 104/56 L 94 L - Problem List & Annotations (1) Bladder outlet obstruction SNOMED Code(s): 041607184 Code(s): N32.0 - BLADDER-NECK OBSTRUCTION Status: Acute Current Visit: Yes (2) Prostatitis SNOMED Code(s): 3974680 Code(s): N41.9 - INFLAMMATORY DISEASE OF PROSTATE, UNSPECIFIED Status: Acute Current Visit: Yes Qualifiers: Prostatitis type: acute Qualified Code(s): N41.0 - Acute prostatitis (3) Frequent falls SNOMED Code(s): 811895991 Code(s): R29.6 - REPEATED FALLS Status: Acute Current Visit: No (4) Leukocytosis SNOMED Code(s): 504519809, 375744377 Code(s): D72.829 - ELEVATED WHITE BLOOD CELL COUNT, UNSPECIFIED Status: Acute Current Visit: No Qualifiers: Leukocytosis type: unspecified Qualified Code(s): D72.829 - Elevated white blood cell count, unspecified (5) HTN (hypertension) SNOMED Code(s): 79887012 Code(s): I10 - ESSENTIAL (PRIMARY) HYPERTENSION Status: Chronic Current Visit: No (6) Schizophrenia SNOMED Code(s): 98288313 Code(s): F20.9 - SCHIZOPHRENIA, UNSPECIFIED Status: Chronic Current Visit: No - Problem List Review Problem List Initiated/Reviewed/Updated: Yes - My Orders Last 24 Hours: My Active Orders 07/31/20 13:45 CORONAVIRUS COVID-19 SUSAN [[facility]LE[facility]] Stat - Plan Plan:: 64 yo male admitted for acute renal failure and metabolic encephalopathy 1. Schizophrenia- stable - continue Haldol 5 mg bedtime - Continue Cogentin to 1 mg BID for EPS symptoms, monitor 2. Bladder outlet obstruction/prostatitis - Lambert in place - Follow up with urology - cont Doxycycline 3. Cher rash to buttocks and groin - Much improved - Nystatin cream BID - had Diflucan x 1 dose 07/19 - Keep dry and no brief on to help allow air flow. 6. Hypotension - on Midodrine - Stable. 7: Leucocytosis: Patient has mild leucocytosis, no obvious source of infection currently, cont doxycycline VTE prophylaxis: Heparin Dispo: pending placement
[2020-07-31] MEDS: Melatonin 3 MG Tab PO SCH (21:11)
[2020-07-31] MEDS: Haloperidol 5 MG Tab PO SCH (21:11)
[2020-08-01 07:14] LABS: BLOOD UREA NITROGEN,BUN 13 mg/dL (7.0-18.0); CARBON DIOXIDE,CO2 25.7 mmol/L (21.0-32.0); CHLORIDE,CL 101 mmol/L (98-107); GLUCOSE RANDOM 103 mg/dL (74-106); POTASSIUM,K 3.6 mmol/L (3.5-5.1); SODIUM,NA 135 mmol/L (136-148)
[2020-08-01] MEDS: Midodrine 5 MG Tab PO SCH (08:14)
[2020-08-01] MEDS: Nystatin Topical Powder 15 GM Bottle TOP SCH ×2 (08:14→20:57)
[2020-08-01] MEDS: Benztropine 1 MG Tab PO SCH ×2 (08:14→20:55)
[2020-08-01] MEDS: Doxycycline 100 MG Cap PO SCH ×2 (08:14→20:47)
[2020-08-01] MEDS ORDERED: Magnesium Sulfate/Water 4 GM in Premix Bag 1 BAG IV ONE (12:29)
--- NOTE | 2020-08-01 12:29 | PCM.PN ---
- General Info Date of Service: 08/01/20 Admission Dx/Problem (Free Text): Admission Diagnosis/Problem Admission Diagnosis/Problem Metabolic encephalopathy Subjective Update: No chest pain or SOB. No other concerns, resting in bed comfortably, tremors are much better Functional Status: Reports: Pain Controlled, Tolerating Diet, Ambulating, Urinating - Review of Systems General: Denies: Fever, Weakness, Fatigue, Malaise Pulmonary: Denies: Shortness of Breath, Pleuritic Chest Pain Cardiovascular: Denies: Chest Pain, Palpitations, Dyspnea on Exertion Gastrointestinal: Denies: Abdominal Pain, Constipation, Decreased Appetite Genitourinary: Denies: Dysuria, Frequency, Burning, Pain Musculoskeletal: Denies: Neck Pain, Shoulder Pain, Arm Pain Skin: Denies: Cyanosis, Jaundice, Mottled - Patient Data Vitals - Most Recent: Last Vital Signs Temp 36.3 C 08/01/20 08:06 Pulse 84 08/01/20 08:06 Resp 14 08/01/20 08:06 BP 90/51 L 08/01/20 08:06 Pulse Ox 95 08/01/20 08:06 Weight - Most Recent: 83.915 kg I&O - Last 24 Hours: Intake & Output 07/31/20 08/01/20 08/01/20 22:59 06:59 14:59 Intake Total 540 890 Output Total 400 500 Balance 140 390 Lab Results Last 24 Hours: Laboratory Results - last 24 hr 07/31/20 08/01/20 08/01/20 Range/Units 13:45 06:20 06:20 WBC 9.82 (4.0-11.0) K/uL RBC 3.83 L (4.50-5.90) M/uL Hgb 10.1 L (13.0-17.0) g/dL Hct 33.2 L (38.0-50.0) % MCV 86.7 (80.0-98.0) fL MCH 26.4 L (27.0-32.0) pg MCHC 30.4 L (31.0-37.0) g/dL RDW Std Deviation 49.1 (28.0-62.0) fl RDW Coeff of Dorothea 16 H (11.0-15.0) % Plt Count 347 (150-400) K/uL MPV 8.90 (7.40-12.00) fL Neut % (Auto) 68.5 (48.0-80.0) % Lymph % (Auto) 20.9 (16.0-40.0) % Brantley % (Auto) 6.5 (0.0-15.0) % Eos % (Auto) 3.7 (0.0-7.0) % Baso % (Auto) 0.4 (0.0-1.5) % Neut # (Auto) 6.7 H (1.4-5.7) K/uL Lymph # (Auto) 2.1 (0.6-2.4) K/uL Brantley # (Auto) 0.6 (0.0-0.8) K/uL Eos # (Auto) 0.4 (0.0-0.7) K/uL Baso # (Auto) 0.0 (0.0-0.1) K/uL Nucleated RBC % 0.0 /100WBC Nucleated RBCs # 0 K/uL Sodium 135 L (136-148) mmol/L Potassium 3.6 (3.5-5.1) mmol/L Chloride 101 (98-107) mmol/L Carbon Dioxide 25.7 (21.0-32.0) mmol/L BUN 13 (7.0-18.0) mg/dL Creatinine 0.8 (0.8-1.3) mg/dL Est Cr Clr Drug Dosing 84.71 mL/min Estimated GFR (MDRD) > 60.0 ml/min Glucose 103 (74-106) mg/dL Calcium 9.0 (8.5-10.1) mg/dL Phosphorus 4.0 (2.6-4.7) mg/dL Magnesium 1.6 L (1.8-2.4) mg/dL SARS-CoV-2 RNA (SUSAN) NEGATIVE (NEGATIVE) Med Orders - Current: Current Medications Acetaminophen (Tylenol) 650 mg PO Q4H PRN PRN Reason: Pain Last Admin: 07/20/20 01:56 Dose: 650 mg Documented by: Benztropine Mesylate (Cogentin) 1 mg PO BID [facility] Last Admin: 08/01/20 08:14 Dose: 1 mg Documented by: Doxycycline Hyclate (Vibramycin) 100 mg PO BID [facility] Last Admin: 08/01/20 08:14 Dose: 100 mg Documented by: Enoxaparin Sodium (Lovenox) 40 mg SUBCUT Q24H [facility] Last Admin: 07/31/20 13:41 Dose: 40 mg Documented by: Haloperidol (Haldol) 5 mg PO BEDTIME [facility] Last Admin: 07/31/20 21:11 Dose: 5 mg Documented by: Lorazepam (Ativan) 1 mg IVPUSH Q3H PRN PRN Reason: Agitation Last Admin: 07/18/20 17:55 Dose: 1 mg Documented by: Melatonin (Melatonin) 3 mg PO BEDTIME [facility] Last Admin: 07/31/20 21:11 Dose: 3 mg Documented by: Midodrine (Midodrine) 5 mg PO DAILY [facility] Last Admin: 08/01/20 08:14 Dose: 5 mg Documented by: Nystatin (Nystop) 1 gm TOP BID [facility] Last Admin: 08/01/20 08:14 Dose: 1 applic Documented by: Nystatin/Triamcinolone Acetonide (Mycolog Crm) 0 gm TOP BID [facility] Last Admin: 08/01/20 08:14 Dose: 1 applic Documented by: Sodium Chloride (Saline Flush) 2.5 ml FLUSH ASDIRECTED PRN PRN Reason: Keep Vein Open Last Admin: 07/28/20 13:59 Dose: 2.5 ml Documented by: Discontinued Medications Benztropine Mesylate (Cogentin) 2 mg IM ONETIME ONE Stop: 07/02/20 21:08 Last Admin: 07/02/20 22:48 Dose: Not Given Documented by: Benztropine Mesylate (Cogentin) 2 mg PO ONETIME ONE Stop: 07/02/20 21:55 Last Admin: 07/02/20 22:13 Dose: 2 mg Documented by: Benztropine Mesylate (Cogentin) 1 mg PO BEDTIME [facility] Last Admin: 07/19/20 20:54 Dose: 1 mg Documented by: Benztropine Mesylate (Cogentin) 1 mg PO BID [facility] Last Admin: 07/26/20 10:13 Dose: 1 mg Documented by: Diltiazem HCl (Diltiazem) 20 mg IVPUSH ONETIME ONE Stop: 07/07/20 02:41 Last Admin: 07/07/20 04:35 Dose: Not Given Documented by: Fluconazole (Diflucan) 150 mg PO ONETIME ONE Stop: 07/19/20 10:31 Last Admin: 07/19/20 11:48 Dose: 150 mg Documented by: Haloperidol (Haldol) 5 mg PO BEDTIME [facility] Last Admin: 07/08/20 20:21 Dose: 5 mg Documented by: Haloperidol (Haldol) 10 mg PO BEDTIME [facility] Last Admin: 07/09/20 20:08 Dose: 10 mg Documented by: Ceftriaxone Sodium 1 gm/ (Sodium Chloride) 100 mls @ 200 mls/hr IV STAT ONE Stop: 07/02/20 21:33 Last Admin: 07/02/20 22:14 Dose: Not Given Documented by: Sodium Chloride (Normal Saline) 2,500 mls @ 2,500 mls/hr IV BOLUS ONE; Protocol Stop: 07/02/20 22:03 Last Admin: 07/02/20 22:12 Dose: 2,500 mls/hr Documented by: Ceftriaxone Sodium/Dextrose (Rocephin In Dextrose,Iso-Osm 1 Gm/50 Ml) Confirm Administered Dose 50 mls @ as directed .ROUTE .[facility]-MED ONE Stop: 07/02/20 21:40 Last Admin: 07/02/20 21:55 Dose: Not Given Documented by: Ceftriaxone Sodium/Dextrose 1 (gm/ Premix) 50 mls @ 100 mls/hr IV ONETIME ONE Stop: 07/02/20 22:11 Last Admin: 07/02/20 22:13 Dose: 100 mls/hr Documented by: Sodium Chloride (Normal Saline) 1,000 mls @ 125 mls/hr IV ASDIRECTED [facility] Sodium Chloride (Normal Saline) 1,000 mls @ 150 mls/hr IV ASDIRECTED [facility] Last Admin: 07/06/20 14:50 Dose: 150 mls/hr Documented by: Sodium Chloride (Normal Saline) 1,000 mls @ 999 mls/hr IV .Bolus ONE Stop: 07/03/20 14:17 Last Admin: 07/03/20 16:04 Dose: 999 mls/hr Documented by: Ceftriaxone Sodium/Dextrose 1 (gm/ Premix) 50 mls @ 100 mls/hr IV Q24H [facility] Last Admin: 07/07/20 03:14 Dose: 100 mls/hr Documented by: Sodium Chloride (Normal Saline) 1,000 mls @ 999 mls/hr IV .Bolus ONE Stop: 07/05/20 10:37 Last Admin: 07/05/20 22:07 Dose: Not Given Documented by: Sodium Chloride (Normal Saline) 1,000 mls @ 999 mls/hr IV .Bolus ONE Stop: 07/05/20 10:57 Last Admin: 07/05/20 10:11 Dose: 999 mls/hr Documented by: Sodium Chloride (Normal Saline) 1,000 mls @ 75 mls/hr IV ASDIRECTED [facility] Last Admin: 07/09/20 03:32 Dose: 75 mls/hr Documented by: Lactated Ringer's (Ringers, Lactated) 500 mls @ 999 mls/hr IV .BOLUS ONE Stop: 07/07/20 03:09 Last Admin: 07/07/20 02:50 Dose: 999 mls/hr Documented by: Magnesium Sulfate (Magnesium Sulfate In Water Premix) 100 mls @ 50 mls/hr IV ONETIME ONE Stop: 07/07/20 05:59 Last Admin: 07/07/20 04:00 Dose: 50 mls/hr Documented by: Lactated Ringer's (Ringers, Lactated) 500 mls @ 999 mls/hr IV BOLUS [facility] Stop: 07/07/20 07:31 Last Admin: 07/07/20 07:20 Dose: 999 mls/hr Documented by: Sodium Chloride (Normal Saline) 500 mls @ 999 mls/hr IV .BOLUS ONE Stop: 07/07/20 19:00 Last Admin: 07/07/20 18:30 Dose: 999 mls/hr Documented by: Magnesium Sulfate (Magnesium Sulfate In Water Premix) 2 gm in 50 mls @ 50 mls/h r IV ONETIME ONE Stop: 07/08/20 10:59 Last Admin: 07/08/20 10:57 Dose: 50 mls/hr Documented by: Magnesium Sulfate (Magnesium Sulfate In Water Premix) 2 gm in 50 mls @ 50 mls/hr IV ONETIME ONE Stop: 07/09/20 10:59 Last Admin: 07/09/20 10:58 Dose: 50 mls/hr Documented by: Piperacillin Sod/Tazobactam (Sod 3.375 gm/ Sodium Chloride) 50 mls @ 100 mls/hr IV Q8H [facility] Last Admin: 07/10/20 06:37 Dose: 100 mls/hr Documented by: Lactated Ringer's (Ringers, Lactated) 500 mls @ 999 mls/hr IV .BOLUS ONE Stop: 07/10/20 01:42 Last Admin: 07/10/20 01:27 Dose: 999 mls/hr Documented by: Lactated Ringer's (Ringers, Lactated) 1,000 mls @ 100 mls/hr IV ASDIRECTED [facility] Last Admin: 07/15/20 05:15 Dose: 100 mls/hr Documented by: Piperacillin Sod/Tazobactam (Sod 3.375 gm/ Sodium Chloride) 50 mls @ 100 mls/hr IV Q6H [facility] Levofloxacin/Dextrose 750 mg/ (Premix) 150 mls @ 100 mls/hr IV Q24H [facility] Last Admin: 07/13/20 10:12 Dose: 100 mls/hr Documented by: Magnesium Sulfate (Magnesium Sulfate In Water Premix) 2 gm in 50 mls @ 50 mls/hr IV ONETIME ONE Stop: 07/11/20 09:59 Last Admin: 07/11/20 08:58 Dose: 50 mls/hr Documented by: Lactated Ringer's (Ringers, Lactated) 1,000 mls @ 999 mls/hr IV .BOLUS ONE Stop: 07/11/20 13:09 Last Admin: 07/11/20 12:42 Dose: 999 mls/hr Documented by: Magnesium Sulfate (Magnesium Sulfate In Water Premix) 2 gm in 50 mls @ 50 mls/hr IV ONETIME ONE Stop: 07/12/20 09:14 Last Admin: 07/12/20 08:30 Dose: 50 mls/hr Documented by: Sodium Chloride (Normal Saline) 500 mls @ 999 mls/hr IV .BOLUS [facility] Sodium Chloride (Normal Saline) 1,000 mls @ 125 mls/hr IV ONETIME ONE Stop: 07/19/20 15:51 Last Admin: 07/19/20 08:20 Dose: 125 mls/hr Documented by: Magnesium Sulfate (Magnesium Sulfate In Water Premix) 2 gm in 50 mls @ 50 mls/hr IV ONETIME ONE Stop: 07/20/20 09:14 Last Admin: 07/20/20 09:06 Dose: 50 mls/hr Documented by: Sodium Chloride (Normal Saline) 1,000 mls @ 125 mls/hr IV Q8H [facility] Stop: 07/20/20 17:29 Last Admin: 07/20/20 10:37 Dose: 125 mls/hr Documented by: Lactated Ringer's (Ringers, Lactated) 1,000 mls @ 999 mls/hr IV .BOLUS ONE Stop: 07/21/20 12:40 Last Admin: 07/21/20 11:40 Dose: 999 mls/hr Documented by: Piperacillin Sod/Tazobactam (Sod 4.5 gm/ Sodium Chloride) 100 mls @ 200 mls/hr IV Q8H [facility] Last Admin: 07/23/20 06:24 Dose: 200 mls/hr Documented by: Vancomycin HCl 1.25 gm/ Sodium (Chloride) 250 mls @ 250 mls/hr IV Q12H [facility] Last Admin: 07/23/20 03:50 Dose: 250 mls/hr Documented by: Lactated Ringer's (Ringers, Lactated) 1,000 mls @ 999 mls/hr IV .BOLUS ONE Stop: 07/21/20 16:33 Last Admin: 07/21/20 15:42 Dose: 999 mls/hr Documented by: Lactated Ringer's (Ringers, Lactated) 1,000 mls @ 125 mls/hr IV ASDIRECTED [facility] Last Admin: 07/26/20 08:17 Dose: 125 mls/hr Documented by: Magnesium Sulfate 4 gm/ Premix 100 mls @ 33.333 mls/hr IV ONETIME ONE Stop: 07/22/20 13:08 Last Admin: 07/22/20 10:34 Dose: 33.333 mls/hr Documented by: Levofloxacin/Dextrose 750 mg/ (Premix) 150 mls @ 100 mls/hr IV Q24H [facility] Last Admin: 07/24/20 11:02 Dose: 100 mls/hr Documented by: Magnesium Sulfate 4 gm/ Premix 100 mls @ 50 mls/hr IV ONETIME ONE Stop: 07/24/20 10:03 Last Admin: 07/24/20 08:28 Dose: 50 mls/hr Documented by: Magnesium Sulfate (Magnesium Sulfate In Water Premix) 2 gm in 50 mls @ 50 mls/hr IV ONETIME ONE Stop: 07/26/20 09:14 Last Admin: 07/26/20 09:26 Dose: 50 mls/hr Documented by: Influenza Virus Vaccine (Fluzone Quad Syringe) 60 mcg IM .ONCE ONE Stop: 07/16/20 13:01 Last Admin: 07/17/20 11:24 Dose: 60 mcg Documented by: Iopamidol (Isovue Multipack-370 (76%)) 100 ml IVPUSH ONETIME STA Stop: 07/10/20 13:03 Last Admin: 07/10/20 13:05 Dose: 100 ml Documented by: Levofloxacin (Levaquin) 750 mg PO Q24H [facility] Last Admin: 07/21/20 11:52 Dose: 750 mg Documented by: Lidocaine HCl (Lidocaine 5%) 0 gm TOP Q6HR PRN PRN Reason: Pain Last Admin: 07/09/20 13:07 Dose: 1 applic Documented by: Lorazepam (Ativan) Confirm Administered Dose 2 mg .ROUTE .STK-MED ONE Stop: 07/03/20 00:30 Last Admin: 07/03/20 00:37 Dose: Not Given Documented by: Lorazepam (Ativan) 1 mg IVPUSH NOW STA Stop: 07/03/20 00:37 Last Admin: 07/03/20 00:38 Dose: 1 mg Documented by: Lorazepam (Ativan) 1 mg IVPUSH ONETIME ONE Stop: 07/03/20 00:48 Last Admin: 07/03/20 00:50 Dose: 1 mg Documented by: Lorazepam (Ativan) 1 mg IVPUSH Q6H PRN PRN Reason: Agitation Lorazepam (Ativan) 2 mg IVPUSH ONETIME ONE Stop: 07/09/20 22:41 Last Admin: 07/09/20 22:55 Dose: 2 mg Documented by: Lorazepam (Ativan) 2 mg IVPUSH ONETIME ONE Stop: 07/10/20 22:26 Last Admin: 07/10/20 22:37 Dose: 2 mg Documented by: Magnesium Sulfate (Magnesium Sulfate In Water Premix) 2 gm IV ONETIME ONE Stop: 07/11/20 08:04 Last Admin: 07/11/20 09:11 Dose: Not Given Documented by: Midodrine (Midodrine) 5 mg PO DAILY [facility] Last Admin: 07/26/20 10:13 Dose: 5 mg Documented by: Piperacillin Sod/Tazobactam Sod (Piperacil-Tazobact) 4.5 gm .ROUTE .STK-MED ONE Stop: 07/21/20 15:01 Pneumococcal Polyvalent Vaccine (Pneumovax 23) 25 mcg IM .ONCE ONE Stop: 07/16/20 11:57 Last Admin: 07/17/20 13:17 Dose: 25 mcg Documented by: Potassium Chloride (Klor-Con M20) 40 meq PO ONETIME ONE Stop: 07/05/20 15:58 Last Admin: 07/05/20 16:14 Dose: 40 meq Documented by: Potassium Chloride (Klor-Con M20) 40 meq PO ONETIME ONE Stop: 07/07/20 03:42 Last Admin: 07/07/20 03:59 Dose: 40 meq Documented by: Potassium Chloride (Klor-Con M20) 40 meq PO ONETIME ONE Stop: 07/09/20 09:47 Last Admin: 07/09/20 10:58 Dose: 40 meq Documented by: Potassium Chloride (Klor-Con M20) 40 meq PO ONETIME ONE Stop: 07/24/20 08:05 Last Admin: 07/24/20 08:28 Dose: 40 meq Documented by: Propranolol HCl (Inderal La) 60 mg PO DAILY [facility] Last Admin: 07/21/20 09:55 Dose: 60 mg Documented by: Sodium Chloride (Saline Flush) 10 ml FLUSH ASDIRECTED PRN PRN Reason: Keep Vein Open Sodium Chloride (Saline Flush) 2.5 ml FLUSH ASDIRECTED PRN PRN Reason: Keep Vein Open Sterile Water (Sterile Water For Injection) 1.2 ml INJECT ONETIME ONE Stop: 07/03/20 00:59 Last Admin: 07/03/20 01:22 Dose: 1.2 ml Documented by: Vancomycin HCl (Vancomycin) 1.25 gm .ROUTE .STK-MED ONE Stop: 07/21/20 15:01 Ziprasidone (Geodon) 10 mg IM ONETIME ONE Stop: 07/03/20 00:59 Last Admin: 07/03/20 01:04 Dose: 10 mg Documented by: Ziprasidone (Geodon) Confirm Administered Dose 20 mg .ROUTE .STK-MED ONE Stop: 07/03/20 00:59 Last Admin: 07/03/20 01:15 Dose: Not Given Documented by: - Exam General: Alert, Oriented, Cooperative Lungs: Clear to Auscultation, Normal Respiratory Effort Cardiovascular: Regular Rate, Regular Rhythm GI/Abdominal Exam: Normal Bowel Sounds, Soft, Non-Tender, No Organomegaly, No Distention Back Exam: Normal Inspection Extremities: Normal Inspection, Normal Range of Motion, Non-Tender Skin: Warm, Dry, Intact Sepsis Event Note - Evaluation Sepsis Screening Result: No Definite Risk - Focused Exam Vital Signs: Vital Signs Temp Pulse Resp BP Pulse Ox Pulse Ox 08/01/20 08:06 36.3 C 84 14 90/51 L 95 08/01/20 04:58 36.4 C 91 17 105/56 L 95 08/01/20 02:00 97 - Problem List & Annotations (1) Bladder outlet obstruction SNOMED Code(s): 265941257 Code(s): N32.0 - BLADDER-NECK OBSTRUCTION Status: Acute Current Visit: Yes (2) Prostatitis SNOMED Code(s): 2582592 Code(s): N41.9 - INFLAMMATORY DISEASE OF PROSTATE, UNSPECIFIED Status: Acute Current Visit: Yes Qualifiers: Prostatitis type: acute Qualified Code(s): N41.0 - Acute prostatitis (3) Frequent falls SNOMED Code(s): 625360585 Code(s): R29.6 - REPEATED FALLS Status: Acute Current Visit: No (4) Leukocytosis SNOMED Code(s): 417339277, 045720635 Code(s): D72.829 - ELEVATED WHITE BLOOD CELL COUNT, UNSPECIFIED Status: Acute Current Visit: No Qualifiers: Leukocytosis type: unspecified Qualified Code(s): D72.829 - Elevated white blood cell count, unspecified (5) HTN (hypertension) SNOMED Code(s): 38445595 Code(s): I10 - ESSENTIAL (PRIMARY) HYPERTENSION Status: Chronic Current Visit: No (6) Schizophrenia SNOMED Code(s): 97330744 Code(s): F20.9 - SCHIZOPHRENIA, UNSPECIFIED Status: Chronic Current Visit: No - Problem List Review Problem List Initiated/Reviewed/Updated: Yes - Plan Plan:: 64 yo male admitted for acute renal failure and metabolic encephalopathy 1. Schizophrenia- stable - continue Haldol 5 mg bedtime - Continue Cogentin to 1 mg BID for EPS symptoms, monitor 2. Bladder outlet obstruction/prostatitis - Lambert in place - Follow up with urology - cont Doxycycline 3. Cher rash to buttocks and groin - Much improved - Nystatin cream BID - had Diflucan x 1 dose 07/19 - Keep dry and no brief on to help allow air flow. 6. Hypotension - on Midodrine - Stable. 7: Leucocytosis: resolved VTE prophylaxis: Heparin Dispo: pending placement, possible dc tomorrow
[2020-08-01] MEDS: Enoxaparin 40 MG/0.4 ML Syringe SUBCUT SCH (13:17)
[2020-08-01] MEDS: Haloperidol 5 MG Tab PO SCH (20:48)
[2020-08-01] MEDS: Melatonin 3 MG Tab PO SCH (20:54)
--- NOTE | 2020-08-02 09:05 | PCM.DCSUM1 ---
Discharge Summary - Hospital Course Diagnosis: Stroke: No - Discharge Data Discharge Disposition: Home, Self-Care 01 Condition: Fair - Referral to Home Health Primary Care Physician: PCP None Skilled Need: PT/OT for strengthning due to weakness from recent hospitalization, gait instability abd high fall risk. - Discharge Diagnosis/Problem(s) (1) Bladder outlet obstruction SNOMED Code(s): 112489056 ICD Code: N32.0 - BLADDER-NECK OBSTRUCTION Status: Acute Current Visit: Yes (2) Prostatitis SNOMED Code(s): 9501780 ICD Code: N41.9 - INFLAMMATORY DISEASE OF PROSTATE, UNSPECIFIED Status: Acute Current Visit: Yes Qualifiers: Prostatitis type: acute Qualified Code(s): N41.0 - Acute prostatitis (3) Frequent falls SNOMED Code(s): 253514142 ICD Code: R29.6 - REPEATED FALLS Status: Acute Current Visit: No (4) Leukocytosis SNOMED Code(s): 988272190, 337230537 ICD Code: D72.829 - ELEVATED WHITE BLOOD CELL COUNT, UNSPECIFIED Status: Acute Current Visit: No Qualifiers: Leukocytosis type: unspecified Qualified Code(s): D72.829 - Elevated white blood cell count, unspecified (5) HTN (hypertension) SNOMED Code(s): 04405184 ICD Code: I10 - ESSENTIAL (PRIMARY) HYPERTENSION Status: Chronic Current Visit: No (6) Schizophrenia SNOMED Code(s): 52867305 ICD Code: F20.9 - SCHIZOPHRENIA, UNSPECIFIED Status: Chronic Current Visit: No - Patient Summary/Data Consults: Consultations 07/13/20 10:07 PT Evaluation and Treatment [CONS] Routine 07/13/20 12:31 OT Evaluation and Treatment [CONS] Routine - Patient Instructions Diet: Regular Diet as Tolerated Activity: As Tolerated Driving: Do Not Drive Showering/Bathing: May Shower Notify Provider of: Fever, Increased Pain, Swelling and Redness, Drainage, Nausea and/or Vomiting Other/Special Instructions: PT/OT evaluate and treat for strengthning due to weakness from recent hospitalization, gait instability abd high fall risk. Follow up with Urology in 2 weeks for Nelson care. Standard nelson care per health facility - Discharge Plan *PRESCRIPTION DRUG MONITORING PROGRAM REVIEWED*: Not Applicable *COPY OF PRESCRIPTION DRUG MONITORING REPORT IN PATIENT COLLETTE: Not Applicable Prescriptions/Med Rec: Benztropine [Cogentin] 1 mg PO BID #60 tablet haloperidoL [Haldol] 5 mg PO BEDTIME #60 tablet Melatonin 3 mg PO BEDTIME #60 tablet Midodrine 5 mg PO DAILY #60 tablet Doxycycline [Vibramycin] 100 mg PO BID #60 cap Home Medications: Home Meds Cholecalciferol (Vitamin D3) [Vitamin D3] 5,000 unit PO DAILY 06/26/20 [History] Acetaminophen [Tylenol] 650 mg PO Q4H PRN 1 Days #30 tablet 06/28/20 [Rx] Benztropine [Cogentin] 1 mg PO BID #60 tablet 08/01/20 [Rx] Doxycycline [Vibramycin] 100 mg PO BID #60 cap 08/01/20 [Rx] Melatonin 3 mg PO BEDTIME #60 tablet 08/01/20 [Rx] Midodrine 5 mg PO DAILY #60 tablet 08/01/20 [Rx] haloperidoL [Haldol] 5 mg PO BEDTIME #60 tablet 08/01/20 [Rx] Patient Handouts: Hypotension, [id number], Schizophrenia, Toxic Metabolic Encephalopathy, Prostatitis, [id number] Referrals: Chung Crowell MD [Physician] - Quincy Rey MD [Physician] - - Patient Data Vitals - Most Recent: Last Vital Signs Temp 36.4 C 08/02/20 04:15 Pulse 93 08/02/20 04:15 Resp 16 08/02/20 04:15 BP 117/58 L 08/02/20 04:15 Pulse Ox 93 L 08/02/20 04:15 Weight - Most Recent: 83.915 kg I&O - Last 24 hours: Intake & Output 08/01/20 08/02/20 08/02/20 22:59 06:59 14:59 Intake Total 840 500 Output Total 975 650 Balance -135 -150 Med Orders - Current: Current Medications Acetaminophen (Tylenol) 650 mg PO Q4H PRN PRN Reason: Pain Last Admin: 07/20/20 01:56 Dose: 650 mg Documented by: Benztropine Mesylate (Cogentin) 1 mg PO BID [facility] Last Admin: 08/01/20 20:55 Dose: 1 mg Documented by: Doxycycline Hyclate (Vibramycin) 100 mg PO BID [facility] Last Admin: 08/01/20 20:47 Dose: 100 mg Documented by: Enoxaparin Sodium (Lovenox) 40 mg SUBCUT Q24H [facility] Last Admin: 08/01/20 13:17 Dose: 40 mg Documented by: Haloperidol (Haldol) 5 mg PO BEDTIME [facility] Last Admin: 08/01/20 20:48 Dose: 5 mg Documented by: Melatonin (Melatonin) 3 mg PO BEDTIME [facility] Last Admin: 08/01/20 20:54 Dose: 3 mg Documented by: Midodrine (Midodrine) 5 mg PO DAILY [facility] Last Admin: 08/01/20 08:14 Dose: 5 mg Documented by: Nystatin (Nystop) 1 gm TOP BID [facility] Last Admin: 08/01/20 20:57 Dose: 1 applic Documented by: Nystatin/Triamcinolone Acetonide (Mycolog Crm) 0 gm TOP BID [facility] Last Admin: 08/01/20 20:57 Dose: 1 applic Documented by: Sodium Chloride (Saline Flush) 2.5 ml FLUSH ASDIRECTED PRN PRN Reason: Keep Vein Open Last Admin: 07/28/20 13:59 Dose: 2.5 ml Documented by: Discontinued Medications Benztropine Mesylate (Cogentin) 2 mg IM ONETIME ONE Stop: 07/02/20 21:08 Last Admin: 07/02/20 22:48 Dose: Not Given Documented by: Benztropine Mesylate (Cogentin) 2 mg PO ONETIME ONE Stop: 07/02/20 21:55 Last Admin: 07/02/20 22:13 Dose: 2 mg Documented by: Benztropine Mesylate (Cogentin) 1 mg PO BEDTIME [facility] Last Admin: 07/19/20 20:54 Dose: 1 mg Documented by: Benztropine Mesylate (Cogentin) 1 mg PO BID [facility] Last Admin: 07/26/20 10:13 Dose: 1 mg Documented by: Diltiazem HCl (Diltiazem) 20 mg IVPUSH ONETIME ONE Stop: 07/07/20 02:41 Last Admin: 07/07/20 04:35 Dose: Not Given Documented by: Fluconazole (Diflucan) 150 mg PO ONETIME ONE Stop: 07/19/20 10:31 Last Admin: 07/19/20 11:48 Dose: 150 mg Documented by: Haloperidol (Haldol) 5 mg PO BEDTIME [facility] Last Admin: 07/08/20 20:21 Dose: 5 mg Documented by: Haloperidol (Haldol) 10 mg PO BEDTIME [facility] Last Admin: 07/09/20 20:08 Dose: 10 mg Documented by: Ceftriaxone Sodium 1 gm/ (Sodium Chloride) 100 mls @ 200 mls/hr IV STAT ONE Stop: 07/02/20 21:33 Last Admin: 07/02/20 22:14 Dose: Not Given Documented by: Sodium Chloride (Normal Saline) 2,500 mls @ 2,500 mls/hr IV BOLUS ONE; Protocol Stop: 07/02/20 22:03 Last Admin: 07/02/20 22:12 Dose: 2,500 mls/hr Documented by: Ceftriaxone Sodium/Dextrose (Rocephin In Dextrose,Iso-Osm 1 Gm/50 Ml) Confirm Administered Dose 50 mls @ as directed .ROUTE .K-MED ONE Stop: 07/02/20 21:40 Last Admin: 07/02/20 21:55 Dose: Not Given Documented by: Ceftriaxone Sodium/Dextrose 1 (gm/ Premix) 50 mls @ 100 mls/hr IV ONETIME ONE Stop: 07/02/20 22:11 Last Admin: 07/02/20 22:13 Dose: 100 mls/hr Documented by: Sodium Chloride (Normal Saline) 1,000 mls @ 125 mls/hr IV ASDIRECTED [facility] Sodium Chloride (Normal Saline) 1,000 mls @ 150 mls/hr IV ASDIRECTED [facility] Last Admin: 07/06/20 14:50 Dose: 150 mls/hr Documented by: Sodium Chloride (Normal Saline) 1,000 mls @ 999 mls/hr IV .Bolus ONE Stop: 07/03/20 14:17 Last Admin: 07/03/20 16:04 Dose: 999 mls/hr Documented by: Ceftriaxone Sodium/Dextrose 1 (gm/ Premix) 50 mls @ 100 mls/hr IV Q24H [facility] Last Admin: 07/07/20 03:14 Dose: 100 mls/hr Documented by: Sodium Chloride (Normal Saline) 1,000 mls @ 999 mls/hr IV .Bolus ONE Stop: 07/05/20 10:37 Last Admin: 07/05/20 22:07 Dose: Not Given Documented by: Sodium Chloride (Normal Saline) 1,000 mls @ 999 mls/hr IV .Bolus ONE Stop: 07/05/20 10:57 Last Admin: 07/05/20 10:11 Dose: 999 mls/hr Documented by: Sodium Chloride (Normal Saline) 1,000 mls @ 75 mls/hr IV ASDIRECTED [facility] Last Admin: 07/09/20 03:32 Dose: 75 mls/hr Documented by: Lactated Ringer's (Ringers, Lactated) 500 mls @ 999 mls/hr IV .BOLUS ONE Stop: 07/07/20 03:09 Last Admin: 07/07/20 02:50 Dose: 999 mls/hr Documented by: Magnesium Sulfate (Magnesium Sulfate In Water Premix) 100 mls @ 50 mls/hr IV ONETIME ONE Stop: 07/07/20 05:59 Last Admin: 07/07/20 04:00 Dose: 50 mls/hr Documented by: Lactated Ringer's (Ringers, Lactated) 500 mls @ 999 mls/hr IV BOLUS [facility] Stop: 07/07/20 07:31 Last Admin: 07/07/20 07:20 Dose: 999 mls/hr Documented by: Sodium Chloride (Normal Saline) 500 mls @ 999 mls/hr IV .BOLUS ONE Stop: 07/07/20 19:00 Last Admin: 07/07/20 18:30 Dose: 999 mls/hr Documented by: Magnesium Sulfate (Magnesium Sulfate In Water Premix) 2 gm in 50 mls @ 50 mls/hr IV ONETIME ONE Stop: 07/08/20 10:59 Last Admin: 07/08/20 10:57 Dose: 50 mls/hr Documented by: Magnesium Sulfate (Magnesium Sulfate In Water Premix) 2 gm in 50 mls @ 50 mls/hr IV ONETIME ONE Stop: 07/09/20 10:59 Last Admin: 07/09/20 10:58 Dose: 50 mls/hr Documented by: Piperacillin Sod/Tazobactam (Sod 3.375 gm/ Sodium Chloride) 50 mls @ 100 mls/hr IV Q8H [facility] Last Admin: 07/10/20 06:37 Dose: 100 mls/hr Documented by: Lactated Ringer's (Ringers, Lactated) 500 mls @ 999 mls/hr IV .BOLUS ONE Stop: 07/10/20 01:42 Last Admin: 07/10/20 01:27 Dose: 999 mls/hr Documented by: Lactated Ringer's (Ringers, Lactated) 1,000 mls @ 100 mls/hr IV ASDIRECTED [facility] Last Admin: 07/15/20 05:15 Dose: 100 mls/hr Documented by: Piperacillin Sod/Tazobactam (Sod 3.375 gm/ Sodium Chloride) 50 mls @ 100 mls/hr IV Q6H [facility] Levofloxacin/Dextrose 750 mg/ (Premix) 150 mls @ 100 mls/hr IV Q24H [facility] Last Admin: 07/13/20 10:12 Dose: 100 mls/hr Documented by: Magnesium Sulfate (Magnesium Sulfate In Water Premix) 2 gm in 50 mls @ 50 mls/hr IV ONETIME ONE Stop: 07/11/20 09:59 Last Admin: 07/11/20 08:58 Dose: 50 mls/hr Documented by: Lactated Ringer's (Ringers, Lactated) 1,000 mls @ 999 mls/hr IV .BOLUS ONE Stop: 07/11/20 13:09 Last Admin: 07/11/20 12:42 Dose: 999 mls/hr Documented by: Magnesium Sulfate (Magnesium Sulfate In Water Premix) 2 gm in 50 mls @ 50 mls/hr IV ONETIME ONE Stop: 07/12/20 09:14 Last Admin: 07/12/20 08:30 Dose: 50 mls/hr Documented by: Sodium Chloride (Normal Saline) 500 mls @ 999 mls/hr IV .BOLUS [facility] Sodium Chloride (Normal Saline) 1,000 mls @ 125 mls/hr IV ONETIME ONE Stop: 07/19/20 15:51 Last Admin: 07/19/20 08:20 Dose: 125 mls/hr Documented by: Magnesium Sulfate (Magnesium Sulfate In Water Premix) 2 gm in 50 mls @ 50 mls/hr IV ONETIME ONE Stop: 07/20/20 09:14 Last Admin: 07/20/20 09:06 Dose: 50 mls/hr Documented by: Sodium Chloride (Normal Saline) 1,000 mls @ 125 mls/hr IV Q8H [facility] Stop: 07/20/20 17:29 Last Admin: 07/20/20 10:37 Dose: 125 mls/hr Documented by: Lactated Ringer's (Ringers, Lactated) 1,000 mls @ 999 mls/hr IV .BOLUS ONE Stop: 07/21/20 12:40 Last Admin: 07/21/20 11:40 Dose: 999 mls/hr Documented by: Piperacillin Sod/Tazobactam (Sod 4.5 gm/ Sodium Chloride) 100 mls @ 200 mls/hr IV Q8H [facility] Last Admin: 07/23/20 06:24 Dose: 200 mls/hr Documented by: Vancomycin HCl 1.25 gm/ Sodium (Chloride) 250 mls @ 250 mls/hr IV Q12H [facility] Last Admin: 07/23/20 03:50 Dose: 250 mls/hr Documented by: Lactated Ringer's (Ringers, Lactated) 1,000 mls @ 999 mls/hr IV .BOLUS ONE Stop: 07/21/20 16:33 Last Admin: 07/21/20 15:42 Dose: 999 mls/hr Documented by: Lactated Ringer's (Ringers, Lactated) 1,000 mls @ 125 mls/hr IV ASDIRECTED [facility] Last Admin: 07/26/20 08:17 Dose: 125 mls/hr Documented by: Magnesium Sulfate 4 gm/ Premix 100 mls @ 33.333 mls/hr IV ONETIME ONE Stop: 07/22/20 13:08 Last Admin: 07/22/20 10:34 Dose: 33.333 mls/hr Documented by: Levofloxacin/Dextrose 750 mg/ (Premix) 150 mls @ 100 mls/hr IV Q24H [facility] Last Admin: 07/24/20 11:02 Dose: 100 mls/hr Documented by: Magnesium Sulfate 4 gm/ Premix 100 mls @ 50 mls/hr IV ONETIME ONE Stop: 07/24/20 10:03 Last Admin: 07/24/20 08:28 Dose: 50 mls/hr Documented by: Magnesium Sulfate (Magnesium Sulfate In Water Premix) 2 gm in 50 mls @ 50 mls/hr IV ONETIME ONE Stop: 07/26/20 09:14 Last Admin: 07/26/20 09:26 Dose: 50 mls/hr Documented by: Magnesium Sulfate 4 gm/ Premix 100 mls @ 50 mls/hr IV ONETIME ONE Stop: 08/01/20 14:28 Last Admin: 08/01/20 13:17 Dose: 50 mls/hr Documented by: Influenza Virus Vaccine (Fluzone Quad [id number] Syringe) 60 mcg IM .ONCE ONE Stop: 07/16/20 13:01 Last Admin: 07/17/20 11:24 Dose: 60 mcg Documented by: Iopamidol (Isovue Multipack-370 (76%)) 100 ml IVPUSH ONETIME STA Stop: 07/10/20 13:03 Last Admin: 07/10/20 13:05 Dose: 100 ml Documented by: Levofloxacin (Levaquin) 750 mg PO Q24H [facility] Last Admin: 07/21/20 11:52 Dose: 750 mg Documented by: Lidocaine HCl (Lidocaine 5%) 0 gm TOP Q6HR PRN PRN Reason: Pain Last Admin: 07/09/20 13:07 Dose: 1 applic Documented by: Lorazepam (Ativan) Confirm Administered Dose 2 mg .ROUTE .STK-MED ONE Stop: 07/03/20 00:30 Last Admin: 07/03/20 00:37 Dose: Not Given Documented by: Lorazepam (Ativan) 1 mg IVPUSH NOW STA Stop: 07/03/20 00:37 Last Admin: 07/03/20 00:38 Dose: 1 mg Documented by: Lorazepam (Ativan) 1 mg IVPUSH ONETIME ONE Stop: 07/03/20 00:48 Last Admin: 07/03/20 00:50 Dose: 1 mg Documented by: Lorazepam (Ativan) 1 mg IVPUSH Q6H PRN PRN Reason: Agitation Lorazepam (Ativan) 1 mg IVPUSH Q3H PRN PRN Reason: Agitation Last Admin: 07/18/20 17:55 Dose: 1 mg Documented by: Lorazepam (Ativan) 2 mg IVPUSH ONETIME ONE Stop: 07/09/20 22:41 Last Admin: 07/09/20 22:55 Dose: 2 mg Documented by: Lorazepam (Ativan) 2 mg IVPUSH ONETIME ONE Stop: 07/10/20 22:26 Last Admin: 07/10/20 22:37 Dose: 2 mg Documented by: Magnesium Sulfate (Magnesium Sulfate In Water Premix) 2 gm IV ONETIME ONE Stop: 07/11/20 08:04 Last Admin: 07/11/20 09:11 Dose: Not Given Documented by: Midodrine (Midodrine) 5 mg PO DAILY [facility] Last Admin: 07/26/20 10:13 Dose: 5 mg Documented by: Piperacillin Sod/Tazobactam Sod (Piperacil-Tazobact) 4.5 gm .ROUTE .STK-MED ONE Stop: 07/21/20 15:01 Pneumococcal Polyvalent Vaccine (Pneumovax 23) 25 mcg IM .ONCE ONE Stop: 07/16/20 11:57 Last Admin: 07/17/20 13:17 Dose: 25 mcg Documented by: Potassium Chloride (Klor-Con M20) 40 meq PO ONETIME ONE Stop: 07/05/20 15:58 Last Admin: 07/05/20 16:14 Dose: 40 meq Documented by: Potassium Chloride (Klor-Con M20) 40 meq PO ONETIME ONE Stop: 07/07/20 03:42 Last Admin: 07/07/20 03:59 Dose: 40 meq Documented by: Potassium Chloride (Klor-Con M20) 40 meq PO ONETIME ONE Stop: 07/09/20 09:47 Last Admin: 07/09/20 10:58 Dose: 40 meq Documented by: Potassium Chloride (Klor-Con M20) 40 meq PO ONETIME ONE Stop: 07/24/20 08:05 Last Admin: 07/24/20 08:28 Dose: 40 meq Documented by: Propranolol HCl (Inderal La) 60 mg PO DAILY [facility] Last Admin: 07/21/20 09:55 Dose: 60 mg Documented by: Sodium Chloride (Saline Flush) 10 ml FLUSH ASDIRECTED PRN PRN Reason: Keep Vein Open Sodium Chloride (Saline Flush) 2.5 ml FLUSH ASDIRECTED PRN PRN Reason: Keep Vein Open Sterile Water (Sterile Water For Injection) 1.2 ml INJECT ONETIME ONE Stop: 07/03/20 00:59 Last Admin: 07/03/20 01:22 Dose: 1.2 ml Documented by: Vancomycin HCl (Vancomycin) 1.25 gm .ROUTE .STK-MED ONE Stop: 07/21/20 15:01 Ziprasidone (Geodon) 10 mg IM ONETIME ONE Stop: 07/03/20 00:59 Last Admin: 07/03/20 01:04 Dose: 10 mg Documented by: Ziprasidone (Geodon) Confirm Administered Dose 20 mg .ROUTE .STK-MED ONE Stop: 07/03/20 00:59 Last Admin: 07/03/20 01:15 Dose: Not Given Documented by:
== END 2020-08-02 10:30 | disposition home or self-care (01) | DRG 682 ==
LOC: MW.ED 19:58 → MW.MS 23:37
PROVIDERS: ADMIT Internal Medicine; ATTEND Internal Medicine
DX: N17.9 Acute kidney failure, unspecified (principal); G93.41 Metabolic encephalopathy; N41.0 Acute prostatitis; E87.6 Hypokalemia; B37.49 Other urogenital candidiasis; R79.89 Other specified abnormal findings of blood chemistry; R65.10 Systemic inflammatory response syndrome (SIRS) of non-infectious origin without acute organ dysfunction; N13.9 Obstructive and reflux uropathy, unspecified; I10 Essential (primary) hypertension; G30.9 Alzheimer's disease, unspecified; F02.80 Dementia in other diseases classified elsewhere, unspecified severity, without behavioral disturbance, psychotic disturbance, mood disturbance, and anxiety; Z66 Do not resuscitate; Z20.828 Contact with and (suspected) exposure to other viral communicable diseases; M19.90 Unspecified osteoarthritis, unspecified site; F20.9 Schizophrenia, unspecified; F03.90 Unspecified dementia, unspecified severity, without behavioral disturbance, psychotic disturbance, mood disturbance, and anxiety; N32.0 Bladder-neck obstruction; R29.6 Repeated falls; D72.829 Elevated white blood cell count, unspecified; Z96.641 Presence of right artificial hip joint; Z96.651 Presence of right artificial knee joint; E87.5 Hyperkalemia; D64.9 Anemia, unspecified; I95.9 Hypotension, unspecified; G24.9 Dystonia, unspecified; R45.1 Restlessness and agitation; Z88.8 Allergy status to other drugs, medicaments and biological substances; Z79.899 Other long term (current) drug therapy
CPT/HCPCS: 36415; 51702; 51798; 70450; 70450-26; 71045; 71045-26; 71046; 71046-26; 71250; 71250-26; 74176; 74176-26; 74177; 74177-26; 80048; 80053; 80202; 81001; 81003; 82550; 82570; 82962; 83605; 83735; 84100; 84300; 84484; 85025; 85610; 87040; 87086; 87220; 90686; 90732; 93005; 96365; 97110-GP; 97162-GP; 97165-GO; 97530-GP; 99291; A9270-GY; G0008; G0009; J0696; J1650; J1956; J2060; J2543; J3370; J3475; J3486; J7030; J7040; J7050; J7120; Q9967; U0002